=== PATIENT | male | born 1940 | race Caucasian/White ===

== ENCOUNTER → 2017-08-05 11:17 | Outpatient (CLI) | payer MEDICARE, MEDICAID, SELFPAY ==
[2017-08-05 12:51] LABS: Hemoglobin A1c 6.7 % (4.2-6.3)
[2017-08-05 12:56] LABS: Anion Gap 10 (5-15); BUN 19 mg/dL (7-18); BUN/Creat Ratio 17.9 RATIO (10-20); Chloride 107 mmol/L (98-107); Creatinine, Serum 1.06 mg/dL (0.70-1.30); EST Glomerular Filtration Rate 72 mL/min (>60); Est Glom Filt Rate - Afr Amer 87 mL/min (>60); Glucose 141 mg/dL (70-110); Potassium 4.1 mmol/L (3.5-5.1); Sodium Level 143 mmol/L (136-145); Thyroid Stim Hormone (TSH) 1.76 uIU/mL (0.358-3.74)
== END ==
PROVIDERS: Family Provider Family Medicine; PCP Family Medicine; Visit Provider Family Medicine
DX: E11.9 Type 2 diabetes mellitus without complications (principal); I10 Essential (primary) hypertension; R00.0 Tachycardia, unspecified
CPT/HCPCS: 36415; 80048; 83036; 84439; 84443

== ENCOUNTER → 2017-08-09 10:21 | Outpatient (CLI) | payer MEDICARE, MEDICAID, SELFPAY ==
[2017-07-11 19:00] VITALS: BP 124/63
[2017-08-01 09:47] VITALS: BP 114/76; BMI 32.5
--- NOTE | 2017-08-09 10:26 | RAD_ITS ---
STUDY: X-RAY - PELVIS AND RIGHT HIP REASON FOR EXAM: Male, 77 years old. Right hip pain following multiple falls. TECHNIQUE: Radiological exam, hip, unilateral, with pelvis when performed; 2 or 3 views. COMPARISON: None. FINDINGS: There is a non-specific bowel gas pattern. There are atherosclerotic vascular calcifications of the pelvic arteries. There are multiple calcified phleboliths. Normal bilateral iliac wings, sacroiliac joints and visualized sacrum. Normal bilateral superior and inferior pubic rami. Normal pubic symphysis. Normal bilateral ischial tuberosities. Normal visualized femoral head. Normal acetabulum. Normal hip joint. Prior laminectomy and fusion at the L4-L5 and L5-S1 levels. RAD/Hip 2-3 Views with Pelvis IMPRESSION: No acute abnormality is seen. Electronically Signed: Kenneth Vazquez MD at 15:52 EST Tel [phone], Service support ,
== END ==
PROVIDERS: Family Provider Family Medicine; PCP Family Medicine; Visit Provider Family Medicine
DX: M25.551 Pain in right hip (principal); R29.6 Repeated falls
CPT/HCPCS: 73502

== ENCOUNTER → 2017-10-03 12:47 | Outpatient (CLI) | payer MEDICARE, MEDICAID, SELFPAY ==
[2017-10-03 16:14] LABS: ALB/GLOB Ratio 0.9 RATIO (0.9-2.4); AST(SGOT) 15 U/L (15-37); Alanine Aminotransfer ALT/SGPT 28 U/L (16-61); Albumin, Serum 3.5 g/dL (3.2-5.0); Alkaline Phosphatase 82 U/L (45-117); Anion Gap 7 (5-15); BUN 18 mg/dL (7-18); BUN/Creat Ratio 16.7 RATIO (10-20); Calcium,Total 8.5 mg/dL (8.5-10.1); Chloride 104 mmol/L (98-107); Cholesterol 61 mg/dL (200); Creatinine, Serum 1.08 mg/dL (0.70-1.30); EST Glomerular Filtration Rate 70 mL/min (>60); Est Glom Filt Rate - Afr Amer 85 mL/min (>60); Globulin 3.9 g/dL (2.2-4.2); Glucose 169 mg/dL (74-106); High Density Lipoprotein 25 mg/dL; Potassium 3.6 mmol/L (3.5-5.1); Protein, Total 7.4 g/dL (6.4-8.2); Sodium Level 139 mmol/L (136-145); Thyroid Stim Hormone (TSH) 1.33 uIU/mL (0.358-3.74); Triglycerides 122 mg/dL; Very Low Density Lipoprotein 24 mg/dL (5-40)
[2017-10-03 16:15] LABS: Absolute Lymphocyte Count 1.82 X10^3/ul (0.83-4.51); Basophil# 0.03 X10^3/uL; Basophil% 0.3 % (0-1); Eosinophil# 0.24 X10^3/uL; Eosinophils% 2.4 % (0-5); Hematocrit 39.2 % (40-54); Hemoglobin 12.5 g/dl (13.0-16.5); Lymphocyte # 1.82 X10^3/ul (4.0); Lymphocyte % 18.4 % (19-41); Mean Corp Hgb Conc 31.9 g/gl (32-36); Mean Corpuscular Hgb 26.5 pg (27.0-32.0); Mean Corpuscular Volume 83.1 fL (80-94); Mean Platelet Vol. 10.1 fl (6.2-12.0); Monocyte# 0.74 X10^3/uL; Monocyte% 7.5 % (0-10); Neutrophil # 7.04 X10^3/uL (2.7-7.7); Neutrophil % 71.1 % (47-70); Platelet Count 271 K/mm3 (150-450); RBC Distribution Width CV 15.3 % (11.6-14.6); RBC Distribution Width SD 46.1 fl (35.1-43.9); Red Blood Count 4.72 M/mm3 (4.6-6.2); White Blood Count 9.9 K/mm3 (4.4-11.0)
[2017-10-03 16:19] LABS: POSITIVE COUNT NO; POSITIVE DIFFERENTIAL NO; POSITIVE MORPHOLOGY NO
[2017-10-04 10:05] LABS: Vitamin D,25 Hydroxy 42.4 ng/mL (29.95-100.01)
== END ==
PROVIDERS: Family Provider Family Medicine Geriatric Medicine; PCP Family Medicine Geriatric Medicine; Visit Provider Nurse Practitioner Family
DX: I48.0 Paroxysmal atrial fibrillation (principal); I25.10 Atherosclerotic heart disease of native coronary artery without angina pectoris; E11.65 Type 2 diabetes mellitus with hyperglycemia; E78.5 Hyperlipidemia, unspecified; I10 Essential (primary) hypertension; R42 Dizziness and giddiness; R53.83 Other fatigue; E55.9 Vitamin D deficiency, unspecified; Z87.891 Personal history of nicotine dependence
CPT/HCPCS: 36415; 80053; 80061; 82306; 84443; 85025; 93225; 93226

== ENCOUNTER → 2017-10-22 06:55 | Outpatient (CLI) | payer MEDICARE, MEDICAID, SELFPAY ==
--- NOTE | 2017-10-22 10:06 | STRESSREP ---
Stress Test Report Date: 10/22/2017 Procedure: Pharmacologic stress nuclear imaging study Indications: Fatigue; CAD; status post PCI; status post CABG; atrial dysrhythmia Consent: Per the patient Procedure: The patient underwent pharmacologic (Regadenoson) evaluation with a peak heart rate of 129 beats per minute (90 predicted maximal heart rate) and a peak blood pressure of 120/82 mmHg. The baseline ECG demonstrated atrial flutter with right bundle branch block pattern. The peak pharmacologic ECG demonstrated no obvious ECG changes. There were no additional cardiac dysrhythmias pretest, during pharmacologic infusion, or recovery. There was no complaint of chest discomfort during pharmacologic infusion or recovery. The examination was discontinued secondary to completion of protocol. Impression: 1. Pharmacologic (Regadenoson) evaluation 2. Peak pharmacologic ECG with continued atrial flutter with right bundle branch block pattern. 3. There were no additional cardiac dysrhythmias pretest, during pharmacologic infusion, or recovery 4. Nuclear images pending Myocardial perfusion imaging study: Technique: The patient was injected with 14.5 millicuries of technetium 99m Cardiolite and subsequently rest SPECT Cardiolite nuclear imaging was obtained in the horizontal long, vertical long, and short axis views. The patient underwent pharmacologic (Regadenoson) evaluation with a peak heart rate of 129 beats per minute (90 % percent predicted maximal heart rate) and a peak blood pressure of 120/82 mmHg. The patient was injected with 45.0 millicuries of technetium 99m Cardiolite and subsequently stress SPECT Cardiolite nuclear imaging was obtained in the horizontal long, vertical long, and short axis views. A gated Cardiolite study at peak stress was obtained. Interpretation: Rest and stress SPECT Cardiolite nuclear imaging status post realignment, normalization, and attenuation correction demonstrate diminished tracer uptake in portions of the basal anteroseptal and inferior septal segments without significant change between rest and stress. There is diminished end systolic thickening and brightening in the aforementioned areas. The gated Cardiolite study demonstrates diminished myocardial thickening and inward wall motion in the aforementioned areas. The reported LVEF is 57 %. Impression: 1. Rest and stress SPECT Cardiolite nuclear imaging demonstrate myocardial perfusion changes appearing compatible with an area of previous myocardial injury/infarction involving portions of the basal anteroseptal and inferior septal segments with no myocardial perfusion changes consider diagnostic for associated stress-induced myocardial ischemia. 2. The gated Cardiolite study reports an LVEF of 57 %. This note was generated with [employer] software. It may contain incorrect words, spelling, and punctuation that were not noted in checking the note before signing.
== END ==
PROVIDERS: Family Provider Family Medicine Geriatric Medicine; PCP Family Medicine Geriatric Medicine; Visit Provider Nurse Practitioner Family
DX: I25.10 Atherosclerotic heart disease of native coronary artery without angina pectoris (principal); R53.83 Other fatigue
CPT/HCPCS: 78452; 93017; A9500; A4216; J2785

== ENCOUNTER → 2017-11-18 06:21 | Outpatient (CLI) | payer MEDICARE, MEDICAID, SELFPAY ==
[2017-11-18 06:50] LABS: 24HR. UA Prot. Total Volume 1775 mL; Urine Protein (24 Hour) 12.9 mg/dL (<11.9)
[2017-11-18 06:52] LABS: 24H Urine Creat. Total Vol. 1.78 L; 24HR. Urine Creatinine 1.77 g/24 HR (0.90-2.10)
[2017-11-18 09:10] LABS: PSA,Total - Annual Screen 1.64 ng/mL (0.00-4.00)
== END ==
PROVIDERS: Family Provider Family Medicine Geriatric Medicine; PCP Family Medicine Geriatric Medicine; Visit Provider Family Medicine Geriatric Medicine
DX: N40.0 Benign prostatic hyperplasia without lower urinary tract symptoms (principal); R80.9 Proteinuria, unspecified
CPT/HCPCS: 36415; 82570; 84153; 84156; G0103

== ENCOUNTER → 2017-12-21 07:13 | Outpatient (CLI) | payer MEDICARE, MEDICAID, SELFPAY ==
[2017-12-21 08:35] LABS: Hematocrit 40.7 % (40-54); Hemoglobin 13.1 g/dl (13.0-16.5); Mean Corp Hgb Conc 32.2 g/gl (32-36); Mean Corpuscular Hgb 26.2 pg (27.0-32.0); Mean Corpuscular Volume 81.4 fL (80-94); Platelet Count 225 K/mm3 (150-450); RBC Distribution Width SD 47.9 fl (35.1-43.9); White Blood Count 8.5 K/mm3 (4.4-11.0)
[2017-12-21 08:36] LABS: Scan Indicated on CBC? Y/N NO
[2017-12-21 09:47] LABS: BNP,B-Type NATRIURETIC PEPTIDE 199.2 pg/mL (0-100)
[2017-12-21 09:50] LABS: Anion Gap 9 (5-15); BUN 17 mg/dL (7-18); BUN/Creat Ratio 19.1 RATIO (10-20); Calcium,Total 8.7 mg/dL (8.5-10.1); Chloride 108 mmol/L (98-107); Creatinine, Serum 0.89 mg/dL (0.70-1.30); EST Glomerular Filtration Rate 88 mL/min (>60); Est Glom Filt Rate - Afr Amer 106 mL/min (>60); Glucose 108 mg/dL (74-106); Sodium Level 143 mmol/L (136-145)
== END ==
PROVIDERS: Family Provider Family Medicine Geriatric Medicine; PCP Family Medicine Geriatric Medicine; Visit Provider Nurse Practitioner Family
DX: I25.10 Atherosclerotic heart disease of native coronary artery without angina pectoris (principal); I48.0 Paroxysmal atrial fibrillation; I10 Essential (primary) hypertension; R06.02 Shortness of breath
CPT/HCPCS: 36415; 80048; 83880; 85027

== ENCOUNTER → 2018-01-16 06:44 | Outpatient (CLI) | payer MEDICARE, MEDICAID, SELFPAY ==
[2018-01-16 07:57] LABS: Hemoglobin A1c 8.2 % (4.2-6.3)
== END ==
PROVIDERS: Family Provider Family Medicine; PCP Family Medicine; Visit Provider Family Medicine
DX: E11.65 Type 2 diabetes mellitus with hyperglycemia (principal)
CPT/HCPCS: 36415; 83036

== ENCOUNTER → 2018-02-05 06:56 | Outpatient (CLI) | payer MEDICARE, MEDICAID, SELFPAY ==
[2018-02-05 07:31] LABS: Hematocrit 40.6 % (40-54); Mean Corpuscular Hgb 26.9 pg (27.0-32.0); Mean Corpuscular Volume 83.9 fL (80-94); Mean Platelet Vol. 9.9 fl (6.2-12.0); Platelet Count 229 K/mm3 (150-450); RBC Distribution Width CV 15.7 % (11.6-14.6); RBC Distribution Width SD 47.6 fl (35.1-43.9); Red Blood Count 4.84 M/mm3 (4.6-6.2); White Blood Count 10.9 K/mm3 (4.4-11.0)
[2018-02-05 07:34] LABS: Scan Indicated on CBC? Y/N NO
[2018-02-05 07:43] LABS: Anion Gap 8 (5-15); BUN 20 mg/dL (7-18); BUN/Creat Ratio 18.3 RATIO (10-20); Calcium,Total 8.7 mg/dL (8.5-10.1); Chloride 106 mmol/L (98-107); Creatinine, Serum 1.09 mg/dL (0.70-1.30); EST Glomerular Filtration Rate 69 mL/min (>60); Est Glom Filt Rate - Afr Amer 84 mL/min (>60); Glucose 178 mg/dL (74-106); Potassium 3.9 mmol/L (3.5-5.1); Sodium Level 141 mmol/L (136-145)
[2018-02-05 07:50] LABS: International Normalized Ratio 1.4; Prothrombin Time (Protime)PT. 17.2 SECONDS (11.7-14.9)
== END ==
PROVIDERS: Family Provider Family Medicine; PCP Family Medicine; Visit Provider Internal Medicine Cardiovascular Disease
DX: I48.2 Chronic atrial fibrillation (principal); I10 Essential (primary) hypertension
CPT/HCPCS: 36415; 80048; 85027; 85610

== ENCOUNTER → 2018-04-19 06:50 | Outpatient (CLI) | payer MEDICARE, MEDICAID, SELFPAY ==
[2018-04-19 09:13] LABS: Anion Gap 9 (5-15); BUN 20 mg/dL (7-18); BUN/Creat Ratio 19.8 RATIO (10-20); Calcium,Total 8.8 mg/dL (8.5-10.1); Chloride 104 mmol/L (98-107); Creatinine, Serum 1.01 mg/dL (0.70-1.30); EST Glomerular Filtration Rate 76 mL/min (>60); Est Glom Filt Rate - Afr Amer 92 mL/min (>60); Glucose 134 mg/dL (74-106); Potassium 4.1 mmol/L (3.5-5.1); Sodium Level 141 mmol/L (136-145)
[2018-04-19 09:20] LABS: Hemoglobin A1c 7.7 % (4.2-6.3)
== END ==
PROVIDERS: Family Provider Family Medicine; PCP Family Medicine
DX: E11.65 Type 2 diabetes mellitus with hyperglycemia (principal); I48.2 Chronic atrial fibrillation
CPT/HCPCS: 36415; 80048; 83036

== ENCOUNTER → 2018-08-29 07:54 | Outpatient (CLI) | payer MEDICARE, MEDICAID, SELFPAY ==
[2018-08-28 14:56] VITALS: BMI 34.0
[2018-08-29 10:07] LABS: D-Dimer Quantitative (DVT/PE) 0.42 FEU/ug/m (0.27-0.49)
== END ==
PROVIDERS: Family Provider Family Medicine; PCP Family Medicine; Visit Provider Family Medicine
DX: M79.89 Other specified soft tissue disorders (principal)
CPT/HCPCS: 36415; 85379

== ENCOUNTER → 2018-09-02 08:37 | Outpatient (CLI) | payer MEDICARE, MEDICAID, SELFPAY ==
[2018-08-28 14:56] VITALS: BMI 34.0
--- NOTE | 2018-09-02 08:48 | VDLE_ITS ---
Reason For Study: LEG SWELLING RIGHT LEFT CFV is compressible, spontaneous, phasic, GSV is normal. competent and demonstrates normal CFV is compressible, spontaneous, phasic, augmentation. competent, and demonstrates normal Procedure augmentation. Exam performed in department. FV is compressible, spontaneous, phasic, A preliminary report was called and/or faxed competent and demonstrates normal to Dr. Monty Cerna. augmentation. POP V is compressible, spontaneous, phasic, competent and demonstrates normal augmentation. T/P Trunk is compressible. PTV is compressible. LT PerV is compressible. Interpretation Summary There is no evidence of left lower extremity deep vein thrombosis. Left greater saphenous vein appears patent and compressible segmentally. Normal flow patterns right common femoral vein Ordering Physician: Shahzad Cerna Referring Physician: Shahzad Cerna Performed By: Kianna Shah RVT
== END ==
PROVIDERS: Family Provider Family Medicine; PCP Family Medicine; Referring Provider Family Medicine; Visit Provider Family Medicine
DX: R06.02 Shortness of breath (principal); M79.89 Other specified soft tissue disorders
CPT/HCPCS: 93971

== ENCOUNTER → 2018-09-23 06:45 | Outpatient (CLI) | payer MEDICARE, MEDICAID, SELFPAY ==
[2018-09-08 09:30] VITALS: BMI 34.0
[2018-09-23 07:58] LABS: Anion Gap 5 (5-15); BUN 17 mg/dL (7-18); BUN/Creat Ratio 15.7 RATIO (10-20); Calcium,Total 8.5 mg/dL (8.5-10.1); Chloride 108 mmol/L (98-107); Creatinine, Serum 1.08 mg/dL (0.70-1.30); EST Glomerular Filtration Rate 70 mL/min (>60); Est Glom Filt Rate - Afr Amer 85 mL/min (>60); Glucose 184 mg/dL (74-106); Potassium 3.9 mmol/L (3.5-5.1); Sodium Level 140 mmol/L (136-145)
== END ==
PROVIDERS: Family Provider Family Medicine; PCP Family Medicine; Referring Provider Internal Medicine Cardiovascular Disease; Visit Provider Internal Medicine Cardiovascular Disease
DX: R60.0 Localized edema (principal)
CPT/HCPCS: 36415; 80048

== ENCOUNTER 2019-01-08 20:37 | Inpatient (IN) | payer MEDICARE, MEDICAID, SELFPAY ==
[2018-10-14 14:40] VITALS: BMI 34.0
[2019-01-08 20:38] VITALS: BP 116/49; PULSE 79; RESP 16; TEMP 36.5; O2SAT 95; BMI 33.6
[2019-01-08 22:01] VITALS: BP 114/49; PULSE 68; RESP 9; TEMP 36.5; O2SAT 93
--- NOTE | 2019-01-08 22:10 | RAD_ITS ---
STUDY: X-RAY CHEST REASON FOR EXAM: Male, 78 years old. Short of breath and dizziness. TECHNIQUE: Single AP portable view of the chest. COMPARISON: 07/11/2017. FINDINGS: The lungs are clear and expanded. There is no demonstrated pleural abnormality. Sternal cerclage wires and vascular clips are present from a prior sternotomy and coronary artery bypass graft procedure (CABG). Normal mediastinum and margarita. Normal visualized pulmonary arteries. Normal visualized aortic arch and descending thoracic aorta. Normal visualized thoracic spine. Normal visualized ribs, clavicles, and shoulders. There is no demonstrated abnormality of the visualized soft tissue structures of the upper abdomen. RAD/Chest 1 View (Portable) IMPRESSION: No acute chest disease. Electronically Signed: Duane Woody MD at 22:50 EDT , Service support ,
--- NOTE | 2019-01-08 22:10 | CT_ITS ---
STUDY: CT BRAIN WITHOUT CONTRAST REASON FOR EXAM: Male, 78 years old. Weakness. Dizziness. RADIATION DOSAGE (If Supplied By Facility): CTDIvol = ( 44.99 ) mGy, DLP = ( 863.60 ) mGycm TECHNIQUE: Transaxial CT imaging of the brain was performed without administration of intravenous contrast material. Individualized dose optimization techniques were used for this CT. COMPARISON: 07/11/2017 FINDINGS: There is no definite acute abnormality. There is diffuse mild symmetric atrophy. There is atrophy of the posterior fossa structures. Probable arachnoid cyst in the left posterior fossa. There is diffuse small vessel ischemic disease of the white matter. There are stable bilateral lacunar infarcts. There is no definite acute infarct. There is no bleed. There is no gross mass, mass effect, or midline shift. There is no acute abnormality of the skull. No fractures. Grossly normal orbits. Grossly normal sinuses. CT/Brain/Head without Contrast IMPRESSION: Chronic age related changes and atrophy, old infarcts. No acute abnormality. Electronically Signed: Duane Woody MD at 22:44 EDT , Service support ,
--- NOTE | 2019-01-08 22:11 | EKG12_ITS ---
Test Reason : DIZZINESS Blood Pressure : / mmHG Vent. Rate : 068 BPM Atrial Rate : 068 BPM P-R Int : 210 ms QRS Dur : 162 ms QT Int : 522 ms P-R-T Axes : -04 -08 002 degrees QTc Int : 555 ms Sinus rhythm with 1st degree A-V block Right bundle branch block Abnormal ECG Confirmed by NAS TRIPP, JONAH ([id number]), director funds development THIERNO TUCKER ([id number]) on 01/12/2019 1:36:21 PM Referred By: Rishi Hilario Confirmed By:JONAH LOVELL MD
[2019-01-08 22:27] LABS: Absolute Lymphocyte Count 0.44 X10^3/ul (0.83-4.51); Absolute Neutrophil Count 11.2 X10^3/uL (2.0-7.7); Basophil# 0.01 X10^3/uL; Basophil% 0.1 % (0-1); Hemoglobin 13.7 g/dl (13.0-16.5); Lymphocyte # 0.44 X10^3/ul (4.0); Lymphocyte % 3.7 % (19-41); Mean Corp Hgb Conc 34.3 g/gl (32-36); Mean Corpuscular Hgb 28.5 pg (27.0-32.0); Mean Corpuscular Volume 83.2 fL (80-94); Mean Platelet Vol. 9.6 fl (6.2-12.0); Monocyte# 0.36 X10^3/uL; Neutrophil # 11.19 X10^3/uL (2.7-7.7); Platelet Count 151 K/mm3 (150-450); RBC Distribution Width CV 13.6 % (11.6-14.6); RBC Distribution Width SD 41.2 fl (35.1-43.9); Red Blood Count 4.81 M/mm3 (4.6-6.2)
[2019-01-08 22:29] LABS: International Normalized Ratio 1.2; Prothrombin Time (Protime)PT. 14.9 SECONDS (11.7-14.9)
[2019-01-08 22:30] LABS: Differential Indicated SCAN CRITERIA MET; POSITIVE COUNT NO; POSITIVE DIFFERENTIAL YES; POSITIVE MORPHOLOGY NO; Partial Thromboplast Time 32.9 Seconds (24.1-36.2)
[2019-01-08 22:37] LABS: AST(SGOT) 20 U/L (15-37); Alanine Aminotransfer ALT/SGPT 23 U/L (16-61); Albumin, Serum 3.4 g/dL (3.2-5.0); Alkaline Phosphatase 68 U/L (45-117); Anion Gap 9 (5-15); BUN 22 mg/dL (7-18); BUN/Creat Ratio 12.6 RATIO (10-20); Calcium,Total 8.4 mg/dL (8.5-10.1); Chloride 101 mmol/L (98-107); Creatinine, Serum 1.74 mg/dL (0.70-1.30); EST Glomerular Filtration Rate 40 mL/min (>60); Est Glom Filt Rate - Afr Amer 49 mL/min (>60); Estimated Creatinine Clearance 34.42 ml/min; Globulin 3.4 g/dL (2.2-4.2); Glucose 218 mg/dL (74-106); Potassium 3.6 mmol/L (3.5-5.1); Protein, Total 6.8 g/dL (6.4-8.2); Sodium Level 130 mmol/L (136-145)
[2019-01-08 22:46] LABS: Differential Comment SCANNED
[2019-01-08 23:46] VITALS: BP 105/52; PULSE 68; RESP 18; O2SAT 95
[2019-01-08 23:47] VITALS: BP 105/52; PULSE 68; RESP 18; TEMP 36.5; O2SAT 95
[2019-01-09] VITALS (17 sets, daily range): BP systolic 127–165; BP diastolic 56–75; PULSE 68–147; RESP 16–20; TEMP 36.5–37.9; O2SAT 91–97; BMI 30.4
--- NOTE | 2019-01-09 00:10 | ED.DCSUM_ITS ---
- ER Visit Summary Date of Service: 01/09/19 Chief Complaint: Weakness History of Present Illness: The patient is a 78 M who presents with general weakness and lightheadedness that began yesterday. Patient states he feels weak and is having difficulty walking due to the weakness. Patient denies any focal weakness. Patient admits to some diarrhea. Patient also admits to some chronic back pain. Patient states nothing makes his dizziness better or worse. Patient denies any chest pain or shortness of breath. Patient denies any nausea or vomiting. Physical Examination: Vital signs are stable. Patient is afebrile. Patient is in no acute distress. [place] is pink and moist. Neck is supple. Trachea is midline. There is no JVD noted. Heart was regular rate and rhythm. Lungs are clear and equal bilaterally. Abdomen is soft. Bowel sounds are normal. There is no tenderness. Extremities are intact. There is 1+ edema of the lower extremities bilaterally. Cranial nerves II through XII are intact. There are no focal motor or sensory deficits noted. Test Results: EKG showed normal sinus rhythm with first-degree AV block. There is a right bundle branch block pattern noted. Prior EKG dated 07/13/2017 showed atrial fibrillation with a right bundle branch block. Other than the change from atrial fibrillation to the normal sinus rhythm there are no changes compared to previous EKG. Portable chest x-ray was obtained. There is no acute cardiopulmonary process. CT scan of the brain was obtained. There is no acute abnormality. There are chronic changes noted. CBC shows a mild leukocytosis of 12.0. Comprehensive metabolic profile showed a sodium of 130. Creatinine was 1.74 which is increased from previous result of 1.08 on 09/23/2018. Glucose was elevated at 218. Emergency Department Course and Treatment: Patient was given IV fluids here. Patient was feeling a little bit better on reevaluation. Patient was still feeling weak in his lower extremities. Case was discussed with the hospitalist. Patient will be admitted to the hospital. Disposition: Admit to hospital Impression: 1. Acute kidney injury 2. General weakness This note was generated with [employer] software. It may contain incorrect words, spelling, and punctuation that were not noted in review of the chart prior to signing ED Disposition - Plan for ED Patient: Disposition: Acute Care Hospital [facility] Diagnosis: Acute kidney injury, General weakness Referrals: Shahzad Cerna DO [Primary Care Provider] -
[2019-01-09 00:34] LABS: Bacteria 0 SEEN /hpf (None Seen); Mucous, Urine 0 SEEN /hpf (<or=2+)
[2019-01-09 00:35] LABS: Color, Urine Yellow (Yellow); Glucose, Dipstick 50 mg/dl (Normal); Ketone-Dipstick 5 mg/dl (Negative); Leukocyte Esterase-Dipstick 100 /ul (Negative); Nitrite-Dipstick Negative (Negative); Occult Blood-Urine 10 /ul (Negative); Protein-Dipstick 100 mg/dl (Negative); Urine Clarity Sl. Cloudy (Clear); Urine Urobilinogen 4 mg/dl (Normal)
--- NOTE | 2019-01-09 00:35 | ED.RN ---
pt urinated on his own after water was given, no need for straight cath.
[2019-01-09 00:39] LABS: Urine Bilirubin Dipstick 3 mg/dL (Negative)
[2019-01-09 00:44] LABS: Hyaline Cast 25-50 SEEN /lpf (0-5); Red Blood Cells-Urine 0-5 SEEN /hpf (0-5); Squamous Epithelial Cells - UA 10-25 SEEN /hpf (0-5); White Blood Cells 0-5 SEEN /hpf (0-5)
[2019-01-09 00:45] LABS: Coarse Granular Cast 0-5 SEEN /lpf (0-5 /lpf)
[2019-01-09] MEDS: 0.9% Normal Saline 1,000 ML 1000 ML IV (00:47)
--- NOTE | 2019-01-09 00:55 | HP.PCM_ITS ---
Problem List (1) Acute kidney injury Status: Acute History of Present Illness Date of Admission: 01/09/19 Chief Complaint: weakness The patient is a 78 year old M with a significant history of TIA; BPH; essential hypertension; former tobacco abuse; proximal A. fib; CAD s/p CABG and stent; diabetes who presented to the emergency department with a 2-day history of weakness. Associated with symptoms is lightheadedness; malaise and multiple falls. Per his family patient fell 2 times on the day of presentation. Also, patient had multiple loose stools on the day of presentation. Patient reports left side abdominal pain. At the emergency department he was found to have a severe elevation of his creatinine; hyponatremia; and abnormal urinalysis. Of note his Lasix regimen was increased not too long ago. 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) Presence of stent in coronary artery (Chronic ~09/2013) PTCA/Stent to prox RCA and PTCA to PDA 11/30/2007; PTCA/Stent to mid RCA and mid LAD and second diagonal 02/25/2008; PTCA/PIETRO first DX, sequential SVG to OM1 and OM2 04/14/2008; PTCA/Stent to LXC AV groove branch and OM1 09/2013; Hx of CABG (Chronic ~12/22/07) DARNELL to LAD, SVG to Diag, sequential SVG to OM1 and OM2 12/22/2007; Mixed hyperlipidemia (Chronic) Essential hypertension (Chronic) Insomnia (Chronic) Candidiasis of scrotum (Chronic) Constipation (Chronic) Atherosclerosis of [place] coronary artery of [place] heart without angina pectoris (Chronic) PTCA/Stent to prox RCA and PTCA to PDA 11/30/2007; PTCA/Stent to mid RCA and mid LAD and second diagonal 02/25/2008; PTCA/PIETRO first DX, sequential SVG to OM1 and OM2 04/14/2008; PTCA/Stent to LXC AV groove branch and OM1 09/2013; CABG with DARNELL to LAD, SVG to diag, sequential SVG to OM1 and OM2 12/22/2007; Paroxysmal atrial fibrillation (Chronic) Type II diabetes mellitus, uncontrolled (Chronic) History of tobacco use (Chronic) 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) Medical History: Medical History (Last Reviewed 01/09/19 @ 06:17 by Rishi Hilario MD) Atherosclerosis of coronary artery bypass graft without angina pectoris (Chronic) I25.810 Presence of stent in coronary artery (Chronic) Onset Date: ~09/2013 Z95.5 PTCA/Stent to prox RCA and PTCA to PDA 11/30/2007; PTCA/Stent to mid RCA and mid LAD and second diagonal 02/25/2008; PTCA/PIETRO first DX, sequential SVG to OM1 and OM2 04/14/2008; PTCA/Stent to LXC AV groove branch and OM1 09/2013; 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) I25.2 Mixed hyperlipidemia (Chronic) E78.2 Essential hypertension (Chronic) I10 Atherosclerosis of [place] coronary artery of [place] heart without angina pectoris (Chronic) I25.10 PTCA/Stent to prox RCA and PTCA to PDA 11/30/2007; PTCA/Stent to mid RCA and mid LAD and second diagonal 02/25/2008; PTCA/PIETRO first DX, sequential SVG to OM1 and OM2 04/14/2008; PTCA/Stent to LXC AV groove branch and OM1 09/2013; CABG with DARNELL to LAD, SVG to diag, sequential SVG to OM1 and OM2 12/22/2007; Paroxysmal atrial fibrillation (Chronic) I48.0 Type II diabetes mellitus, uncontrolled (Chronic) E11.65 History of tobacco use (Chronic) Z87.891 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) N40.1, N13.8 Acute ischemic stroke (Acute) I63.9 Borderline elevated troponin (Acute) Left-sided weakness (Acute) M62.81 GERD (gastroesophageal reflux disease) K21.9 HLD (hyperlipidemia) (Inactive) E78.5 HTN (hypertension) (Inactive) I10 Allergies iodine Allergy (Verified 01/08/19 20:41) Hives tramadol Allergy (Verified 01/08/19 20:41) Other Home Medications: Ambulatory Orders Medication Instructions Recorded Hydrocodone Bitart/Apap 5-325 1 tab PO BID PRN PRN 07/04/13 [[place] 5/325] aspirin 81 mg tablet,delayed 81 mg PO QDAY 07/24/17 release kyxybyvcmzzw-zmbkfbly-qpqnzf tablet 1 tab PO QDAY 07/24/17 nitroglycerin 0.4 mg sublingual 0.4 mg SUBLINGUAL Q5M PRN #25 tab 01/23/18 tablet pen needle, diabetic 30 gauge x See Dose Instructions .ROUTE 03/11/18 5/ .MEDSUPPLY #100 ea insulin glargine (U-100) 100 44 unit SC QHS #15 ml 04/15/18 unit/mL (3 mL) subcutaneous pen Compression Stockings See Rx Instructions .ROUTE 09/08/18 .COMPLEX #1 clobetasol 0.05 % topical gel 1 applic TOPICAL DAILY PRN g 09/08/18 miscellaneous medical supply misc See Dose Instructions .ROUTE 09/08/18 .MEDSUPPLY #1 ea atorvastatin 80 mg tablet 80 mg PO QHS #90 tab 10/19/18 furosemide 20 mg tablet 20 mg PO .COMPLEX #240 tab 11/12/18 lansoprazole 30 mg capsule,delayed 30 mg PO DAILY #90 cap 11/12/18 release blood sugar diagnostic strips See Dose Instructions .ROUTE 11/13/18 .MEDSUPPLY #300 ea glimepiride 2 mg tablet 4 mg PO DAILY #90 tab 11/14/18 tamsulosin 0.4 mg capsule 0.4 mg PO QHS #90 cap 11/14/18 famotidine 40 mg tablet See Rx Instructions PO QHS #90 tab 12/02/18 pen needle, diabetic 32 gauge x See Rx Instructions .ROUTE 01/07/1907/13 .MEDSUPPLY #100 ea Metoprolol Tartrate [Lopressor 100 mg PO BID 01/08/19 (beta adelfo)] Diltiazem HCl [Cardizem Cd] 120 mg PO BID 01/09/19 Isosorbide Mononitrate [Imdur] 30 mg PO DAILY 01/09/19 Metoprolol Tartrate [Lopressor 50 mg PO BID 01/09/19 (beta adelfo)] Trazodone HCl 150 mg PO DAILY 01/09/19 Valsartan [Diovan] 160 mg PO DAILY 01/09/19 Surgical History: Surgical History (Last Reviewed 01/09/19 @ 06:17 by Rishi Hilario MD) Presence of Watchman left atrial appendage closure device (Resolved) Onset Date: ~03/04/18 Z95.818 Hx of CABG (Chronic) Onset Date: ~12/22/07 Z95.1 DARNELL to LAD, SVG to Diag, sequential SVG to OM1 and OM2 12/22/2007; History of back surgery Z98.890 History of cholecystectomy Z90.49 H/O carotid endarterectomy Z98.890 Right Presence of coronary angioplasty implant and graft Onset Date: ~09/2013 Z95.5 PTCA/Stent to prox RCA and PTCA to PDA 11/30/2007; PTCA/Stent to mid RCA and mid LAD and second diagonal 02/25/2008; PTCA/PIETRO first DX, sequential SVG to OM1 and OM2 04/14/2008; PTCA/Stent to LXC AV groove branch and OM1 09/2013; History of PTCA Z98.61 PTCA/Stent to prox RCA and PTCA to PDA 11/30/2007; PTCA/Stent to mid RCA and mid LAD and second diagonal 02/25/2008; PTCA/PIETRO first DX, sequential SVG to OM1 and OM2 04/14/2008; PTCA/Stent to LXC AV groove branch and OM1 09/2013; Surgical History: cholecystectomy, coronary bypass surgery, herniorrhaphy, - - Back surgeries. Psychiatric History: No pertinent psych hx Smoking Status: Former smoker Tobacco Use: Cigars - *Family History Maternal Family History: Family History (Last Reviewed 01/09/19 @ 06:17 by Risih Hilario MD) Mother Cancer Sister Brain aneurysm Sister Brain aneurysm History Items: Cancer - Brain Paternal Family History: Family History (Last Reviewed 01/09/19 @ 06:17 by Rishi Hilario MD) Mother Cancer Sister Brain aneurysm Sister Brain aneurysm History Items: Cancer Review of Systems Constitutional: Reports: Malaise, Weakness, Fatigue HEENT: Denies: Head Aches, Sinus Congestion, Sinus Drainage Cardiovascular: Denies: Chest Pain, Palpitations Respiratory: Denies: Cough, Shortness of breath at rest, Sputum production Gastrointestinal: Reports: Abdominal Pain, Diarrhea, Nausea, Vomiting Genitourinary: Denies: Dysuria Musculoskeletal: Reports: Joint Pain. Denies: Joint Tenderness Skin: Denies: Rash, Wounds Neurological: Denies: Numbness, Tingling, Focal weakness Psychiatric: Denies: Homicidal Ideations, Suicidal Ideations Hematologic/ Lymphatic: Denies: Easy Bruising, Easy Bleeding VTE Information - Inpt Only VTE Present on Admission: No VTE Mechan Device Prophylaxis: None VTE Pharm Prophylaxis ordered?: Yes Patient Problems: Active and Suspected Problems (Last Reviewed 01/09/19 @ 02:32 by Rishi Hilario MD) Acute kidney injury (Acute) General weakness (Acute) - Physical Exam General: Alert, Oriented x3, Cooperative HEENT: Atraumatic, PERRLA, EOMI, Normocephalic Neck: Supple, No JVD, Negative Carotid Bruits Lungs: Clear to auscultation, Normal air movement Cardiovascular: Regular rate, No murmurs Abdomen: Bowel Sounds Present, Soft, Non Tender Extremities: No edema, Capillary Refill Less than 3 Seconds Skin: No rashes, No breakdown Musculoskeletal: No Tenderness to Palpation of Joints or Extremities Neurological: Cranial nerves II-XII grossly intact Psych/Mental Status: Normal Affect, Appropriate Vital Signs Temp Pulse Resp BP Pulse Ox 97.7 F L 72 19 H 165/63 H 97 01/09/19 00:36 01/09/19 00:36 01/09/19 00:36 01/09/19 00:36 01/09/19 00:36 Oxygen Delivery Method Room Air Weight: 103.419 kg Body Mass Index (BMI) 33.6 Finger Stick Blood Glucose 195 Laboratory Tests Past 24 Hrs 01/08/19 01/08/19 01/08/19 22:10 22:10 22:10 WBC 12.0 H RBC 4.81 Hgb 13.7 Hct 40.0 MCV 83.2 MCH 28.5 MCHC 34.3 RDW 13.6 RDW Differential 41.2 Plt Count 151 MPV 9.6 Immature Gran % (Auto) 0.200 Neut % (Auto) 93.0 H Lymph % (Auto) 3.7 L [place] % (Auto) 3.0 Eos % (Auto) 0.0 Baso % (Auto) 0.1 Absolute Neuts (auto) 11.2 H Absolute Lymphs (auto) 0.44 L Total Counted Not Reportable Differential Comment SCANNED PT 14.9 INR 1.2 APTT 32.9 Sodium 130 L Potassium 3.6 Chloride 101 Carbon Dioxide 20.0 L Anion Gap 9 BUN 22 H Creatinine 1.74 H Estim Creat Clear Calc 34.42 Est GFR (MDRD) Af Amer 49 L Est GFR (MDRD) Non-Af 40 L BUN/Creatinine Ratio 12.6 Glucose 218 H Calcium 8.4 L Total Bilirubin 0.80 AST 20 ALT 23 Alkaline Phosphatase 68 Troponin I 0.020 Total Protein 6.8 Albumin 3.4 Globulin 3.4 Albumin/Globulin Ratio 1.0 Urine Color Urine Clarity Urine pH Ur Specific [place] Urine Protein Urine Glucose (UA) Urine Ketones Urine Occult Blood Urine Nitrite Urine Bilirubin Urine Urobilinogen Ur Leukocyte Esterase Urine RBC Urine WBC Ur Squamous Epith Cells Urine Bacteria Hyaline Casts Coarse Granular Casts Urine Mucus 01/09/19 00:25 WBC RBC Hgb Hct MCV MCH MCHC RDW RDW Differential Plt Count MPV Immature Gran % (Auto) Neut % (Auto) Lymph % (Auto) [place] % (Auto) Eos % (Auto) Baso % (Auto) Absolute Neuts (auto) Absolute Lymphs (auto) Total Counted Differential Comment PT INR APTT Sodium Potassium Chloride Carbon Dioxide Anion Gap BUN Creatinine Estim Creat Clear Calc Est GFR (MDRD) Af Amer Est GFR (MDRD) Non-Af BUN/Creatinine Ratio Glucose Calcium Total Bilirubin AST ALT Alkaline Phosphatase Troponin I Total Protein Albumin Globulin Albumin/Globulin Ratio Urine Color Yellow Urine Clarity Sl. Cloudy Urine pH 5.0 Ur Specific [place] 1.030 Urine Protein 100 H Urine Glucose (UA) 50 H Urine Ketones 5 H Urine Occult Blood 10 H Urine Nitrite Negative Urine Bilirubin 3 H Urine Urobilinogen 4 H Ur Leukocyte Esterase 100 H Urine RBC 0-5 SEEN Urine WBC 0-5 SEEN Ur Squamous Epith Cells 10-25 SEEN Urine Bacteria 0 SEEN Hyaline Casts 25-50 SEEN Coarse Granular Casts 0-5 SEEN Urine Mucus 0 SEEN Assessment/Plan All Active Problems (Last Reviewed 01/09/19 @ 02:32 by Rishi Hilario MD) Acute kidney injury (Acute) General weakness (Acute) Presence of Watchman left atrial appendage closure device (Resolved ~03/04/18) 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) SOB (shortness of breath) (Acute) Acute ischemic stroke (Acute) Borderline elevated troponin (Acute) Left-sided weakness (Acute) The patient is a 78 year old M with a significant history of TIA; BPH; essential hypertension; former tobacco abuse; proximal A. fib; CAD s/p CABG and stent; diabetes who presented to the emergency department with a 2-day history of weakness; lightheadedness; malaise; multiple falls diarrhea and was found to have abnormal urinalysis and a severe elevation in his creatinine consistent with ILANA. ILANA On presentation his creatinine was 1.74 Review of old records shows baseline creatinine of around 1.0 His BUN was 22. BUN over creatinine is 12.6. Likely intrinsic renal from progression of prerenal. We will hydrate with IV fluids Trend BMP Avoid nephrotoxics. Hold Lasix and losartan. Urinary studies ordered Ultrasound of bladder and kidneys. Probably urinary tract infection Patient with abnormal urinalysis without any urinary symptoms. However because of his acute disease will start patient on ceftriaxone. Acute gastroenteritis Patient with diarrhea and right-sided abdominal pain. Will get a stool studies for enteric pathogen panel and C. difficile. Hyponatremia On presentation his sodium was 130 Review of records shows previous normal sodium. Likely secondary to diuretic use. IV hydration as above. Trend BMP. Gentle increase in sodium to prevent central pontine melanosis. Trend BMP Generalized weakness with falls Likely secondary to debility PT and OT to work with patient to make recommendations. Of note patient's family does not patient to go to rehab. Chronic pain Home [place] continued Diabetes mellitus on presentation his blood glucose was not within goal. Lantus and Amaryl continued Correction scale insulin added. Hypertension On presentation his blood pressure was not within goal Cardizem, Imdur, metoprolol continued. BPH Flomax continued Depression Trazodone continued CAD status post stent Aspirin and Lipitor continued DVT prophylaxis Subcutaneous Lovenox ordered Code Visit Inpatient E&M: 79409 Init Hosp L3
[2019-01-09] MEDS: Ondansetron ODT 4 MG Tablet PO (01:36)
--- NOTE | 2019-01-09 02:48 | US_ITS ---
STUDY: RENAL ULTRASOUND - COMPLETE REASON FOR EXAM: Male, 78 years old. Acute renal failure. TECHNIQUE: Ultrasound evaluation of the kidneys was performed with real-time and static schroeder-scale imaging. COMPARISON: CT scan 07/11/17 FINDINGS: RIGHT KIDNEY: Normal location of the right kidney, which is normal in size. The right kidney measures 11.9 x 7.5 x 5.0 cm. There is a normal cortex of the right kidney. The renal cortex measures 1.1 cm. There is no right renal mass or cyst. There is a 1.8 cm cyst. There is no right hydronephrosis. DISTAL RIGHT URETER: There is non-visualization of the distal right ureter. There is no demonstrated right ureterovesical junction calculus. There is no demonstrated right ureteral jet. LEFT KIDNEY: Normal location of the left kidney, which is normal in size. The left kidney measures 2.7 x 6.2 x 5.0 cm. There is a normal cortex of the left kidney. The renal cortex measures 1.7 cm. There is a 6.9 cm simple cyst. There are no left renal calculi. There is no left hydronephrosis. DISTAL LEFT URETER: There is non-visualization of the distal left ureter. There is no demonstrated left ureterovesical junction calculus. There is a visualized left ureteral jet. BLADDER: The urinary bladder has a volume of 29.7 ml. There is a normal wall thickness of the distended urinary bladder. There is no demonstrated mass within the urinary bladder. There are no demonstrated bladder calculi. US/Kidney and Bladder IMPRESSION: No acute abnormalities. Renal cysts. Electronically Signed: Duane Woody MD at 16:08 EDT , Service support ,
[2019-01-09 03:22] LABS: Urine Sodium 42 mmol/L (Not Establ.)
[2019-01-09] MEDS: 0.9% Normal Saline 1,000 ML 100 ML IV ×2 (03:23→15:27)
[2019-01-09 03:32] LABS: Osmolality, Urine 494 mOsm/KG
[2019-01-09] MEDS: Ceftriaxone 1 GM/50 ML BAG IV (03:46)
[2019-01-09] MEDS: HYDROcodone Bitartrate/Apap 5/325 Tablet PO (03:47)
[2019-01-09 04:00] LABS: Bedside Glucose 196 mg/dL (70-110)
[2019-01-09] MEDS: Insulin Lispro 100 UNIT/ML INSULN.PEN SC ×4 (06:41→22:57)
[2019-01-09 07:11] LABS: Bedside Glucose 172 mg/dL (70-110)
--- NOTE | 2019-01-09 07:17 | PN_ITS ---
Patient Problems: Active and Suspected Problems (Last Reviewed 01/09/19 @ 06:17 by Rishi Hilario MD) Acute kidney injury (Acute) General weakness (Acute) Subjective: The patient is a 78-year-old male with a past medical history of TIAs, BPH, hypertension, former tobacco dependence, paroxysmal A. fib, CAD with history of CABG and PCI, diabetes mellitus type 2, hyperlipidemia and lumbar Spinal stenosis with neurogenic claudication who presented to the ED at [facility] on 01/09/2019 complaining of weakness, lightheadedness, malaise and multiple falls. He also complained of multiple loose stools and abdominal pain on the day of presentation. Vital signs at presentation to the emergency room were temperature 97.7, pulse rate 79, blood pressure 116/49, respiratory rate 16 and he was 95% saturated on room air. White blood cell count was elevated at 12 with a left shift. Hemoglobin was 13.7 and platelets were normal. Sodium was low at 130 and the serum bicarb was low at 20. BUN was 22 and the creatinine was 1.74. Creatinine in September 2018 was 1.08. A UA showed 0-5 WBCs per high- power field with 10-25 squamous epithelial cells. There were 25-50 hyaline casts. Urine sodium was 42 and the urine creatinine was 570. The fractional excretion of sodium is 0.1%-consistent with pre-renal azotemia. C. difficile was negative. CT brain showed atrophy and old infarcts with no acute abnormalities. Chest x-ray shows no infiltrates, pleural effusions or pulmonary vascular congestion. He was started on Rocephin for suspected urinary tract infection. T-max is 100.2 ?F Blood pressure is currently 127/57 with a heart rate of 74. Pulse ox is 92% on room air. All lab was personally reviewed. Sodium is 131 this morning and his potassium is low at 3.1. BUN is 25 and the creatinine has come down to 1.59 from 1.74 to admission. The hemoglobin A1c is 7.8. He has had multiple bowel movements throughout the day. Enteric pathogen panel was positive for Salmonella. Continues to have diarrhea. Denies nausea but his oral intake has been poor. Denies abdominal pain except for a bruis on the right side of the abd he sustained during a recent fall. - Physical Exam General: Alert, Cooperative, No apparent distress, Well developed, Well nourished Oral: No Gingival or Mucosal Lesions/ Ulcerations, Dry Mucosa Neck: Supple, No JVD Lungs: Clear to auscultation Cardiovascular: Regular rate, Regular Rhythm, Normal S1, Normal S2, No murmurs, No rub noted, No Gallop Abdomen: Soft, Non-Distended, Hypoactive Bowel Sounds, Tender - only with palpation of the smal bruise which is to the left of the unbilicus........just a reddened area now Extremities: No clubbing, No cyanosis, No edema Skin: - - bruises on his arms and legs Neurological: Cranial nerves II-XII grossly intact, Neuro grossly intact Psych/Mental Status: Normal Affect, Appropriate Vital Signs Temp Pulse Resp BP Pulse Ox 100.2 F H 80 18 148/56 H 93 01/09/19 02:55 01/09/19 02:55 01/09/19 02:55 01/09/19 02:55 01/09/19 02:55 Oxygen Delivery Method Room Air Weight: 205 lb 14.588 oz Body Mass Index (BMI) 30.4 Finger Stick Blood Glucose 195 Intake and Output for Last 24 Hours 01/07/19 01/08/19 01/09/19 23:59 23:59 23:59 Intake Total 486 / 486 Balance 486 / 486 Microbiology Past 72 Hours 01/09/19 04:15 C. difficile DNA Amplification - Final Stool Laboratory Tests Past 24 Hrs 01/08/19 01/08/19 01/08/19 22:10 22:10 22:10 WBC 12.0 H RBC 4.81 Hgb 13.7 Hct 40.0 MCV 83.2 MCH 28.5 MCHC 34.3 RDW 13.6 RDW Differential 41.2 Plt Count 151 MPV 9.6 Immature Gran % (Auto) 0.200 Neut % (Auto) 93.0 H Lymph % (Auto) 3.7 L [place] % (Auto) 3.0 Eos % (Auto) 0.0 Baso % (Auto) 0.1 Absolute Neuts (auto) 11.2 H Absolute Lymphs (auto) 0.44 L Total Counted Not Reportable Differential Comment SCANNED PT 14.9 INR 1.2 APTT 32.9 Sodium 130 L Potassium 3.6 Chloride 101 Carbon Dioxide 20.0 L Anion Gap 9 BUN 22 H Creatinine 1.74 H Estim Creat Clear Calc 34.42 Est GFR (MDRD) Af Amer 49 L Est GFR (MDRD) Non-Af 40 L BUN/Creatinine Ratio 12.6 Glucose 218 H Calcium 8.4 L Total Bilirubin 0.80 AST 20 ALT 23 Alkaline Phosphatase 68 Troponin I 0.020 Total Protein 6.8 Albumin 3.4 Globulin 3.4 Albumin/Globulin Ratio 1.0 Urine Color Urine Clarity Urine pH Ur Specific [place] Urine Protein Urine Glucose (UA) Urine Ketones Urine Occult Blood Urine Nitrite Urine Bilirubin Urine Urobilinogen Ur Leukocyte Esterase Urine RBC Urine WBC Ur Squamous Epith Cells Urine Bacteria Hyaline Casts Coarse Granular Casts Urine Mucus Urine Osmolality Ur Random Sodium Urine Creatinine 01/09/19 01/09/19 01/09/19 00:25 00:25 00:25 WBC RBC Hgb Hct MCV MCH MCHC RDW RDW Differential Plt Count MPV Immature Gran % (Auto) Neut % (Auto) Lymph % (Auto) [place] % (Auto) Eos % (Auto) Baso % (Auto) Absolute Neuts (auto) Absolute Lymphs (auto) Total Counted Differential Comment PT INR APTT Sodium Potassium Chloride Carbon Dioxide Anion Gap BUN Creatinine Estim Creat Clear Calc Est GFR (MDRD) Af Amer Est GFR (MDRD) Non-Af BUN/Creatinine Ratio Glucose Calcium Total Bilirubin AST ALT Alkaline Phosphatase Troponin I Total Protein Albumin Globulin Albumin/Globulin Ratio Urine Color Yellow Urine Clarity Sl. Cloudy Urine pH 5.0 Ur Specific [place] 1.030 Urine Protein 100 H Urine Glucose (UA) 50 H Urine Ketones 5 H Urine Occult Blood 10 H Urine Nitrite Negative Urine Bilirubin 3 H Urine Urobilinogen 4 H Ur Leukocyte Esterase 100 H Urine RBC 0-5 SEEN Urine WBC 0-5 SEEN Ur Squamous Epith Cells 10-25 SEEN Urine Bacteria 0 SEEN Hyaline Casts 25-50 SEEN Coarse Granular Casts 0-5 SEEN Urine Mucus 0 SEEN Urine Osmolality 494 Ur Random Sodium Urine Creatinine 570.00 01/09/19 01/09/19 00:25 06:57 WBC RBC Hgb Hct MCV MCH MCHC RDW RDW Differential Plt Count MPV Immature Gran % (Auto) Neut % (Auto) Lymph % (Auto) [place] % (Auto) Eos % (Auto) Baso % (Auto) Absolute Neuts (auto) Absolute Lymphs (auto) Total Counted Differential Comment PT INR APTT Sodium Pending Potassium Pending Chloride Pending Carbon Dioxide Pending Anion Gap Pending BUN Pending Creatinine Pending Estim Creat Clear Calc Est GFR (MDRD) Af Amer Pending Est GFR (MDRD) Non-Af Pending BUN/Creatinine Ratio Pending Glucose Pending Calcium Pending Total Bilirubin AST ALT Alkaline Phosphatase Troponin I Total Protein Albumin Globulin Albumin/Globulin Ratio Urine Color Urine Clarity Urine pH Ur Specific [place] Urine Protein Urine Glucose (UA) Urine Ketones Urine Occult Blood Urine Nitrite Urine Bilirubin Urine Urobilinogen Ur Leukocyte Esterase Urine RBC Urine WBC Ur Squamous Epith Cells Urine Bacteria Hyaline Casts Coarse Granular Casts Urine Mucus Urine Osmolality Ur Random Sodium 42 Urine Creatinine POC Glucose 01/09/19 01/09/19 06:35 03:53 POC Glucose 172 H 196 H Medical Necessity - Tobacco Use Smoking Status: Former smoker Tobacco Use: Cigars Assessment/Plan All Active Problems (Last Reviewed 01/09/19 @ 06:17 by Rishi Hilario MD) Acute kidney injury (Acute) General weakness (Acute) Presence of Watchman left atrial appendage closure device (Resolved ~03/04/18) 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) SOB (shortness of breath) (Acute) Acute ischemic stroke (Acute) Borderline elevated troponin (Acute) Left-sided weakness (Acute) Impressions 1. Salmonella Enteritis 2. Acute kidney injury secondary to prerenal azotemia 3. Dehydration 4. Hyponatremia 5. Hypokalemia 6. Diabetes mellitus type 2 7. Obesity 8. Metabolic acidosis secondary to acute renal failure-resolved 9. Suspected urinary tract infection-ruled out, Rocephin discontinued 10. CAD with history of CABG and PCI 11. Hypertension 12. Paroxysmal atrial fibrillation 13. Hyperlipidemia 14. BPH 15. History of TIAs 16. History of lumbar canal stenosis and neurogenic claudication 17. GERD - unsure why is on a PPI and Pepcid BID? D/W Manisha Continue IV fluids since he is still having multiple stools...EF in 2018 was 60% Start Levaquin for tx of Salmonella enteritis......he is immunocompromised due to age and DM II. 500 mg tonight and then 250 mg daily......as the creat improv es will likely be able to increase to 500 mg daily Recheck the lab in the AM Renal US shows nl size kidneys Code Visit Inpatient E&M: 96966 Subs Hosp L2
[2019-01-09 07:24] LABS: Anion Gap 8 (5-15); BUN 25 mg/dL (7-18); BUN/Creat Ratio 15.7 RATIO (10-20); Calcium,Total 8.1 mg/dL (8.5-10.1); Chloride 102 mmol/L (98-107); Creatinine, Serum 1.59 mg/dL (0.70-1.30); EST Glomerular Filtration Rate 45 mL/min (>60); Est Glom Filt Rate - Afr Amer 54 mL/min (>60); Estimated Creatinine Clearance 37.67 ml/min; Glucose 155 mg/dL (74-106); Potassium 3.1 mmol/L (3.5-5.1); Sodium Level 131 mmol/L (136-145)
[2019-01-09 07:57] LABS: Magnesium 1.9 mg/dL (1.6-2.6); Phosphorus 4.1 mg/dL (2.5-4.9)
[2019-01-09 08:06] LABS: Hemoglobin A1c 7.8 % (4.2-6.3)
[2019-01-09] MEDS: Glucerna Shake 120 ML LIQUID PO (09:40)
[2019-01-09] MEDS: Famotidine 20 MG Tablet 40 MG PO (09:41)
[2019-01-09] MEDS: Enoxaparin 40 MG/0.4 ML Syringe SC (09:41)
[2019-01-09] MEDS: dilTIAZem CD 120 MG Capsule PO ×2 (09:41→22:52)
[2019-01-09] MEDS: Glimepiride 2 MG Tablet 4 MG PO (09:42)
[2019-01-09] MEDS: Aspirin E.C. 81 MG Tablet PO (09:42)
[2019-01-09] MEDS: Isosorbide Mononitrate 30 MG Tablet PO (09:42)
[2019-01-09] MEDS: Pantoprazole Sodium 40 MG Tablet PO (09:42)
--- NOTE | 2019-01-09 10:51 | NURSING ---
Off unit to U/S at this time.
[2019-01-09] MEDS: Metoprolol Tartrate 100 MG Tablet PO ×2 (11:56→22:50)
[2019-01-09 12:06] LABS: Bedside Glucose 176 mg/dL (70-110)
--- NOTE | 2019-01-09 13:45 | CASEMGMT ---
Addendum entered by Ronny Rodriguez 01/09/19 14:07: Call received from daughter who states pt does well at home, ambulates outside normally and she does not wish to have Home Health Care on dc at this time. No further dc needs identified. Fran PLUNKETT Original Note: RN CM Assessment Presentation: ILANA, General weakness, lightheadedness. Intro role of CM and purpose of RN CM assessment to patient. Pt is alert, able to participate in assessment. Demographics, PCP and Pharmacy verified. Pt states he fell at home and showed RN CM bruising on his knees. RN CM discussed recommendations for Home therapy, but pt declined stating I hate doing therapy. RN CM again discussed with weakness and falls, it could benefit him to have home health. Pt again declined stating I get alot of help at home. CHIQUI PEDERSEN attempted to call daughter to discuss plans for dc. No answer. PCP: Dr. Shahzad Cerna Preferred Pharmacy: [facility] [place] Insurance: [facility] PPO Prescription Benefit: yes LNOK: Daughter Ree [place] Living Arrangements: Mobile Home. Lives with daughter who takes care of all household tasks. Pt ambulates with ww, sponge bathes. Pt states his family assists with needs at home. Transportation: family provides transportation DME: walker, cane, power wheelchair, ramp into home HHC: pt is declining at this time. Patient DC goals: Home DC PLAN: Home. (If Home Health care is accepted by pt/daughter, [facility] is [facility]). Fran PLUNKETT
--- NOTE | 2019-01-09 14:54 | PCM.PROGNOTE ---
Patient Problems: Active and Suspected Problems (Last Reviewed 01/09/19 @ 06:17 by Rishi Hilario MD) Acute kidney injury (Acute) General weakness (Acute) Subjective: Patient seen and examined. Diarrhea improving. Continues to have generalized weakness. Denies other current symptoms. - Physical Exam General: Alert, Oriented x3, Cooperative HEENT: Atraumatic, PERRLA, EOMI, Normocephalic Neck: Supple, No JVD, Negative Carotid Bruits Lungs: Clear to auscultation, Normal air movement Cardiovascular: Regular rate, Regular Rhythm, Normal S1, Normal S2, No murmurs Abdomen: Bowel Sounds Present, Soft, Non Tender, Non-Distended, Obese Extremities: No clubbing, No cyanosis, No edema, Capillary Refill Less than 3 Seconds Skin: No rashes, No breakdown Musculoskeletal: No Tenderness to Palpation of Joints or Extremities Neurological: Cranial nerves II-XII grossly intact, Neuro grossly intact Psych/Mental Status: Normal Affect, Appropriate Vital Signs Temp Pulse Resp BP Pulse Ox 99.3 F H 95 18 149/64 H 92 01/09/19 08:57 01/09/19 11:56 01/09/19 08:57 01/09/19 08:57 01/09/19 08:57 Oxygen Delivery Method Room Air Weight: 205 lb 14.588 oz Body Mass Index (BMI) 30.4 Finger Stick Blood Glucose 195 Intake and Output for Last 24 Hours 01/07/19 01/08/19 01/09/19 23:59 23:59 23:59 Intake Total 1193 / 1193 Balance 1193 / 1193 Microbiology Past 72 Hours 01/09/19 04:15 Enteric Bacteriology - Final Stool Salmonella Sp. 01/09/19 04:15 C. difficile DNA Amplification - Final Stool Laboratory Tests Past 24 Hrs 01/08/19 01/08/19 01/08/19 22:10 22:10 22:10 WBC 12.0 H RBC 4.81 Hgb 13.7 Hct 40.0 MCV 83.2 MCH 28.5 MCHC 34.3 RDW 13.6 RDW Differential 41.2 Plt Count 151 MPV 9.6 Immature Gran % (Auto) 0.200 Neut % (Auto) 93.0 H Lymph % (Auto) 3.7 L [place] % (Auto) 3.0 Eos % (Auto) 0.0 Baso % (Auto) 0.1 Absolute Neuts (auto) 11.2 H Absolute Lymphs (auto) 0.44 L Total Counted Not Reportable Differential Comment SCANNED PT 14.9 INR 1.2 APTT 32.9 Sodium 130 L Potassium 3.6 Chloride 101 Carbon Dioxide 20.0 L Anion Gap 9 BUN 22 H Creatinine 1.74 H Estim Creat Clear Calc 34.42 Est GFR (MDRD) Af Amer 49 L Est GFR (MDRD) Non-Af 40 L BUN/Creatinine Ratio 12.6 Glucose 218 H Hemoglobin A1c Calcium 8.4 L Phosphorus Magnesium Total Bilirubin 0.80 AST 20 ALT 23 Alkaline Phosphatase 68 Troponin I 0.020 Total Protein 6.8 Albumin 3.4 Globulin 3.4 Albumin/Globulin Ratio 1.0 Urine Color Urine Clarity Urine pH Ur Specific [place] Urine Protein Urine Glucose (UA) Urine Ketones Urine Occult Blood Urine Nitrite Urine Bilirubin Urine Urobilinogen Ur Leukocyte Esterase Urine RBC Urine WBC Ur Squamous Epith Cells Urine Bacteria Hyaline Casts Coarse Granular Casts Urine Mucus Urine Osmolality Ur Random Sodium Urine Creatinine 01/09/19 01/09/19 01/09/19 00:25 00:25 00:25 WBC RBC Hgb Hct MCV MCH MCHC RDW RDW Differential Plt Count MPV Immature Gran % (Auto) Neut % (Auto) Lymph % (Auto) [place] % (Auto) Eos % (Auto) Baso % (Auto) Absolute Neuts (auto) Absolute Lymphs (auto) Total Counted Differential Comment PT INR APTT Sodium Potassium Chloride Carbon Dioxide Anion Gap BUN Creatinine Estim Creat Clear Calc Est GFR (MDRD) Af Amer Est GFR (MDRD) Non-Af BUN/Creatinine Ratio Glucose Hemoglobin A1c Calcium Phosphorus Magnesium Total Bilirubin AST ALT Alkaline Phosphatase Troponin I Total Protein Albumin Globulin Albumin/Globulin Ratio Urine Color Yellow Urine Clarity Sl. Cloudy Urine pH 5.0 Ur Specific [place] 1.030 Urine Protein 100 H Urine Glucose (UA) 50 H Urine Ketones 5 H Urine Occult Blood 10 H Urine Nitrite Negative Urine Bilirubin 3 H Urine Urobilinogen 4 H Ur Leukocyte Esterase 100 H Urine RBC 0-5 SEEN Urine WBC 0-5 SEEN Ur Squamous Epith Cells 10-25 SEEN Urine Bacteria 0 SEEN Hyaline Casts 25-50 SEEN Coarse Granular Casts 0-5 SEEN Urine Mucus 0 SEEN Urine Osmolality 494 Ur Random Sodium Urine Creatinine 570.00 01/09/19 01/09/19 01/09/19 00:25 06:57 06:57 WBC RBC Hgb Hct MCV MCH MCHC RDW RDW Differential Plt Count MPV Immature Gran % (Auto) Neut % (Auto) Lymph % (Auto) [place] % (Auto) Eos % (Auto) Baso % (Auto) Absolute Neuts (auto) Absolute Lymphs (auto) Total Counted Differential Comment PT INR APTT Sodium 131 L Potassium 3.1 L Chloride 102 Carbon Dioxide 21.0 Anion Gap 8 BUN 25 H Creatinine 1.59 H Estim Creat Clear Calc 37.67 Est GFR (MDRD) Af Amer 54 L Est GFR (MDRD) Non-Af 45 L BUN/Creatinine Ratio 15.7 Glucose 155 H Hemoglobin A1c Calcium 8.1 L Phosphorus 4.1 Magnesium 1.9 Total Bilirubin AST ALT Alkaline Phosphatase Troponin I Total Protein Albumin Globulin Albumin/Globulin Ratio Urine Color Urine Clarity Urine pH Ur Specific [place] Urine Protein Urine Glucose (UA) Urine Ketones Urine Occult Blood Urine Nitrite Urine Bilirubin Urine Urobilinogen Ur Leukocyte Esterase Urine RBC Urine WBC Ur Squamous Epith Cells Urine Bacteria Hyaline Casts Coarse Granular Casts Urine Mucus Urine Osmolality Ur Random Sodium 42 Urine Creatinine 01/09/19 06:57 WBC RBC Hgb Hct MCV MCH MCHC RDW RDW Differential Plt Count MPV Immature Gran % (Auto) Neut % (Auto) Lymph % (Auto) [place] % (Auto) Eos % (Auto) Baso % (Auto) Absolute Neuts (auto) Absolute Lymphs (auto) Total Counted Differential Comment PT INR APTT Sodium Potassium Chloride Carbon Dioxide Anion Gap BUN Creatinine Estim Creat Clear Calc Est GFR (MDRD) Af Amer Est GFR (MDRD) Non-Af BUN/Creatinine Ratio Glucose Hemoglobin A1c 7.8 H Calcium Phosphorus Magnesium Total Bilirubin AST ALT Alkaline Phosphatase Troponin I Total Protein Albumin Globulin Albumin/Globulin Ratio Urine Color Urine Clarity Urine pH Ur Specific [place] Urine Protein Urine Glucose (UA) Urine Ketones Urine Occult Blood Urine Nitrite Urine Bilirubin Urine Urobilinogen Ur Leukocyte Esterase Urine RBC Urine WBC Ur Squamous Epith Cells Urine Bacteria Hyaline Casts Coarse Granular Casts Urine Mucus Urine Osmolality Ur Random Sodium Urine Creatinine POC Glucose 01/09/19 01/09/19 01/09/19 11:54 06:35 03:53 POC Glucose 176 H 172 H 196 H Medical Necessity - Tobacco Use Smoking Status: Former smoker Tobacco Use: Cigars Assessment/Plan All Active Problems (Last Reviewed 01/09/19 @ 06:17 by Rishi Hilario MD) Acute kidney injury (Acute) General weakness (Acute) Presence of Watchman left atrial appendage closure device (Resolved ~03/04/18) 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) SOB (shortness of breath) (Acute) Acute ischemic stroke (Acute) Borderline elevated troponin (Acute) Left-sided weakness (Acute) 1. Acute intractable diarrhea secondary to acute Salmonella infection with associated generalized weakness-enteric bacteriology positive for Salmonella. C. difficile negative. IV fluids. Discontinue antibiotics. Clear liquid diet. PRN antiemetic regimen. PT/OT. 2. Acute kidney injury-secondary to #1. Improving with IV fluids. Trend BMP. FENA 0.1%, pre-renal. Renal ultrasound ordered on admission, pending. 3. Hypovolemic hyponatremia-secondary to #1. IV fluids, trend BMP. 4. Hypokalemia-secondary to #1. Replace per protocol. Trend BMP. 5. Suspected UTI- ruled out. IV antibiotics discontinued. 6. CAD with history of CABG and PCI-continue aspirin, statin, metoprolol. 7. Hypertension-stable, continue metoprolol regimen. Lasix, valsartan regimen on hold given ILANA. 8. Paroxysmal atrial fibrillation-currently sinus rhythm. Not on anticoagulation. Continue aspirin, Cardizem, metoprolol. 9. Type 2 diabetes [id number] ACHS with sliding scale insulin. Continue home insulin regimen. 10. Hyperlipidemia-continue statin. 11. History of TIAs-continue aspirin, statin. 12. BPH-continue Flomax regimen. 13. History of lumbar spinal stenosis/neurogenic claudication 14. GERD-continue PPI. DVT prophylaxis-Lovenox subcu This patient was seen by RHYS Garvin under the supervision of Dr. Araiza.
[2019-01-09 17:01] LABS: Bedside Glucose 167 mg/dL (70-110)
[2019-01-09] MEDS: levoFLOXacin IV 500 MG/100 ML BAG 100 MG IV (20:18)
[2019-01-09] MEDS: Tamsulosin HCl 0.4 MG Capsule PO (22:49)
[2019-01-09] MEDS: traZODone 100 MG Tablet 150 MG PO (22:49)
[2019-01-09] MEDS: Atorvastatin Calcium 80 MG Tablet PO (22:50)
[2019-01-10] VITALS (13 sets, daily range): BP systolic 123–158; BP diastolic 59–90; PULSE 68–92; RESP 16–18; TEMP 36.7–38.2; O2SAT 93–97
[2019-01-10 00:05] LABS: Bedside Glucose 155 mg/dL (70-110)
[2019-01-10] MEDS: Acetaminophen 325 MG Tablet 650 MG PO (04:10)
[2019-01-10 06:51] LABS: Bedside Glucose 131 mg/dL (70-110)
[2019-01-10 07:04] LABS: Hematocrit 36.9 % (40-54); Hemoglobin 12.5 g/dl (13.0-16.5); Mean Corp Hgb Conc 33.9 g/gl (32-36); Mean Corpuscular Hgb 27.8 pg (27.0-32.0); Mean Corpuscular Volume 82.2 fL (80-94); Mean Platelet Vol. 9.8 fl (6.2-12.0); Platelet Count 147 K/mm3 (150-450); RBC Distribution Width CV 13.7 % (11.6-14.6); RBC Distribution Width SD 40.1 fl (35.1-43.9); Red Blood Count 4.49 M/mm3 (4.6-6.2); White Blood Count 6.1 K/mm3 (4.4-11.0)
[2019-01-10 07:05] LABS: Scan Indicated on CBC? Y/N NO
[2019-01-10 07:32] LABS: Anion Gap 9 (5-15); BUN 26 mg/dL (7-18); BUN/Creat Ratio 16.9 RATIO (10-20); Calcium,Total 8.1 mg/dL (8.5-10.1); Chloride 104 mmol/L (98-107); Creatinine, Serum 1.54 mg/dL (0.70-1.30); EST Glomerular Filtration Rate 47 mL/min (>60); Est Glom Filt Rate - Afr Amer 56 mL/min (>60); Glucose 121 mg/dL (74-106); Potassium 3.3 mmol/L (3.5-5.1); Sodium Level 135 mmol/L (136-145)
--- NOTE | 2019-01-10 09:10 | PCM.PROGNOTE ---
Patient Problems: Active and Suspected Problems (Last Reviewed 01/09/19 @ 06:17 by Rishi Hilario MD) Acute kidney injury (Acute) General weakness (Acute) Subjective: Patient seen and examined. Reports he feels somewhat improved although continues to have diarrhea. Reports 3 episodes of diarrhea so far this morning. Denies nausea, vomiting. No other complaints. Patient expresses he would like to go home. - Physical Exam General: Alert, Oriented x3, Cooperative HEENT: Atraumatic, PERRLA, EOMI, Normocephalic Neck: Supple, No JVD, Negative Carotid Bruits Lungs: Clear to auscultation, Normal air movement Cardiovascular: Regular rate, Regular Rhythm, Normal S1, Normal S2, No murmurs Abdomen: Bowel Sounds Present, Soft, Non Tender, Non-Distended, Hyperactive Bowel Sounds, Obese Extremities: No clubbing, No cyanosis, No edema, Capillary Refill Less than 3 Seconds Skin: No rashes, No breakdown Musculoskeletal: No Tenderness to Palpation of Joints or Extremities Neurological: Cranial nerves II-XII grossly intact, Neuro grossly intact Psych/Mental Status: Normal Affect, Appropriate Vital Signs Temp Pulse Resp BP Pulse Ox 98.1 F 68 16 123/59 H 96 01/10/19 06:49 01/10/19 03:38 01/10/19 03:12 01/10/19 03:12 01/10/19 07:25 Oxygen Delivery Method Room Air Weight: 205 lb 14.588 oz Body Mass Index (BMI) 30.4 Finger Stick Blood Glucose 195 Intake and Output for Last 24 Hours 01/08/19 01/09/19 01/10/19 23:59 23:59 23:59 Intake Total 1192 Balance 1192 Microbiology Past 72 Hours 01/09/19 04:15 Enteric Bacteriology - Final Stool Salmonella Sp. 01/09/19 04:15 C. difficile DNA Amplification - Final Stool Laboratory Tests Past 24 Hrs 01/10/19 01/10/19 06:35 06:35 WBC 6.1 RBC 4.49 L Hgb 12.5 L Hct 36.9 L MCV 82.2 MCH 27.8 MCHC 33.9 RDW 13.7 RDW Differential 40.1 Plt Count 147 L MPV 9.8 Sodium 135 L Potassium 3.3 L Chloride 104 Carbon Dioxide 22.0 Anion Gap 9 BUN 26 H Creatinine 1.54 H Estim Creat Clear Calc 38.90 Est GFR (MDRD) Af Amer 56 L Est GFR (MDRD) Non-Af 47 L BUN/Creatinine Ratio 16.9 Glucose 121 H Calcium 8.1 L POC Glucose 01/10/19 01/09/19 01/09/19 06:44 22:47 16:51 POC Glucose 131 H 155 H 167 H 01/09/19 11:54 POC Glucose 176 H Medical Necessity - Tobacco Use Smoking Status: Former smoker Tobacco Use: Cigars Assessment/Plan All Active Problems (Last Reviewed 01/09/19 @ 06:17 by Rishi Hilario MD) Acute kidney injury (Acute) General weakness (Acute) Presence of Watchman left atrial appendage closure device (Resolved ~03/04/18) 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) SOB (shortness of breath) (Acute) Acute ischemic stroke (Acute) Borderline elevated troponin (Acute) Left-sided weakness (Acute) 1. Acute intractable diarrhea secondary to acute Salmonella enteritis with associated generalized weakness-enteric bacteriology positive for Salmonella. C. difficile negative. IV fluids. Continue IV Levaquin to 50 mg daily. Clear liquid diet. PRN antiemetic regimen. PT/OT. 2. Acute kidney injury-secondary to #1. Improving with IV fluids. Trend BMP. FENA 0.1%, pre-renal. Renal ultrasound shows no acute abnormalities. 3. Hypovolemic hyponatremia-secondary to #1. IV fluids, trend BMP. 4. Hypokalemia-secondary to #1. Replace per protocol. Trend BMP. 5. Suspected UTI- ruled out. IV antibiotics discontinued. 6. CAD with history of CABG and PCI-continue aspirin, statin, metoprolol. 7. Hypertension-stable, continue metoprolol regimen. Lasix, valsartan regimen on hold given ILANA. 8. Paroxysmal atrial fibrillation-currently sinus rhythm. Not on anticoagulation. Continue aspirin, Cardizem, metoprolol. 9. Type 2 diabetes [id number] ACHS with sliding scale insulin. Continue home insulin regimen. 10. Hyperlipidemia-continue statin. 11. History of TIAs-continue aspirin, statin. 12. BPH-continue Flomax regimen. 13. History of lumbar spinal stenosis/neurogenic claudication 14. GERD-continue PPI. DVT prophylaxis-Lovenox subcu Discharge planning: Plan for Home with home health when diarrhea is improved, patient lives with daughter. This patient was seen by RHYS Garvin under the supervision of Dr. Araiza.
[2019-01-10] MEDS: dilTIAZem CD 120 MG Capsule PO ×2 (11:51→21:08)
[2019-01-10] MEDS: Pantoprazole Sodium 40 MG Tablet PO (11:51)
[2019-01-10] MEDS: Aspirin E.C. 81 MG Tablet PO (11:52)
[2019-01-10] MEDS: Isosorbide Mononitrate 30 MG Tablet PO (11:52)
[2019-01-10] MEDS: Metoprolol Tartrate 100 MG Tablet PO ×2 (11:52→21:09)
[2019-01-10] MEDS: Enoxaparin 40 MG/0.4 ML Syringe SC (11:52)
[2019-01-10] MEDS: Famotidine 20 MG Tablet PO (11:52)
[2019-01-10 12:15] LABS: Bedside Glucose 166 mg/dL (70-110)
[2019-01-10] MEDS: Insulin Lispro 100 UNIT/ML INSULN.PEN SC ×2 (12:43→18:00)
[2019-01-10] MEDS: Ensure Clear 120 ML Liquid PO ×3 (14:06→21:08)
[2019-01-10] MEDS: 0.9% NaCl Peripheral Flush Adult/Peds IV (14:07)
[2019-01-10 18:25] LABS: Bedside Glucose 161 mg/dL (70-110)
[2019-01-10] MEDS: Tamsulosin HCl 0.4 MG Capsule PO (21:08)
[2019-01-10] MEDS: traZODone 100 MG Tablet 150 MG PO (21:08)
[2019-01-10] MEDS: Atorvastatin Calcium 80 MG Tablet PO (21:09)
[2019-01-10] MEDS: levoFLOXacin IV 250 MG/50 ML BAG 50 MG IV (21:11)
[2019-01-10 21:31] LABS: Bedside Glucose 130 mg/dL (70-110)
[2019-01-11] VITALS (12 sets, daily range): BP systolic 130–190; BP diastolic 70–95; PULSE 66–76; RESP 18–20; TEMP 36.4–36.7; O2SAT 94–97
[2019-01-11 06:55] LABS: Bedside Glucose 125 mg/dL (70-110)
[2019-01-11 07:10] LABS: Hematocrit 36.4 % (40-54); Hemoglobin 12.4 g/dl (13.0-16.5); Mean Corp Hgb Conc 34.1 g/gl (32-36); Mean Corpuscular Hgb 27.9 pg (27.0-32.0); Mean Corpuscular Volume 81.8 fL (80-94); Platelet Count 169 K/mm3 (150-450); RBC Distribution Width CV 13.7 % (11.6-14.6); RBC Distribution Width SD 40.1 fl (35.1-43.9); Red Blood Count 4.45 M/mm3 (4.6-6.2); White Blood Count 5.7 K/mm3 (4.4-11.0)
[2019-01-11 07:17] LABS: Scan Indicated on CBC? Y/N NO
[2019-01-11 07:22] LABS: Anion Gap 8 (5-15); BUN 17 mg/dL (7-18); BUN/Creat Ratio 15.5 RATIO (10-20); Calcium,Total 8.1 mg/dL (8.5-10.1); Chloride 111 mmol/L (98-107); EST Glomerular Filtration Rate 69 mL/min (>60); Est Glom Filt Rate - Afr Amer 83 mL/min (>60); Estimated Creatinine Clearance 54.45 ml/min; Glucose 110 mg/dL (74-106); Potassium 3.3 mmol/L (3.5-5.1); Sodium Level 139 mmol/L (136-145)
[2019-01-11] MEDS: Famotidine 20 MG Tablet 40 MG PO (08:48)
[2019-01-11] MEDS: Isosorbide Mononitrate 30 MG Tablet PO (08:50)
[2019-01-11] MEDS: Ensure Clear 120 ML Liquid PO ×4 (08:50→22:55)
[2019-01-11] MEDS: Pantoprazole Sodium 40 MG Tablet PO (08:50)
[2019-01-11] MEDS: dilTIAZem CD 120 MG Capsule PO ×2 (08:51→22:48)
[2019-01-11] MEDS: Metoprolol Tartrate 100 MG Tablet PO ×2 (08:51→22:46)
[2019-01-11] MEDS: Aspirin E.C. 81 MG Tablet PO (08:52)
[2019-01-11] MEDS: Enoxaparin 40 MG/0.4 ML Syringe SC (08:52)
--- NOTE | 2019-01-11 11:08 | PCM.PROGNOTE ---
Patient Problems: Active and Suspected Problems (Last Reviewed 01/09/19 @ 06:17 by Rishi Hilario MD) Acute kidney injury (Acute) General weakness (Acute) Subjective: Patient seen and examined. Reports he is leaving today one way or another. He has had at least 10 bowel movements overnight per nursing and furthermore 6 bowel movements in a short period of time this morning. Patient is unhappy with clear liquid diet and insistent on going home. Discussed with patient that given his significant diarrhea, he will have difficulty staying hydrated at home. Discussed with patient that he may leave AGAINST MEDICAL ADVICE however he is not medically ready for discharge. - Physical Exam General: Alert, Oriented x3, Cooperative HEENT: Atraumatic, PERRLA, EOMI, Normocephalic Neck: Supple, No JVD, Negative Carotid Bruits Lungs: Clear to auscultation, Normal air movement Cardiovascular: Regular rate, Regular Rhythm, Normal S1, Normal S2, No murmurs Abdomen: Bowel Sounds Present, Soft, Non Tender, Non-Distended, Hyperactive Bowel Sounds Extremities: No clubbing, No cyanosis, No edema, Capillary Refill Less than 3 Seconds Skin: No rashes, No breakdown Musculoskeletal: No Tenderness to Palpation of Joints or Extremities Neurological: Cranial nerves II-XII grossly intact, Neuro grossly intact Psych/Mental Status: Agitated Vital Signs Temp Pulse Resp BP Pulse Ox 97.9 F 72 18 158/74 H 97 01/11/19 08:53 01/11/19 08:53 01/11/19 08:53 01/11/19 08:53 01/11/19 08:53 Oxygen Delivery Method Room Air Weight: 205 lb 14.588 oz Body Mass Index (BMI) 30.4 Finger Stick Blood Glucose 195 Intake and Output for Last 24 Hours 01/09/19 01/10/19 01/11/19 23:59 23:59 23:59 Intake Total 1193 / 2119 4000 / 5047 2172 / 2172 Output Total 300 / 300 Balance 1193 / 2119 4000 / 5047 1872 / 1872 Microbiology Past 72 Hours 01/09/19 04:15 Enteric Bacteriology - Final Stool Salmonella Sp. 01/09/19 04:15 C. difficile DNA Amplification - Final Stool Laboratory Tests Past 24 Hrs 01/11/19 01/11/19 06:18 06:18 WBC 5.7 RBC 4.45 L Hgb 12.4 L Hct 36.4 L MCV 81.8 MCH 27.9 MCHC 34.1 RDW 13.7 RDW Differential 40.1 Plt Count 169 MPV 10.0 Sodium 139 Potassium 3.3 L Chloride 111 H Carbon Dioxide 20.0 L Anion Gap 8 BUN 17 Creatinine 1.10 Estim Creat Clear Calc 54.45 Est GFR (MDRD) Af Amer 83 Est GFR (MDRD) Non-Af 69 BUN/Creatinine Ratio 15.5 Glucose 110 H Calcium 8.1 L POC Glucose 01/11/19 01/10/19 01/10/19 06:46 21:16 17:55 POC Glucose 125 H 130 H 161 H 01/10/19 12:02 POC Glucose 166 H Medical Necessity - Tobacco Use Smoking Status: Former smoker Tobacco Use: Cigars Assessment/Plan All Active Problems (Last Reviewed 01/09/19 @ 06:17 by Rishi Hilario MD) Acute kidney injury (Acute) General weakness (Acute) Presence of Watchman left atrial appendage closure device (Resolved ~03/04/18) 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) SOB (shortness of breath) (Acute) Acute ischemic stroke (Acute) Borderline elevated troponin (Acute) Left-sided weakness (Acute) 1. Acute intractable diarrhea secondary to acute Salmonella enteritis with associated generalized weakness-enteric bacteriology positive for Salmonella. C. difficile negative. IV fluids. Continue IV Levaquin 250 mg daily. Advance to full liquid diet. PRN antiemetic regimen. PT/OT. 2. Acute kidney injury-secondary to #1. Resolved with IV fluids. Trend BMP. FENA 0.1%, pre-renal. Renal ultrasound shows no acute abnormalities. 3. Hypovolemic hyponatremia-secondary to #1. Resolved with IV fluids, trend BMP. 4. Hypokalemia-secondary to #1. Replace per protocol. Trend BMP. 5. Suspected UTI- ruled out. 6. CAD with history of CABG and PCI-continue aspirin, statin, metoprolol. 7. Hypertension-stable, continue metoprolol regimen. Lasix, valsartan regimen on hold given ILANA. 8. Paroxysmal atrial fibrillation-currently sinus rhythm. Not on anticoagulation. Continue aspirin, Cardizem, metoprolol. 9. Type 2 diabetes zhjksrgd-[id number]-Dhnie ACHS with sliding scale insulin. Continue home insulin regimen. 10. Hyperlipidemia-continue statin. 11. History of TIAs-continue aspirin, statin. 12. BPH-continue Flomax regimen. 13. History of lumbar spinal stenosis/neurogenic claudication 14. GERD-continue PPI. DVT prophylaxis-Lovenox subcu Discharge planning: Plan for Home with home health when diarrhea is improved, patient lives with daughter. This patient was seen by RHYS Garvin under the supervision of Dr. Araiza.
[2019-01-11] MEDS: Insulin Lispro 100 UNIT/ML INSULN.PEN SC ×2 (12:10→16:08)
[2019-01-11 12:26] LABS: Bedside Glucose 188 mg/dL (70-110)
[2019-01-11 16:25] LABS: Bedside Glucose 165 mg/dL (70-110)
[2019-01-11] MEDS: levoFLOXacin IV 250 MG/50 ML BAG 50 MG IV (22:46)
[2019-01-11] MEDS: Tamsulosin HCl 0.4 MG Capsule PO (22:46)
[2019-01-11] MEDS: traZODone 100 MG Tablet 150 MG PO (22:47)
[2019-01-11] MEDS: Atorvastatin Calcium 80 MG Tablet PO (22:47)
[2019-01-12] VITALS (9 sets, daily range): BP systolic 142–156; BP diastolic 74–84; PULSE 63–88; RESP 18–20; TEMP 36.6–36.7; O2SAT 95–98
[2019-01-12 06:11] LABS: Anion Gap 7 (5-15); BUN 10 mg/dL (7-18); BUN/Creat Ratio 10.5 RATIO (10-20); Calcium,Total 7.9 mg/dL (8.5-10.1); Chloride 113 mmol/L (98-107); Creatinine, Serum 0.95 mg/dL (0.70-1.30); EST Glomerular Filtration Rate 81 mL/min (>60); Est Glom Filt Rate - Afr Amer 98 mL/min (>60); Estimated Creatinine Clearance 63.05 ml/min; Glucose 128 mg/dL (74-106); Potassium 3.6 mmol/L (3.5-5.1); Sodium Level 140 mmol/L (136-145)
[2019-01-12 07:05] LABS: Bedside Glucose 134 mg/dL (70-110)
[2019-01-12] MEDS: dilTIAZem CD 120 MG Capsule PO (10:32)
[2019-01-12] MEDS: Aspirin E.C. 81 MG Tablet PO (10:32)
[2019-01-12] MEDS: Famotidine 20 MG Tablet PO (10:32)
[2019-01-12] MEDS: Metoprolol Tartrate 100 MG Tablet PO (10:32)
[2019-01-12] MEDS: Pantoprazole Sodium 40 MG Tablet PO (10:32)
[2019-01-12] MEDS: Isosorbide Mononitrate 30 MG Tablet PO (10:32)
[2019-01-12] MEDS: Enoxaparin 40 MG/0.4 ML Syringe SC (10:33)
[2019-01-12 10:46] LABS: Bedside Glucose 88 mg/dL (70-110)
[2019-01-12 11:11] LABS: Bedside Glucose 228 mg/dL (70-110)
[2019-01-12] MEDS: Insulin Lispro 100 UNIT/ML INSULN.PEN SC (12:14)
[2019-01-12] MEDS: Ensure Clear 120 ML Liquid PO (15:11)
--- NOTE | 2019-01-12 15:17 | PCM.DC ---
- Discharge Diagnoses Current Active Problems: Current Active and Chronic Problems (Last Reviewed 01/09/19 @ 06:17 by Rishi Hilario MD) Acute kidney injury (Acute) General weakness (Acute) You will use the following diet at home:: No restrictions Your food should be the consistency of: Regular Discharge Activity: Return to Normal Activity Call your doctor if you observe: Fever of 101 or Higher, Shortness of breath, Fainting spells Allergies/Adverse Reactions: Allergies iodine Allergy (Verified 01/08/19 20:41) Hives tramadol Allergy (Verified 01/08/19 20:41) Other Medications to take at Discharge Hydrocodone Bitart/Apap 5-325 [[place] 5/325] 1 tab PO BID PRN PRN 07/04/13 aspirin 81 mg tablet,delayed release 81 mg PO QDAY 07/24/17 arvbnajbbval-uzkpxnfn-lsvhqh tablet 1 tab PO QDAY 07/24/17 nitroglycerin 0.4 mg sublingual tablet 0.4 mg SUBLINGUAL Q5M PRN #25 tab 01/23/18 pen needle, diabetic 30 gauge x 11/20 See Dose Instructions .ROUTE .MEDSUPPLY #100 ea 03/11/18 insulin glargine (U-100) 100 unit/mL (3 mL) subcutaneous pen 44 unit SC QHS #15 ml 04/15/18 Compression Stockings See Rx Instructions .ROUTE .COMPLEX #1 09/08/18 clobetasol 0.05 % topical gel 1 applic TOPICAL DAILY PRN g 09/08/18 miscellaneous medical supply [facility] [place] See Dose Instructions .ROUTE .MEDSUPPLY #1 ea 09/08/18 atorvastatin 80 mg tablet 80 mg PO QHS #90 tab 10/19/18 furosemide 20 mg tablet 20 mg PO .COMPLEX #240 tab 11/12/18 lansoprazole 30 mg capsule,delayed release 30 mg PO DAILY #90 cap 11/12/18 blood sugar diagnostic strips See Dose Instructions .ROUTE .MEDSUPPLY #300 ea 11/13/18 glimepiride 2 mg tablet 4 mg PO DAILY #90 tab 11/14/18 tamsulosin 0.4 mg capsule 0.4 mg PO QHS #90 cap 11/14/18 famotidine 40 mg tablet See Rx Instructions PO QHS #90 tab 12/02/18 pen needle, diabetic 32 gauge x 07/13 See Rx Instructions .ROUTE .MEDSUPPLY #100 ea 01/07/19 Metoprolol Tartrate [Lopressor (beta adelfo)] 100 mg PO BID 01/08/19 Diltiazem HCl [Cardizem Cd] 120 mg PO BID 01/09/19 Isosorbide Mononitrate [Imdur] 30 mg PO DAILY 01/09/19 Metoprolol Tartrate [Lopressor (beta adelfo)] 50 mg PO BID 01/09/19 Trazodone HCl 150 mg PO DAILY 01/09/19 Valsartan [Diovan] 160 mg PO DAILY 01/09/19 levoFLOXacin tablet [Levaquin tablet] 500 mg PO DAILY #7 tab 01/12/19 The following prescriptions were given: levoFLOXacin tablet [Levaquin tablet] 500 mg PO DAILY #7 tab Transmission Status: Pending to [facility] Primary Care Physician: Shahzad Cerna DO [Primary Care Provider] - Within 2 Weeks Test Results: Test results from this visit will be discussed in further detail at your follow-up appointment, if applicable. Proposed Discharge Date: 01/12/19
--- NOTE | 2019-01-12 15:19 | DS.PCM_ITS ---
Discharge Date and Diagnosis - Problem List Patient Problems: Active and Suspected Problems (Last Reviewed 01/09/19 @ 06:17 by Rishi Hilario MD) Salmonella enteritis (Acute) Acute kidney injury (Acute) General weakness (Acute) Date of Admission: 01/09/19 Date of Discharge: 01/12/19 - Primary Discharge Diagnosis Active and Suspected Problems (Last Reviewed 01/09/19 @ 06:17 by Rishi Hilario MD) Salmonella enteritis (Acute) Acute kidney injury (Acute) General weakness (Acute) - Secondary Discharge Diagnosis Chronic Problems (Last Reviewed 01/09/19 @ 06:17 by Rishi Hilario MD) Spinal stenosis of lumbar region without neurogenic claudication (Chronic) Atherosclerosis of coronary artery bypass graft without angina pectoris (Chronic) Presence of stent in coronary artery (Chronic ~09/2013) PTCA/Stent to prox RCA and PTCA to PDA 11/30/2007; PTCA/Stent to mid RCA and mid LAD and second diagonal 02/25/2008; PTCA/PIETRO first DX, sequential SVG to OM1 and OM2 04/14/2008; PTCA/Stent to LXC AV groove branch and OM1 09/2013; Hx of CABG (Chronic ~12/22/07) DARNELL to LAD, SVG to Diag, sequential SVG to OM1 and OM2 12/22/2007; Mixed hyperlipidemia (Chronic) Essential hypertension (Chronic) Insomnia (Chronic) Candidiasis of scrotum (Chronic) Constipation (Chronic) Atherosclerosis of [place] coronary artery of [place] heart without angina pectoris (Chronic) PTCA/Stent to prox RCA and PTCA to PDA 11/30/2007; PTCA/Stent to mid RCA and mid LAD and second diagonal 02/25/2008; PTCA/PIETRO first DX, sequential SVG to OM1 and OM2 04/14/2008; PTCA/Stent to LXC AV groove branch and OM1 09/2013; CABG with DARNELL to LAD, SVG to diag, sequential SVG to OM1 and OM2 12/22/2007; Paroxysmal atrial fibrillation (Chronic) Type II diabetes mellitus, uncontrolled (Chronic) History of tobacco use (Chronic) 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) Hospital Course and Treatment Imaging Results: Clinical Impression(s) from Imaging Studies Brain CT 01/08/19 22:10 IMPRESSION: Chronic age related changes and atrophy, old infarcts. No acute abnormality. Electronically Signed: Duane Woody MD at 22:44 EDT , Service support , Chest X-Ray 01/08/19 22:10 IMPRESSION: No acute chest disease. Electronically Signed: Duane Woody MD at 22:50 EDT , Service support , Renal Ultrasound 01/09/19 02:48 IMPRESSION: No acute abnormalities. Renal cysts. Electronically Signed: Duane Woody MD at 16:08 EDT , Service support , Operations: None Procedures: None Summary of Care Provided: The patient is a 78 year old M's with weakness unsteadiness. Had been having diarrhea. [place] that this began after eating an undercooked hamburger. Presented to the emergency room where he was found to have acute kidney injury, with a creatinine of 1.59. Patient had an enteric pathogen panel that came back positive for Salmonella. Patient continued to have diarrhea until today where he has had some small soft stools. Creatinine has since normalized with IV fluids. Patient has responded well with IV Levaquin. Patient will be discontinued with 7 more days of Levaquin. Patient denies having any reptiles as pets. [] Patient Problems: Active and Suspected Problems (Last Reviewed 01/09/19 @ 06:17 by Rishi Hilario MD) Salmonella enteritis (Acute) Acute kidney injury (Acute) General weakness (Acute) - Physical Exam General: Alert, No apparent distress HEENT: Atraumatic, Normocephalic Oral: Moist Mucosa, No Gingival or Mucosal Lesions/ Ulcerations Neck: No Nodes, Thyroid Normal Size and Texture Lungs: Clear to auscultation, Normal air movement, No rhonchi, No wheeze, No rales, Diminished Cardiovascular: Regular rate, Regular Rhythm, Normal S1, Normal S2, No murmurs Abdomen: Bowel Sounds Present, Soft, Non Tender Vital Signs Temp Pulse Resp BP Pulse Ox 36.7 C 66 18 151/76 H 98 01/12/19 15:06 01/12/19 15:06 01/12/19 15:06 01/12/19 15:06 01/12/19 15:06 Oxygen Delivery Method Room Air Weight: 93.4 kg Body Mass Index (BMI) 30.4 Finger Stick Blood Glucose 195 Intake and Output for Last 24 Hours 01/10/19 01/11/19 01/12/19 23:59 23:59 23:59 Intake Total 4000 / 5047 2932 / 4040 3145 / 3145 Output Total 600 / 600 500 / 500 Balance 4000 / 5047 2332 / 3440 2645 / 2645 Microbiology Past 72 Hours 01/09/19 04:15 Enteric Bacteriology - Final Stool Salmonella Sp. Laboratory Tests Past 24 Hrs 01/12/19 05:25 Sodium 140 Potassium 3.6 Chloride 113 H Carbon Dioxide 20.0 L Anion Gap 7 BUN 10 Creatinine 0.95 Estim Creat Clear Calc 63.05 Est GFR (MDRD) Af Amer 98 Est GFR (MDRD) Non-Af 81 BUN/Creatinine Ratio 10.5 Glucose 128 H Calcium 7.9 L POC Glucose 01/12/19 01/12/19 01/11/19 11:04 06:51 22:59 POC Glucose 228 H 134 H 88 01/11/19 16:05 POC Glucose 165 H Discharge Diet: No Restrictions Discharge Activity: Return to Normal Activity Call your doctor if you observe: Fever of 101 or Higher, Shortness of breath, Fainting spells Home Medications: Medications to take at Discharge Hydrocodone Bitart/Apap 5-325 [[place] 5/325] 1 tab PO BID PRN PRN 07/04/13 aspirin 81 mg tablet,delayed release 81 mg PO QDAY 07/24/17 regvuwvxutmt-dcqxlzzu-ctgjyz tablet 1 tab PO QDAY 07/24/17 nitroglycerin 0.4 mg sublingual tablet 0.4 mg SUBLINGUAL Q5M PRN #25 tab 01/23/18 pen needle, diabetic 30 gauge x 11/20 See Dose Instructions .ROUTE .MEDSUPPLY #100 ea 03/11/18 insulin glargine (U-100) 100 unit/mL (3 mL) subcutaneous pen 44 unit SC QHS #15 ml 04/15/18 Compression Stockings See Rx Instructions .ROUTE .COMPLEX #1 09/08/18 clobetasol 0.05 % topical gel 1 applic TOPICAL DAILY PRN g 09/08/18 miscellaneous medical supply misc See Dose Instructions .ROUTE .MEDSUPPLY #1 ea 09/08/18 atorvastatin 80 mg tablet 80 mg PO QHS #90 tab 10/19/18 furosemide 20 mg tablet 20 mg PO .COMPLEX #240 tab 11/12/18 lansoprazole 30 mg capsule,delayed release 30 mg PO DAILY #90 cap 11/12/18 blood sugar diagnostic strips See Dose Instructions .ROUTE .MEDSUPPLY #300 ea 11/13/18 glimepiride 2 mg tablet 4 mg PO DAILY #90 tab 11/14/18 tamsulosin 0.4 mg capsule 0.4 mg PO QHS #90 cap 11/14/18 famotidine 40 mg tablet See Rx Instructions PO QHS #90 tab 12/02/18 pen needle, diabetic 32 gauge x 1/6 See Rx Instructions .ROUTE .MEDSUPPLY #100 ea 01/07/19 Metoprolol Tartrate [Lopressor (beta adelfo)] 100 mg PO BID 01/08/19 Diltiazem HCl [Cardizem Cd] 120 mg PO BID 01/09/19 Isosorbide Mononitrate [Imdur] 30 mg PO DAILY 01/09/19 Metoprolol Tartrate [Lopressor (beta adelfo)] 50 mg PO BID 01/09/19 Trazodone HCl 150 mg PO DAILY 01/09/19 Valsartan [Diovan] 160 mg PO DAILY 01/09/19 levoFLOXacin tablet [Levaquin tablet] 500 mg PO DAILY #7 tab 01/12/19 Following Prescrptions Were Given to Patient: levoFLOXacin tablet [Levaquin tablet] 500 mg PO DAILY #7 tab Transmission Status: Pending to [facility] Primary Care Physician: Shahzad Cerna DO [Primary Care Provider] - Within 2 Weeks Disposition: Home Minutes spent on discharge:: 32 Patient Condition:: Fair Medical Necessity - Tobacco Use Smoking Status: Former smoker Tobacco Use: Cigars Meaningful Use Info Meaningful Use Diagnoses (Choose all that apply): None applicable Code Visit Inpatient E&M: 77799 Disch Hosp
--- NOTE | 2019-01-12 16:21 | PCA ---
tried calling the doctor office to make followup apt and no answer called 4 times
--- NOTE | 2019-01-13 14:12 | CASEMGMT ---
Case Management DC Follow Up Call: DC Date: 01/12/19 DC Dx: Salmonella enteritis (Acute), Acute kidney injury (Acute), General weakness (Acute) DC Disposition: Home LACE/STRATA: 05/10 Called patient listed cell number, MARILYN Dtr Ree answered phone and states that patient is doing better and at his doctors appointment now, denies any questions, concerns, or issues with [facility], RX, and follow up. Akil Diamond RNCM
== END 2019-01-12 16:52 | disposition home or self-care (01) | DRG 372 ==
LOC: ED 01-09 01:07 → MS3 01-09 01:22
PROVIDERS: Internal Medicine; Nurse Practitioner Family; Admitting Provider Hospitalist; Emergency Provider Emergency Medicine; Family Provider Family Medicine; PCP Family Medicine; Referring Provider Hospitalist
DX: A02.0 Salmonella enteritis (principal); N17.9 Acute kidney failure, unspecified; E87.1 Hypo-osmolality and hyponatremia; E87.2 Acidosis; G89.29 Other chronic pain; I10 Essential (primary) hypertension; I25.10 Atherosclerotic heart disease of native coronary artery without angina pectoris; M48.061 Spinal stenosis, lumbar region without neurogenic claudication; E78.2 Mixed hyperlipidemia; G47.00 Insomnia, unspecified; E11.65 Type 2 diabetes mellitus with hyperglycemia; E66.9 Obesity, unspecified; E87.6 Hypokalemia; Z87.891 Personal history of nicotine dependence; E86.1 Hypovolemia; Z95.5 Presence of coronary angioplasty implant and graft; Z95.1 Presence of aortocoronary bypass graft; Z68.30 Body mass index [BMI] 30.0-30.9, adult; Z86.73 Personal history of transient ischemic attack (TIA), and cerebral infarction without residual deficits; Z79.4 Long term (current) use of insulin; N40.0 Benign prostatic hyperplasia without lower urinary tract symptoms
CPT/HCPCS: 36415; 70450; 71045; 76770; 80048; 80053; 81001; 82570; 82962; 83036; 83735; 83935; 84100; 84300; 84484; 85025; 85027; 85610; 85730; 87493; 87506; 93005; 97110; 97162; 97166; 97530; 97802; 99285; J7030; J7040; A4216

== ENCOUNTER → 2019-01-16 07:10 | Outpatient (CLI) | payer MEDICARE, MEDICAID, SELFPAY ==
[2018-10-14 14:40] VITALS: BMI 34.0
[2019-01-13 14:10] VITALS: BMI 30.4
--- NOTE | 2019-01-16 07:12 | MRI_ITS ---
STUDY: MRI LUMBAR SPINE WITHOUT CONTRAST REASON FOR EXAM: Male, 78 years old. Low back pain, hip pain. TECHNIQUE: Standardized fat and water weighted pulse sequences were obtained in the sagittal and axial planes. COMPARISON: 05/07/2012 FINDINGS: T12-L1: Normal endplates. Normal disc height, hydration and morphology. Normal bilateral facet joints. Normal central canal and bilateral lateral recesses. Normal bilateral intervertebral neural foramina. Normal lumbar lordosis. There is no substantial scoliosis. Normal conus medullaris that terminates at the T12/L1. L1-2: Normal endplates. Normal disc height, hydration and morphology. Normal bilateral facet joints. Normal central canal and bilateral lateral recesses. Normal bilateral intervertebral neural foramina. L2-3: No change in the mild bilobed disc protrusion which produces mild spinal stenosis and mild bilateral neural foraminal stenosis. L3-4: Moderate bilateral facet hypertrophy. Interval development of 2 mm retrolisthesis of L3 on L4 with a mild broad disc osteophyte complex which produces mild spinal stenosis and moderate bilateral neural foraminal stenosis. L4-5: Status post posterior decompression and transpedicular fixation with anatomic alignment no spinal stenosis or neural foraminal stenosis. L5-S1: Status post posterior decompression and transpedicular fixation with anatomic alignment and no spinal stenosis or neural foraminal stenosis. Normal visualized sacral ala. Normal visualized paraspinous soft tissue structures. MRI/Spine Lumbar (Routine) IMPRESSION: Worsening degenerative disc disease L3/L4 just superior to transpedicular fixation. Electronically Signed: Karri Parisi MD at 10:12 EDT Tel , Service support ,
== END ==
PROVIDERS: Family Provider Family Medicine; PCP Family Medicine; Referring Provider Family Medicine; Visit Provider Family Medicine
DX: M48.061 Spinal stenosis, lumbar region without neurogenic claudication (principal)
CPT/HCPCS: 72148

== ENCOUNTER → 2019-03-03 13:24 | Outpatient (CLI) | payer MEDICARE, MEDICAID, SELFPAY ==
[2019-03-03 13:18] VITALS: BMI 30.4
--- NOTE | 2019-03-03 13:25 | RAD_ITS ---
STUDY: X-RAY - LUMBAR SPINE REASON FOR EXAM: Male, 78 years old. Postop TECHNIQUE: 4 view(s) of the lumbar spine were obtained. COMPARISON: Report of previous study of 11/08/2011 FINDINGS: Normal lumbar lordosis. There is no substantial scoliosis. There is a normal alignment of the vertebrae. There are posterior spinal fusion changes with rods and interpedicular screws from L4 to S1. There is multilevel endplate spondylosis. Status post laminectomy changes of L4 and L5 are noted. There is multi-level degenerative disc disease with multi-level disc space narrowing. There is no demonstrated fracture. There are calcified plaques of the abdominal aorta. RAD/L/S Spine Min 4 Views IMPRESSION: Posterior spinal fusion changes with rods and interpeduncular screws from L4 to S1. Status post L4 and L5 laminectomy. Diffuse endplate spondylosis and disc space narrowing. Calcified plaques of the abdominal aorta. Electronically Signed: Abdon Aguilar MD at 23:58 EDT , Service support ,
== END ==
PROVIDERS: Family Provider Family Medicine; PCP Family Medicine; Referring Provider Orthopaedic Surgery; Visit Provider Orthopaedic Surgery
DX: M54.5 Low back pain (principal)
CPT/HCPCS: 72110

== ENCOUNTER 2019-08-26 10:44 | Outpatient (RCR) | payer MEDICARE, MEDICAID, SELFPAY ==
[2019-08-18 16:57] VITALS: BMI 34.5
--- NOTE | 2019-08-26 12:15 | HP.PTEVAL_ITS ---
Patient's Visit Information JUNE GUAMAN is a 79 year old M referred to Physical Therapy by RHYS Boyle with a diagnosis of GENERALIZED MUSCLE WEAKNESS. Date of Evaluation: 08/26/19 Physical Therapist: Hortencia Reynaga PT, Cert MDT - Visit Plan Frequency: 1x/Week Duration: 1 Week Plan: MOBILITY ASSESSMENT FOR POWER W/C - ONE VISIT - Subjective Findings: THIS PATIENT PRESENTS TO PT TODAY FOR A MOBILITY ASSESSMENT FOR A POWER MOBILITY DEVICE/WHEELCHAIR. PATIENT'S DAUGHTER IS WITH HIM. HE REPORTS HE IS CURRENTLY USING A POWER W/C AT HOME BUT THE W/C IS OLD AND NOT WORKING WELL. ZULMA REPORTS IT IS MORE THAN 5 YEARS OLD. HE STATES IT IS GETTING HARDER TO GET AROUND AND NEEDS THE POWER W/C DUE TO LEFT WEAKNESS FROM CVA AND SPINAL STENOSIS. WEIGHT - 234 LBS, HEIGHT - 5'9. Present symptoms: LOW BACK PAIN. I CAN'T GET OUT OF BED IN THE MORNING. LEFT LEG PAIN TO THE FOOT. Present since: CHRONIC LOW BACK PAIN. CVA APPROX 4 YEARS AGO. Pain Scale: WORST 9/10, LEAST 6-7/10. Currently: 8/10. Commenced as a result of: SPINAL STENOSIS. Symptoms at onset: LOW BACK. Previous history/Previous treatment: LUMBAR SURGERY APPROX 2009. Gait: MULTIPLE FALLS. LAST FALL WAS ABOUT 6 MONTHS AGO. I'M IN THE W/C ALL DAY AT HOME. DOES USE THE CANE FOR A FEW STEPS IN THE HOUSE TO GET INTO BED, ON/OFF CAMODE ETC. ALSO USES THE W/C OUTSIDE THE HOME. PATIENT DOES NOT LEAVE THE HOME WITHOUT CONTACT GUARD/SUPERVISION. PMH: SEE BELOW. TYPE 2 DM, SPINAL STENOSIS WITH NEUROGENIC CLAUDICATION, HISTORY OF FALLS, PRIOR AL, CAD, PRIOR CVA AND CRHONIC LEFT SIDED WEAKNESS. OTHER: LIVES WITH DAUGHTER. - Objective THIS PATIENT IS PLEASANT AND COOPERATIVE TO WORK WITH. HE IS ALERT AND ORIENTED X 3. HE IS HARD OF HEARING BUT FOLLOWS COMMANDS WELL. Sitting/Standing Post ure: POOR. RIGID SPINE WITH POOR CONTROL. Lordosis: REDUCED. Active Correction of posture: UNABLE AND INCREASED PAIN WITH ATTEMPS. Other Observations: PATIENT IS ABLE TO TRANSFER FROM SIT TO STAND INDEP'LY BUT IS UE DEPENDENT TO DO SO. DIFFICULTY INITIATING GAIT AFTER SITTING. HE IS ABLE TO TAKE ABOUT 5 STEPS FROM CHAIR TO W/C WITH A STRAIGHT CANE AND CONTACT GUARD ASSIST AND BECOMES SHAKY QUICKLY. DIFFICULTY ADVANCING JOHAN LE'S BUT LLE IS MUCH WEAKER THAN RIGHT. HE HAS EXCESSIVE TRUNK FLEXION AND SHUFFLES HIS FEET. DYNAMIC BALANCE IS POOR AND HE IS A HIGH FALL RISK. STATIC STANDING BALANCE IS ALSO POOR. Motor deficit: JOHAN LE WEAKNESS: RIGHT LE GROSLY 3+ TO 4-/5 WITH MMT'ING. LLE: HIP 2+/5, KNEE EXT 2-/5, KNEE FLEX 2-/5, ANKLE - FOOT DROP. ROM deficit: TIGHT JOHAN HIP FLEXORS, HS'S AND GASTROC SOLEUS COMPLEX'S. Lumbar mvmt loss: flex - MOD TO REMIGIO (PATIENTS DAUGHTER REPORTS SHE HAS TO HELP HER DAD GET DRESSED AND HE CAN NOT HELP GETTING HIS SHOES AND SOCKS ON). ext - REMIGIO. R SG - REMIGIO. L SG - REMIGIO. PATIENT HAS C/O INCREASED PAIN WITH ATTEMPS OF LUMBAR ROM ALL PLANES. Core strength: POOR. LEFS SCORE: 5. LUMBAR OSWESTRY SCORE: 34 - Goals Goal 1:: MOBILITY ASSESMENT Goal Time Frame: 1 VISIT - Anticipated Interventions Thank you for the opportunity to evaluate your patient. For Medicare and Medicare HMO plans, please review the plan of care and approve it. It will need to be FAXED BACK to us at [phone] for Medicare purposes. For Medicare only, by signing this I certify the plan of care. Please let me know if there are questions or concerns regarding this plan of care. Physician Signature: Date:
--- NOTE | 2019-10-06 12:46 | HP.PT.NRP ---
JUNE GUAMAN was seen in my office for initial evaluation on 08/26/19. The following Plan of Care was established for this patient: Initial Frequency: 1x/Week Initial Duration: 1 Week This patient was last seen in our office 08/26/19. Pertinent comments regarding their Physical therapy will appear below: This patient has not returned to Physical Therapy and is appropriate to return to MD for further follow-up as needed. At this point I will be discontinuing this patient from physical therapy. I would be happy to see this patient again in the future if found appropriate by the physician. Thank you! Hortencia Reynaga, PT, Cert MDT
== END 2019-08-26 19:00 | disposition home or self-care (01) ==
LOC: PT 10:44
PROVIDERS: PCP Family Medicine; Referring Provider Nurse Practitioner Family; Visit Provider Nurse Practitioner Family
DX: M62.81 Muscle weakness (generalized) (principal)
CPT/HCPCS: 97163

== ENCOUNTER → 2020-01-15 06:35 | Outpatient (CLI) | payer MEDICARE, MEDICAID, SELFPAY ==
[2020-01-13 08:25] VITALS: BMI 34.4
--- NOTE | 2020-01-15 06:39 | CT_ITS ---
STUDY: CT ABDOMEN AND PELVIS WITHOUT CONTRAST REASON FOR EXAM: Male, 79 years old. Low abdominal pain with weight loss RADIATION DOSAGE (If Supplied By Facility): CTDIvol = ( 14.96 ) mGy, DLP = ( 826.15 ) mGycm TECHNIQUE: Transaxial images were obtained from the dome of the diaphragm to the symphysis pubis without oral contrast, and without intravenous contrast. Sagittal and coronal images were reconstructed. Individualized dose optimization techniques were used for this CT. COMPARISON: Comparison is made with prior study dated July 11, 2017. FINDINGS: Tiny left pleural effusion. Stable increased markings at the lung bases suggestive of scarring. Coronary artery calcification. There is decreased attenuation of the liver consistent with steatosis. The patient is status post cholecystectomy. Normal spleen. Normal pancreas. Normal bilateral adrenal glands. Normal right kidney. There is a 7 cm x 6.7 cm cyst in the upper midportion of the left kidney. There is a moderate hiatal hernia. Normal small intestine. There are multiple colonic diverticula consistent with diverticulosis. The appendix is visualized and appears normal. There is diffuse atherosclerotic calcification of the abdominal aorta, without a demonstrated aneurysm. Normal inferior vena cava. Normal retroperitoneum. Normal urinary bladder. There is a small umbilical hernia containing fat. Prior laminectomy and fusion at the L4-L5 and L5-S1 levels. CT/Abdomen/Pel W ORAL Cont Only IMPRESSION: Stable examination. Tiny left pleural effusion Electronically Signed: Kenneth Vazquez, at 9:23 EDT , Service support ,
== END ==
PROVIDERS: PCP Family Medicine; Referring Provider Family Medicine; Visit Provider Family Medicine
DX: R10.9 Unspecified abdominal pain (principal)
CPT/HCPCS: 74176

== ENCOUNTER 2020-03-10 13:48 | Emergency (ER) | payer MEDICARE, MEDICAID, SELFPAY ==
[2020-01-13 08:25] VITALS: BMI 34.4
[2020-03-10 13:49] VITALS: BP 152/73; PULSE 73; RESP 18; TEMP 36.3; O2SAT 96; BMI 35.6
[2020-03-10 14:12] VITALS: BP 159/70; PULSE 78; RESP 16; O2SAT 95
--- NOTE | 2020-03-10 14:31 | ED.DCSUM_ITS ---
- ER Visit Summary Date of Service: 03/10/20 Chief Complaint: Diarrhea History of Present Illness: The patient is a 79 M 3 old CVA, CAD, CT, four-way bypass, diabetes, hypertension, high cholesterol. He states that 3-day history of intermittent diarrhea 3-4 times a day. No melena. States is watery. Denies any fever or chills. He is also had a mild cough. Denies any chest pain or shortness of breath. He is not recently been on any antibiotics or is any recent hospitalization. No history of C. difficile. Physical Examination: Older male no acute distress vital signs stable afebrile. Initial blood pressure 159/70. H EENT exam unremarkable moist with membranes. Patient appears well-hydrated. He does not appear to be septic or toxic. HEENT unremarkable. Neck nontender no lymphadenopathy. Lungs clear to auscultation bilaterally. Heart regular rhythm rate about 80. Abdomen soft nontender normal bowel sounds no peritoneal signs. Patient moving all 4 extremities. 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 Dorsi plantarflexion intact. No edema. Back nontender. Neurologically is awake alert with no focal motor deficits. Test Results: White count of 10. Hemoglobin 13. No bands. Chemistries unremarkable potassium 3.4. Normal gap. Normal creatinine 1.1. X-ray portable 1 view read both myself the radiologist showed no acute abnormality. No infiltrate. Repeat exam at 5:11 PM patient is doing well. Resting comfortably. We went over all the test results. They are comfortable him being discharged to home. Emergency Department Course and Treatment: With diarrhea for last 3 days. He currently has no obvious risk factors for C. difficile. He will be hydrated with a liter of fluid screening labs to be obtained. Treatment Plan: Fluids and rest. Imodium if diarrhea not improving. If diarrhea not improving or worse follow-up to rule out C. difficile. Disposition: discharge Impression: Diarrhea Viral syndrome History of prior stroke, CAD and diabetes This note was generated with [employer] dictation software. It may contain incorrect words, spelling, and punctuation that were not noted in review of the chart prior to signing ED Disposition - Plan for ED Patient: Referrals: Shahzad Cerna DO [Primary Care Provider] -
--- NOTE | 2020-03-10 14:50 | RAD_ITS ---
STUDY: X-RAY CHEST REASON FOR EXAM: Male, 79 years old. DIARRHEA X3 DAYS. -- DIZZINESS -- HX NH, CABG, AFIB TECHNIQUE: Single AP portable view of the chest. COMPARISON: Comparison is made with prior study dated 01/08/2019. FINDINGS: The lungs are clear and expanded. Scattered calcified granulomas. There is no demonstrated pleural abnormality. Sternal cerclage wires and vascular clips are present from a prior sternotomy and coronary artery bypass graft procedure (CABG). Normal mediastinum and margarita. Normal visualized pulmonary arteries. There is atherosclerotic calcification of the aortic arch with tortuosity. Normal visualized thoracic spine. Normal visualized ribs, clavicles, and shoulders. Surgical clips are seen in the lower right cervical region. There is no demonstrated abnormality of the visualized soft tissue structures of the upper abdomen. RAD/Chest 1 View (Portable) IMPRESSION: No acute abnormality is seen. Electronically Signed: Kenneth Vazquez, at 15:21 EDT , Service support ,
[2020-03-10] MEDS: 0.9% Normal Saline 1,000 ML 1000 ML IV (14:54)
[2020-03-10 15:06] LABS: Absolute Lymphocyte Count 0.98 X10^3/uL (0.83-4.51); Basophil# 0.02 X10^3/uL; Basophil% 0.2 % (0-1); Eosinophil# 0.03 X10^3/uL; Eosinophils% 0.3 % (0-5); Hematocrit 41.9 % (40-54); Hemoglobin 13.5 g/dL (13.0-16.5); Lymphocyte # 0.98 X10^3/ul (4.0); Lymphocyte % 9.2 % (19-41); Mean Corp Hgb Conc 32.2 g/dL (32-36); Mean Corpuscular Hgb 27.5 pg (27.0-32.0); Mean Corpuscular Volume 85.3 fL (80-94); Mean Platelet Vol. 9.4 fl (6.2-12.0); Monocyte# 0.62 X10^3/uL; Monocyte% 5.8 % (0-10); NRBC Flagged by Analyzer 0 % (0-5); Neutrophil # 8.99 X10^3/uL (2.7-7.7); Neutrophil % 84.1 % (47-70); Platelet Count 218 K/mm3 (150-450); RBC Distribution Width CV 13.7 % (11.6-14.6); RBC Distribution Width SD 42.5 fl (35.1-43.9); Red Blood Count 4.91 M/mm3 (4.6-6.2); White Blood Count 10.7 K/mm3 (4.4-11.0)
[2020-03-10 15:19] LABS: Anion Gap 7 (5-15); BUN 20 mg/dL (7-18); BUN/Creat Ratio 16.8 RATIO (10-20); Calcium,Total 8.4 mg/dL (8.5-10.1); Chloride 107 mmol/L (98-107); Creatinine, Serum 1.19 mg/dL (0.70-1.30); EST Glomerular Filtration Rate 62 mL/min (>60); Est Glom Filt Rate - Afr Amer 76 mL/min (>60); Glucose 114 mg/dL (74-106); Potassium 3.4 mmol/L (3.5-5.1); Sodium Level 138 mmol/L (136-145)
[2020-03-10 16:44] VITALS: BP 171/67; PULSE 71; RESP 15; O2SAT 98
--- NOTE | 2020-03-10 17:13 | ED.DEP ---
ED Disposition - Plan for ED Patient: Disposition: Home or Assisted Living Instructions: ED Diarrhea Viral Referrals: Shahzad Cerna, DO [Primary Care Provider] - 3-5 Days if not improving Additional Instructions: Plenty of fluids and rest. Start Imodium if in 24 hours if diarrhea not improving on its own. Follow-up with your primary care physician if diarrhea not improving or getting worse she may need to have it tested to rule out C. difficile.
[2020-03-10 17:35] VITALS: BP 171/64
== END 2020-03-10 17:36 | disposition home or self-care (01) ==
PROVIDERS: Emergency Provider Emergency Medicine; PCP Family Medicine
DX: B34.9 Viral infection, unspecified (principal); I25.10 Atherosclerotic heart disease of native coronary artery without angina pectoris; I25.2 Old myocardial infarction; E11.9 Type 2 diabetes mellitus without complications; I10 Essential (primary) hypertension; E78.00 Pure hypercholesterolemia, unspecified; Z95.1 Presence of aortocoronary bypass graft; Z79.4 Long term (current) use of insulin; Z79.899 Other long term (current) drug therapy; Z86.73 Personal history of transient ischemic attack (TIA), and cerebral infarction without residual deficits
CPT/HCPCS: 71045; 80048; 85025; 96360; 96361; 99283; J7030

== ENCOUNTER → 2020-04-06 11:31 | Outpatient (CLI) | payer MEDICARE, MEDICAID, SELFPAY ==
[2020-04-06 11:16] VITALS: BMI 32.5
[2020-04-06 11:33] LABS: Red Blood Cells-Urine 0 SEEN /hpf (0-5); White Blood Cells 0 SEEN /hpf (0-5)
[2020-04-06 13:24] LABS: AST(SGOT) 16 U/L (15-37); Alanine Aminotransfer ALT/SGPT 42 U/L (16-61); Albumin, Serum 3.6 g/dL (3.2-5.0); Alkaline Phosphatase 76 U/L (45-117); Anion Gap 5 (5-15); BUN 17 mg/dL (7-18); BUN/Creat Ratio 14.4 RATIO (10-20); Calcium,Total 8.9 mg/dL (8.5-10.1); Chloride 106 mmol/L (98-107); Cholesterol 81 mg/dL (200); Creatinine, Serum 1.18 mg/dL (0.70-1.30); EST Glomerular Filtration Rate 63 mL/min (>60); Est Glom Filt Rate - Afr Amer 76 mL/min (>60); Globulin 3.5 g/dL (2.2-4.2); Glucose 207 mg/dL (74-106); High Density Lipoprotein 30 mg/dL; Potassium 4.3 mmol/L (3.5-5.1); Protein, Total 7.1 g/dL (6.4-8.2); Sodium Level 137 mmol/L (136-145); Triglycerides 143 mg/dL; Very Low Density Lipoprotein 29 mg/dL (5-40)
[2020-04-06 15:37] LABS: Color, Urine Yellow (Yellow); Glucose, Dipstick 100 mg/dl (Normal); Ketone-Dipstick 5 mg/dl (Negative); Leukocyte Esterase-Dipstick 25 /ul (Negative); Nitrite-Dipstick Negative (Negative); Occult Blood-Urine Negative /ul (Negative); Protein-Dipstick 30 mg/dl (Negative); Specific Gravity, Urine 1.025 (1.002-1.030); Urine Bilirubin Dipstick Negative (Negative); Urine Clarity Sl. Cloudy (Clear); Urine Urobilinogen 1 mg/dl (Normal)
[2020-04-06 15:54] LABS: Bacteria RARE /hpf (None Seen); Mucous, Urine 2+ /hpf (<or=2+); Squamous Epithelial Cells - UA 0-5 SEEN /hpf (0-5)
[2020-04-06 15:55] LABS: Calcium Oxalate Crystals Ur 3+ /hpf (<or=2+)
== END ==
PROVIDERS: PCP Family Medicine; Referring Provider Family Medicine; Visit Provider Family Medicine
DX: E11.65 Type 2 diabetes mellitus with hyperglycemia (principal); R30.0 Dysuria
CPT/HCPCS: 36415; 80053; 80061; 81001

== ENCOUNTER → 2020-04-14 | Outpatient (CLI) | payer MEDICARE, MEDICAID, SELFPAY ==
[2020-04-06 11:16] VITALS: BMI 32.5
[2020-04-14 09:32] LABS: Bacteria 0 SEEN /hpf (None Seen); Mucous, Urine 0 SEEN /hpf (<or=2+); Red Blood Cells-Urine 0 SEEN /hpf (0-5)
[2020-04-14 12:36] LABS: Color, Urine Yellow (Yellow); Glucose, Dipstick Normal (Normal); Ketone-Dipstick Negative (Negative); Leukocyte Esterase-Dipstick Negative /ul (Negative); Nitrite-Dipstick Negative (Negative); Occult Blood-Urine Negative /ul (Negative); Protein-Dipstick 30 mg/dl (Negative); Urine Bilirubin Dipstick Negative (Negative); Urine Clarity Clear (Clear); Urine Urobilinogen Normal (Normal)
[2020-04-14 12:58] LABS: Calcium Oxalate Crystals Ur 2+ /hpf (<or=2+); Squamous Epithelial Cells - UA 5-10 SEEN /hpf (0-5); White Blood Cells 0-5 SEEN /hpf (0-5)
== END | disposition home or self-care (01) ==
LOC: LABSPEC 09:30
PROVIDERS: PCP Family Medicine; Referring Provider Family Medicine; Visit Provider Family Medicine
DX: N40.1 Benign prostatic hyperplasia with lower urinary tract symptoms (principal); N13.8 Other obstructive and reflux uropathy
CPT/HCPCS: 81001

== ENCOUNTER 2020-08-04 14:24 | Outpatient (RCR) | payer MEDICARE, MEDICAID, SELFPAY | END 2020-08-04 23:59 | LOC: IMMUN 14:24 | PROVIDERS: PCP Family Medicine; Visit Provider Family Medicine | DX: Z23 Encounter for immunization (principal) | CPT/HCPCS: 0011A; 0012A; 91301 ==

== ENCOUNTER → 2020-09-23 16:42 | Outpatient (CLI) | payer MEDICARE, MEDICAID, SELFPAY ==
--- NOTE | 2020-09-23 16:48 | RAD_ITS ---
STUDY: X-RAY CHEST REASON FOR EXAM: Male, 80 years old. dyspnea TECHNIQUE: PA and lateral views of the chest. COMPARISON: 03/10/2020 FINDINGS: Status post median sternotomy. The lungs are clear and expanded. Small bilateral pleural effusions. There is moderate cardiac enlargement. Normal mediastinum and margarita. Normal visualized pulmonary arteries. Normal visualized aortic arch and descending thoracic aorta. Normal visualized thoracic spine. Normal visualized ribs, clavicles, and shoulders. There is no demonstrated abnormality of the visualized soft tissue structures of the upper abdomen. RAD/Chest PA and Lateral IMPRESSION: Small bilateral pleural effusions. Electronically Signed: Karri Parisi MD at 13:48 EDT Tel , Service support ,
== END ==
PROVIDERS: PCP Family Medicine; Referring Provider Family Medicine; Visit Provider Family Medicine
DX: I10 Essential (primary) hypertension (principal)
CPT/HCPCS: 71046

== ENCOUNTER 2020-10-03 17:48 | Emergency (ER) | payer MEDICARE, MEDICAID, SELFPAY ==
[2020-10-03 17:49] VITALS: BP 123/78; PULSE 65; RESP 16; TEMP 36.6; O2SAT 93; BMI 34.7
--- NOTE | 2020-10-03 19:01 | ED.DCSUM_ITS ---
- ER Visit Summary Date of Service: 10/03/20 Chief Complaint: Right index finger laceration History of Present Illness: The patient is a 80 M history of prior stroke, [place], CAD, cardiac stents, quadruple bypass, diabetes and hypertension. Was working on a pile in his garage when he lacerated the palmar aspect of his right index finger proximal phalanx. Patient is right-hand dominant. States his last tetanus shot was within the last year. He denies other injuries. He is accompanied by family. Physical Examination: Well-appearing older male. Vital signs stable afebrile. HEENT exam unremarkable. Scalp nontender no signs of trauma to his face or head. C-spine nontender. Lungs clear to auscultation. Heart regular rhythm no murmur. Chest wall nontender. Abdomen soft nontender. Pelvic girdle intact. Patient moving all 4 extremities. Neurovascular intact. No deformity. He has normal dorsi and plantar flexion in both feet. Hips are nontender. He has normal flexion-extension all digits of his hands. His right hand proximal phalanx palmar side is a 2 to 3 cm laceration of the skin and subcu tissue. Distally has normal touch sensation and cap refill. On the dorsum of his right index finger there is a small skin avulsion that will not need to be repaired. Neurologically is awake and alert with no focal motor deficits. Test Results: None Emergency Department Course and Treatment: Patient with a laceration on the palmar aspect of his right index finger proximal phalanx. Procedure note: Right index finger laceration proximal phalanx palmar side. 3 centimeters. Locally anesthetized with lidocaine. Washed with saline and Shur- Clens. Explored. Irrigated. Closed using #5 4-0 Ethilon suture. Proper hemostasis and wound closure obtained. Patient tolerated procedure well. Was instructed on wound care and suture removal. Treatment Plan: Wound care. Suture removal in 7 to 10 days. Return if any signs of infection. Disposition: Discharge Impression: Acute right index finger laceration of 3 centimeters with ER repair This note was generated with [employer] dictation software. It may contain incorrect words, spelling, and punctuation that were not noted in review of the chart prior to signing ED Disposition - Plan for ED Patient: Disposition: Home or Assisted Living Instructions: ED Laceration, Hand: All Closures Referrals: Brown,Shahzad R, DO [Primary Care Provider] - 10 Day for suture removal Additional Instructions: Trace signs of infection is seen redness, pus, swelling, streaks or fever return. Keep wound clean and dry. May get wet but do not soak in any water or liquids. Clean daily with soap and water. Apply antibiotic ointment daily. Ice and elevate to decrease swelling. Suture removal in 7 to 10 days. Tylenol for pain.
--- NOTE | 2020-10-03 19:04 | ED.DEP ---
ED Disposition - Plan for ED Patient: Disposition: Home or Assisted Living Instructions: ED Laceration, Hand: All Closures Referrals: Shahzad Cerna, [Primary Care Provider] - 10 Day for suture removal Additional Instructions: Trace signs of infection is seen redness, pus, swelling, streaks or fever return. Keep wound clean and dry. May get wet but do not soak in any water or liquids. Clean daily with soap and water. Apply antibiotic ointment daily. Ice and elevate to decrease swelling. Suture removal in 7 to 10 days. Tylenol for pain.
[2020-10-03 21:07] VITALS: BP 118/70; PULSE 74; RESP 16; O2SAT 97
[2020-10-03] MEDS: Lidocaine 1% (20 ml mdv) 20 ML Vial 8 ML INFILT (21:29)
== END 2020-10-03 21:31 | disposition home or self-care (01) ==
PROVIDERS: Emergency Provider Emergency Medicine; PCP Family Medicine
DX: S61.210A Laceration without foreign body of right index finger without damage to nail, initial encounter (principal); W26.9XXA Contact with unspecified sharp object(s), initial encounter; Y93.89 Activity, other specified; Y92.008 Other place in unspecified non-institutional (private) residence as the place of occurrence of the external cause; Y99.9 Unspecified external cause status; I25.10 Atherosclerotic heart disease of native coronary artery without angina pectoris; I10 Essential (primary) hypertension; I25.2 Old myocardial infarction; E11.9 Type 2 diabetes mellitus without complications; Z95.1 Presence of aortocoronary bypass graft; Z95.5 Presence of coronary angioplasty implant and graft; Z79.4 Long term (current) use of insulin; Z79.82 Long term (current) use of aspirin; Z79.899 Other long term (current) drug therapy; Z86.73 Personal history of transient ischemic attack (TIA), and cerebral infarction without residual deficits
CPT/HCPCS: 12002; 99283

== ENCOUNTER → 2020-10-05 10:47 | Outpatient (CLI) | payer MEDICARE, MEDICAID, SELFPAY ==
[2020-10-03 17:49] VITALS: BMI 34.7
--- NOTE | 2020-10-05 10:49 | ECHOCS_ITS ---
Reason For Study: Dyspnea/SOB Procedure This was a 2D Doppler, Color Flow transthoracic echocardiogram. The study was technically difficult. Contrast injection was performed. Exam performed in department. Left Ventricle Normal LV size. Segmental dysfunction with preserved ejection fraction (see wall motion). The estimated ejection fraction is 55 %. Infero-Basal: Akinetic. Mid-Inferior: Hypokinetic. Right Ventricle Normal RV size. Normal systolic function. Atria The left atrium is moderately enlarged. Normal right atrium. No doppler evidence for ASD. Mitral Valve There is no mitral annular calcification. Mild focal mitral valve calcification of the anterior leaflet. Mild (1+) mitral valve insufficiency. Tricuspid Valve Normal tricuspid valve. Mild tricuspid valve insufficiency. Right ventricular systolic pressure estimated to be 29 mmHg. Aortic Valve Trisinus/trileaflet aortic valve. Mild diffuse aortic valve thickening. Mild focal aortic valve calcification. Mild (1+) aortic valve insufficiency. Pulmonic Valve The pulmonic valve is not well visualized. Trivial pulmonic valve insufficiency. Great Vessels Normal sized aortic root. Pericardium/Pleural No pericardial effusion. Medication 22 gauge I.V. with prn adaptor inserted into left arm. Diluted definity 3ml given slow IV push to enhance endocardial definition. MMode/2D Measurements & Calculations LVIDd: 5.1 cm IVSd: 1.5 cm Ao root diam: 3.8 cm LVIDs: 3.3 cm LVPWd: 1.2 cm LA dimension: 4.0 cm FS: 35.7 % LAV(MOD-bp): 69.3 ml LA A4 area: 23.5 cm2 RA A4 area: 18.7 cm2 LAV(MOD-bp) Indexed: 31.3 ml/m2 LAV(MOD-sp2): 63.2 ml LAV(MOD-sp4): 69.6 ml Time Measurements MV dec time: 0.24 sec Doppler Measurements & Calculations MV E max matthew: 97.6 cm/sec Lat Peak E' Matthew: 9.4 cm/sec Med Peak E' Matthew: 7.4 cm/sec MV A max matthew: 45.8 cm/sec E/E' lat: 10.4 E/E' med: 13.3 MV E/A: 2.1 MV V2 max: 121.3 cm/sec MV P1/2t max matthew: 120.4 cm/sec Ao V2 max: 120.4 cm/sec MV max P.9 mmHg MV P1/2t: 95.1 msec Ao max P.8 mmHg MV V2 mean: 61.2 cm/sec MV dec slope: 370.8 cm/sec2 MV mean P.9 mmHg MV V2 VTI: 37.0 cm MVA(P1/2t): 2.3 cm2 AI max matthew: 376.6 cm/sec LV V1 max: 85.4 cm/sec PA V2 max: 91.5 cm/sec AI max P.7 mmHg LV V1 max P.9 mmHg AI dec slope: 271.7 cm/sec2 AI P1/2t: 405.9 msec TR max matthew: 256.7 cm/sec TR max P.4 mmHg ECHO/Echo Complete W/ Contrast Interpretation Summary The study was technically difficult. Contrast injection was performed. Segmental dysfunction with preserved ejection fraction (see wall motion). The estimated ejection fraction is 55 %. The left atrium is moderately enlarged. Mild focal mitral valve calcification of the anterior leaflet. Mild (1+) mitral valve insufficiency. Mild tricuspid valve insufficiency. Mild diffuse aortic valve thickening. Mild focal aortic valve calcification. Mild (1+) aortic valve insufficiency. Trivial pulmonic valve insufficiency. Right ventricular systolic pressure estimated to be 29 mmHg. Transmitral diastolic flow velocities suggest diastolic dysfunction (pseudonorm al pattern). Ordering Physician: Shahzad Cerna Referring Physician: Shahzad Cerna Performed By: Balwinder Nieto RCS
== END ==
PROVIDERS: PCP Family Medicine; Referring Provider Family Medicine; Visit Provider Family Medicine
DX: I25.810 Atherosclerosis of coronary artery bypass graft(s) without angina pectoris (principal)
CPT/HCPCS: 93306; Q9957; A4216; C8929

== ENCOUNTER → 2020-10-20 06:04 | Outpatient (CLI) | payer MEDICARE, MEDICAID, SELFPAY ==
[2020-10-20 06:04] VITALS: BMI 34.7
[2020-10-20 07:53] LABS: AST(SGOT) 16 U/L (15-37); Alanine Aminotransfer ALT/SGPT 36 U/L (16-61); Albumin, Serum 3.2 g/dL (3.2-5.0); Alkaline Phosphatase 64 U/L (45-117); Cholesterol 81 mg/dL (200); Globulin 3.3 g/dL (2.2-4.2); High Density Lipoprotein 38 mg/dL; Protein, Total 6.5 g/dL (6.4-8.2); Triglycerides 102 mg/dL; Very Low Density Lipoprotein 20 mg/dL (5-40)
== END ==
PROVIDERS: PCP Family Medicine; Referring Provider Internal Medicine Cardiovascular Disease; Visit Provider Internal Medicine Cardiovascular Disease
DX: E78.00 Pure hypercholesterolemia, unspecified (principal)
CPT/HCPCS: 36415; 80061; 80076

== ENCOUNTER 2021-02-13 14:27 | Inpatient (IN) | payer MEDICARE, MEDICAID, SELFPAY ==
[2021-01-04 08:03] VITALS: BMI 38.4
[2021-02-13] VITALS (12 sets, daily range): BP systolic 137–181; BP diastolic 72–113; PULSE 80–110; RESP 14–92; TEMP 36.2–36.6; O2SAT 15–95; BMI 78.1; BMI 34.8
--- NOTE | 2021-02-13 16:47 | EKG12_ITS ---
Test Reason : SOB Blood Pressure : / mmHG Vent. Rate : 088 BPM Atrial Rate : 122 BPM P-R Int : 000 ms QRS Dur : 160 ms QT Int : 448 ms P-R-T Axes : 000 001 004 degrees QTc Int : 542 ms Undetermined rhythm : Consider Atrial Fibrillation Right bundle branch block Abnormal ECG Confirmed by NAS TRIPP, JONAH ([id number]), news videotape editor THIERNO TUCKER ([id number]) on 02/15/2021 10:42:06 AM Referred By: ROSEY Confirmed By:JONAH LOVELL MD
--- NOTE | 2021-02-13 17:44 | EDS_ITS ---
HPI History of Present Illness Chief Complaint: Shortness of Breath Informant: patient and family Narrative Narrative: Patient is an 80-year-old male with extensive medical history including coronary artery disease and CHF presenting with worsening shortness of breath. Patient has been complaining of a worsening cough for the past few months. Has now gotten so bad that he is having associated headache and stomach pain. He states he is too weak to walk. He does have a motorized scooter that he uses inside the house as well as when he goes out. He states he is coughing so much he is now started to have a headache and stomach pain. He went to urgent care where he had a chest x-ray which was concerning for fluid overload. Patient was 90% there and sent to the emergency room for further evaluation possible CHF exacerbation. Patient notes he has had some swelling of his legs. He is not on any anticoagulation. Denies any history of DVT or PE. [facility] Medical History (Updated 02/14/21 @ 00:[address] Xin Vo, DO) Acute ischemic stroke Atherosclerosis of coronary artery bypass graft without angina pectoris Atherosclerosis of [place] coronary artery of [place] heart without angina pectoris Borderline elevated troponin BPH (benign prostatic hypertrophy) with urinary obstruction Essential hypertension GERD (gastroesophageal reflux disease) History of tobacco use HLD (hyperlipidemia) HTN (hypertension) Left-sided weakness Mixed hyperlipidemia Old myocardial infarction Paroxysmal atrial fibrillation Presence of stent in coronary artery (~09/2013) Type II diabetes mellitus, uncontrolled Home Medications aspirin 81 mg tablet,delayed release 81 mg PO QDAY 07/24/17 [History Last Taken 01/08/19 08:00 81 mg] [id number]-[id number] tablet 1 tablet PO QDAY 07/24/17 [History Last Taken 01/08/19 08:00 1 tab] nitroglycerin 0.4 mg sublingual tablet 0.4 mg SL Q5M PRN #25 tablet 01/23/18 [Rx Last Taken Unknown] isosorbide mononitrate 30 mg tablet,extended release 24 hr 30 mg PO DAILY #90 tablet 06/17/20 [Rx Last Taken Unknown] tamsulosin 0.4 mg capsule 0.4 mg PO QHS #90 cap 06/21/20 [Rx Last Taken Unknown] cetirizine 10 mg capsule 10 mg PO DAILY #30 cap 07/13/20 [Rx Last Taken Unknown] furosemide 20 mg tablet 20 mg PO DAILY #90 tablet 08/02/20 [Rx Last Taken Unknown] valsartan 160 mg tablet 160 mg PO BID #180 tablet 08/04/20 [Rx Last Taken Unknown] lansoprazole 30 mg capsule,delayed release 30 mg PO DAILY #90 cap 08/16/20 [Rx Last Taken Unknown] insulin glargine 100 unit/mL (3 mL) subcutaneous pen 50 unit SC QHS ml 09/21/20 [History Last Taken Unknown] glimepiride 2 mg tablet 4 mg PO DAILY #180 tablet 10/11/20 [Rx Last Taken Unknown] blood sugar diagnostic #120 ea 10/18/20 [Rx Last Taken Unknown] blood-glucose meter #1 ea 11/10/20 [Rx Last Taken Unknown] miscellaneous medical supply #1 ea 11/10/20 [Rx Last Taken Unknown] famotidine 20 mg tablet 20 mg PO DAILY #90 tab 11/14/20 [Rx Last Taken Unknown] atorvastatin 80 mg tablet 80 mg PO QHS #90 tab 11/17/20 [Rx Last Taken Unknown] blood pressure monitor #1 ea 11/21/20 [Rx Last Taken Unknown] trazodone 150 mg tablet 150 mg PO QHS #90 tab 12/08/20 [Rx Last Taken Unknown] diltiazem HCl 120 mg capsule,extended release 24 hr 120 mg PO BID #180 cap 12/19/20 [Rx Last Taken Unknown] metoprolol tartrate 100 mg tablet 100 mg PO BID #180 tab 12/26/20 [Rx Last Taken Unknown] WAlker with wheels #1 ea 12/27/20 [Rx Last Taken Unknown] pen needle, diabetic 31 gauge x 15/64 #100 ea 01/03/21 [Rx Last Taken Unknown] pregabalin 50 mg capsule 100 mg PO BID 01/04/21 [History Last Taken Unknown] Allergy/AdvReac Type Severity Reaction Status Date / Time iodine Allergy Hives Verified 02/13/21 14:29 tramadol Allergy Other Verified 02/13/21 14:29 Family History (Updated 02/13/21 @ 20:[address] Shalonda Carter MD) Mother Cancer Sister Brain aneurysm Sister Brain aneurysm Father Cancer Surgical History H/O carotid endarterectomy History of back surgery History of cholecystectomy History of PTCA Hx of CABG (~12/22/07) Presence of coronary angioplasty implant and graft (~09/2013) Presence of Watchman left atrial appendage closure device (~03/04/18) Social History household members: children Smoking Status: Never smoker how long ago did patient quit smokin (1987) to 39 (1977) years ago alcohol intake: never substance use type: does not use caffeine: No what type of physical activity do you participate in: none seatbelt use: always do you feel safe at home: Yes ROS ROS ED Constitutional Constitutional ED: Denies chills, fever(s) or sweats Eyes Eyes: Denies change in vision ENT ENT ED: Denies ear pain or sore throat Cardiovascular Cardiovascular: Denies chest pain or palpitations Respiratory/Chest Respiratory/Chest: Reports cough, dyspnea, dyspnea on exertion and sputum Gastrointestinal Gastrointestinal: Reports abdominal pain; Denies diarrhea, nausea or vomiting Genitourinary Genitourinary ED: Denies dysuria or hematuria Musculoskeletal Musculoskeletal: Denies arthralgias or myalgias Integumentary Denies rash Neurologic Neurologic: Reports headache(s) and weakness; Denies paresthesias Psychiatric Psychiatric: Denies depression EXAM Physical Exam Const Vital Signs: 02/13/21 14:29 02/13/21 15:57 02/13/21 17:12 Temperature 97.8 F 97.2 F L Temperature Source Temporal Temporal Pulse Rate 91 87 83 Respiratory Rate 14 17 92 H Respiratory Effort Normal Non-Labored Respiratory Depth Normal Respiratory Pattern Normal Blood Pressure 137/113 H 153/72 H 147/91 H Blood Pressure Mean 121 99 109 Pulse Ox 95 92 15 Oxygen Delivery Method Room Air Room Air Room Air 02/13/21 19:06 02/13/21 19:08 02/13/21 19:55 Temperature 97.9 F 97.9 F 97.9 F Temperature Source Temporal Oral Oral Pulse Rate 102 H 98 110 H Respiratory Rate 20 H 20 H Respiratory Effort Respiratory Depth Respiratory Pattern Blood Pressure 169/100 H 169/100 H 181/100 H Blood Pressure Mean 123 123 127 Pulse Ox 94 93 Oxygen Delivery Method Room Air Room Air Positive well nourished and well developed General Appearance ED: well developed HEENT Reports TM's clear and moist mucous membranes atraumatic Tympanic Membrane ED: Yes TM's clear Eyes PERRL and EOMs intact bilaterally Neck supple Neck Narrative: Mild JVD Resp normal respiratory effort Auscultation: diminished lung sounds bilateral lower; Negative for rhonchi or wheezes Cardio regular rate, regular rhythm and no murmurs GI non-tender and non-distended Auscultation: normoactive bowel sounds Palpation: soft Extremity Negative for normal to inspection General Extremety ED: Yes edema; Negative for tenderness General Extremity: edema Neuro oriented x3 Sensorium / Orientation: alert Motor Exam: general weakness Psych mental status grossly normal Skin no wounds Rashes: no rashes MDM MDM MDM Narrative Medical decision making narrative: X-ray from urgent care reviewed by myself which shows pulmonary vascular congestion and small bilateral pleural effusions. Patient is evaluated for worsening weakness, dyspnea on exertion and cough. He seen in urgent care and was 90% on room air. He had findings consistent with fluid overload on his chest x-ray. Patient is not in any distress in the emergency room. He does have an elevated BNP. He states his troponin is normal. He denies any chest pain do not think he has any acute ischemia. I suspect he is having a exacerbation of CHF. Patient is ambulated in the ER and his O2 sat dropped to 88%. He states he is short of breath and weak during this. He is given IV Lasix in the ER as well as his evening metoprolol and Cardizem. Patient is agreeable this plan of care. Lab Data Attestation: I reviewed the patient's lab results. Labs: Laboratory Results - last 24 hr 02/13/21 02/13/21 02/13/21 15:42 15:42 15:42 WBC 9.9 RBC 4.37 L Hgb 12.1 L Hct 38.2 L MCV 87.4 MCH 27.7 MCHC 31.7 L RDW Std Deviation 47.2 H RDW Coeff of [place] 14.8 H Plt Count 220 MPV 10.2 Immature Gran % (Auto) 0.400 Neut % (Auto) 74.5 H Lymph % (Auto) 15.0 L [place] % (Auto) 8.4 Eos % (Auto) 1.4 Baso % (Auto) 0.3 Absolute Neuts (auto) 7.4 Absolute Lymphs (auto) 1.48 Nucleated RBC % 0 Sodium 140 Potassium 3.5 Chloride 104 Carbon Dioxide 29.0 Anion Gap 7 BUN 23 H Creatinine 1.18 Estim Creat Clear Calc 49.10 Est GFR (MDRD) Af Amer 76 Est GFR (MDRD) Non-Af 63 BUN/Creatinine Ratio 19.5 Glucose 131 H Calcium 9.0 Troponin I High Sens 15.7 B-Natriuretic Peptide 262.9 H Rhythm Strip Rhythm Strip: A-fib Rate: 88 Ectopy: None EKG Initial EKG: Attestation: I personally reviewed and interpreted this EKG as follows: Interpretation: Atrial Fibrillation Comments: Atrial fibrillation at a rate of 88 Right bundle branch block Normal ST segments Discharge Plan Triage Chief Complaint: Shortness of Breath ED Provider: Xin Vo Dx/Rx/DC Orders Clinical Impression: CHF exacerbation, General weakness Primary Care Provider: Shahzad Cerna Disposition Disposition: Acute Care Hospital [facility] Discharge Date/Time: 02/13/21 20:52
[2021-02-13 19:11] LABS: Anion Gap 7 (5-15); BNP,B-Type NATRIURETIC PEPTIDE 262.9 pg/mL (0-100); BUN 23 mg/dL (7-18); BUN/Creat Ratio 19.5 RATIO (10-20); Chloride 104 mmol/L (98-107); Creatinine, Serum 1.18 mg/dL (0.70-1.30); EST Glomerular Filtration Rate 63 mL/min (>60); Est Glom Filt Rate - Afr Amer 76 mL/min (>60); Glucose 131 mg/dL (74-106); Potassium 3.5 mmol/L (3.5-5.1); Sodium Level 140 mmol/L (136-145); Troponin-I HS 15.7 pg/mL (3.0-78.5)
[2021-02-13 19:14] LABS: Absolute Lymphocyte Count 1.48 X10^3/uL (0.83-4.51); Absolute Neutrophil Count 7.4 X10^3/uL (2.0-7.7); Basophil# 0.03 X10^3/uL; Basophil% 0.3 % (0-1); Eosinophil# 0.14 X10^3/uL; Eosinophils% 1.4 % (0-5); Hematocrit 38.2 % (40-54); Hemoglobin 12.1 g/dL (13.0-16.5); Lymphocyte # 1.48 X10^3/ul (0.83-4.51); Mean Corp Hgb Conc 31.7 g/dL (32-36); Mean Corpuscular Hgb 27.7 pg (27.0-32.0); Mean Corpuscular Volume 87.4 fL (80-94); Mean Platelet Vol. 10.2 fl (6.2-12.0); Monocyte# 0.83 X10^3/uL; Monocyte% 8.4 % (0-10); NRBC Flagged by Analyzer 0 % (0-5); Neutrophil # 7.37 X10^3/uL (2.7-7.7); Neutrophil % 74.5 % (47-70); Platelet Count 220 K/mm3 (150-450); RBC Distribution Width CV 14.8 % (11.6-14.6); RBC Distribution Width SD 47.2 fl (35.1-43.9); Red Blood Count 4.37 M/mm3 (4.6-6.2); White Blood Count 9.9 K/mm3 (4.4-11.0)
--- NOTE | 2021-02-13 19:44 | HP.PCM.HOS_ITS ---
HPI - General General Date of Admission: 02/13/21 Date of Service: 02/13/21 Chief Complaint: Dyspnea HPI Narrative The patient is an 80 y/o M w/ PMHx: Chronic anemia, CAD s/p PCI and CABG, HTN, HLD, PAF s/p Hx Watchman device, Chronic back pain w/ spinal stenosis lumbar region, Diabetes mellitus type II, BPH, GERD, Hx CVA who presents to the [facility] ED on 02/13/21 with history of worsening dyspnea, worse with exertion with ongoing unchanged chronic cough, not markedly productive with no related chest pain. He does report that he has been coughing more. He uses a scooter baseline for his activity. Upon evaluation he notes currently feeling no shortness of breath and states it is worse when he attempts to lay flat or when he exerts himself. He does note that coughing is worse when he attempts to lay flat. Work-up in the ED included T 97.9, heart rate 102, BP 169/100, respiratory rate noted to initially be 92% on room air with improvement to 94 to 95% on room air, CBC with WBC 9.9, hemoglobin 12.1, platelet 220 without marked shift, BMP with BUN/creatinine 23/1.18, glucose 131 otherwise not marked appearing, high- sensitivity troponin 15.7, BNP 262.9, rapid COVID antigen negative, CXR from outside w/ R sided pleural effusion and congestion, EKG with atrial fibrillation/rate controlled. Ambulation attempt 88% on RA. In the ED patient ministered Cardizem CD 120 mg p.o. x1, metoprolol tartrate 100 mg p.o. x1 as well as Lasix 40 mg IV x1. [facility]LY [facility] Medical History (Updated 02/13/21 @ 19:[address] Shalonda Carter MD) Acute ischemic stroke Atherosclerosis of coronary artery bypass graft without angina pectoris Atherosclerosis of eagle coronary artery of eagle heart without angina pectoris Borderline elevated troponin BPH (benign prostatic hypertrophy) with urinary obstruction Essential hypertension GERD (gastroesophageal reflux disease) History of tobacco use HLD (hyperlipidemia) HTN (hypertension) Left-sided weakness Mixed hyperlipidemia Old myocardial infarction Paroxysmal atrial fibrillation Presence of stent in coronary artery (~09/2013) Type II diabetes mellitus, uncontrolled Home Medications aspirin 81 mg tablet,delayed release 81 mg PO QDAY 07/24/17 [History Last Taken 01/08/19 08:00 81 mg] mjlaiijknoxg-yqjrnutg-salyfh tablet 1 tablet PO QDAY 07/24/17 [History Last Taken 01/08/19 08:00 1 tab] nitroglycerin 0.4 mg sublingual tablet 0.4 mg SL Q5M PRN #25 tablet 01/23/18 [Rx Last Taken Unknown] isosorbide mononitrate 30 mg tablet,extended release 24 hr 30 mg PO DAILY #90 tablet 06/17/20 [Rx Last Taken Unknown] tamsulosin 0.4 mg capsule 0.4 mg PO QHS #90 cap 06/21/20 [Rx Last Taken Unknown] cetirizine 10 mg capsule 10 mg PO DAILY #30 cap 07/13/20 [Rx Last Taken Unknown] furosemide 20 mg tablet 20 mg PO DAILY #90 tablet 08/02/20 [Rx Last Taken Unknown] valsartan 160 mg tablet 160 mg PO BID #180 tablet 08/04/20 [Rx Last Taken Unknown] lansoprazole 30 mg capsule,delayed release 30 mg PO DAILY #90 cap 08/16/20 [Rx Last Taken Unknown] insulin glargine 100 unit/mL (3 mL) subcutaneous pen 50 unit SC QHS ml 09/21/20 [History Last Taken Unknown] glimepiride 2 mg tablet 4 mg PO DAILY #180 tablet 10/11/20 [Rx Last Taken Unknown] blood sugar diagnostic #120 ea 10/18/20 [Rx Last Taken Unknown] blood-glucose meter #1 ea 11/10/20 [Rx Last Taken Unknown] miscellaneous medical supply #1 ea 11/10/20 [Rx Last Taken Unknown] famotidine 20 mg tablet 20 mg PO DAILY #90 tab 11/14/20 [Rx Last Taken Unknown] atorvastatin 80 mg tablet 80 mg PO QHS #90 tab 11/17/20 [Rx Last Taken Unknown] blood pressure monitor #1 ea 11/21/20 [Rx Last Taken Unknown] trazodone 150 mg tablet 150 mg PO QHS #90 tab 12/08/20 [Rx Last Taken Unknown] diltiazem HCl 120 mg capsule,extended release 24 hr 120 mg PO BID #180 cap [Rx Last Taken Unknown] metoprolol tartrate 100 mg tablet 100 mg PO BID #180 tab 12/26/20 [Rx Last Taken Unknown] WAlker with wheels #1 ea 12/27/20 [Rx Last Taken Unknown] pen needle, diabetic 31 gauge x 15/64 #100 ea 01/03/21 [Rx Last Taken Unknown] pregabalin 50 mg capsule 100 mg PO BID 01/04/21 [History Last Taken Unknown] Allergy/AdvReac Type Severity Reaction Status Date / Time iodine Allergy Hives Verified 02/13/21 14:29 tramadol Allergy Other Verified 02/13/21 14:29 Family History (Updated 02/13/21 @ 20:[address] Shalonda Carter MD) Mother Cancer Sister Brain aneurysm Sister Brain aneurysm Father Cancer Surgical History H/O carotid endarterectomy History of back surgery History of cholecystectomy History of PTCA Hx of CABG (~12/22/07) Presence of coronary angioplasty implant and graft (~09/2013) Presence of Watchman left atrial appendage closure device (~03/04/18) Social History household members: children Smoking Status: Never smoker how long ago did patient quit smokin (1987) to 40 (1977) years ago alcohol intake: never substance use type: does not use caffeine: No what type of physical activity do you participate in: none seatbelt use: always do you feel safe at home: Yes ROS ROS Narrative Admission Review of Systems: CONSTITUTIONAL: No weight loss, fever, chills, + weakness or fatigue. HEENT: Eyes: No visual loss, blurred vision, double vision or yellow sclerae. Ears, Nose, Throat: No hearing loss, sneezing, congestion, runny nose or sore throat. SKIN: No rash or itching, lesions, wounds. CARDIOVASCULAR: + Orthopnea, No chest pain, chest pressure or chest discomfort, palpitations, edema, syncopal events. RESPIRATORY: + shortness of breath with cough without marked sputum, No wheezing, hemoptysis. GASTROINTESTINAL: No anorexia, nausea, vomiting or diarrhea, abdominal pain, melena, BRBPR. GENITOURINARY: No dysuria, frequency, urgency or retention. NEUROLOGICAL: No headache, dizziness, syncope, paralysis, ataxia, numbness or tingling in the extremities, focal weakness, change in bowel or bladder control, seizure. MUSCULOSKELETAL: + muscle, back pain, joint pain or stiffness. HEMATOLOGIC: + anemia, bleeding or bruising. LYMPHATICS: No enlarged nodes. No history of splenectomy. PSYCHIATRIC: No history of depression or anxiety. ENDOCRINOLOGIC: No reports of sweating, cold or heat intolerance. No polyuria or polydipsia. ALLERGIES: No history of asthma, hives, eczema or rhinitis. Vital Signs Vital Signs Vital Signs: 02/13/21 14:29 02/13/21 15:57 02/13/21 17:12 Temperature 97.8 F 97.2 F L Temperature Source Temporal Temporal Pulse Rate 91 87 83 Respiratory Rate 14 17 92 H Respiratory Effort Normal Non-Labored Respiratory Depth Normal Respiratory Pattern Normal Blood Pressure 137/113 H 153/72 H 147/91 H Blood Pressure Mean 121 99 109 Pulse Ox 95 92 15 Oxygen Delivery Method Room Air Room Air Room Air 02/13/21 19:06 02/13/21 19:08 Temperature 97.9 F 97.9 F Temperature Source Temporal Oral Pulse Rate 102 H 98 Respiratory Rate 20 H Respiratory Effort Respiratory Depth Respiratory Pattern Blood Pressure 169/100 H 169/100 H Blood Pressure Mean 123 123 Pulse Ox 94 Oxygen Delivery Method Room Air Weight Weight: 529 lb 1.75 oz Body Mass Index (BMI) 78.1 Physical Exam Narrative Physical Examination: General: Awake, alert, oriented x 3 and cooperative, seated upright in the ED bed, fatigued appearing, no acute distress. Skin: Normal color, normal turgor, no icterus, no cyanosis. HEENT: AT/NC, EOMI, PERRLA, mildly dry MM, no obvious carotid bruits, + JVD noted; however, thickened neck makes examination difficult. Lungs: Notably diminished, greater bases, right greater than left, despite congested appearance on film no significant rales, no rhonchi or wheezing noted. Heart: Irregular, rate controlled; no gallop, rub audible. Abdomen: Soft, morbidly obese, NTTP, ND, mildly hyperactive BS, no obvious HSM; however, habitus makes examination difficult. Extremities: No cyanosis, clubbing, or edema. Neurological: Patient awake, alert, oriented as noted, cognitive function intact; pupils equally reactive to light and accommodation, cranial nerves II- XII grossly normal, moving all 4 extremities, no focal deficits, strength moderately globally decreased. Psychiatric: Affect appears mildly fatigued otherwise normal, no acute evidence of depressive or anxiety feelings. Results Lab / Micro Data Result Diagrams: 02/13/21 15:42 02/13/21 15:42 Labs: Laboratory Results - last 24 hr 02/13/21 15:42: WBC 9.9, RBC 4.37 L, Hgb 12.1 L, Hct 38.2 L, MCV 87.4, MCH 27.7, MCHC 31.7 L, RDW Std Deviation 47.2 H, RDW Coeff of Henna 14.8 H, Plt Count 220, MPV 10.2, Immature Gran % (Auto) 0.400, Neut % (Auto) 74.5 H, Lymph % (Auto) 15.0 L, [place] % (Auto) 8.4, Eos % (Auto) 1.4, Baso % (Auto) 0.3, Absolute Neuts (auto) 7.4, Absolute Lymphs (auto) 1.48, Nucleated RBC % 0 02/13/21 15:42: Sodium 140, Potassium 3.5, Chloride 104, Carbon Dioxide 29.0, Anion Gap 7, BUN 23 H, Creatinine 1.18, Estim Creat Clear Calc 49.10, Est GFR (MDRD) Af Amer 76, Est GFR (MDRD) Non-Af 63, BUN/Creatinine Ratio 19.5, Glucose 131 H, Calcium 9.0, Troponin I High Sens 15.7 02/13/21 15:42: B-Natriuretic Peptide 262.9 H Micro: Microbiology 02/13/21 17:00 Interface Orders SARS-CoV-2 Antigen (Rapid) - Final Assessment & Plan Assessment/Plan (1) CHF exacerbation: QUALIFIERS: Heart failure type: diastolic Qualified Code(s): I50.33 - Acute on chronic diastolic (congestive) heart failure PLAN: The patient is an 80 y/o M w/ PMHx: Chronic anemia, CAD s/p PCI and CABG, HTN, HLD, PAF s/p Hx Watchman device, Chronic back pain w/ spinal stenosis lumbar region, Diabetes mellitus type II, BPH, GERD, Hx CVA who presents to the [facility] ED on 02/13/21 with history of worsening dyspnea, worse with exertion with ongoing unchanged chronic cough, not markedly productive with no related chest pain. 1. Acute Decompensated Diastolic CHF w/ R sided effusion with Hypoxia (88% on RA): Patient administered IV lasix in the ED, will admit to PCU, maintain on cardiac telemetry obtain cardiac enzyme series, obtain serial EKGs, continue IV lasix diuresis, monitor I/Os, continue medical therapy w/ asa, statin, BB, ARB, spironolactone. Will obtain TSH and magnesium level. Most recent ECHO noted 10/05/2020 with segmental dysfunction with preserved EF, EF 55%, moderately enlarged LA, mild MVI, mild TVI, mild SARITHA, trivial TVI, RVSP 29 mmHg, transmitral diastolic flow velocity suggestive of diastolic dysfunction thus will defer repeat given timeline < 6 months. PRN morphine to decrease afterload, continue oxygen supplementation, if necessary will position w/ upright position with legs off bed to decrease preload. Pending response may consider intervention given R sided effusion. 2. Hypertension: Continue home regimen including valsartan, metoprolol, isosorbide, diltiazem, IV Lasix as noted with hold parameters, PRN hydralazine. 3. Hyperlipidemia: Continue home statin regimen. AM FLP. 4. Chronic normocytic anemia: Admission hemoglobin 12.1, baseline 12-13 range, stable, trend. 5. PAF: Status post watchman device, continue aspirin, diltiazem, metoprolol regimen with hold parameters. 6. CAD: s/p CABG w/ DARNELL to LAD, SVG to Diag, sequential SVG to OM1 and OM2 12/22/2007 and PTCA/Stent to prox RCA and PTCA to PDA 11/30/2007, PTCA/Stent to mid RCA and mid LAD and second diagonal 02/25/2008, PTCA/PIETRO first DX, sequent ial SVG to OM1 and OM2 04/14/2008, PTCA/Stent to LXC AV groove branch and OM1 09/2013, continue home asa, statin, BB, ARB regimen. 7. History CVA: We will continue aspirin, statin, hypertensive diabetic regimen as noted above. 8. GERD: We will continue patient home PPI. 9. BPH: We will continue patient home Flomax regimen. 10. Chronic lumbar back pain with radiculopathy: We will continue patient home gabapentin regimen, maintain on fall precautions, PT, OT, case management consultation for discharge planning given debility. 11. Diabetes mellitus type II: Hold oral home regimen, continue home insulin regimen, ADA diet, accu checks w/ ISS. 12. DVT prophylaxis: SCDs, Lovenox. 13. CODE status: Patient HCPDAHLIA is his daughter who is present and living will is currently in place. Discussed CODE status at length including difference between FULL code, DNR-CCA and DNR-CC status. Following discussions about the differences in these status, requested DNR-CCA, no intubation status. Advanced Care Planning Face to Face Time: 16 minutes. Charges/Coding Visit Charges Inpatient E&M: 93827 Init Hosp L3 Procedures Hospitalists Procedures: 02840 Advncd Care Plan 30 Min
[2021-02-13] MEDS: Furosemide 40 MG/4 ML Vial IV (19:48)
[2021-02-13] MEDS: Metoprolol Tartrate 100 MG Tablet PO ×2 (19:48→22:07)
[2021-02-13] MEDS: dilTIAZem CD 120 MG Capsule PO ×2 (20:47→22:07)
[2021-02-13] MEDS: Atorvastatin Calcium 80 MG Tablet PO (22:07)
[2021-02-13] MEDS: traZODone 50 MG Tablet 150 MG PO (22:07)
[2021-02-13] MEDS: Tamsulosin HCl 0.4 MG Capsule PO (22:07)
[2021-02-13] MEDS: Pregabalin 50 MG Capsule 100 MG PO (22:07)
[2021-02-13] MEDS: Insulin Lispro 100 UNIT/ML INSULN.PEN SC (22:08)
[2021-02-13 22:20] LABS: Bedside Glucose 222 mg/dL (70-110)
[2021-02-13 22:49] LABS: Troponin-I HS 16.7 pg/mL (3.0-78.5)
[2021-02-14] VITALS (7 sets, daily range): BP systolic 105–113; BP diastolic 54–58; PULSE 54–63; RESP 18–20; TEMP 36.3–36.8; O2SAT 92–94
[2021-02-14 05:52] LABS: Absolute Lymphocyte Count 1.17 X10^3/uL (0.83-4.51); Absolute Neutrophil Count 7.2 X10^3/uL (2.0-7.7); Basophil# 0.03 X10^3/uL; Basophil% 0.3 % (0-1); Eosinophil# 0.17 X10^3/uL; Eosinophils% 1.8 % (0-5); Hemoglobin 11.6 g/dL (13.0-16.5); Lymphocyte # 1.17 X10^3/ul (0.83-4.51); Lymphocyte % 12.6 % (19-41); Mean Corp Hgb Conc 32.2 g/dL (32-36); Mean Corpuscular Hgb 27.6 pg (27.0-32.0); Mean Corpuscular Volume 85.5 fL (80-94); Monocyte# 0.65 X10^3/uL; NRBC Flagged by Analyzer 0 % (0-5); Neutrophil # 7.22 X10^3/uL (2.7-7.7); Platelet Count 209 K/mm3 (150-450); RBC Distribution Width CV 14.7 % (11.6-14.6); RBC Distribution Width SD 45.6 fl (35.1-43.9); Red Blood Count 4.21 M/mm3 (4.6-6.2); White Blood Count 9.3 K/mm3 (4.4-11.0)
[2021-02-14 06:36] LABS: ALB/GLOB Ratio 0.8 RATIO (0.9-2.4); AST(SGOT) 14 U/L (15-37); Alanine Aminotransfer ALT/SGPT 28 U/L (16-61); Albumin, Serum 2.9 g/dL (3.2-5.0); Alkaline Phosphatase 56 U/L (45-117); Anion Gap 8 (5-15); BUN 26 mg/dL (7-18); Calcium,Total 8.3 mg/dL (8.5-10.1); Chloride 104 mmol/L (98-107); Cholesterol 69 mg/dL (200); Creatinine, Serum 1.13 mg/dL (0.70-1.30); EST Glomerular Filtration Rate 66 mL/min (>60); Est Glom Filt Rate - Afr Amer 80 mL/min (>60); Estimated Creatinine Clearance 51.27 ml/min; Globulin 3.6 g/dL (2.2-4.2); Glucose 187 mg/dL (74-106); High Density Lipoprotein 35 mg/dL; Potassium 3.7 mmol/L (3.5-5.1); Protein, Total 6.5 g/dL (6.4-8.2); Sodium Level 138 mmol/L (136-145); Thyroid Stim Hormone (TSH) 1.84 uIU/mL (0.358-3.74); Triglycerides 76 mg/dL; Very Low Density Lipoprotein 15 mg/dL (5-40)
[2021-02-14] MEDS: Insulin Lispro 100 UNIT/ML INSULN.PEN SC ×2 (06:50→11:27)
[2021-02-14 06:56] LABS: Bedside Glucose 169 mg/dL (70-110)
[2021-02-14] MEDS: Aspirin E.C. 81 MG Tablet PO (08:24)
--- NOTE | 2021-02-14 10:31 | DS.PCM_ITS ---
Providers Date of Admission: 02/13/21 Primary Care Physician: Dr. Shahzad Cerna, DO Reason For Visit: CHF EXACERBATION R SIDED EFFUSION HYPOXIA Diagnosis Discharge Diagnosis (1) CHF exacerbation: Status: Chronic Code(s): I50.9 - Heart failure, unspecified Qualifiers: Heart failure type: diastolic Qualified Code(s): I50.33 - Acute on chronic diastolic (congestive) heart failure Medications at Discharge Home Medications aspirin 81 mg tablet,delayed release 81 mg PO QDAY 07/24/17 zpqkokedgwcb-nryuhacq-kvzupn tablet 1 tablet PO QDAY 07/24/17 nitroglycerin 0.4 mg sublingual tablet 0.4 mg SL Q5M PRN #25 tablet 01/23/18 isosorbide mononitrate 30 mg tablet,extended release 24 hr 30 mg PO DAILY #90 tablet 06/17/20 tamsulosin 0.4 mg capsule 0.4 mg PO QHS #90 cap 06/21/20 cetirizine 10 mg capsule 10 mg PO DAILY #30 cap 07/13/20 valsartan 160 mg tablet 160 mg PO BID #180 tablet 08/04/20 lansoprazole 30 mg capsule,delayed release 30 mg PO DAILY #90 cap 08/16/20 insulin glargine 100 unit/mL (3 mL) subcutaneous pen 50 unit SC QHS ml 09/21/20 blood sugar diagnostic #120 ea 10/18/20 blood-glucose meter #1 ea 11/10/20 miscellaneous medical supply #1 ea 11/10/20 famotidine 20 mg tablet 20 mg PO DAILY #90 tab 11/14/20 atorvastatin 80 mg tablet 80 mg PO QHS #90 tab 11/17/20 blood pressure monitor #1 ea 11/21/20 trazodone 150 mg tablet 150 mg PO QHS #90 tab 12/08/20 diltiazem HCl 120 mg capsule,extended release 24 hr 120 mg PO BID #180 cap 12/19/20 metoprolol tartrate 100 mg tablet 100 mg PO BID #180 tab 12/26/20 WAlker with wheels #1 ea 12/27/20 pen needle, diabetic 31 gauge x 15/64 #100 ea 01/03/21 pregabalin 50 mg capsule 100 mg PO BID 01/04/21 furosemide 40 mg PO DAILY #90 tablet 02/14/21 glimepiride 2 mg PO DAILY #180 tablet 02/14/21 Hospital Course Summary of Care Provided Minutes Spent on Discharge: 35 Hospital Course: Patient is an 80-year-old gentleman with multiple comorbidities including coronary artery disease with previous CABG and PCI presented with progressive shortness of breath and assessment of acute congestive heart failure made admitted to monitored bed for further management 1. Acute congestive heart failure with preserved ejection fraction ?Echo obtained on 10/05/2020 demonstrated EF of 55% consistent with diastolic heart failure. Patient was placed on Lasix as well as supplemental oxygen and fluid restriction. His condition did improve. Patient was expected to stay for at least 2 midnight however his condition improved much more rapidly than expected was subsequently discharged home a day after his admission 2. Hypertension - Blood pressure controlled, home medications continued with dose adjustment as needed 3. Diabetes mellitus type 2 ?Patient oral hypoglycemic agent glimepiride was held during the hospital stay dose was adjusted at discharge 4. Paroxysmal atrial fibrillation ?Status post watchman device implant. 5. Coronary artery disease ?Status post CAD and subsequent PCI 6. GERD 7. Chronic back pain ?Secondary to spinal stenosis 8. BPH Physical Exam Narrative GENERAL: cooperative HEENT: Atraumatic; EYES; Anicteric, Normal Conjunctiva NECK; supple, normal thyroid, RESPIRATORY: Diminished to auscultation CARDIOVASCULAR: Regular S1 S2, NEURO: Awake; no lateralizing signs. SKIN: No Rash PSYCH; Flat affect Weight / BMI Weight Weight: 107.3 kg Body Mass Index (BMI) 34.8 ABG / Lab / Microbiology Data Result Diagrams: 02/14/21 05:35 02/14/21 05:35 Laboratory: Laboratory Results - last 24 hr 02/13/21 15:42: WBC 9.9, RBC 4.37 L, Hgb 12.1 L, Hct 38.2 L, MCV 87.4, MCH 27.7, MCHC 31.7 L, RDW Std Deviation 47.2 H, RDW Coeff of Henna 14.8 H, Plt Count 220, MPV 10.2, Immature Gran % (Auto) 0.400, Neut % (Auto) 74.5 H, Lymph % (Auto) 15.0 L, [place] % (Auto) 8.4, Eos % (Auto) 1.4, Baso % (Auto) 0.3, Absolute Neuts (auto) 7.4, Absolute Lymphs (auto) 1.48, Nucleated RBC % 0 08/09/21 15:42: Sodium 140, Potassium 3.5, Chloride 104, Carbon Dioxide 29.0, Anion Gap 7, BUN 23 H, Creatinine 1.18, Estim Creat Clear Calc 49.10, Est GFR (MDRD) Af Amer 76, Est GFR (MDRD) Non-Af 63, BUN/Creatinine Ratio 19.5, Glucose 131 H, Calcium 9.0, Troponin I High Sens 15.7 02/13/21 15:42: B-Natriuretic Peptide 262.9 H 02/13/21 20:04: Magnesium 2.0 02/13/21 21:53: Troponin I High Sens 16.7 02/13/21 22:02: POC Glucose 222 H 02/14/21 05:35: WBC 9.3, RBC 4.21 L, Hgb 11.6 L, Hct 36.0 L, MCV 85.5, MCH 27.6, MCHC 32.2, RDW Std Deviation 45.6 H, RDW Coeff of Henna 14.7 H, Plt Count 209, MPV 10.0, Immature Gran % (Auto) 0.300, Neut % (Auto) 78.0 H, Lymph % (Auto) 12.6 L, [place] % (Auto) 7.0, Eos % (Auto) 1.8, Baso % (Auto) 0.3, Absolute Neuts (auto) 7. 2, Absolute Lymphs (auto) 1.17, Nucleated RBC % 0 02/14/21 05:35: Sodium 138, Potassium 3.7, Chloride 104, Carbon Dioxide 26.0, Anion Gap 8, BUN 26 H, Creatinine 1.13, Estim Creat Clear Calc 51.27, Est GFR (MDRD) Af Amer 80, Est GFR (MDRD) Non-Af 66, BUN/Creatinine Ratio 23.0 H, Glucose 187 H, Calcium 8.3 L, Total Bilirubin 0.70, AST 14 L, ALT 28, Alkaline Phosphatase 56, Total Protein 6.5, Albumin 2.9 L, Globulin 3.6, Albumin/Globulin Ratio 0.8 L, Triglycerides 76, Cholesterol 69, LDL Cholesterol 19, VLDL Chol esterol 15, HDL Cholesterol 35 L, TSH 1.84 02/14/21 06:49: POC Glucose 169 H Microbiology: Microbiology 02/13/21 17:00 Interface Orders SARS-CoV-2 Antigen (Rapid) - Final D/C Instructions Discharge Diet: 1800 Calorie Control Diet and 8 Cup Fluid Restriction Discharge Activity: Return to Normal Activity Call your doctor if you observe: Fever of 101 or Higher, Shortness of breath, Fainting spells and Chest pain Meaningful Use Info Meaningful Use Diagnoses (Choose all that apply): CHF CHF KAJAL/ARB ordered at discharge?: Yes Documented LVEF (%): 55 Discharge Plan Admission Admit Date/Time: 02/13/21 20:04 Primary Reason for Your Visit: CHF Attending Provider: Keanu Flood Primary Care Provider: Shahzad Cerna Discharge Orders/Prescriptions Prescriptions: Continued aspirin [Adult Low Dose Aspirin] 81 mg tablet,delayed release (DR/EC) 81 mg PO QDAY RF: 0 tbrldjawdfpm-plhsobce-uzmjst tablet 1 tablet PO QDAY RF: 0 tamsulosin 0.4 mg capsule 0.4 mg PO QHS Qty: 90 RF: 3 insulin glargine 100 unit/mL (3 mL) insulin pen 50 unit SC QHS RF: 0 pregabalin 50 mg capsule 100 mg PO BID RF: 0 nitroglycerin 0.4 mg tablet, sublingual 0.4 mg SL Q5M PRN (Reason: chest pain) Qty: 25 RF: 3 isosorbide mononitrate 30 mg tablet extended release 24 hr 30 mg PO DAILY Qty: 90 RF: 3 Zyrtec 10 mg capsule 10 mg PO DAILY Qty: 30 RF: 5 valsartan 160 mg tablet 160 mg PO BID Qty: 180 RF: 3 lansoprazole 30 mg capsule,delayed release(DR/EC) 30 mg PO DAILY Qty: 90 RF: 3 (DME) True Metrix Glucose Test Strip Strip See Rx Instructions .ROUTE .MEDSUPPLY Qty: 120 RF: 8 (DME) blood-glucose meter [True Metrix Glucose Meter] Misc See Rx Instructions .ROUTE .MEDSUPPLY Qty: 1 RF: 0 (DME) Blood Pressure Cuff Misc See Rx Instructions .ROUTE .MEDSUPPLY Qty: 1 RF: 0 famotidine 20 mg tablet 20 mg PO DAILY Qty: 90 RF: 3 atorvastatin 80 mg tablet 80 mg PO QHS Qty: 90 RF: 3 (DME) blood pressure monitor Kit See Rx Instructions .ROUTE .MEDSUPPLY Qty: 1 RF: 0 trazodone 150 mg tablet 150 mg PO QHS Qty: 90 RF: 1 diltiazem HCl 120 mg capsule,extended release 24hr 120 mg PO BID Qty: 180 RF: 3 metoprolol tartrate 100 mg tablet 100 mg PO BID Qty: 180 RF: 1 (DME) WAlker with wheels See Rx Instructions .Route .MEDSUPPLY Qty: 1 RF: 0 (DME) pen needle, diabetic 31 gauge x 15/64 needle See Rx Instructions .ROUTE .MEDSUPPLY Qty: 100 RF: 0 Changed glimepiride 2 mg tablet 2 mg PO DAILY Qty: 180 RF: 1 furosemide 20 mg tablet 40 mg PO DAILY Qty: 90 RF: 2 Referrals / Follow Up: Shahzad Cerna, [Primary Care Provider] - (Please call and setup a hospital follow up appointment. ) Disposition Disposition (needs filled in before D/C Order can be placed): Home, Self Care Charges/Coding Visit Charges Inpatient E&M: 29611 Disch Hosp
[2021-02-14] MEDS: Isosorbide Mononitrate 30 MG Tablet PO (10:44)
[2021-02-14] MEDS: dilTIAZem CD 120 MG Capsule PO (10:44)
[2021-02-14] MEDS: Losartan Potassium 100 MG Tablet PO (10:44)
[2021-02-14] MEDS: Loratadine 10 MG Tablet PO (10:44)
[2021-02-14] MEDS: Famotidine 20 MG Tablet PO (10:45)
[2021-02-14] MEDS: Metoprolol Tartrate 100 MG Tablet PO (10:45)
[2021-02-14] MEDS: Pregabalin 50 MG Capsule 100 MG PO (10:45)
[2021-02-14] MEDS: Enoxaparin 40 MG/0.4 ML Syringe SC (10:45)
[2021-02-14] MEDS: Furosemide 40 MG/4 ML Vial IV (10:45)
--- NOTE | 2021-02-14 10:46 | PHA.DC.MR ---
Pharmacy Service has performed discharge medication reconciliation for this patient. The patient's discharge medication list was reviewed for discrepancies and discrepancies were resolved. Home Medications aspirin 81 mg tablet,delayed release 81 mg PO QDAY 07/24/17 xkecygyketis-ywharmeb-buhzwg tablet 1 tablet PO QDAY 07/24/17 nitroglycerin 0.4 mg sublingual tablet 0.4 mg SL Q5M PRN #25 tablet 01/23/18 isosorbide mononitrate 30 mg tablet,extended release 24 hr 30 mg PO DAILY #90 tablet 06/17/20 tamsulosin 0.4 mg capsule 0.4 mg PO QHS #90 cap 06/21/20 cetirizine 10 mg capsule 10 mg PO DAILY #30 cap 07/13/20 valsartan 160 mg tablet 160 mg PO BID #180 tablet 08/04/20 lansoprazole 30 mg capsule,delayed release 30 mg PO DAILY #90 cap 08/16/20 insulin glargine 100 unit/mL (3 mL) subcutaneous pen 50 unit SC QHS ml 09/21/20 blood sugar diagnostic #120 ea 10/18/20 blood-glucose meter #1 ea 11/10/20 miscellaneous medical supply #1 ea 11/10/20 famotidine 20 mg tablet 20 mg PO DAILY #90 tab 11/14/20 atorvastatin 80 mg tablet 80 mg PO QHS #90 tab 11/17/20 blood pressure monitor #1 ea 11/21/20 trazodone 150 mg tablet 150 mg PO QHS #90 tab 12/08/20 diltiazem HCl 120 mg capsule,extended release 24 hr 120 mg PO BID #180 cap 12/19/20 metoprolol tartrate 100 mg tablet 100 mg PO BID #180 tab 12/26/20 WAlker with wheels #1 ea 12/27/20 pen needle, diabetic 31 gauge x 15/64 #100 ea 01/03/21 pregabalin 50 mg capsule 100 mg PO BID 01/04/21 furosemide 40 mg PO DAILY #90 tablet 02/14/21 glimepiride 2 mg PO DAILY #180 tablet 02/14/21
--- NOTE | 2021-02-14 11:14 | CASEMGMT ---
CHIQUI PEDERSEN assessment: Face to Face with patient for initial transition planning/care coordination assessment. CHIQUI PEDERSEN introduced self and role at [facility], pt voices understanding and consents to assessment. Pt is sitting up in chair in no distress on room air. Pt is A/Ox4 and answers all questions appropriately but daughter is also at bedside and assists with assessment. Care providers, pharmacy, and demographics verified. Presentation: Sent by urgent care for CHF exacerbation Admitting dx: CHF, hypoxia, pleural effusion PCP: Nehemiah Specialists: [facility] in [place] Preferred Pharmacy: [facility] Insurance: [facility] Prescription Benefit: Yes Living Will/HPOA: Pt states has LW/HPOA and is aware that they are not on file at [facility]. Pt states his daughter, Ree Hill, is HPOA. LNOK: Ree Hill, daughter/HPOA Living Arrangements: Pt states lives with daughter in 1 story home with ramp entrance and states no concerns at home. Pt states is independent with ADL's and is alone while daughter at work. Transportation: Pt drives self and states no transportation concerns. DME/HHC: Pt states has the following DME: cane, walker, shower chair, electric scooter and w/c. Pt/daughter state no need for any further DME. Pt states nno hx of HHC or SNF. Pt states no concerns with going home at time of discharge. Pt is retired. Pt states does not smoke cigarettes or drink ETOH. Pt/daughter state no further concerns/needs. CM to follow for any further discharge planning/needs. Advised pt to ask for CM if any further questions/concerns/needs arise, voices understanding. PT Goal: Home Plan: Home w/ family. [place] CHIQUI PEDERSEN
[2021-02-14 11:41] LABS: Bedside Glucose 179 mg/dL (70-110)
--- NOTE | 2021-02-15 13:49 | CASEMGMT ---
RN CM Discharge Follow-Up Phone Call.? Lace:? Strata:? Discharge Date:? ?? Adm Dx:? Attempted discharge f/u phone call. No answer. Non-identifying VM received. Non-descript VM left requesting return call if there are any questions or concerns. Phone number provided. ? ? Attempted discharge f/u phone call. No answer. Recording w/pt's name identified came on. VM left for return call to RN CM if there are any questions or concerns. Phone number provided. ? ? Rj NICHOLSN CHIQUI CM?
--- NOTE | 2021-02-15 13:49 | CASEMGMT ---
CHIQUI PEDERSEN Discharge Follow-Up Phone Call. Ginger: Casey Strata: 3 Discharge Date: 02/14/21 Adm Dx: CHF Exac, Rt sided effusion, Hypoxic Call to pt to inquire about how he has been doing since being discharged from the hospital. Pt's daughter, Ree, answered and states pt is not available at this time and stated she could answer any questions. She states pt is doing okay but has been really tired since returning home. She states he slept last PM from 5PM until 6 AM this morning when she woke him up. She was able to wake him up fairly easily and he has been awake all day since. He is not lethargic or groggy today. She states he has not had any SOB, but he does still have a cough. Ree stated they did not get any new prescriptions filled yet d/t she called the pharmacy and there was none there to be picked up. CHIQUI PEDERSEN noted furosemide and glimepiride listed on discharge instructions as new rx's, but no rx's were e-scribed to pt's pharmacy. CHIQUI PEDERSEN spoke w/Dr Flood, who discharged pt from the hospital. He verified pt is to decrease glimepiride from 4 mg to 2 mg daily and to increase furosemide from 20 mg to 40 mg daily. CHIQUI PEDERSEN placed call back to Ree. Ree confirms pt was already on both of these medications prior to hospitalization and pt has these medications at home already (furosemide 20 mg and glimepiride 2 mg). CHIQUI PEDERSEN reviewed w/her the changes in doses and she voices understanding. She states she did give pt 2 of the 20 mg tabs of furosemide today and gave only one tablet of the 2 mg glimepiride today as d/c instructions stated. She states pt has an appt w/his PCP today @ 3 PM and she plans to get new rx's from PCP today for these new doses and plans to discuss pt's on-going cough w/PCP as well. She denies having any further questions/needs. ? Rj NICHOLSN CHIQUI PEDERSEN
== END 2021-02-14 12:29 | disposition home or self-care (01) | DRG 293 ==
LOC: ED 16:03 → PCU 20:20
PROVIDERS: Admitting Provider Family Medicine; Emergency Provider Emergency Medicine; PCP Family Medicine; Visit Provider Internal Medicine
DX: I11.0 Hypertensive heart disease with heart failure (principal); I50.33 Acute on chronic diastolic (congestive) heart failure; I25.10 Atherosclerotic heart disease of native coronary artery without angina pectoris; I48.0 Paroxysmal atrial fibrillation; I25.2 Old myocardial infarction; E11.65 Type 2 diabetes mellitus with hyperglycemia; E78.2 Mixed hyperlipidemia; N40.0 Benign prostatic hyperplasia without lower urinary tract symptoms; D64.9 Anemia, unspecified; K21.9 Gastro-esophageal reflux disease without esophagitis; M48.061 Spinal stenosis, lumbar region without neurogenic claudication; G89.29 Other chronic pain; Z66 Do not resuscitate; Z95.5 Presence of coronary angioplasty implant and graft; Z79.4 Long term (current) use of insulin; Z79.82 Long term (current) use of aspirin; Z79.899 Other long term (current) drug therapy; Z86.73 Personal history of transient ischemic attack (TIA), and cerebral infarction without residual deficits
CPT/HCPCS: 36415; 80048; 80053; 80061; 82962; 83735; 83880; 84443; 84484; 85025; 87426; 93005; 99251; 99285; A4216; G0463; J1940

== ENCOUNTER → 2021-04-08 07:50 | Outpatient (CLI) | payer MEDICARE, MEDICAID, SELFPAY ==
[2021-04-08 09:06] LABS: Anion Gap 9 (5-15); BUN 17 mg/dL (7-18); BUN/Creat Ratio 15.5 RATIO (10-20); Calcium,Total 8.4 mg/dL (8.5-10.1); Chloride 109 mmol/L (98-107); EST Glomerular Filtration Rate 68 mL/min (>60); Est Glom Filt Rate - Afr Amer 82 mL/min (>60); Glucose 189 mg/dL (74-106); Potassium 3.8 mmol/L (3.5-5.1); Sodium Level 142 mmol/L (136-145)
== END ==
PROVIDERS: PCP Family Medicine
DX: I50.9 Heart failure, unspecified (principal)
CPT/HCPCS: 36415; 80048

== ENCOUNTER → 2021-06-21 10:29 | Outpatient (CLI) | payer MEDICARE, MEDICAID, SELFPAY | PROVIDERS: PCP Family Medicine; Visit Provider Family Medicine | DX: R05.3 Chronic cough (principal) | CPT/HCPCS: 87635; U0005; U0003 ==

== ENCOUNTER → 2021-06-22 12:19 | Outpatient (CLI) | payer MEDICARE, MEDICAID, SELFPAY ==
--- NOTE | 2021-06-22 12:22 | RAD_ITS ---
HISTORY: chronic cough EXAMINATION/TECHNIQUE: XR Chest 2 Views: 2 views COMPARISON: 09/23/20 FINDINGS: LINES/DEVICES: None. LUNGS: No pulmonary consolidation, mass, or edema. Stable blunting of the left costophrenic angle. MEDIASTINUM AND CARDIOVASCULAR STRUCTURES: Cardiac silhouette not enlarged. Stable CABG changes. Central airways and mediastinal contour are unremarkable. BONES AND SOFT TISSUES: No acute bony abnormalities. RAD/Chest PA and Lateral IMPRESSION: No radiographic evidence of acute cardiopulmonary disease. at 2045 Reported and signed by: Tate Pollock MD Electronically Signed: Tate Pollock MD at 20:44 EST Tel , Service support ,
== END ==
PROVIDERS: PCP Family Medicine; Referring Provider Family Medicine; Visit Provider Family Medicine
DX: R05.3 Chronic cough (principal)
CPT/HCPCS: 71046

== ENCOUNTER 2021-07-14 11:13 | Outpatient (CLI) | payer MEDICARE, MEDICAID, SELFPAY ==
[2021-07-14 12:29] LABS: Absolute Lymphocyte Count 1.43 X10^3/uL (0.83-4.51); Basophil# 0.04 X10^3/uL; Basophil% 0.4 % (0-1); Eosinophil# 0.33 X10^3/uL; Eosinophils% 3.2 % (0-5); Hematocrit 37.9 % (40-54); Hemoglobin 12.5 g/dL (13.0-16.5); Lymphocyte # 1.43 X10^3/ul (0.83-4.51); Lymphocyte % 13.8 % (19-41); Mean Corpuscular Hgb 27.5 pg (27.0-32.0); Mean Corpuscular Volume 83.5 fL (80-94); Mean Platelet Vol. 10.3 fl (6.2-12.0); Monocyte# 0.55 X10^3/uL; Monocyte% 5.3 % (0-10); NRBC Flagged by Analyzer 0 % (0-5); Neutrophil # 7.96 X10^3/uL (2.7-7.7); Neutrophil % 76.9 % (47-70); Platelet Count 208 K/mm3 (150-450); RBC Distribution Width CV 15.9 % (11.6-14.6); RBC Distribution Width SD 48.6 fl (35.1-43.9); Red Blood Count 4.54 M/mm3 (4.6-6.2); White Blood Count 10.4 K/mm3 (4.4-11.0)
[2021-07-14 12:48] LABS: Anion Gap 6 (5-15); BUN 18 mg/dL (7-18); BUN/Creat Ratio 17.5 RATIO (10-20); Calcium,Total 8.6 mg/dL (8.5-10.1); Chloride 109 mmol/L (98-107); Creatinine, Serum 1.03 mg/dL (0.70-1.30); EST Glomerular Filtration Rate 74 mL/min (>60); Est Glom Filt Rate - Afr Amer 89 mL/min (>60); Glucose 257 mg/dL (74-106); Potassium 3.9 mmol/L (3.5-5.1); Sodium Level 142 mmol/L (136-145)
== END 2021-07-14 23:59 | disposition short-term general hospital (02) ==
LOC: LAB 11:15
PROVIDERS: PCP Family Medicine; Visit Provider Internal Medicine Cardiovascular Disease
DX: I25.810 Atherosclerosis of coronary artery bypass graft(s) without angina pectoris (principal); I48.0 Paroxysmal atrial fibrillation; I10 Essential (primary) hypertension; E78.2 Mixed hyperlipidemia; R07.9 Chest pain, unspecified; R06.02 Shortness of breath; Z95.818 Presence of other cardiac implants and grafts; Z95.5 Presence of coronary angioplasty implant and graft
CPT/HCPCS: 36415; 80048; 85025

== ENCOUNTER 2021-07-17 08:07 | Emergency (ER) | payer MEDICARE, MEDICAID, SELFPAY ==
[2021-07-17 08:08] VITALS: BP 154/90; PULSE 80; RESP 20; TEMP 36.6; O2SAT 94; BMI 37.5
[2021-07-17 08:57] VITALS: O2SAT 94
--- NOTE | 2021-07-17 08:59 | RAD_ITS ---
STUDY: X-RAY CHEST REASON FOR EXAM: Male, 81 years old. Sob TECHNIQUE: Single AP portable view of the chest. COMPARISON: Comparison is made with prior study dated 03/23/2021. FINDINGS: EKG electrodes are seen. Small left pleural effusion with left basilar atelectasis. Mild blunting of the right costophrenic angle. Mild vascular congestion. Sternal cerclage wires and vascular clips are present from a prior sternotomy and coronary artery bypass graft procedure (CABG). Normal mediastinum and margarita. Normal visualized pulmonary arteries. There is atherosclerotic calcification of the aortic arch with tortuosity. There are diffuse degenerative changes of the visualized thoracic spine. Normal visualized ribs, clavicles, and shoulders. There is no demonstrated abnormality of the visualized soft tissue structures of the upper abdomen. RAD/Chest 1 View (Portable) IMPRESSION: Cardiomegaly. Mild degree of vascular congestion. Small left pleural effusion with left basilar atelectasis. Electronically Signed: Kenneth Vazquez MD at 11:28 EST , Service support ,
--- NOTE | 2021-07-17 09:01 | EKG12_ITS ---
Test Reason : SOB Blood Pressure : / mmHG Vent. Rate : 073 BPM Atrial Rate : 220 BPM P-R Int : 000 ms QRS Dur : 162 ms QT Int : 466 ms P-R-T Axes : 000 021 -01 degrees QTc Int : 513 ms Atrial fibrillation with premature ventricular or aberrantly conducted complexes Right bundle branch block Abnormal ECG Confirmed by NAS TRIPP, JONAH ([id number]), general expeditor DIAMOND SOLANO ([id number]) on 07/18/2021 1:56:43 PM Referred By: LYLE Confirmed By:JONAH LOVELL MD
--- NOTE | 2021-07-17 09:03 | CT_ITS ---
STUDY: CT ABDOMEN AND PELVIS WITHOUT CONTRAST REASON FOR EXAM: Male, 81 years old. Abdominal pain and shortness of breath. Cough. RADIATION DOSAGE (If Supplied By Facility): CTDIvol = ( 28.25 ) mGy, DLP = ( 1404.57 ) mGycm TECHNIQUE: Transaxial images were obtained from the dome of the diaphragm to the symphysis pubis without oral contrast, and without intravenous contrast. Sagittal and coronal images were reconstructed. Individualized dose optimization techniques were used for this CT. COMPARISON: Comparison is made with prior study dated 01/15/2020. FINDINGS: Small bilateral pleural effusions left greater than right with bibasilar atelectasis. Coronary artery calcification. There is decreased attenuation of the liver consistent with steatosis. The patient is status post cholecystectomy. Normal spleen. Normal pancreas. Normal bilateral adrenal glands. Normal right kidney. There is a 6.2 cm x 6 m cyst in the upper midportion of left kidney. There is a small hiatal hernia. Normal small intestine. There are multiple colonic diverticula consistent with diverticulosis. The appendix is visualized and appears normal. There is diffuse atherosclerotic calcification of the abdominal aorta and its major visceral branches, without a demonstrated aneurysm. Normal inferior vena cava. Normal retroperitoneum. Normal urinary bladder. There is a small umbilical hernia containing fat. There are diffuse degenerative changes of the visualized lumbar spine. The patient is status post laminectomy and interpedicular screw fixation at the L4-L5 and L5-S1 levels. CT/Abdomen/Pel W ORAL Cont Only IMPRESSION: Stable left renal cyst. Small hiatal hernia. Small bilateral pleural effusions left greater than right with bibasilar atelectasis. Electronically Signed: Kenneth Vazquez MD at 11:26 EST , Service support ,
--- NOTE | 2021-07-17 09:04 | EX.ED.DYSGE1 ---
HPI History of Present Illness Chief Complaint: Shortness of Breath Detail of Chief Complaint: Abdominal pain, possible bowel obstruction Informant: patient Narrative Narrative: Patient presents stating that he is concerned that he has a bowel obstruction. He reports abdominal distention. He is only able to produce a small amount of stool this morning. He was not able to go at all yesterday. He has had prior hernia repair and cholecystectomy. He states he has shortness of breath as well. This is chronic in nature and seems to come in waves. Family number at bedside states he was complaining that he felt he was going to pass out earlier. [facility] Medical History Acute ischemic stroke Atherosclerosis of coronary artery bypass graft without angina pectoris Atherosclerosis of [place] coronary artery of [place] heart without angina pectoris Borderline elevated troponin BPH (benign prostatic hypertrophy) with urinary obstruction Chest pain, unspecified Essential hypertension GERD (gastroesophageal reflux disease) History of tobacco use HLD (hyperlipidemia) HTN (hypertension) Left-sided weakness Mixed hyperlipidemia Old myocardial infarction Paroxysmal atrial fibrillation Presence of stent in coronary artery (~09/2013) Type II diabetes mellitus, uncontrolled Home Medications aspirin 81 mg tablet,delayed release 81 mg PO QDAY 07/24/17 [History Last Taken 01/08/19 08:00 81 mg] mfpcvlszrooa-gbaeuoxv-opuuil tablet 1 tablet PO QDAY 07/24/17 [History Last Taken 01/08/19 08:00 1 tab] cetirizine 10 mg capsule 10 mg PO DAILY #30 cap 07/13/20 [Rx Last Taken Unknown] insulin glargine 100 unit/mL (3 mL) subcutaneous pen 50 unit SC QHS ml 09/21/20 [History Last Taken Unknown] blood-glucose meter #1 ea 11/10/20 [Rx Last Taken Unknown] atorvastatin 80 mg tablet 80 mg PO QHS #90 tab 11/17/20 [Rx Last Taken Unknown] blood pressure monitor #1 ea 11/21/20 [Rx Last Taken Unknown] diltiazem HCl 120 mg capsule,extended release 24 hr 120 mg PO BID #180 cap 12/19/20 [Rx Last Taken Unknown] WAlker with wheels #1 ea 12/27/20 [Rx Last Taken Unknown] furosemide 40 mg tablet 40 mg PO DAILY #90 tab 02/15/21 [Rx Last Taken Unknown] glimepiride 2 mg tablet 2 mg PO DAILY #180 tablet 02/15/21 [Rx Last Taken Unknown] tamsulosin 0.4 mg capsule 0.4 mg PO QHS #90 cap 04/26/21 [Rx Last Taken Unknown] trazodone 150 mg tablet 150 mg PO QHS #90 tab 05/03/21 [Rx Last Taken Unknown] blood sugar diagnostic #150 ea 05/09/21 [Rx Last Taken Unknown] pen needle, diabetic 31 gauge x 1/4 See Rx Instructions .ROUTE .COMPLEX #300 ea 06/14/21 [Rx Last Taken Unknown] metoprolol tartrate 100 mg tablet 100 mg PO BID #180 tab 06/21/21 [Rx Last Taken Unknown] triamcinolone acetonide 0.1 % topical cream 1 applic TOPICAL BID #30 g 06/21/21 [Rx Last Taken Unknown] valsartan 160 mg tablet 160 mg PO DAILY #180 tab 06/21/21 [Rx Last Taken Unknown] isosorbide mononitrate 60 mg tablet,extended release 24 hr 60 mg PO DAILY #90 tab 07/14/21 [Rx Last Taken Unknown] lansoprazole 30 mg capsule,delayed release 30 mg PO DAILY cap 07/14/21 [History Last Taken Unknown] nitroglycerin 0.4 mg sublingual tablet 0.4 mg SL Q5M PRN #90 tab 07/14/21 [Rx Last Taken Unknown] pregabalin 100 mg capsule 200 mg PO BID cap 07/14/21 [History Last Taken Unknown] guaifenesin [Mucinex] 1,200 mg PO BID PRN #10 tab 07/17/21 [Rx Last Taken Unknown] Allergy/AdvReac Type Severity Reaction Status Date / Time iodine Allergy Hives Verified 07/17/21 08:10 tramadol Allergy Other Verified 07/17/21 08:10 Family History Mother Cancer Sister Brain aneurysm Sister Brain aneurysm Father Cancer Surgical History H/O carotid endarterectomy History of back surgery History of cholecystectomy History of PTCA Hx of CABG (~12/22/07) Presence of coronary angioplasty implant and graft (~09/2013) Presence of Watchman left atrial appendage closure device (~03/04/18) Social History household members: children Smoking Status: Never smoker how long ago did patient quit smokin (1987) to 40 (1977) years ago alcohol intake: never substance use type: does not use caffeine: No what type of physical activity do you participate in: none seatbelt use: always do you feel safe at home: Yes ROS ROS ED Constitutional Constitutional ED: Denies chills or fever(s) Eyes Eyes: Denies change in vision ENT ENT ED: Denies sore throat Cardiovascular Cardiovascular: Denies chest pain Respiratory/Chest Respiratory/Chest: Reports cough and dyspnea Gastrointestinal Gastrointestinal: Reports abdominal pain and constipation; Denies diarrhea, nausea or vomiting Genitourinary Genitourinary ED: Denies dysuria Musculoskeletal Musculoskeletal: Denies back pain Integumentary Denies rash Neurologic Neurologic: Denies headache(s) or weakness Allergic/Immunologic Allergic/Immunologic ED: Denies urticaria EXAM Physical Exam Const Vital Signs: 07/17/21 08:08 07/17/21 08:57 07/17/21 09:10 Temperature 98 F Temperature Source Temporal Pulse Rate 80 80 Respiratory Rate 20 H 18 Respiratory Effort Short of Breath Blood Pressure 154/90 H 132/90 H Blood Pressure Mean 111 104 Pulse Ox 94 95 Oxygen Delivery Method Room Air Room Air Room Air Positive well nourished and well developed General Appearance ED: well developed HEENT Reports moist mucous membranes Eyes PERRL and EOMs intact bilaterally Neck supple Chest Wall inspection of chest normal and palpation of chest normal Resp normal respiratory effort and clear to auscultation bilaterally Cardio regular rhythm Rate: other Rhythm: abnormal rhythm irregularly irregular GI non-tender Auscultation: normoactive bowel sounds Palpation: soft Extremity normal to inspection Neuro oriented x3 Sensorium / Orientation: alert Psych mental status grossly normal Skin no rashes or lesions noted MDM MDM MDM Narrative Medical decision making narrative: Lab work, EKG, chest x-ray, CT abdomen pelvis obtained. Lab Data Attestation: I reviewed the patient's lab results. Labs: Laboratory Results - last 24 hr 07/17/21 07/17/21 07/17/21 09:50 09:50 10:25 WBC 12.3 H RBC 4.75 Hgb 12.6 L Hct 39.2 L MCV 82.5 MCH 26.5 L MCHC 32.1 RDW Std Deviation 47.1 H RDW Coeff of Henna 15.9 H Plt Count 202 MPV 10.4 Immature Gran % (Auto) 0.500 Neut % (Auto) 81.9 H Lymph % (Auto) 10.2 L [place] % (Auto) 5.9 Eos % (Auto) 1.1 Baso % (Auto) 0.4 Absolute Neuts (auto) 10.1 H Absolute Lymphs (auto) 1.25 Nucleated RBC % 0 Sodium Cancelled 138 Potassium Cancelled 3.6 Chloride Cancelled 103 Carbon Dioxide Cancelled 29.0 Anion Gap Cancelled 6 BUN Cancelled 18 Creatinine Cancelled 1.11 Estim Creat Clear Calc Cancelled 47.97 Est GFR (MDRD) Af Amer Cancelled 82 Est GFR (MDRD) Non-Af Cancelled 67 BUN/Creatinine Ratio Cancelled 16.2 Glucose Cancelled 175 H Calcium Cancelled 8.6 Total Bilirubin Cancelled 1.20 H Direct Bilirubin Cancelled 0.38 H AST Cancelled 13 L ALT Cancelled 31 Alkaline Phosphatase Cancelled 75 Troponin I High Sens Cancelled 12 Total Protein Cancelled 7.1 Albumin Cancelled 3.2 Globulin Cancelled 3.9 Radiography Chest X-Ray - ED: 1 View, Read by ED Physician, Chronic Changes and Cardiomegaly Diagnostic Testing: Clinical Impression(s) from Imaging Studies Chest X-Ray 07/17/21 08:59 IMPRESSION: Cardiomegaly. Mild degree of vascular congestion. Small left pleural effusion with left basilar atelectasis. Electronically Signed: Kenneth Vazquez MD at 11:28 EST , Service support , Abdomen CT 07/17/21 09:03 IMPRESSION: Stable left renal cyst. Small hiatal hernia. Small bilateral pleural effusions left greater than right with bibasilar atelectasis. Electronically Signed: Kenneth Vazquez MD at 11:26 EST , Service support , EKG Initial EKG: Attestation: I personally reviewed and interpreted this EKG as follows: Interpretation: Atrial Fibrillation (Atrial fibrillation at 73 bpm. Right bundle branch block noted. No acute ischemia.) Treatment and Re-Evaluation Comments:: On repeat evaluation patient resting comfortably. Test results discussed with patient and family at bedside. Blood work is largely unremarkable. Chest x-ray reveals cardiomegaly with chronic changes. Radiology does feel that there is a degree of vascular congestion. CT scan reveals a small hiatal hernia as well as bilateral pleural effusions. Patient is saturating appropriately on room air. I will ask him to increase his Lasix for the next 5 days to help remove extra fluid. Family is asking for something to help him cough up the phlegm that he seems to be congested with. I will write him for Mucinex. Return instructions provided. Discharge Plan Triage Chief Complaint: Shortness of Breath ED Provider: Lore Graham Dx/Rx/DC Orders Clinical Impression: Pleural effusion, bilateral, Constipation Instructions: ED Pleural Effusion Prescriptions: New Mucinex 1,200 mg tablet extended release 12hr 1,200 mg PO BID PRN (Reason: congestion) Qty: 10 RF: 0 No Action aspirin [Adult Low Dose Aspirin] 81 mg tablet,delayed release (DR/EC) 81 mg PO QDAY RF: 0 qdisacbiasjn-gwchnnib-xldxgz tablet 1 tablet PO QDAY RF: 0 insulin glargine 100 unit/mL (3 mL) insulin pen 50 unit SC QHS RF: 0 furosemide 40 mg tablet 40 mg PO DAILY Qty: 90 RF: 2 glimepiride 2 mg tablet 2 mg PO DAILY Qty: 180 RF: 1 valsartan 160 mg tablet 160 mg PO DAILY Qty: 180 RF: 3 metoprolol tartrate 100 mg tablet 100 mg PO BID Qty: 180 RF: 1 triamcinolone acetonide 0.1 % cream 1 applic topical BID Qty: 30 RF: 1 lansoprazole 30 mg capsule,delayed release(DR/EC) 30 mg PO DAILY RF: 0 pregabalin 100 mg capsule 200 mg PO BID RF: 0 isosorbide mononitrate 60 mg tablet extended release 24 hr 60 mg PO DAILY Qty: 90 RF: 3 nitroglycerin 0.4 mg tablet, sublingual 0.4 mg SL Q5M PRN (Reason: chest pain) Qty: 90 RF: 3 Zyrtec 10 mg capsule 10 mg PO DAILY Qty: 30 RF: 5 (DME) blood-glucose meter [True Metrix Glucose Meter] [facility] [place] See Rx Instructions .ROUTE .MEDSUPPLY Qty: 1 RF: 0 atorvastatin 80 mg tablet 80 mg PO QHS Qty: 90 RF: 3 (DME) blood pressure monitor Kit See Rx Instructions .ROUTE .MEDSUPPLY Qty: 1 RF: 0 diltiazem HCl 120 mg capsule,extended release 24hr 120 mg PO BID Qty: 180 RF: 3 (DME) WAlker with wheels See Rx Instructions .Route .MEDSUPPLY Qty: 1 RF: 0 tamsulosin 0.4 mg capsule 0.4 mg PO QHS Qty: 90 RF: 3 trazodone 150 mg tablet 150 mg PO QHS Qty: 90 RF: 1 (DME) True Metrix Glucose Test Strip Strip See Rx Instructions .ROUTE .MEDSUPPLY Qty: 150 RF: 10 pen needle, diabetic [Droplet Pen Needle] 31 gauge x 1/4 needle See Rx Instructions .ROUTE .COMPLEX Qty: 300 RF: 0 Primary Care Provider: Shahzad Cerna Referrals: Shahzad Cerna, DO [Primary Care Provider] - 1 Week Activity Restrictions/Additional Instructions: As discussed, please increase your Lasix (furosemide) to twice a day for the next 5 days. Monitor your weight daily. Disposition Disposition: Home, Self Care
[2021-07-17 09:10] VITALS: BP 132/90; PULSE 80; RESP 18; O2SAT 95
[2021-07-17 10:04] LABS: Absolute Lymphocyte Count 1.25 X10^3/uL (0.83-4.51); Absolute Neutrophil Count 10.1 X10^3/uL (2.0-7.7); Basophil# 0.05 X10^3/uL; Basophil% 0.4 % (0-1); Eosinophil# 0.13 X10^3/uL; Eosinophils% 1.1 % (0-5); Hematocrit 39.2 % (40-54); Hemoglobin 12.6 g/dL (13.0-16.5); Lymphocyte # 1.25 X10^3/ul (0.83-4.51); Lymphocyte % 10.2 % (19-41); Mean Corp Hgb Conc 32.1 g/dL (32-36); Mean Corpuscular Hgb 26.5 pg (27.0-32.0); Mean Corpuscular Volume 82.5 fL (80-94); Mean Platelet Vol. 10.4 fl (6.2-12.0); Monocyte# 0.72 X10^3/uL; Monocyte% 5.9 % (0-10); NRBC Flagged by Analyzer 0 % (0-5); Neutrophil # 10.08 X10^3/uL (2.7-7.7); Neutrophil % 81.9 % (47-70); Platelet Count 202 K/mm3 (150-450); RBC Distribution Width CV 15.9 % (11.6-14.6); RBC Distribution Width SD 47.1 fl (35.1-43.9); Red Blood Count 4.75 M/mm3 (4.6-6.2); White Blood Count 12.3 K/mm3 (4.4-11.0)
[2021-07-17 11:02] LABS: AST(SGOT) 13 U/L (15-37); Alanine Aminotransfer ALT/SGPT 31 U/L (16-61); Albumin, Serum 3.2 g/dL (3.2-5.0); Alkaline Phosphatase 75 U/L (45-117); Anion Gap 6 (5-15); BUN 18 mg/dL (7-18); BUN/Creat Ratio 16.2 RATIO (10-20); Bilirubin, Direct 0.38 mg/dL (0.00-0.30); Calcium,Total 8.6 mg/dL (8.5-10.1); Chloride 103 mmol/L (98-107); Creatinine, Serum 1.11 mg/dL (0.70-1.30); EST Glomerular Filtration Rate 67 mL/min (>60); Est Glom Filt Rate - Afr Amer 82 mL/min (>60); Estimated Creatinine Clearance 47.97 ml/min; Globulin 3.9 g/dL (2.2-4.2); Glucose 175 mg/dL (74-106); Potassium 3.6 mmol/L (3.5-5.1); Protein, Total 7.1 g/dL (6.4-8.2); Sodium Level 138 mmol/L (136-145); Troponin-I HS 12 pg/mL (3.0-78.0)
[2021-07-17 12:00] VITALS: BP 133/90; PULSE 80; RESP 18; O2SAT 95
[2021-07-17 12:56] VITALS: BP 148/81; PULSE 82; RESP 18; O2SAT 94
[2021-07-17 12:58] VITALS: BP 146/82; PULSE 81; RESP 18; O2SAT 95
== END 2021-07-17 13:01 | disposition home or self-care (01) ==
PROVIDERS: Emergency Provider Emergency Medicine; PCP Family Medicine; Visit Provider Emergency Medicine
DX: J90 Pleural effusion, not elsewhere classified (principal); I48.0 Paroxysmal atrial fibrillation; E11.9 Type 2 diabetes mellitus without complications; Z79.4 Long term (current) use of insulin; K44.9 Diaphragmatic hernia without obstruction or gangrene; K59.00 Constipation, unspecified; I10 Essential (primary) hypertension; E78.2 Mixed hyperlipidemia; I25.10 Atherosclerotic heart disease of native coronary artery without angina pectoris; Z79.899 Other long term (current) drug therapy; I25.2 Old myocardial infarction; N40.0 Benign prostatic hyperplasia without lower urinary tract symptoms; Z90.49 Acquired absence of other specified parts of digestive tract; Z79.82 Long term (current) use of aspirin; Z95.1 Presence of aortocoronary bypass graft; I45.10 Unspecified right bundle-branch block
CPT/HCPCS: 71045; 74176; 80048; 80076; 84484; 85025; 93005; 99285

== ENCOUNTER 2021-07-27 06:14 | Outpatient (CLI) | payer MEDICARE, MEDICAID, SELFPAY ==
--- NOTE | 2021-07-27 08:57 | STRESSREP_ITS ---
Stress Test Report Date: 07-27-2021 Procedure: Pharmacologic stress nuclear imaging study Indications: Shortness of breath/dyspnea on exertion; fatigue; CAD; PCI; status post CABG Consent: Per the patient Procedure: The patient underwent pharmacologic (Regadenoson 0.4mg ) evaluation with a peak heart rate of 75 beats per minute (54%predicted maximal heart rate) and a peak blood pressure of 140/70 mmHg. The baseline ECG demonstrated atrial fibrillation; right bundle branch block. The peak pharmacologic ECG demonstrated no obvious ECG changes. There was a rare PVC during recovery. There was no complaint of chest discomfort during pharmacologic infusion or recovery. The examination was discontinued secondary to completion of protocol. Impression: 1. Pharmacologic (Regadenoson) evaluation 2. Peak pharmacologic ECG with continued atrial fibrillation with right bundle branch block. 3. There was a rare PVC during recovery. 4. Nuclear images pending Myocardial perfusion imaging study: Technique: The patient was injected with 14.7 millicuries of technetium 99m Cardiolite and subsequently rest SPECT Cardiolite nuclear imaging was obtained in the horizontal long, vertical long, and short axis views. The patient underwent pharmacologic (Regadenoson) evaluation with a peak heart rate of 75 beats per minute (54% percent predicted maximal heart rate) and a peak blood pressure of 140/70 mmHg. The patient was injected with 44.8 millicuries of technetium 99m Cardiolite and subsequently stress SPECT Cardiolite nuclear imaging was obtained in the horizontal long, vertical long, and short axis views. A gated Cardiolite study at peak stress was obtained. Interpretation: Rest and stress SPECT Cardiolite nuclear imaging status post realignment, normalization, and attenuation correction demonstrate the appearance body motion during image acquisition as well as diminished myocardial perfusion/tracer uptake in portions of the basal interventricular septum without significant change between rest and stress. There is end systolic thickening and brightening. The gated Cardiolite study demonstrates myocardial thickening and inward wall motion. The reported LVEF is 54%. Impression: 1. Rest and stress SPECT her nuclear imaging demonstrates appearance of diminished myocardial perfusion/tracer uptake in portions of basal interv entricular septum without significant change potentially compatible with an area of previous myocardial injury/infarction with no myocardial perfusion changes considered diagnostic for associated stress-induced myocardial ischemia. 2. The gated Cardiolite study reports an LVEF of 54%. Comment: Of note: Based upon the SPECT images obtained there appears to be myocardial perfusion/tracer uptake in the area of the right ventricle. This note was generated with [employer] software. It may contain incorrect words, spelling, and punctuation that were not noted in checking the note before signing.
== END 2021-07-27 23:59 | disposition short-term general hospital (02) ==
LOC: CVS 06:16
PROVIDERS: PCP Family Medicine; Referring Provider Internal Medicine Cardiovascular Disease; Visit Provider Internal Medicine Cardiovascular Disease
DX: I25.810 Atherosclerosis of coronary artery bypass graft(s) without angina pectoris (principal); I48.0 Paroxysmal atrial fibrillation; I10 Essential (primary) hypertension; E78.2 Mixed hyperlipidemia; R06.02 Shortness of breath; R07.9 Chest pain, unspecified; Z95.5 Presence of coronary angioplasty implant and graft; Z95.818 Presence of other cardiac implants and grafts
CPT/HCPCS: 78452; 93017; A9500; A4216; J2785

== ENCOUNTER 2021-08-22 12:40 | Outpatient (CLI) | payer MEDICARE, MEDICAID, SELFPAY ==
--- NOTE | 2021-08-22 12:44 | ECHOCS_ITS ---
Reason For Study: CAD/ASHD Procedure This was a 2D Doppler, Color Flow transthoracic echocardiogram. The study was technically difficult. Contrast injection was performed. Exam performed in department. Left Ventricle Normal LV size. Segmental dysfunction with preserved ejection fraction (see wall motion). The estimated ejection fraction is 55 %. No evidence for diastolic dysfunction. Posterior-Basal: Hypokinetic. Infero-Basal: Akinetic. Mid-Posterior: Hypokinetic. Mid-Inferior: Hypokinetic. Right Ventricle Normal RV size. Normal systolic function. Atria The left atrium is moderately enlarged. Normal right atrium. No doppler evidence for ASD. Mitral Valve There is no mitral annular calcification. Mild focal mitral valve calcification of the anterior leaflet. Mild (1+) mitral valve insufficiency. Tricuspid Valve Normal tricuspid valve. Trivial tricuspid valve insufficiency. Right ventricular systolic pressure estimated to be 25 mmHg. Aortic Valve Trisinus/trileaflet aortic valve. Mild diffuse aortic valve thickening. Mild focal aortic valve calcification. Mild (1+) aortic valve insufficiency. Pulmonic Valve The pulmonic valve is not well visualized. Trivial pulmonic valve insufficiency. Great Vessels The aortic root is not well visualized. Pericardium/Pleural No pericardial effusion. Medication 22 gauge I.V. with prn adaptor inserted into right arm. Diluted definity 2ml given slow IV push to enhance endocardial definition. MMode/2D Measurements & Calculations LVIDd: 5.3 cm IVSd: 1.1 cm LA dimension: 4.2 cm LVIDs: 3.9 cm LVPWd: 0.94 cm FS: 26.2 % LAV(MOD-bp): 59.1 ml LA A4 area: 20.9 cm2 RA A4 area: 22.7 cm2 LAV(MOD-bp) Indexed: 26.3 ml/m2 LAV(MOD-sp2): 51.4 ml LAV(MOD-sp4): 65.8 ml Time Measurements MV dec time: 0.22 sec Doppler Measurements & Calculations MV E max matthew: 86.9 cm/sec Lat Peak E' Matthew: 10.1 cm/sec Med Peak E' Matthew: 6.6 cm/sec E/E' lat: 8.6 E/E' med: 13.1 MV V2 max: 94.9 cm/sec MV P1/2t max matthew: 94.9 cm/sec Ao V2 max: 139.8 cm/sec MV max P.6 mmHg MV P1/2t: 84.9 msec Ao max P.8 mmHg MV V2 mean: 51.1 cm/sec MV dec slope: 327.4 cm/sec2 MV mean P.2 mmHg MV V2 VTI: 23.1 cm MVA(P1/2t): 2.6 cm2 AI max matthew: 421.6 cm/sec LV V1 max: 94.2 cm/sec PA V2 max: 80.9 cm/sec AI max P.1 mmHg LV V1 max P.6 mmHg AI dec slope: 205.7 cm/sec2 AI P1/2t: 600.3 msec PI end-d matthew: 102.1 cm/sec TR max matthew: 232.5 cm/sec TR max P.6 mmHg ECHO/Echo Complete W/ Contrast Interpretation Summary The study was technically difficult. Contrast injection was performed. Segmental dysfunction with preserved ejection fraction (see wall motion). The estimated ejection fraction is 55 %. The left atrium is moderately enlarged. Mild focal mitral valve calcification of the anterior leaflet. Mild (1+) mitral valve insufficiency. Trivial tricuspid valve insufficiency. Mild diffuse aortic valve thickening. Mild focal aortic valve calcification. Mild (1+) aortic valve insufficiency. Trivial pulmonic valve insufficiency. Right ventricular systolic pressure estimated to be 25 mmHg. No evidence for diastolic dysfunction. Ordering Physician: Hank Cox Referring Physician: Fan Cerna M.D. Performed By: Balwinder Nieto RCS
== END 2021-08-22 23:59 | disposition home or self-care (01) ==
LOC: CVS 12:41
PROVIDERS: PCP Family Medicine; Referring Provider Internal Medicine Cardiovascular Disease; Visit Provider Internal Medicine Cardiovascular Disease
DX: I25.10 Atherosclerotic heart disease of native coronary artery without angina pectoris (principal)
CPT/HCPCS: 93306; Q9957; A4216; C8929

== ENCOUNTER 2021-09-04 10:24 | Emergency (ER) | payer MEDICARE, MEDICAID, SELFPAY ==
[2021-09-04 10:25] VITALS: BP 118/55; PULSE 80; RESP 18; TEMP 36.1; O2SAT 92; BMI 34.7
--- NOTE | 2021-09-04 11:08 | EDS_ITS ---
HPI History of Present Illness Chief Complaint: Abd Pain Narrative Narrative: 81-year-old male brought in by his daughter for multiple complaints, he states he is having abdominal pain, shortness of breath, trouble swallowing, arthritis everywhere especially the knees and hips, and dizziness. He states he has had epigastric/left upper quadrant abdominal pain and shortness of breath both acute and new for about the past week getting worse. In further discussion, the arthritis is chronic and just feels gradually worse, the dizziness he has had in the past but is there for about 1 or 2 weeks, intermittent sensation of movement/lightheadedness that he triggered by bending over and resolves with remaining still and give some trouble walking. The trouble swallowing is actually trouble with the pre-swallowing portion of eating because of his dyspnea. He can swallow without difficulty, nothing feels like it is getting stuck, and things go down into his stomach without difficulty after swallowing. With regards to the dizziness, he denies any associated headaches, any changes in vision, tinnitus, earache, or focal peripheral neurologic symptoms. With regards to his abdominal pain, it is no different with eating when he does swallow. It is no different after bowel movement. He denies any nausea or vomiting. His bowel movements are normal without blood or melena or diarrhea or constipation. He is urinating normally. He states he thinks, although he is not completely sure, that this is the same pain he was here for 1 or 2 months ago and had a negative CT scan. He has had prior cholecystectomy and herniorrhaphy, neither was recent. No other abdominal surgeries. He has not tried any medications for any of this because I am already on so many. With regards to his dyspnea, it is worse with exertion, he denies any cough, fevers, chills or other upper respiratory tract infection symptoms, he does not have orthopnea. He does have a history of congestive heart failure. He denies any chest discomfort. He has some mild swelling in his legs that comes and goes chronically and is unchanged compared with normal. He sees cardiology Dr. Cox. He has a watchman device that was put in about 5 years ago for atrial fibrillation and is no longer on anticoagulants. [facility] Medical History Acute ischemic stroke Atherosclerosis of coronary artery bypass graft without angina pectoris Atherosclerosis of augustine coronary artery of augustine heart without angina pectoris Borderline elevated troponin BPH (benign prostatic hypertrophy) with urinary obstruction Chest pain, unspecified Essential hypertension GERD (gastroesophageal reflux disease) History of tobacco use HLD (hyperlipidemia) HTN (hypertension) Left-sided weakness Mixed hyperlipidemia Old myocardial infarction Paroxysmal atrial fibrillation Presence of stent in coronary artery (~09/17/13) Type II diabetes mellitus, uncontrolled Home Medications aspirin 81 mg tablet,delayed release 81 mg PO QDAY 07/24/17 [History Last Taken 01/08/19 08:00 81 mg] oohnalutgyat-asuwqffg-qwrodp tablet 1 tablet PO QDAY 07/24/17 [History Last Taken 01/08/19 08:00 1 tab] cetirizine 10 mg capsule 10 mg PO DAILY #30 cap 07/13/20 [Rx Last Taken Unknown] blood-glucose meter #1 ea 11/10/20 [Rx Last Taken Unknown] atorvastatin 80 mg tablet 80 mg PO QHS #90 tab 11/17/20 [Rx Last Taken Unknown] blood pressure monitor #1 ea 11/21/20 [Rx Last Taken Unknown] diltiazem HCl 120 mg capsule,extended release 24 hr 120 mg PO BID #180 cap 12/19/20 [Rx Last Taken Unknown] WAlker with wheels #1 ea 12/27/20 [Rx Last Taken Unknown] glimepiride 2 mg tablet 2 mg PO DAILY #180 tablet 02/15/21 [Rx Last Taken Unknown] tamsulosin 0.4 mg capsule 0.4 mg PO QHS #90 cap 04/26/21 [Rx Last Taken Unknown] trazodone 150 mg tablet 150 mg PO QHS #90 tab 05/03/21 [Rx Last Taken Unknown] blood sugar diagnostic #150 ea 05/09/21 [Rx Last Taken Unknown] metoprolol tartrate 100 mg tablet 100 mg PO BID #180 tab 06/21/21 [Rx Last Taken Unknown] triamcinolone acetonide 0.1 % topical cream 1 applic TOPICAL BID #30 g 06/21/21 [Rx Last Taken Unknown] valsartan 160 mg tablet 160 mg PO DAILY #180 tab 06/21/21 [Rx Last Taken Unknown] isosorbide mononitrate 60 mg tablet,extended release 24 hr 60 mg PO DAILY #90 tab 07/14/21 [Rx Last Taken Unknown] nitroglycerin 0.4 mg sublingual tablet 0.4 mg SL Q5M PRN #90 tab 07/14/21 [Rx Last Taken Unknown] pregabalin 100 mg capsule 200 mg PO BID cap 07/14/21 [History Last Taken Unknown] guaifenesin 1,200 mg tablet, extended release 12 hr 1,200 mg PO BID PRN #30 tab 08/01/21 [Rx Last Taken Unknown] psyllium husk 0.4 gram capsule 0.4 g PO DAILY 08/01/21 [History Last Taken Unknown] fluticasone fur. 200 mcg-umeclid 62.5 mcg-vilant 25 mcg inhalat.powder 1 inh INHALATION DAILY #60 ea 08/15/21 [Rx Last Taken Unknown] pen needle, diabetic 31 gauge x 1/4 See Rx Instructions .ROUTE .COMPLEX #300 ea 08/22/21 [Rx Last Taken Unknown] insulin glargine 100 unit/mL (3 mL) subcutaneous pen 50 unit SC QHS #15 ml 08/29/21 [Rx Last Taken Unknown] furosemide 40 mg PO BID 10 Days #90 tab 09/04/21 [Rx Last Taken Unknown] furosemide [Lasix] 40 mg PO BID #14 tab 09/04/21 [Rx Last Taken Unknown] lansoprazole 30 mg PO BID #60 cap 09/04/21 [Rx Last Taken Unknown] meclizine 25 mg PO Q8H PRN PRN #20 tab 09/04/21 [Rx Last Taken Unknown] Allergy/AdvReac Type Severity Reaction Status Date / Time iodine Allergy Hives Verified 09/04/21 10:26 tramadol Allergy Other Verified 09/04/21 10:26 Family History Mother Cancer Sister Brain aneurysm Sister Brain aneurysm Father Cancer Surgical History H/O carotid endarterectomy History of back surgery History of cholecystectomy History of PTCA Hx of CABG (~12/22/07) Presence of coronary angioplasty implant and graft (~09/2013) Presence of Watchman left atrial appendage closure device (~03/04/18) Social History household members: children Smoking Status: Never smoker how long ago did patient quit smokin (1987) to 39 (1977) years ago alcohol intake: never substance use type: does not use caffeine: No what type of physical activity do you participate in: none seatbelt use: always do you feel safe at home: Yes ROS ROS ED Constitutional Constitutional ED: Denies chills or fever(s) Eyes Eyes: Denies change in vision or diplopia ENT ENT ED: Reports as per HPI and vertigo; Denies dysphagia, ear pain, headache(s), hearing loss, rhinorrhea, sore throat or tinnitus Cardiovascular Cardiovascular: Reports pedal edema; Denies chest pain, orthopnea or palpitations Respiratory/Chest Respiratory/Chest: Reports dyspnea and dyspnea on exertion; Denies cough or orthopnea Gastrointestinal Gastrointestinal: Denies abdominal pain, diarrhea, nausea or vomiting Genitourinary Genitourinary ED: Denies dysuria or hematuria Musculoskeletal Musculoskeletal: Denies back pain or neck pain Integumentary Denies abscess or rash Neurologic Neurologic: Denies headache(s), paresthesias or weakness Psychiatric Psychiatric: Denies anxiety or suicidal thoughts EXAM Physical Exam Const Vital Signs: 09/04/21 10:25 09/04/21 12:51 Temperature 97.0 F L Temperature Source Temporal Pulse Rate 80 82 Respiratory Rate 18 20 H Blood Pressure 118/55 L 124/71 H Blood Pressure Mean 76 88 Pulse Ox 92 93 Oxygen Delivery Method Room Air Room Air Positive well nourished, well developed and obese General Appearance ED: well developed and NAD Nutritional Appearance: obese HEENT Reports moist mucous membranes normocephalic and atraumatic Eyes PERRL and EOMs intact bilaterally Neck full ROM, no lymphadenopathy, supple and no JVD Resp normal respiratory effort and no retractions Resp Narrative: Few inconsistent right basilar rhonchi otherwise clear Effort and Inspection: able to speak in complete sentences and symmetric chest movement Cardio regular rate, regular rhythm and no murmurs GI non-distended GI Narrative: Mildly tender epigastrium and just left of midline, but lateral left upper quadrant nontender and the rest of his abdomen is nontender as well. No guarding or rebound tenderness. Auscultation: normoactive bowel sounds Palpation: soft; Negative for pulsatile mass Back/Spine no CVA tenderness General Back: other FROM Extremity normal to inspection General Extremety ED: Yes edema; Negative for pulses abnormal or tenderness General Extremity: edema bilateral lower extremity Details: mild (Symmetric, no signs of acute cellulitis); Negative for pulses abnormal Neuro oriented x3, CN's II-XII intact bilaterally and no sensory deficits noted Sensorium / Orientation: awake and alert Motor Exam: strength 5/5 throughout Skin no rashes or lesions noted and no wounds MDM MDM MDM Narrative Medical decision making narrative: Patient was given a GI cocktail, his abdominal discomfort resolved and his dyspnea resolved. On his recent CT he had a hiatal hernia. He is already on lansoprazole 30 mg, states he was also on Pepcid with the lansoprazole being taken at night and the Pepcid during the morning but it was discontinued a month or 2 ago. Unknown if this is all related to his discomfort, but his exam is fairly benign and his CT was negative for the same/similar discomfort I do not think he needs to be repeated. I did a chest x-ray that showed maybe some mild congestion, so I think taking his furosemide from 40 mg once a day to twice daily for the next 5-7 days, and doubling his lansoprazole from 30 mg once a day to twice a day, and have him follow-up would be reasonable for now. He is comfortable with that plan. He is not hypoxic and doing well with ambulating slowly here in the emergency department. Lab Data Attestation: I reviewed the patient's lab results. Labs: Laboratory Results - last 24 hr 09/04/21 09/04/21 10:45 10:45 WBC 8.6 RBC 4.56 L Hgb 12.6 L Hct 37.8 L MCV 82.9 MCH 27.6 MCHC 33.3 RDW Std Deviation 49.9 H RDW Coeff of [place] 16.6 H Plt Count 200 MPV 10.2 Immature Gran % (Auto) 1.000 H Neut % (Auto) 82.5 H Lymph % (Auto) 7.1 L [place] % (Auto) 7.3 Eos % (Auto) 1.6 Baso % (Auto) 0.5 Absolute Neuts (auto) 7.1 Absolute Lymphs (auto) 0.61 L Nucleated RBC % 0 Sodium 137 Potassium 3.8 Chloride 106 Carbon Dioxide 25.0 Anion Gap 6 BUN 17 Creatinine 1.28 Estim Creat Clear Calc 44.49 Est GFR (MDRD) Af Amer 69 Est GFR (MDRD) Non-Af 57 L BUN/Creatinine Ratio 13.3 Glucose 130 H Calcium 8.7 Total Bilirubin 0.70 AST 18 ALT 41 Alkaline Phosphatase 51 Troponin I High Sens 16 Total Protein 5.9 L Albumin 2.4 L Globulin 3.5 Albumin/Globulin Ratio 0.7 L Lipase 76 Radiography Diagnostic Testing: Clinical Impression(s) from Imaging Studies Brain CT 09/04/21 11:17 IMPRESSION: Chronic involutional changes of the brain. Stable small bilateral lacunar infarcts. Stable arachnoid cyst in the left posterior fossa. Electronically Signed: Kenneth Vazquez MD at 12:44 EST , Abdomen X-Ray 09/04/21 12:15 IMPRESSION: Large amount of fecal material is seen. Electronically Signed: Kenneth Vazquez MD at 13:05 EST , Chest X-Ray 09/04/21 12:15 IMPRESSION: Congestion mild degree of CHF. Electronically Signed: Kenneth Vazquez MD at 12:48 EST , EKG Initial EKG: Attestation: I personally reviewed and interpreted this EKG as follows: Interpretation: No Acute Injury Pattern, Atrial Fibrillation and RBBB Prior EKG tracings: available for review Prior: Unchanged Discharge Plan Triage Chief Complaint: Abd Pain ED Provider: Alexandro Layne Dx/Rx/DC Orders Clinical Impression: Abdominal pain, epigastric, Constipation, Acute exacerbation of CHF (congestive heart failure), Hiatal hernia, Episodic peripheral vertigo Instructions: Vertigo Medicine Tx, ED Heart Failure, Congestive (CHF), ED Vertigo, Unspecified, ED Hiatal Hernia Prescriptions: New meclizine 25 mg tablet 25 mg PO Q8H PRN PRN (Reason: dizziness or vertigo) Qty: 20 RF: 0 furosemide [Lasix] 40 mg tablet 40 mg PO BID Qty: 14 RF: 0 Continued aspirin [Adult Low Dose Aspirin] 81 mg tablet,delayed release (DR/EC) 81 mg PO QDAY RF: 0 hpneswkxrxpq-ckfwiuet-ezzuxe tablet 1 tablet PO QDAY RF: 0 glimepiride 2 mg tablet 2 mg PO DAILY Qty: 180 RF: 1 valsartan 160 mg tablet 160 mg PO DAILY Qty: 180 RF: 3 metoprolol tartrate 100 mg tablet 100 mg PO BID Qty: 180 RF: 1 triamcinolone acetonide 0.1 % cream 1 applic topical BID Qty: 30 RF: 1 pregabalin 100 mg capsule 200 mg PO BID RF: 0 isosorbide mononitrate 60 mg tablet extended release 24 hr 60 mg PO DAILY Qty: 90 RF: 3 nitroglycerin 0.4 mg tablet, sublingual 0.4 mg SL Q5M PRN (Reason: chest pain) Qty: 90 RF: 3 psyllium husk [Metamucil] 0.4 gram capsule 0.4 g PO DAILY RF: 0 Mucinex 1,200 mg tablet extended release 12hr 1,200 mg PO BID PRN (Reason: congestion) Qty: 30 RF: 1 Trelegy Ellipta 200-62.5-25 mcg blister with device 1 inh inhalation DAILY Qty: 60 RF: 1 Zyrtec 10 mg capsule 10 mg PO DAILY Qty: 30 RF: 5 (DME) blood-glucose meter [True Metrix Glucose Meter] Misc See Rx Instructions .ROUTE .MEDSUPPLY Qty: 1 RF: 0 atorvastatin 80 mg tablet 80 mg PO QHS Qty: 90 RF: 3 (DME) blood pressure monitor Kit See Rx Instructions .ROUTE .MEDSUPPLY Qty: 1 RF: 0 diltiazem HCl 120 mg capsule,extended release 24hr 120 mg PO BID Qty: 180 RF: 3 (DME) WAlker with wheels See Rx Instructions .Route .MEDSUPPLY Qty: 1 RF: 0 tamsulosin 0.4 mg capsule 0.4 mg PO QHS Qty: 90 RF: 3 trazodone 150 mg tablet 150 mg PO QHS Qty: 90 RF: 1 (DME) True Metrix Glucose Test Strip Strip See Rx Instructions .ROUTE .MEDSUPPLY Qty: 150 RF: 10 pen needle, diabetic [Droplet Pen Needle] 31 gauge x 1/4 needle See Rx Instructions .ROUTE .COMPLEX Qty: 300 RF: 3 insulin glargine 100 unit/mL (3 mL) insulin pen 50 unit SC QHS Qty: 15 RF: 1 Changed lansoprazole 30 mg capsule,delayed release(DR/EC) 30 mg PO BID Qty: 60 RF: 0 furosemide 40 mg tablet 40 mg PO BID 10 Days Qty: 90 RF: 2 Primary Care Provider: Shahzad Cerna Referrals: Shahzad Cerna, [Primary Care Provider] - Activity Restrictions/Additional Instructions: Continue your medications as prescribed except as noted above Disposition Disposition: Home, Self Care
--- NOTE | 2021-09-04 11:16 | EKG12_ITS ---
Test Reason : Blood Pressure : / mmHG Vent. Rate : 086 BPM Atrial Rate : 082 BPM P-R Int : 000 ms QRS Dur : 158 ms QT Int : 410 ms P-R-T Axes : 000 005 -07 degrees QTc Int : 490 ms Atrial fibrillation with premature ventricular or aberrantly conducted complexes Right bundle branch block Abnormal ECG Confirmed by RM TRIPP, JOEY ([id number]), state editor THIERNO TUCKER ([id number]) on 09/07/2021 1:20:05 PM Referred By: ARLETH/JONG Confirmed By:JOEY ABDALLA MD
--- NOTE | 2021-09-04 11:17 | CT_ITS ---
STUDY: CT BRAIN WITHOUT CONTRAST REASON FOR EXAM: Male, 81 years old. Intermittent vertigo RADIATION DOSAGE (If Supplied By Facility): CTDIvol = ( 44.99 ) mGy, DLP = ( 829.85 ) mGycm TECHNIQUE: Transaxial CT imaging of the brain was performed without administration of intravenous contrast material. Individualized dose optimization techniques were used for this CT. COMPARISON: Comparison is made with prior study dated 01/08/2019. FINDINGS: Normal soft tissue structures. Normal calvarium. There is moderate cerebral atrophy with widening of the extra-axial spaces and ventricular dilatation. There are areas of decreased attenuation within the white matter tracts of the supratentorial brain, consistent with microvascular disease changes. Stable tiny small lacunar infarcts in the basal ganglion bilaterally. Normal brainstem. There is mild cerebellar atrophy. Findings suggestive of an arachnoid cyst in the left posterior fossa measuring 3.2 cm x 3.2 cm. There is no intracranial hemorrhage. There are no findings of an acute ischemic infarction. Atherosclerotic calcification of the vertebral arteries and cavernous portions of the internal carotid arteries bilaterally. Partial opacification of the left maxillary sinus and mucosal thickening of the ethmoid sinuses CT/Brain/Head without Contrast IMPRESSION: Chronic involutional changes of the brain. Stable small bilateral lacunar infarcts. Stable arachnoid cyst in the left posterior fossa. Electronically Signed: Kenneth Vazquez MD at 12:44 EST ,
[2021-09-04] MEDS: Mag Hydrox/Al Hydrox/Simeth 30 ML UDC PO (11:30)
[2021-09-04 11:32] LABS: Absolute Lymphocyte Count 0.61 X10^3/uL (0.83-4.51); Absolute Neutrophil Count 7.1 X10^3/uL (2.0-7.7); Basophil# 0.04 X10^3/uL; Basophil% 0.5 % (0-1); Eosinophil# 0.14 X10^3/uL; Eosinophils% 1.6 % (0-5); Hematocrit 37.8 % (40-54); Hemoglobin 12.6 g/dL (13.0-16.5); Lymphocyte # 0.61 X10^3/ul (0.83-4.51); Lymphocyte % 7.1 % (19-41); Mean Corp Hgb Conc 33.3 g/dL (32-36); Mean Corpuscular Hgb 27.6 pg (27.0-32.0); Mean Corpuscular Volume 82.9 fL (80-94); Mean Platelet Vol. 10.2 fl (6.2-12.0); Monocyte# 0.63 X10^3/uL; Monocyte% 7.3 % (0-10); NRBC Flagged by Analyzer 0 % (0-5); Neutrophil # 7.12 X10^3/uL (2.7-7.7); Neutrophil % 82.5 % (47-70); Platelet Count 200 K/mm3 (150-450); RBC Distribution Width CV 16.6 % (11.6-14.6); RBC Distribution Width SD 49.9 fl (35.1-43.9); Red Blood Count 4.56 M/mm3 (4.6-6.2); White Blood Count 8.6 K/mm3 (4.4-11.0)
[2021-09-04 11:48] LABS: ALB/GLOB Ratio 0.7 RATIO (0.9-2.4); AST(SGOT) 18 U/L (15-37); Alanine Aminotransfer ALT/SGPT 41 U/L (16-61); Albumin, Serum 2.4 g/dL (3.2-5.0); Alkaline Phosphatase 51 U/L (45-117); Anion Gap 6 (5-15); BUN 17 mg/dL (7-18); BUN/Creat Ratio 13.3 RATIO (10-20); Calcium,Total 8.7 mg/dL (8.5-10.1); Chloride 106 mmol/L (98-107); Creatinine, Serum 1.28 mg/dL (0.70-1.30); EST Glomerular Filtration Rate 57 mL/min (>60); Est Glom Filt Rate - Afr Amer 69 mL/min (>60); Estimated Creatinine Clearance 44.49 ml/min; Globulin 3.5 g/dL (2.2-4.2); Glucose 130 mg/dL (74-106); Lipase 76 U/L (73-393); Potassium 3.8 mmol/L (3.5-5.1); Protein, Total 5.9 g/dL (6.4-8.2); Sodium Level 137 mmol/L (136-145); Troponin-I HS 16 pg/mL (3.0-78.0)
--- NOTE | 2021-09-04 12:15 | RAD_ITS ---
STUDY: X-RAY CHEST REASON FOR EXAM: Male, 81 years old. Sob TECHNIQUE: PA and lateral views of the chest. COMPARISON: Comparison is made with prior study dated 07/17/2021. FINDINGS: Mild degree of the vascular congestion and CHF. There is no demonstrated pleural abnormality. Sternal cerclage wires are present from a prior sternotomy. Mild cardiomegaly. Normal mediastinum and margarita. Normal visualized pulmonary arteries. There is atherosclerotic calcification of the aortic arch with tortuosity. There is demineralization of the osseous structures. Normal visualized ribs, clavicles, and shoulders. There is no demonstrated abnormality of the visualized soft tissue structures of the upper abdomen. RAD/Chest PA and Lateral IMPRESSION: Congestion mild degree of CHF. Electronically Signed: Kenneth Vazquez MD at 12:48 EST ,
--- NOTE | 2021-09-04 12:15 | RAD_ITS ---
STUDY: X-RAY - ABDOMEN/PELVIS REASON FOR EXAM: Male, 81 years old. Pain upper abd, sob TECHNIQUE: AP supine and upright views of the abdomen and pelvis. COMPARISON: None. FINDINGS: Blunting of the left costophrenic angle. There is an abundance of fecal material throughout the colon. There is no demonstrated free abdominal air. Hiatal hernia. The visualized liver, spleen and kidneys are grossly normal in size and morphology. Normal soft tissue structures. Prior laminectomy and fusion at the L4-L5 and L5-S1 levels. RAD/Abd Inc Decub and/or Erect IMPRESSION: Large amount of fecal material is seen. Electronically Signed: Kenneth Vazquez MD at 13:05 EST ,
[2021-09-04 12:51] VITALS: BP 124/71; PULSE 82; RESP 20; O2SAT 93
[2021-09-04 14:23] VITALS: BP 126/78; PULSE 84; RESP 16; O2SAT 98
== END 2021-09-04 14:24 | disposition home or self-care (01) ==
PROVIDERS: Emergency Provider Emergency Medicine; PCP Family Medicine; Visit Provider Emergency Medicine
DX: R10.13 Epigastric pain (principal); I11.0 Hypertensive heart disease with heart failure; I50.9 Heart failure, unspecified; I48.0 Paroxysmal atrial fibrillation; E11.9 Type 2 diabetes mellitus without complications; Z79.4 Long term (current) use of insulin; K59.00 Constipation, unspecified; K44.9 Diaphragmatic hernia without obstruction or gangrene; H81.399 Other peripheral vertigo, unspecified ear; I25.10 Atherosclerotic heart disease of native coronary artery without angina pectoris; I25.2 Old myocardial infarction; E78.2 Mixed hyperlipidemia; E66.9 Obesity, unspecified; Z68.34 Body mass index [BMI] 34.0-34.9, adult; Z95.1 Presence of aortocoronary bypass graft; Z95.5 Presence of coronary angioplasty implant and graft; Z79.82 Long term (current) use of aspirin; Z79.84 Long term (current) use of oral hypoglycemic drugs; Z79.899 Other long term (current) drug therapy
CPT/HCPCS: 70450; 71046; 74019; 80053; 83690; 84484; 85025; 93005; 99284; A4216

== ENCOUNTER → 2021-11-02 | Outpatient (CLI) | payer MEDICARE, MEDICAID, SELFPAY ==
--- NOTE | 2021-11-02 13:33 | PFTCOMP_ITS ---
COMPLETE PULMONARY FUNCTION TEST INTERPRETATION Brief HPI: Patient is an 81 year old male, currently under the care of Dr. Cerna, who presents to [facility] for complete pulmonary function tests secondary to diagnosis of dyspnea. Respiratory therapist reports good effort and reproducible results. Interpretation: Forced expiration spirometry shows no large airways obstructive ventilatory defect with an FEV1 of 67% predicted. There is no significant bronchodilator response by strict ATS criteria. Spirograms are of good quality and plateau slowly, indicating slowly emptying areas of the lungs. The respiratory flow volume loop shows decreased expiratory flow rates at high lung volumes consistent with small airways obstruction. Lung volumes by body plethysmography show a decreased total lung capacity at 4.86 L, 80% predicted. All other lung volumes are reduced symmetrically. Diffusion capacity by carbon monoxide is decreased at 43% predicted. The airway resistance is elevated. No previous pulmonary function tests were available for review. Impression: Moderate restrictive ventilatory defect with a symmetric reduction diffusion capacity. There is some stigmata of small airways disease. Consider chest imaging if not completed previously.
[2021-11-02 15:51] LABS: Absolute Lymphocyte Count 1.48 X10^3/uL (0.83-4.51); Absolute Neutrophil Count 6.1 X10^3/uL (2.0-7.7); Basophil# 0.02 X10^3/uL; Basophil% 0.2 % (0-1); Eosinophil# 0.17 X10^3/uL; Eosinophils% 2.1 % (0-5); Hematocrit 38.2 % (40-54); Lymphocyte # 1.48 X10^3/ul (0.83-4.51); Lymphocyte % 17.9 % (19-41); Mean Corp Hgb Conc 31.4 g/dL (32-36); Mean Corpuscular Hgb 27.5 pg (27.0-32.0); Mean Corpuscular Volume 87.4 fL (80-94); Mean Platelet Vol. 10.2 fl (6.2-12.0); Monocyte# 0.53 X10^3/uL; Monocyte% 6.4 % (0-10); NRBC Flagged by Analyzer 0 % (0-5); Neutrophil # 6.06 X10^3/uL (2.7-7.7); Platelet Count 224 K/mm3 (150-450); RBC Distribution Width CV 16.7 % (11.6-14.6); RBC Distribution Width SD 53.3 fl (35.1-43.9); Red Blood Count 4.37 M/mm3 (4.6-6.2); White Blood Count 8.3 K/mm3 (4.4-11.0)
[2021-11-02 16:10] LABS: Partial Thromboplast Time 34.5 Seconds (24.1-36.2)
[2021-11-02 16:17] LABS: International Normalized Ratio 1.2; Prothrombin Time (Protime)PT. 14.6 SECONDS (11.7-14.9)
[2021-11-02 16:20] LABS: Anion Gap 5 (5-15); BUN 12 mg/dL (7-18); BUN/Creat Ratio 11.3 RATIO (10-20); Calcium,Total 8.1 mg/dL (8.5-10.1); Chloride 107 mmol/L (98-107); Creatinine, Serum 1.06 mg/dL (0.70-1.30); EST Glomerular Filtration Rate 71 mL/min (>60); Est Glom Filt Rate - Afr Amer 86 mL/min (>60); Glucose 158 mg/dL (74-106); Potassium 3.4 mmol/L (3.5-5.1); Sodium Level 139 mmol/L (136-145)
== END | disposition home or self-care (01) ==
LOC: PSN 08:33
PROVIDERS: Nurse Practitioner Gerontology; PCP Family Medicine; Referring Provider Family Medicine; Visit Provider Family Medicine
DX: R06.02 Shortness of breath (principal); I63.9 Cerebral infarction, unspecified; I25.810 Atherosclerosis of coronary artery bypass graft(s) without angina pectoris
CPT/HCPCS: 36415; 80048; 85025; 85610; 85730; 94060; 94726; 94729

== ENCOUNTER 2021-11-07 07:08 | Day surgery (SDC) | payer MEDICARE, MEDICAID, SELFPAY ==
--- NOTE | 2021-11-05 09:08 | PCM.HP.BLA ---
History and Physical Date of Admission: 11/07/21 [facility] [address], [place] [id number] OFFICE VISITDate of Service: 11/02/21 MR#:[id number]: JUNE GUAMAN LRep #:[id number] Provider: RHYS Lau/Sex: 81/M [facility] HPI History of Present Illness Surgical H&P: Yes Details: This is an 81-year-old white male who presents today for outpatient cardiovascular follow-up with history of underlying CAD, PCI, CABG, paroxysmal atrial fibrillation, status post left atrial occluder device/Watchman device (03-04-2018 at [facility]), hyperlipidemia, hypertension, and remote CVA. From a cardiac standpoint, the patient is doing well. He denies any palpitations. He continues to have sharp chest pain, located midsternal. This occurs with exertion and at rest. He states it occurs more with exertion. He states the pain may last a few minutes to hours. He does have SOB with the chest pain, and exertion. He does have Orthopnea, and PND. He does not have bleeding issues; no blood in urine, stool or nosebleeds. He denies any decrease in energy level, myalgias, or claudication. He does have bilateral lower extremity edema-this resolves by morning. He denies sudden weight gain. He does have lightheadedness and dizziness. He denies syncopal or near syncopal episodes, and headaches. Intake Vital Signs 11/02/21 10:45 Height 5 ft 9 in Weight: 244 lb BMI 36.0 BP 129/68 H Blood Pressure Location Lt brachial Position Sitting Respiration 18 Pulse 83 Pulse Source Monitor Intake Visit Reasons: UPDATE H&P FOR CATH Button Reclaimer Required: No Accompanied by: Daughter Is patient in pain?: No Allergies iodine Allergy (Verified 11/02/21 11:11) Hives tramadol Allergy (Verified 11/02/21 11:11) Other Medications aspirin 81 mg tablet,delayed release 81 mg PO QDAY 07/24/17 [History Confirmed 11/02/21] jhbcftaodkqo-kffxxnwk-dduxzo tablet 1 tablet PO QDAY 07/24/17 [History Confirmed 11/02/21] cetirizine 10 mg capsule 10 mg PO DAILY #30 cap 07/13/20 [Rx Confirmed 11/02/21] blood-glucose meter #1 ea 11/10/20 [Rx Confirmed 11/02/21] blood pressure monitor #1 ea 11/21/20 [Rx Confirmed 11/02/21] WAlker with wheels #1 ea 12/27/20 [Rx Confirmed 11/02/21] tamsulosin 0.4 mg capsule 0.4 mg PO QHS #90 cap 04/26/21 [Rx Confirmed 11/02/21] blood sugar diagnostic #150 ea 05/09/21 [Rx Confirmed 11/02/21] metoprolol tartrate 100 mg tablet 100 mg PO BID #180 tab 06/21/21 [Rx Confirmed 11/02/21] valsartan 160 mg tablet 160 mg PO DAILY #180 tab 06/21/21 [Rx Confirmed 11/02/21] nitroglycerin 0.4 mg sublingual tablet 0.4 mg SL Q5M PRN #90 tab 07/14/21 [Rx Confirmed 11/02/21] guaifenesin 1,200 mg tablet, extended release 12 hr 1,200 mg PO BID PRN #30 tab 08/01/21 [Rx Confirmed 11/02/21] fluticasone fur. 200 mcg-umeclid 62.5 mcg-vilant 25 mcg inhalat.powder 1 inh INHALATION DAILY #60 ea 08/15/21 [Rx Confirmed 11/02/21] pen needle, diabetic 31 gauge x 1/4 See Rx Instructions .ROUTE .COMPLEX #300 ea 08/22/21 [Rx Confirmed 11/02/21] insulin glargine 100 unit/mL (3 mL) subcutaneous pen 50 unit SC QHS #15 ml 08/29/21 [Rx Confirmed 11/02/21] lansoprazole 30 mg PO BID #60 cap 09/04/21 [Rx Confirmed 11/02/21] meclizine 25 mg PO Q8H PRN PRN #20 tab 09/04/21 [Rx Confirmed 11/02/21] atorvastatin 80 mg tablet 80 mg PO QHS #90 tab 09/06/21 [Rx Confirmed 11/02/21] trazodone 150 mg tablet 150 mg PO QHS #90 tab 09/28/21 [Rx Confirmed 11/02/21] diltiazem HCl 120 mg capsule,extended release 24 hr 120 mg PO BID #180 cap 10/09/21 [Rx Confirmed 11/02/21] furosemide 40 mg tablet 40 mg PO DAILY #30 tab 10/20/21 [Rx Confirmed 11/02/21] diphenhydramine HCl 25 mg capsule 25 mg PO QHS PRN #4 cap 11/02/21 [Rx Confirmed 11/02/21] famotidine 20 mg tablet 20 mg PO DAILY #2 tab 11/02/21 [Rx Confirmed 11/02/21] glimepiride 2 mg tablet 4 mg PO DAILY tab 11/02/21 [History Confirmed 11/02/21] isosorbide mononitrate 30 mg tablet,extended release 24 hr 30 mg PO DAILY 11/02/21 [History Confirmed 11/02/21] prednisone 20 mg tablet 20 mg PO DAILY #9 tab 11/02/21 [Rx Confirmed 11/02/21] pregabalin 100 mg capsule 100 mg PO DAILY cap 11/02/21 [History Confirmed 11/02/21] psyllium seed (sugar) oral powder 1 tbsp PO DAILY 11/02/21 [History Confirmed 11/02/21] Ejection fraction %: 55 to 59 [facility] History Acute ischemic stroke Atherosclerosis of coronary artery bypass graft without angina pectoris Atherosclerosis of [place] coronary artery of [place] heart without angina pectoris Borderline elevated troponin BPH (benign prostatic hypertrophy) with urinary obstruction Chest pain, unspecified Essential hypertension Gastric reflux GERD (gastroesophageal reflux disease) History of tobacco use HLD (hyperlipidemia) HTN (hypertension) Left-sided weakness Mixed hyperlipidemia Old myocardial infarction Paroxysmal atrial fibrillation Presence of stent in coronary artery (~09/17/13) Type II diabetes mellitus, uncontrolled Surgical History H/O carotid endarterectomy History of back surgery History of cholecystectomy History of PTCA Hx of CABG (~12/22/07) Presence of coronary angioplasty implant and graft (~09/2013) Presence of Watchman left atrial appendage closure device (~03/04/18) Family History Mother Cancer Sister Brain aneurysm Sister Brain aneurysm Father Cancer Social History household members: children Smoking Status: Never smoker how long ago did patient quit smokin (1987) to 39 (1977) years ago alcohol intake: never substance use type: does not use caffeine: No what type of physical activity do you participate in: none seatbelt use: always do you feel safe at home: Yes ROS Const Const: Negative for fatigue, weakness, fever(s), headache(s), chills, frequent falls, weight gain or weight loss Eyes Eyes: Negative for blind spots, loss of peripheral vision, transient loss of vision, blurry vision, change in vision, double vision, floaters or tunnel vision ENT ENT: Positive for dizziness and balance problems; Negative for headache(s), Nosebleed/epistaxis or neck pain Cardio Chest Pain: Yes Frequency: daily Character: sharp Onset: at rest and exercise Location: mid sternal Duration: minutes and hours Exacerbation: exercise Palpitations: No Edema: Bilateral Muscle aches with walking: None Resp Respiratory: Positive for SOB with activity and SOB at rest; Negative for SOB orthopnea\SOB lying down GI GI: Negative nausea, vomiting, heartburn, bloating, vomiting blood/hematemesis, bright, red blood in stools or black,tarry stools Musc Musc: Positive for balance problems; Negative for muscle aches/ myalgia, muscle weakness or joint pain Neuro Neuro: Positive for dizziness; Negative for lightheadedness, near syncope, syncope, orthostatic symptoms, frequent falls, headache(s), weakness, blurry vision or double vision Owen Hematologic/Lymphatic: Negative for easy bleeding or easy bruising Endo Endo: Negative for fatigue Cardiology Exam Const Appearance: cooperative and no acute distress Nutritional Appearance: obese Orientation: alert and oriented x3 Head Head: normal to inspection Ears: hearing grossly normal bilaterally Nose: external nose normal Face and Sinus: face symmetric Eyes General: appearance normal, both eyes and all related structures Eyelids: eyelids normal Conjunctivae: conjunctivae normal Pupils: PERRL and pupil size EOM: EOM intact bilaterally Neck Neck: normal visual inspection Carotids: Negative bruit Chest Chest inspection: normal inspection of the chest and normal respiratory effort Auscultation: Bilateral: Clear to Auscultation Cardio Palpation: normal PMI Rate: regular rate Rhythm: irregularly irregular Heart sounds: S1 normal and S2 normal; Negative rub, gallop or murmur GI GI: normal to inspection, soft and obese; Negative no hepatosplenomegaly Neuro General: patient alert, patient oriented x3 and CN's II-XI intact bilaterally Skin Skin: no rashes or lesions noted Extremities Pulses: Normal: Right Posterior Tibial Pulse, Left Posterior Tibial Pulse, Right Radial Pulse and Left Radial Pulse Lower Extremity Edema: Trace: Bilateral Psych Psychological: normal affect Supplemental Info Supplemental Information Echocardiogram 08/22/2021: Interpretation Summary The study was technically difficult. Contrast injection was performed. Segmental dysfunction with preserved ejection fraction (see wall motion). The estimated ejection fraction is 55 %. The left atrium is moderately enlarged. Mild focal mitral valve calcification of the anterior leaflet. Mild (1+) mitral valve insufficiency. Trivial tricuspid valve insufficiency. Mild diffuse aortic valve thickening. Mild focal aortic valve calcification. Mild (1+) aortic valve insufficiency. Trivial pulmonic valve insufficiency. Right ventricular systolic pressure estimated to be 25 mmHg. No evidence for diastolic dysfunction. Stress Test 07/27/2021: Procedure: Pharmacologic stress nuclear imaging study Indications: Shortness of breath/dyspnea on exertion; fatigue; CAD; PCI; status post CABG Consent: Per the patient Procedure: The patient underwent pharmacologic (Regadenoson 0.4mg ) evaluation with a peak heart rate of 75 beats per minute (54%predicted maximal heart rate) and a peak blood pressure of 140/70 mmHg. The baseline ECG demonstrated atrial fibrillation; right bundle branch block. The peak pharmacologic ECG demonstrated no obvious ECG changes. There was a rare PVC during recovery. There was no complaint of chest discomfort during pharmacologic infusion or recovery. The examination was discontinued secondary to completion of protocol. Impression: 1. Pharmacologic (Regadenoson) evaluation 2. Peak pharmacologic ECG with continued atrial fibrillation with right bundle branch block. 3. There was a rare PVC during recovery. 4. Nuclear images pending Myocardial perfusion imaging study: Technique: The patient was injected with 14.7 millicuries of technetium 99m Cardiolite and subsequently rest SPECT Cardiolite nuclear imaging was obtained in the horizontal long, vertical long, and short axis views. The patient underwent pharmacologic (Regadenoson) evaluation with a peak heart rate of 75 beats per minute (54% percent predicted maximal heart rate) and a peak blood pressure of 140/70 mmHg. The patient was injected with 44.8 millicuries of technetium 99m Cardiolite and subsequently stress SPECT Cardiolite nuclear imaging was obtained in the horizontal long, vertical long, and short axis views. A gated Cardiolite study at peak stress was obtained. Interpretation: Rest and stress SPECT Cardiolite nuclear imaging status post realignment, normalization, and attenuation correction demonstrate the appearance body motion during image acquisition as well as diminished myocardial perfusion/tracer uptake in portions of the basal interventricular septum without significant change between rest and stress. There is end systolic thickening and brightening. The gated Cardiolite study demonstrates myocardial thickening and inward wall motion. The reported LVEF is 54%. Impression: 1. Rest and stress SPECT her nuclear imaging demonstrates appearance of diminished myocardial perfusion/tracer uptake in portions of basal interventricular septum without significant change potentially compatible with an area of previous myocardial injury/infarction with no myocardial perfusion changes considered diagnostic for associated stress-induced myocardial ischemia. 2. The gated Cardiolite study reports an LVEF of 54%. Comment: Of note: Based upon the SPECT images obtained there appears to be myocardial perfusion/tracer uptake in the area of the right ventricle. Echocardiogram from 07/11/2017: Interpretation Summary The study was technically difficult. Mild segmental systolic dysfunction (see wall motion). The estimated ejection fraction is 45 %. The left atrium is moderately enlarged. Mild focal mitral valve calcification of the anterior leaflet. Mild-Moderate (1-2+) mitral valve insufficiency. Moderate (2+) tricuspid valve insufficiency. Mild-Moderate (1-2+) aortic valve insufficiency. Trivial pulmonic valve insufficiency. Right ventricular systolic pressure estimated to be 50 mmHg. Echocardiogram: 10/05/2020 Interpretation Summary The study was technically difficult. Contrast injection was performed. Segmental dysfunction with preserved ejection fraction (see wall motion). The estimated ejection fraction is 55 %. The left atrium is moderately enlarged. Mild focal mitral valve calcification of the anterior leaflet. Mild (1+) mitral valve insufficiency. Mild tricuspid valve insufficiency. Mild diffuse aortic valve thickening. Mild focal aortic valve calcification. Mild (1+) aortic valve insufficiency. Trivial pulmonic valve insufficiency. Right ventricular systolic pressure estimated to be 29 mmHg. Transmitral diastolic flow velocities suggest diastolic dysfunction (pseudonormal pattern). Nuclear Stress Test: Date: 10/22/2017 Procedure: Pharmacologic stress nuclear imaging study Indications: Fatigue; CAD; status post PCI; status post CABG; atrial dysrhythmia Consent: Per the patient Procedure: The patient underwent pharmacologic (Regadenoson) evaluation with a peak heart rate of 129 beats per minute (90 predicted maximal heart rate) and a peak blood pressure of 120/82 mmHg. The baseline ECG demonstrated atrial flutter with right bundle branch block pattern. The peak pharmacologic ECG demonstrated no obvious ECG changes. There were no additional cardiac dysrhythmias pretest, during pharmacologic infusion, or recovery. There was no complaint of chest discomfort during pharmacologic infusion or recovery. The examination was discontinued secondary to completion of protocol. Impression: 1. Pharmacologic (Regadenoson) evaluation 2. Peak pharmacologic ECG with continued atrial flutter with right bundle branch block pattern. 3. There were no additional cardiac dysrhythmias pretest, during pharmacologic infusion, or recovery 4. Nuclear images pending Myocardial perfusion imaging study: Technique: The patient was injected with 14.5 millicuries of technetium 99m Cardiolite and subsequently rest SPECT Cardiolite nuclear imaging was obtained in the horizontal long, vertical long, and short axis views. The patient underwent pharmacologic (Regadenoson) evaluation with a peak heart rate of 129 beats per minute (90 % percent predicted maximal heart rate) and a peak blood pressure of 120/82 mmHg. The patient was injected with 45.0 millicuries of technetium 99m Cardiolite and subsequently stress SPECT Cardiolite nuclear imaging was obtained in the horizontal long, vertical long, and short axis views. A gated Cardiolite study at peak stress was obtained. Interpretation: Rest and stress SPECT Cardiolite nuclear imaging status post realignment, normalization, and attenuation correction demonstrate diminished tracer uptake in portions of the basal anteroseptal and inferior septal segments without significant change between rest and stress. There is diminished end systolic thickening and brightening in the aforementioned areas. The gated Cardiolite study demonstrates diminished myocardial thickening and inward wall motion in the aforementioned areas. The reported LVEF is 57 %. Impression: 1. Rest and stress SPECT Cardiolite nuclear imaging demonstrate myocardial perfusion changes appearing compatible with an area of previous myocardial injury/infarction involving portions of the basal anteroseptal and inferior septal segments with no myocardial perfusion changes consider diagnostic for associated stress-induced myocardial ischemia. 2. The gated Cardiolite study reports an LVEF of 57 %. Labs: No Data to Display Diagnostics: Electrocardiogram Echocardiogram Stress Test NM Stress Test Chest X-Ray Pulmonary: No Data to Display Assessment and Plan Assessment and Plan (1) Atherosclerosis of coronary artery bypass graft without angina pectoris: Status: Chronic Qualifiers: [place] vs. transplanted heart: [place] heart Qualified Code(s): I25.810 - Atherosclerosis of coronary artery bypass graft(s) without angina pectoris Orders: Orders: 12 Lead EKG performed by BMS Today Basic Metabolic Profile (BMP) Today Partial Thromboplast Time Today Prothrombin Time w/INR Today CBC W/Diff, Automated Today Abbey De Leon NP, FLOOR SANDING MACHINE OPERATOR-C: Patient has a history of coronary artery disease. His most recent stress test from 07/27/2021 was negative for ischemia. His EKG from today shows possible atrial fibrillation occasional ectopic ventricular beats, right bundle branch block, anteroseptal infarct age undetermined, Heart rate 80. He does continue to have complaints of chest pain with exertion and at rest, along with exertional shortness of breath. Patient will undergo a left cardiac catheterization to evaluate for any stenosis. Cardiac catheterization instructions were given to patient. At this time, he will continue with his current medical therapy, along with aggressive risk factor and lifestyle modifications. (2) Presence of stent in coronary artery: Status: Chronic Comment: PCI/PIETRO of SVG to OM2 09/17/13 ;PTCA/Stent to prox RCA and PTCA to PDA 11/30/2007; PTCA/Stent to mid RCA and mid LAD and second diagonal 02/25/2008; PTCA/PIETRO first DX, sequential SVG to OM1 and OM2 04/14/2008; Abbey De Leon NP, FLOOR SANDING MACHINE OPERATOR-C: Patient has a history of coronary artery disease, with stent placement in 2007, and 2013. His most recent stress test from 07/27/2021 was negative for ischemia. He does continue to have complaints of chest pain with exertion and at rest, along with exertional shortness of breath. Patient will undergo a left cardiac catheterization to evaluate for any stenosis. Cardiac catheterization instructions were given to patient. At this time, he will continue with his current medical therapy, along with aggressive risk factor and lifestyle modifications. (3) Hx of CABG: Status: Chronic Comment: DARNELL to LAD, SVG to Diag, sequential SVG to OM1 and OM2 12/22/2007; Abbey De Leon NP, FLOOR SANDING MACHINE OPERATOR-C: Patient has a history of coronary artery disease with CABG in 2007. His most recent stress test from 07/27/2021 was negative for ischemia. He does continue to have complaints of chest pain with exertion and at rest, along with exertional shortness of breath. Patient will undergo a left cardiac catheterization to evaluate for any stenosis. Cardiac catheterization instructions were given to patient. At this time, he will continue with his current medical therapy, along with aggressive risk factor and lifestyle modifications. (4) Presence of Watchman left atrial appendage closure device: Status: Resolved Comment: Because of the watchman he is on no anticoagulant. (5) Essential hypertension: Status: Chronic Comment: Blood pressure is well controlled. Abbey - Radha De Leon NP, FLOOR SANDING MACHINE OPERATOR-C: Patient has a history of hypertension. His blood pressure is well controlled at this time. He will continue with his current medical therapy, along with monitoring blood pressures at home. (6) Mixed hyperlipidemia: Status: Chronic Plan - Radha De Leon NP, FLOOR SANDING MACHINE OPERATOR-C: Patient has a history of hyperlipidemia. His most recent lipid panel from 02/14/2021: Cholesterol 69, HDL 35, LDL 19, triglycerides 76. He will continue atorvastatin 80 mg daily, along with aggressive risk factor and lifestyle modifications. (7) Paroxysmal atrial fibrillation: Status: Chronic Comment: Patient remains in atrial fibrillation. Abbey - Radha De Leon NP, FLOOR SANDING MACHINE OPERATOR-C: Patient has a history of paroxysmal atrial fibrillation. He appears to be in a irregularly irregular rhythm on exam today. His EKG from today shows possible atrial fibrillation occasional ectopic ventricular beats, right bundle branch block, anteroseptal infarct age undetermined, Heart rate 80. His heart rate is well controlled. He does have a watchman device. He will continue metoprolol 100 mg twice daily. Plan Details Other Medications: New: prednisone Three tablets by mouth at noon the day before your cath, Three tablets at bedtime the day before your cath, and Three tablets the morning of your cath. 20 mg PO DAILY 9 tabs 0RF famotidine (Pepcid) Take one tablet at bedtime the day before your cath, Take one tablet the morning of your cath. 20 mg PO DAILY 2 tabs 0RF IVP Dye Allergy diphenhydramine HCl (Benadryl) Take two capsules at bedtime the day before your cath, Take two capsules the morning of your cath. 25 mg PO QHS PRN 4 caps 0RF IVP Dye Allergy Changed: From: glimepiride 2 mg PO DAILY 180 tabs 1RF To: glimepiride 4 mg PO DAILY Other Orders: Orders: 12 Lead EKG performed by BMS Today R07.9 Partial Thromboplast Time Today I63.9 Additional Comments: Patient will follow up in 3 months, or sooner if needed. Thank you for allowing me to participate in the care of your patient. Please don't hesitate to call if any issues arise. This note was generated using a voice recognition system and there may be incorrect words, spelling, or punctuation that were not noted when reviewing the office note prior to saving. Follow Up: Keep as is ([facility]) COVID (Procedure Consent) Procedure Criteria Procedure Criteria: Yes Elective The surgeon/proceduralist and patient have discussed in detail the risk of exposure to and/or potential harm posed by the COVID-19 virus with having a surgery/procedure at this time versus the risk of delaying the surgery/procedure. It is not possible to know either the risk of delaying the surgery or procedure or chance of getting an infection with perfect accuracy, but a joint decision was made between the patient and the surgeon/proceduralist to proceed at this time with the scheduled surgery/procedure as indicated on the consent form. Coding Level of Care Code Off vis,est,level 3 Diagnoses Atherosclerosis of coronary artery bypass graft without angina pectoris I25.810 [place] vs. transplanted heart: [place] heart Presence of stent in coronary artery Z95.5 Hx of CABG Z95.1 Presence of Watchman left atrial appendage closure device Z95.818 Essential hypertension I10 Mixed hyperlipidemia E78.2 Paroxysmal atrial fibrillation I48.0 Coding Level of Care Code Off vis,est,level 3 Diagnoses Atherosclerosis of coronary artery bypass graft without angina pectoris I25.810 [place] vs. transplanted heart: [place] heart Presence of stent in coronary artery Z95.5 Hx of CABG Z95.1 Presence of Watchman left atrial appendage closure device Z95.818 Essential hypertension I10 Mixed hyperlipidemia E78.2 Paroxysmal atrial fibrillation I48.0 11/02/21 1316<Electronically signed by Radha De Leon NP FLOOR SANDING MACHINE OPERATOR-C>Date Radha De Leon NP, NP-C 11/02/21 1837<Electronically signed by Hank Cox MD>Cosigner Signature:Date (if applicable)Hank Cox MD CC: Dr. Shahzad Cerna, DO ~ Assessment & Plan Addt'l Comments Addendum: The patient had undergone previous CABG at [facility] on 12-22-2007. At that time the patient received: DARNELL to the LAD SVG to the diagonal branch SVG sequential graft to OM1 and OM 2 The patient has undergone previous diagnostic cardiac catheterization at [facility]. Based upon his most recent diagnostic cardiac catheterization from 09-22-2013: The left ventricle was reported as having moderate hypokinesis of the inferobasal and mid inferior wall with an LVEF of 50 to 55%. The left main coronary artery was reported as patent. The LAD was reported as having a proximal stent extending to the proximal first diagonal branch which was patent. At the mid LAD was reported as having 90% stenosis. The LCx was reported as having a first OM with a stent which was patent. The LCx was reported as having a second OM which was occluded. The RCA was noted as having a proximal stent which was patent. The distal RCA was reported as occluded. The distal RCA was reported as receiving [id number] collateral flow. The DARNELL graft to the LAD was patent. The SVG graft to the first diagonal was reported as occluded. The SVG graft to the second OM was reported as having an 80% stenosis. It underwent PCI/PIETRO with a Xience Xpedition 3.5 x 12 mm L1 stent. The patient underwent PCI at [facility] on 09-22-2013: The SVG graft to the second OM was reported as having an 80% stenosis. It underwent PCI/PIETRO with a Xience Xpedition 3.5 x 12 mm L1 stent. The patient's case was discussed and reviewed with the patient. Based upon his cardiovascular history and his ongoing concerns especially with respect to his exertional shortness of breath and dyspnea that are otherwise unexplained from a noncardiovascular standpoint and despite his noninvasive findings appearing to be unremarkable for obvious evidence of stress-induced myocardial ischemia it was felt reasonable to proceed with further reevaluation of his coronary/graft status with diagnostic cardiac catheterization. The procedure and risk were discussed with the patient. He was agreeable to this approach. I have re-examined the patient. There are no clinical changes since date of exam
[2021-11-06 09:35] VITALS: BMI 36.0
[2021-11-07 07:29] LABS: Potassium 4.2 mmol/L (3.5-5.1)
[2021-11-07 08:56] LABS: Blood Gas Specimen Type VEN; VBG BASE EXCESS -2 mmol/L (-1.0-3.5); VBG Bicarbonate 22 mmol/L (22-26); VBG PO2 34 mmHg (25-40); VBG SO2 67 % (50-70); VBG TCO2 23 mmol/L (23-33); VBG pCO2 34.9 mmHg (41-51); VBG pH 7.41 (7.32-7.42)
[2021-11-07 08:56] LABS: Base Excess -3 mmol/L (-2 to +2); Bicarbonate 20.9 mmol/L (22-26); Blood Gas Specimen Type ART; PO2 66 mmHG (75-100); SO2 94 % (95-99); Total Carbon Dioxide 22 mmol/L; pCO2 30.1 mmHg (35-45); pH 7.45 (7.35-7.45)
[2021-11-07 09:01] LABS: Blood Gas Specimen Type VEN; VBG BASE EXCESS -2 mmol/L (-1.0-3.5); VBG Bicarbonate 22 mmol/L (22-26); VBG PO2 33 mmHg (25-40); VBG SO2 66 % (50-70); VBG TCO2 23 mmol/L (23-33); VBG pCO2 34.6 mmHg (41-51); VBG pH 7.42 (7.32-7.42)
--- NOTE | 2021-11-08 09:30 | CL.D_ITS ---
Patient Name: JUNE GUAMAN Study Date: 11/07/2021 Performing: Osmin Silva MD Ht: 69 inches 175 cm : 1940 Wt: 245 lbs 111 kg Age: 81 Gender: male BSA: 2.25 PROCEDURE(S) PERFORMED DC07-([id number])RHC/LHC/COR/LV/CABG CLINICAL PROFILE AND INDICATIONS Indications: Other Heart Failure: NYHA Class: 2, Newly Diagnosed: No, Heart Failure Type: Diastolic Stress/Imaging Date: 10/07/21Stress Test with SPECT MPI: Negative CAD Presentations: Symptom unlikely to be ischemic. CONCLUSIONS Moderate left anterior descending artery stenosis, moderate circumflex artery stenosis, and moderatel y severe distal right coronary artery stenosis. Patent DARNELL to the LAD, saphenous vein graft to the obtuse marginal branch which is patent with proximal 50% stenosis and distal small vessels. RECOMMENDATIONS The patient appears to be adequately revascularized. The shortness of breath is likely multifactoria l with mild LV dysfunction, atrial fibrillation, coronary artery disease, and mild mitral regurgitati on. Medical therapy DESCRIPTION OF PROCEDURE The patient arrived to the procedure lab. The risks and benefits of the procedure as well as a full d escription of our services here and current unavailability of surgical backup were fully explained to the patient and/or their significant other prior to the catheterization. The Timeout was completed, verifying the correct patient and procedure. The patient's procedural site was prepped and draped in the usual fashion. Local anesthetic was given subcutaneously to right groin region with Lidocaine 2%. Using a modified Seldinger technique, arterial access was obtained via the right femoral artery, a 5 Fr sheath was inserted. Venous access was obtained via the right femoral vein, a 7Fr sheath was inser rachel. A 7Fr thermal dilution catheter was inserted and right heart pressures were recorded, it was the n advanced to PA position for cardiac outputs. Thermal dilution cardiac outputs were then recorded. O 2 saturations were then obtained. The Thermal dilution catheter was then removed. Left Coronary Artery selective angiography was performed in multiple views using a 5 Fr. JL4 catheter. Rig ht Coronary Artery selective angiography was then performed in multiple views using a 5 Fr. 3DRC ([facility]) catheter. Saphenous Vein graft to the OM 1 and OM 2selective angiography was performed in [facility] views using a 5 Fr. 3DRC ([facility]) catheter. Left internal mammary artery graft to the LAD elzbieta ctive angiography was performed in multiple views using a 5 Fr. IM catheter. Left Ventriculography wa s performed in VARGHESE projection using a 5 Fr. Pigtail catheter. LV to AO pullback pressures were then r ecorded.The arterial sheath was pulled and manual compression applied until hemostasis is achieved.. The venous sheath was then pulled and manual compression applied until hemostasis achieved CORONARY ANGIOGRAPHY DOMINANCE: Right Dominant LEFT HEART ASSESSMENT Left Ventricular Ejection Fraction: by LV Gram 50 % Normal LV wall motion Depressed Left Ventricular systolic function RIGHT HEART ASSESSMENT Thermal CO: 5.83 Thermal CI: 2.59 PW: /15 13 PA: 29/4 14 RV: 38/-8 0 RA: /4 0 PVR: 14 LEFT MAIN: Mild calcification, Mild luminal irregularities less than 30% LEFT ANTERIOR DESCENDING ARTERY: Previously stented vessel in the mid segment with moderate disease o f approximately 50% DIAGONAL 1: Ostial - 80 % Stenosis CIRCUMFLEX ARTERY: Mild proximal stenosis with first obtuse marginal branch with ostial 90% stenosis in the second obtuse marginal branch patent in the region of the previously placed stents. RIGHT CORONARY ARTERY: Small but dominant vessel with severe diffuse disease involving the distal rig ht coronary artery, and moderate 50% mid stenosis. Acute marginal branch with 80% proximal stenosis and a recurrent AV groove branch with ostial 50% stenosis GRAFTS: DARNELL graft to the 1st Diagonal is patent Saphenous Vein graft to the 1st OM previously placed stent is patent Saphenous Vein graft to the 1st OM has a proximal lesion of 50 % Saphenous Vein graft to the 1st Diagonal is totally occluded VALVE FINDINGS: Mitral Valve Insufficiency - Grade 2 COMPLICATIONS No Complications PROCEDURE MEDICATIONS Versed 1 mg IV Versed 1 mg IV Oxygen: 2 L/min via nasal cannula Benadryl 25 mg IV @ 11/07/2021 08:20:50 Solu-medrol 125 mg IV 11/07/2021 08:21:00 SUMMARY OF HEMODYNAMIC DATA Time AIR REST ECG 07:35:18 RA /4 (0) 08:41:59 RV 38/-8, 0 08:42:13 PA 29/4 (14) PA 08:42:42 PW /15 (13) PV 08:42:56 PA 33/10 (19) 08:45:54 RV 35/-7, 0 08:46:28 RA /11 (1) 08:46:38 AO 121/61 (88) SA 08:49:37 LV 117/1, 8 09:04:15 LV 124/4, 7 09:04:22 LV 120/1, 7 09:05:04 LVp 123/2, 9 09:05:08 AOp 132/69 (97) 09:05:13 Type SV CO (l/m) CI (l/m/ HR Time AIR REST Thermal 59.50 5.83 2.59 98 07:34:00 Label % O2 Pres/Loc Time AIR REST AO 94 PV 08:56:55 PA 67 PA 08:56:59 RA 66 SV 08:57:05 Signed By Osmin Silva MD On 11/08/2021 09:29:23 Osmin Silva MD
== END 2021-11-07 14:44 | disposition home or self-care (01) ==
LOC: CLSP 07:10
PROVIDERS: PCP Family Medicine; Referring Provider Internal Medicine Cardiovascular Disease; Visit Provider Internal Medicine Cardiovascular Disease
DX: I25.810 Atherosclerosis of coronary artery bypass graft(s) without angina pectoris (principal); I48.0 Paroxysmal atrial fibrillation; E11.9 Type 2 diabetes mellitus without complications; Z79.4 Long term (current) use of insulin; I10 Essential (primary) hypertension; I25.2 Old myocardial infarction; E78.2 Mixed hyperlipidemia; E66.9 Obesity, unspecified; Z68.36 Body mass index [BMI] 36.0-36.9, adult; Z95.1 Presence of aortocoronary bypass graft; Z95.5 Presence of coronary angioplasty implant and graft; Z95.818 Presence of other cardiac implants and grafts; Z79.82 Long term (current) use of aspirin; Z79.84 Long term (current) use of oral hypoglycemic drugs; Z79.899 Other long term (current) drug therapy; Z86.73 Personal history of transient ischemic attack (TIA), and cerebral infarction without residual deficits; I25.10 Atherosclerotic heart disease of native coronary artery without angina pectoris
CPT/HCPCS: 36415; 82803; 84132; 93460; 99152; 99153; Q9967; C1751; C1769; C1894

== ENCOUNTER → 2021-12-26 | Outpatient (CLI) | payer MEDICARE, MEDICAID, SELFPAY ==
--- NOTE | 2021-12-26 10:32 | RAD_ITS ---
STUDY: X-RAY - ABDOMEN/PELVIS REASON FOR EXAM: Male, 81 years old. Bloating. Stool retention. TECHNIQUE: Single AP view of the abdomen / pelvis. COMPARISON: None. FINDINGS: Normal visualized lung bases. There is an nonspecific bowel gas pattern with air seen to the rectum. There is no demonstrated free abdominal air. The visualized liver, spleen and kidneys are grossly normal in size and morphology. Phleboliths. Vascular calcifications. Laminectomy and fusion at L4-S1 RAD/Abdomen Single View IMPRESSION: No acute abnormality identified. Electronically Signed: Barry Alatorre MD at 13:59 EDT ,
[2021-12-26 10:55] LABS: Hemoglobin A1c 7.1 % (3.8-5.6)
[2021-12-26 11:20] LABS: AST(SGOT) 24 U/L (15-37); Alanine Aminotransfer ALT/SGPT 29 U/L (16-61); Albumin, Serum 3.3 g/dL (3.2-5.0); Alkaline Phosphatase 59 U/L (45-117); Anion Gap 8 (5-15); BUN 16 mg/dL (7-18); Calcium,Total 8.8 mg/dL (8.5-10.1); Chloride 108 mmol/L (98-107); Creatinine, Serum 1.14 mg/dL (0.70-1.30); EST Glomerular Filtration Rate 65 mL/min (>60); Est Glom Filt Rate - Afr Amer 79 mL/min (>60); Globulin 3.4 g/dL (2.2-4.2); Glucose 222 mg/dL (74-106); Potassium 4.1 mmol/L (3.5-5.1); Protein, Total 6.7 g/dL (6.4-8.2); Sodium Level 143 mmol/L (136-145)
== END | disposition home or self-care (01) ==
LOC: LAB 10:22
PROVIDERS: PCP Family Medicine; Referring Provider Family Medicine; Visit Provider Family Medicine
DX: I11.0 Hypertensive heart disease with heart failure (principal); I50.9 Heart failure, unspecified; E11.69 Type 2 diabetes mellitus with other specified complication; R14.0 Abdominal distension (gaseous)
CPT/HCPCS: 36415; 74018; 80053; 83036; 83880

== ENCOUNTER 2022-01-10 10:30 | Day surgery (SDC) | payer MEDICARE, MEDICAID, SELFPAY ==
--- NOTE | 2022-01-10 | GASB_PTH ---
PATIENT: JUNE GUAMAN LOC: EN U#:[id number] AGE/SX: 81/M ROOM: RE01/10/[address]: Dr. Janusz Calles DO : 1940 BED: DIS: 01/10/2022 SPEC #: [id number] RECD: 01/10/22 13:50 STATUS: ANTHONY ASHER #: [id number] MAURICE: 01/10/22 00:[address]: Janusz Calles DEPT: SURGICAL PATHOLOGY RECD BY: Gael Torres ENTERED: 01/11/22 09:38 SP TYPE: Gastric Bx OTHR DR: Dr. Jh King DO Tissues: A - Gastric mucous membrane B - Pylorus C - Esophageal mucous membrane Procedures: Special Stain Group II Surgery Specimen Level IV Alcian Blue/PAS (control) HEADER OPERATION: EGD with biopsy ([facility] [place]) PRE-OP DIAGNOSIS: Dysphagia, gastric reflux TISSUE SUBMITTED: A ? Gastric antrum biopsy for H. pylori and path, B ? Pylorus biopsy, C ? Distal esophagus biopsy MICROSCOPIC DIAGNOSIS A. Gastric antrum, biopsy: Mild gastritis. Focal intestinal metaplasia (goblet cell metaplasia). See microscopic description and comment. B. Pylorus, biopsy: Mild gastritis. Focal intestinal metaplasia (goblet cell metaplasia). See microscopic description and comment. C. Distal esophagus, biopsy: Fragments of gastroesophageal mucosa with rare cells with intestinal metaplasia (goblet cell metaplasia). Chronic inflammation. Negative for dysplasia. See comment. SJ:alfredo 01/12/2022 COMMENT A. The results of immunohistochemistry for Helicobacter pylori will be reported separately ([id number]). A-C. Alcian blue/PAS stain with matched control is used in the evaluation of the specimen. MICROSCOPIC DESCRIPTION Slides are reviewed. A & B. The specimen shows fragments of gastric mucosa with chronic inflammatory cell infiltrates in the lamina propria consisting of lymphocytes and plasma cells, consistent with mild chronic gastritis. Focal intestinal metaplasia is also noted. GROSS DESCRIPTION A - Received in fixative is one container labeled with the patient's name and designated gastric antrum biopsy. The specimen consists of one irregular fragment of light diaz soft tissue that measures 0.3 x 0.3 x 0.1 cm. The specimen is totally submitted in one cassette. B - Received in fixative is one container labeled with the patient's name and designated pylorus biopsy. The specimen consists of two irregular fragments of light diaz soft tissue that in aggregate measure 0.6 x 0.3 x 0.1 cm. The specimen is totally submitted in one cassette. C - Received in fixative is one container labeled with the patient's name and designated distal esophagus biopsy. The specimen consists of two irregular fragments of light diaz soft tissue that in aggregate measure 0.4 x 0.3 x 0.1 cm. The specimen is totally submitted in one cassette. / SJ:rg 01/11/2022 TC:3 CPT: 87555 x3, 81347 x3
[2022-01-10 10:58] VITALS: BP 130/78; PULSE 80; RESP 18; TEMP 36.9; O2SAT 96; BMI 42.5
--- NOTE | 2022-01-10 11:08 | HP.PCM_ITS ---
History and Physical Date of Admission: 01/10/22 Details: JUNE GUAMAN, is a 81 M who presents to the office today for difficulty swallowing, started years ago, not getting worse or better. Food and sometimes fluid feels like it gets stuck in the lower esophagus. No vomiting or regurgitation. No nausea. No CP. Per caregiver who accompanies him, the dysphagia occurs regularly but not every time he eats. Normal appetite. Weight is stable. He used to have heartburn, especially with lying down after supper, but that resolved with PPI therapy. He takes lansoprazole [address] showed small hiatal hernia. No h/o esophageal stricture or Moreno's esophagus. He also notes an epigastric hardness and pain that isn't related to eating, seems random, not daily. No change in bowels. He manages constipation with metamucil. No hematochezia or melena, he said he watches that carefully. Has had routine colonoscopies, told no longer needs screening colonoscopy the last time. He states he won't have another colonoscopy. 07/17/21 CT abd w/o contrast in ED: IMPRESSION: Stable left renal cyst. Small hiatal hernia.? Small bilateral pleural effusions left greater than right with bibasilar atelectasis. ROS Const Constitutional: Positive for fatigue Eyes Eyes: Positive for blurry vision and irritation ENT ENT: Positive for hearing loss and difficulty swallowing Resp Respiratory: Positive for shortness of breath Cardio Cardiology: Positive for shortness of breath and difficulty breathing Gastro GI: Positive for abdominal pain, bloating, heartburn, difficulty swallowing and excessive flatus; No belching, change in bowel habits, change in stool character, coffee ground emesis, constipation, cramping, diarrhea, feeling full early, incontinent of stools, Vomiting blood/hematemesis, Blood in stool, loose stools, Black,tarry stools, nausea/dyspepsia, pain with swallowing, vomiting or other Musc Musculoskeletal: Positive for abnormal gait, joint pain, back pain, joint swelling, muscle weakness, stiffness and Arthritis Skin Skin: Positive for dry skin; No yellowing of the eye or itchy eyes Neuro Neurology: Positive for abnormal gait Psych Psychiatric: No anxiety and No depression Endo Endocrine: Positive for fatigue Aller/Imm Allergy/Immunologic: No itchy eyes Owen/Lymp Hematologic/Lymphatic: Positive for easy bruising; No easy bleeding Exam Const General: cooperative, comfortable, no acute distress, well developed and well groomed Other: in wheelchair Resp Effort & Inspection: normal respiratory effort GI Inspection: obesity Palpation: soft and nontender Quality Reporting Tobacco Screening ([facility] 138) Smoking Status: Never smoker Assessment and Plan Assessment and Plan (1) Dysphagia: (2) Gastric reflux: ?Status:?Acute ?Plan - Sudha Ferro THERAPIST 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 Lansoprazole was increased to 30 mg bid, that controls his heartburn. He will be scheduled for EGD with Dr Calles. DDx includes esophagitis, esophageal stricture, Moreno's, gastritis, ulcer disease, mass. f/u 2 wks after EGD. I have re-examined the patient. There are no clinical changes since date of exam.
[2022-01-10] MEDS: Lactated Ringers 1,000 ML 15 ML IV (11:30)
--- NOTE | 2022-01-10 12:00 | IMM_PTH ---
PATIENT: JUNE GUAMAN LOC: EN U#:[id number] AGE/SX: 81/M ROOM: RE01/10/[address]: Dr. Janusz Calles DO : 1940 BED: DIS: 01/10/2022 SPEC #: [id number] RECD: 01/11/22 13:30 STATUS: ANTHONY RETimmy #: [id number] MAURICE: 01/10/22 12:[address]: Janusz Calles DEPT: IMMUNOHISTOCHEMISTRY RECD BY: Donna Wang ENTERED: 01/11/22 13:30 SP TYPE: IMMUNO OTHR DR: Dr. Jh King, Tissues: A - Stomach, NOS Procedures: H Pylori (initial) PHYSICIAN & INSTITUTION [place] [address] SPECIMEN INFORMATION: Tissue Source: A ? Gastric antrum Clinical Info: Dysphagia, gastric reflux Specimen Number: [id number] CPT code: 70120 METHODOLOGY: Deparaffinized sections of prefer/formalin-fixed tissue or PAP/DQ stained slides are incubated with monoclonal/polyclonal antibodies/oligonucleotide probes. Localization is made via biotin free immunoperoxidase method. Appropriate controls are performed and reacted as expected. Results on target cell population are indicated in the following table: RESULTS: ANTIBODY / CLONE RESULT Block A H Pylori (polyclonal) negative These tests were developed and their performance characteristics determined by [facility]. They may not have been cleared or approved by the U.S. Food and Drug Administration. The FDA has determined that such clearance or approval is not necessary. The above immunohistochemical/dualISH markers are ordered and reviewed by the Pathologist. INTERPRETATION: A. Gastric antrum, biopsy: Negative for Helicobacter pylori organisms. SJ:alfredo 01/12/2022
[2022-01-10 12:37] VITALS: BP 130/78; BP 138/72; PULSE 90; RESP 16; TEMP 36.2; O2SAT 94
--- NOTE | 2022-01-10 12:39 | OP.EGD_ITS ---
Patient Name: Fermin Hill Procedure Date: 01/10/2022 12:15 PM Date of : 1940 Age: 81 Procedure: Upper GI endoscopy Indications: Dyspepsia, Dysphagia, Failure to respond to medical treatment Providers: Janusz Calles DO Medicines: Monitored Anesthesia Care Patient Profile: This is an 81 year old male. Refer to note in patient chart for documentation of history and physical. Patient has symptoms of dysphagia with solids and chronic dyspepsia. Complications: No immediate complications. Procedure: Pre-Anesthesia Assessment: - Prior to the procedure, a History and Physical was performed, and patient medications and allergies were reviewed. The patient is competent. The risks and benefits of the procedure and the sedation options and risks were discussed with the patient. All questions were answered and informed consent was obtained. Patient identification and proposed procedure were verified by the physician in the pre-procedure area. Mental Status Examination: alert and oriented. Airway Examination: normal oropharyngeal airway and neck mobility. Respiratory Examination: clear to auscultation. CV Examination: normal. Prophylactic Antibiotics: The patient does not require prophylactic antibiotics. Prior Anticoagulants: The patient has taken no previous anticoagulant or antiplatelet agents. ASA Grade Assessment: II - A patient with mild systemic disease. After reviewing the risks and benefits, the patient was deemed in satisfactory condition to undergo the procedure. The anesthesia plan was to use moderate sedation / analgesia (conscious sedation). Immediately prior to administration of medications, the patient was re-assessed for adequacy to receive sedatives. The heart rate, respiratory rate, oxygen saturations, blood pressure, adequacy of pulmonary ventilation, and response to care were monitored throughout the procedure. The physical status of the patient was re-assessed after the procedure. After obtaining informed consent, the endoscope was passed under direct vision. Throughout the procedure, the patient's blood pressure, pulse, and oxygen saturations were monitored continuously. The Endoscope was introduced through the mouth, and advanced to the second part of duodenum. The upper GI endoscopy was accomplished without difficulty. The patient tolerated the procedure well. Scope In: 12:25:05 PM Scope Out: 12:30:40 PM Total Procedure Duration Time 0 hours 5 minutes 35 seconds Findings: LA Grade A (one or more mucosal breaks less than 5 mm, not extending between tops of 2 mucosal folds) esophagitis with no bleeding was found 35 to 38 cm from the incisors. Biopsies were taken with a cold forceps for histology. Verification of patient identification for the specimen was done. Estimated blood loss was minimal. Diffuse moderate inflammation characterized by congestion (edema), erosions, erythema, friability, granularity and shallow ulcerations was found in the gastric antrum and in the prepyloric region of the stomach. Biopsies were taken with a cold forceps for histology. Verification of patient identification for the specimen was done. Estimated blood loss was minimal. The duodenal bulb was normal. A large hiatal hernia was present. Impression: - LA Grade A reflux esophagitis. Biopsied. - Chronic gastritis. Biopsied. - Normal duodenal bulb. Recommendation: - Discharge patient to home. - Resume previous diet. - Continue present medications. - Await pathology results. Procedure Code(s): --- Professional --- 65601, Esophagogastroduodenoscopy, flexible, transoral; with biopsy, single or multiple CPT copyright 2017 [employer]. All rights reserved. The codes documented in this report are preliminary and upon acquisitions analyst review may be revised to meet current compliance requirements. Janusz Calles DO 01/10/2022 12:39:13 PM This report has been signed electronically. Number of Addenda: 1 Note Initiated On: 01/10/2022 12:15 PM Addendum Number: 1 Addendum Date: 04/11/2022 6:29:26 AM MAC was used as sedation for this procedure. Janusz Calles DO 04/11/2022 6:29:31 AM This report has been signed electronically.
[2022-01-10 12:40] VITALS: BP 130/78; BP 138/72; PULSE 90; RESP 16; O2SAT 93
--- NOTE | 2022-01-10 12:40 | OP.CCLET_ITS ---
04/11/2022 Shahzad Cerna Re : Upper GI endoscopy procedure for Fermin Hill Dear Dr. Cerna This procedure was performed on Monday, January 10, 2022. My impressions and recommendations are as follows: Impressions : - LA Grade A reflux esophagitis. Biopsied. - Chronic gastritis. Biopsied. - Normal duodenal bulb. Recommendations : - Discharge patient to home. - Resume previous diet. - Continue present medications. - Await pathology results. My findings are described in the full procedure note, which is enclosed. If I can be of further assistance, please feel free to contact me at . Sincerely, Janusz Calles, 01/10/2022 12:39:13 PM This report has been signed electronically.
[2022-01-10 12:45] VITALS: BP 109/66; BP 130/78; PULSE 95; RESP 16; O2SAT 93
[2022-01-10 12:50] VITALS: BP 114/70; BP 130/78; PULSE 84; RESP 16; TEMP 36.3; O2SAT 92
[2022-01-10 13:12] VITALS: BP 130/78
== END 2022-01-10 13:20 | disposition home or self-care (01) ==
LOC: EN 10:30 → AC 10:32
PROVIDERS: PCP Family Medicine; Referring Provider Family Medicine; Visit Provider Internal Medicine Gastroenterology
PROC: 0DJ08ZZ Inspection of Upper Intestinal Tract, Via Natural or Artificial Opening Endoscopic (ICD-10-PCS; CPT 43235; principal; 2022-01-10 11:55)
DX: K22.70 Barrett's esophagus without dysplasia (principal); I48.0 Paroxysmal atrial fibrillation; E11.9 Type 2 diabetes mellitus without complications; Z79.4 Long term (current) use of insulin; K31.A0 Gastric intestinal metaplasia, unspecified; K21.00 Gastro-esophageal reflux disease with esophagitis, without bleeding; K29.50 Unspecified chronic gastritis without bleeding; K44.9 Diaphragmatic hernia without obstruction or gangrene; I25.10 Atherosclerotic heart disease of native coronary artery without angina pectoris; I25.810 Atherosclerosis of coronary artery bypass graft(s) without angina pectoris; I10 Essential (primary) hypertension; E78.2 Mixed hyperlipidemia; N40.1 Benign prostatic hyperplasia with lower urinary tract symptoms; N13.8 Other obstructive and reflux uropathy; Z95.5 Presence of coronary angioplasty implant and graft; Z79.82 Long term (current) use of aspirin; Z79.84 Long term (current) use of oral hypoglycemic drugs; Z79.899 Other long term (current) drug therapy; Z86.73 Personal history of transient ischemic attack (TIA), and cerebral infarction without residual deficits
CPT/HCPCS: 43239; 88305; 88313; 88342; J7120; J2405

== ENCOUNTER → 2022-01-22 | Outpatient (CLI) | payer MEDICARE, MEDICAID, SELFPAY ==
--- NOTE | 2022-01-22 13:11 | CT_ITS ---
STUDY: CT CHEST WITH CONTRAST REASON FOR EXAM: Male, 81 years old. Six-month history of COUGH, ABN PFT RADIATION DOSAGE (If Supplied By Facility): CTDIvol = ( 19.02 ) mGy, DLP = ( 751.90 ) mGycm TECHNIQUE: Transaxial imaging was performed following intravenous administration of IV 100mL Isovue-370. Multiplanar coronal and sagittal images were reformatted. Individualized dose optimization techniques were used for this CT. COMPARISON: Comparison is made with prior chest radiograph dated 09/04/2021. FINDINGS: CHEST Small left pleural effusion with left basilar atelectasis and/or infiltrate. Calcified granuloma in the peripheral lateral aspect of the right upper lobe. Sternal cerclage wires and vascular clips are present from a prior sternotomy and coronary artery bypass graft procedure (CABG). Is evidence of a mitral valve replacement. There are calcifications of the coronary arteries. There are multiple small lymph nodes within the mediastinum, which are normal in size and morphology most compatible with reactive lymph hyperplasia. Normal hilar regions. Normal unenhanced pulmonary arteries. There is atherosclerotic calcification of the aortic arch with tortuosity and elongation of the aortic arch and descending thoracic aorta. There are multi-level degenerative changes of the thoracic spine. Moderate sized hiatal hernia. 6.9 cm x 7 [address] left [address] cyst. CT/Chest WITH Contrast IMPRESSION: Small left pleural effusion with left basilar atelectasis and/or infiltrate. Electronically Signed: Kenneth Vazquez MD at 14:39 EDT ,
== END | disposition home or self-care (01) ==
LOC: CT 13:10
PROVIDERS: PCP Family Medicine; Referring Provider Family Medicine; Visit Provider Family Medicine
DX: J90 Pleural effusion, not elsewhere classified (principal); R05.9 Cough, unspecified; R94.2 Abnormal results of pulmonary function studies
CPT/HCPCS: 71260; Q9967

== ENCOUNTER → 2022-04-26 | Outpatient (CLI) | payer MEDICARE, MEDICAID, SELFPAY ==
--- NOTE | 2022-04-26 09:46 | NM_ITS ---
CLINICAL: 81-year-old male with history of epigastric pain. SEMI-SOLID PHASE 99m Tc SULFUR COLLOID GASTRIC EMPTYING STUDY COMPARISON: None available FINDINGS: The patient was administered 1.2 mCi of 99m Tc sulfur colloid mixed with oatmeal and consumed per os. Image acquisitions in the anterior-posterior projections were obtained for 60 minutes. There is prompt visualization of the stomach. There is no gastroesophageal reflux identified. The T ? emptying was calculated to be 38.59 minutes, (Normal: 12-56 minutes). NM/Gastric Emptying Study IMPRESSION: 1. NORMAL 99m Tc sulfur colloid semi-solid phase (oatmeal) gastric emptying imaging examination. A. There is normal and preserved semi-solid phase gastric emptying compared to normal controls. (Lauren et al, J Nucl Med Tech 38: 186, 2010). Electronically Signed: Karri Mckoy, at 21:53 EDT ,
== END | disposition home or self-care (01) ==
LOC: NM 09:43
PROVIDERS: PCP Family Medicine; Referring Provider Family Medicine; Visit Provider Family Medicine
DX: R10.13 Epigastric pain (principal); E11.9 Type 2 diabetes mellitus without complications
CPT/HCPCS: 78264; A9541

== ENCOUNTER 2022-07-22 22:39 | Emergency (ER) | payer MEDICARE, MEDICAID, SELFPAY ==
[2022-07-22 22:40] VITALS: BP 156/69; PULSE 78; PULSE 80; RESP 16; RESP 18; TEMP 36.3; O2SAT 91; BMI 35.9
--- NOTE | 2022-07-22 23:26 | EX.ED.DYSGE1 ---
HPI History of Present Illness Chief Complaint: Abd Pain Narrative Narrative: Patient is a 82-year-old male with past medical history of hypertension hyperlipidemia diabetes paroxysmal A. fib and previous CVA. He states that he typically has difficulty with constipation and is on Metamucil and Linzess secondary to this. He reports has been taking his medication as directed but over the last 2 to 3 days he has been constipated and that today he developed pain in his left lower quadrant without any trauma. He denies any fevers or chills hematuria or dysuria associated with this. He states that he cannot sleep secondary to the increasing pain and therefore comes in for evaluation. [facility] Medical History Acute ischemic stroke Ambulates with cane Atherosclerosis of coronary artery bypass graft without angina pectoris Atherosclerosis of unga coronary artery of unga heart without angina pectoris Back pain Borderline elevated troponin BPH (benign prostatic hypertrophy) with urinary obstruction Chest pain, unspecified Difficulty swallowing DVT (deep venous thrombosis) Essential hypertension Gastric reflux GERD (gastroesophageal reflux disease) History of tobacco use HLD (hyperlipidemia) HTN (hypertension) Hypertension Left-sided weakness Loss of hearing Mixed hyperlipidemia Old myocardial infarction Paroxysmal atrial fibrillation Presence of stent in coronary artery (~09/17/13) Stroke/cerebrovascular accident Type II diabetes mellitus, uncontrolled Uses wheelchair Wears dentures Wears glasses Wears hearing aid Home Medications aspirin 81 mg tablet,delayed release (Adult Low Dose Aspirin) 81 mg PO QDAY Heart health 07/24/17 [History Last Taken 11/07/21] ggzdwzntnult-zldnmlqt-ojoxcd tablet 1 tablet PO QDAY supplement 07/24/17 [History Last Taken 01/08/19 08:00 1 tab] cetirizine 10 mg capsule (Zyrtec) 10 mg PO DAILY #30 caps 07/13/20 [Rx Last Taken Unknown] blood-glucose meter (True Metrix Glucose Meter) #1 ea 11/10/20 [Rx Last Taken Unknown] WAlker with wheels #1 ea 12/27/20 [Rx Last Taken Unknown] tamsulosin 0.4 mg capsule 0.4 mg PO QHS prostate #90 caps 04/26/21 [Rx Last Taken Unknown] blood sugar diagnostic (True Metrix Glucose Test Strip) #150 ea 05/09/21 [Rx Last Taken Unknown] metoprolol tartrate 100 mg tablet 100 mg PO BID #180 tabs 06/21/21 [Rx Last Taken 01/10/22 06:30] valsartan 160 mg tablet 160 mg PO DAILY #180 tabs 06/21/21 [Rx Last Taken 01/10/22 06:30] guaifenesin 1,200 mg tablet, extended release 12 hr (Mucinex) 1,200 mg PO BID PRN congestion #30 tabs 08/01/21 [Rx Last Taken Unknown] pen needle, diabetic 31 gauge x 1/4 (Droplet Pen Needle) See Rx Instructions .Route .COMPLEX #300 ea 08/22/21 [Rx Last Taken Unknown] meclizine 25 mg tablet 25 mg PO Q8H PRN PRN dizziness or vertigo #20 tabs 09/04/21 [Rx Last Taken Unknown] atorvastatin 80 mg tablet 80 mg PO QHS #90 tabs 09/06/21 [Rx Last Taken Unknown] trazodone 150 mg tablet 150 mg PO QHS sleep #90 tabs 09/28/21 [Rx Last Taken Unknown] diltiazem HCl 120 mg capsule,extended release 24 hr 120 mg PO BID Heart #180 caps 10/09/21 [Rx Last Taken 01/10/22 06:30] pregabalin 100 mg capsule 100 mg PO DAILY 11/02/21 [History Last Taken Unknown] psyllium seed (sugar) oral powder (Metamucil (sugar) oral powder) 1 tbsp PO DAILY 11/02/21 [History Last Taken Unknown] potassium chloride 20 mEq tablet,extended release 20 meq PO DAILY #30 tabs 11/03/21 [Rx Last Taken Unknown] furosemide 40 mg tablet (Lasix) 40 mg PO DAILY #30 tabs 12/12/21 [Rx Last Taken Unknown] insulin glargine 100 unit/mL (3 mL) subcutaneous pen (Lantus Solostar U-100 Insulin) 50 unit subcut QHS long acting insulin 01/03/22 [History Last Taken Unknown] primidone 50 mg tablet 25 mg PO QHS 01/03/22 [History Last Taken Unknown] triamcinolone acetonide 0.1 % topical cream 1 applic topical BID PRN 01/15/22 [History Last Taken Unknown] fluticasone propionate 50 mcg/actuation nasal spray,suspension (Flonase Allergy Relief) 2 spray intranasal QDAY #16 grams 02/01/22 [Rx Last Taken Unknown] glimepiride 4 mg tablet 4 mg PO DAILY 02/01/22 [History Last Taken Unknown] sucralfate 1 gram tablet 1 g PO QAC 02/01/22 [History Last Taken Unknown] linaclotide 72 mcg capsule (Linzess) 72 mcg PO DAILY #30 caps 02/15/22 [Rx Last Taken Unknown] lansoprazole 30 mg capsule,delayed release 30 mg PO BID #60 caps 04/02/22 [Rx Last Taken Unknown] isosorbide mononitrate 30 mg tablet,extended release 24 hr 30 mg PO DAILY #90 tabs 05/17/22 [Rx Last Taken Unknown] nitroglycerin 0.4 mg sublingual tablet 0.4 mg sublingual Q5M PRN chest pain #90 tabs 05/17/22 [Rx Last Taken Unknown] amoxicillin 875 mg-potassium clavulanate 125 mg tablet 1 tab PO BID 7 days #14 tabs 07/23/22 [Rx Last Taken Unknown] Allergy/AdvReac Type Severity Reaction Status Date / Time iodine Allergy Hives Verified 02/01/22 10:37 tramadol Allergy Other Verified 02/01/22 10:37 Family History Mother Cancer Sister Brain aneurysm Sister Brain aneurysm Father Cancer Surgical History H/O carotid endarterectomy History of back surgery History of cholecystectomy History of esophagogastroduodenoscopy (EGD) (01/10/22) History of PTCA History of right and left heart catheterization (LHC) (~11/07/21) Hx of CABG (~12/22/07) Presence of coronary angioplasty implant and graft (~09/2013) Presence of Watchman left atrial appendage closure device (~03/04/18) Social History (Updated 02/01/22 @ 10:39 by Leanne Peres) household members: children Smoking Status: Never smoker Smokeless tobacco user: chewing tobacco how long ago did patient quit smokin (1987) to 39 (1977) years ago (Cigars) alcohol intake: never substance use type: does not use caffeine: No what type of physical activity do you participate in: none seatbelt use: always do you feel safe at home: Yes ROS ROS ED Constitutional Constitutional ED: Denies chills or fever(s) ENT ENT ED: Denies sore throat Cardiovascular Cardiovascular: Denies chest pain Respiratory/Chest Respiratory/Chest: Denies cough or dyspnea Gastrointestinal Gastrointestinal: Reports abdominal pain and constipation; Denies diarrhea, nausea or vomiting Genitourinary Genitourinary ED: Denies dysuria or hematuria Musculoskeletal Musculoskeletal: Denies back pain or myalgias Integumentary Denies rash Neurologic Neurologic: Denies headache(s) Hematologic/Lymphatic Hematologic/Lymphatic: Reports easy bleeding and easy bruising EXAM Physical Exam Const Vital Signs: 07/22/22 22:40 07/22/22 22:40 07/23/22 02:24 Temperature 97.3 F L 97.3 F L Temperature Source Temporal Temporal Pulse Rate 80 78 75 Respiratory Rate 16 18 19 H Blood Pressure 156/69 H 156/69 H 144/86 H Blood Pressure Mean 98 98 Pulse Ox 91 91 96 Oxygen Delivery Method Room Air Room Air Positive well nourished, well developed and obese General Appearance ED: well developed Nutritional Appearance: obese HEENT Reports moist mucous membranes Eyes PERRL and EOMs intact bilaterally Neck supple Resp normal respiratory effort and clear to auscultation bilaterally Cardio regular rate and regular rhythm Rate: other Other Details: Radial pulses are plus 2 out of 4 bilaterally are equal and symmetric Patient has a grade 3 out of 6 systolic murmur noted GI non-distended GI Narrative: Abdomen is soft and nondistended with normoactive bowel sounds. There is pain on palpation left lower quadrant with mild guarding at the site. No pulsatile mass or fluid wave noted. Auscultation: normoactive bowel sounds Palpation: soft Back/Spine no CVA tenderness Extremity normal to inspection Neuro oriented x3 and CN's II-XII intact bilaterally Sensorium / Orientation: alert Psych mental status grossly normal Skin no rashes or lesions noted Skin Narrative: No overlying soft tissue changes to suggest trauma or infection General Skin Exam: Negative for jaundice MDM MDM MDM Narrative Medical decision making narrative: Patient presented to the ER afebrile but had voluntary guarding in the left lower quadrant and reported history of constipation which was not normal as he is on Linzess and Metamucil. Previous chart review reveals that he does have a history of diverticulosis and based on his symptoms and presentation I have concern he has progressed to acute diverticulitis. Basic blood work was obtained which shows leukocytosis 12.8 but otherwise no clinically significant findings. CT scan with oral contrast did show constipation but also acute area of diverticulitis without abscess perforation or obstruction. Therefore at this time as patient has simple diverticulitis without changes to suggest sepsis there is no need for further work-up or inpatient treatment and he can given antibiotics and discharged home Lab Data Attestation: I reviewed the patient's lab results. Labs: Laboratory Results - last 24 hr 07/22/22 07/22/22 23:10 23:10 WBC 12.8 H RBC 4.82 Hgb 13.2 Hct 40.9 MCV 84.9 MCH 27.4 MCHC 32.3 RDW Std Deviation 45.0 H RDW Coeff of Henna 14.7 H Plt Count 205 MPV 10.2 Immature Gran % (Auto) 0.500 Neut % (Auto) 80.1 H Lymph % (Auto) 10.9 L Baldwin % (Auto) 6.6 Eos % (Auto) 1.6 Baso % (Auto) 0.3 Absolute Neuts (auto) 10.2 H Absolute Lymphs (auto) 1.40 Nucleated RBC % 0 Sodium 140 Potassium 3.5 Chloride 108 H Carbon Dioxide 26.0 Anion Gap 6 BUN 13 Creatinine 1.13 Estim Creat Clear Calc 47.92 Est GFR (MDRD) Af Amer 80 Est GFR (MDRD) Non-Af 66 BUN/Creatinine Ratio 11.5 Glucose 123 H Calcium 8.9 Total Bilirubin 1.00 Direct Bilirubin 0.28 AST 12 L ALT 21 Alkaline Phosphatase 76 Total Protein 7.0 Albumin 3.3 Globulin 3.7 Lipase 64 L Radiography Diagnostic Testing: Clinical Impression(s) from Imaging Studies Abdomen CT 07/23/22 00:00 IMPRESSION: Resolved right effusion persistent moderate left effusion. Distal esophageal diverticulum and hiatal hernia and are potentially periesophageal hernia. Constipation. Small segment of diverticulitis of the descending colon without evidence of abscess formation or free air. Image #82 axial views . Stable left renal cyst. Electronically Signed: Drea Hollins MD at 1:10 EST , Discharge Plan Triage Chief Complaint: Abd Pain ED Provider: Augustin Brown Dx/Rx/DC Orders Clinical Impression: Diverticulitis, Constipation, Type II diabetes mellitus, uncontrolled, Essential hypertension Instructions: Diverticulitis Dc Prescriptions: New amoxicillin-pot clavulanate 875-125 mg tablet 1 tab PO BID 7 Days Qty: 14 0RF No Action aspirin [Adult Low Dose Aspirin] 81 mg tablet,delayed release (DR/EC) 81 mg PO QDAY hxqvhsntohkz-sedgcptc-gktwzw tablet 1 tablet PO QDAY valsartan 160 mg tablet 160 mg PO DAILY Qty: 180 3RF metoprolol tartrate 100 mg tablet 100 mg PO BID Qty: 180 1RF pregabalin 100 mg capsule 100 mg PO DAILY triamcinolone acetonide 0.1 % cream 1 applic topical BID PRN Mucinex 1,200 mg tablet extended release 12hr 1,200 mg PO BID PRN (Reason: congestion) Qty: 30 1RF Metamucil (sugar) Powder 1 tbsp PO DAILY glimepiride 4 mg tablet 4 mg PO DAILY sucralfate 1 gram tablet 1 g PO QAC fluticasone propionate [Flonase Allergy Relief] 50 mcg/actuation spray,suspension 2 spray intranasal QDAY Qty: 16 3RF Rx Instructions: administer into each nostril Linzess 72 mcg capsule 72 mcg PO DAILY Qty: 30 3RF meclizine 25 mg tablet 25 mg PO Q8H PRN PRN (Reason: dizziness or vertigo) Qty: 20 0RF primidone 50 mg Tablet 25 mg PO QHS insulin glargine [Lantus Solostar U-100 Insulin] 100 unit/mL (3 mL) insulin pen 50 unit SC QHS Zyrtec 10 mg capsule 10 mg PO DAILY Qty: 30 5RF (DME) blood-glucose meter [True Metrix Glucose Meter] Misc See Rx Instructions .ROUTE .MEDSUPPLY Qty: 1 0RF Rx Instructions: As directed (DME) WAlker with wheels See Rx Instructions .Route .MEDSUPPLY Qty: 1 0RF Rx Instructions: As directed tamsulosin 0.4 mg capsule 0.4 mg PO QHS Qty: 90 3RF (DME) True Metrix Glucose Test Strip Strip See Rx Instructions .ROUTE .MEDSUPPLY Qty: 150 10RF Rx Instructions: use four times a day pen needle, diabetic [Droplet Pen Needle] 31 gauge x 1/4 needle See Rx Instructions .ROUTE .COMPLEX Qty: 300 3RF Dose Instruction: USE DIRECTED (DIABETES) Rx Instructions: USE DIRECTED (DIABETES) atorvastatin 80 mg tablet 80 mg PO QHS Qty: 90 3RF trazodone 150 mg tablet 150 mg PO QHS Qty: 90 1RF diltiazem HCl 120 mg capsule,extended release 24hr 120 mg PO BID Qty: 180 3RF potassium chloride 20 mEq tablet extended release 20 meq PO DAILY Qty: 30 3RF furosemide [Lasix] 40 mg tablet 40 mg PO DAILY Qty: 30 3RF lansoprazole 30 mg capsule,delayed release(DR/EC) 30 mg PO BID Qty: 60 0RF nitroglycerin 0.4 mg tablet, sublingual 0.4 mg SL Q5M PRN (Reason: chest pain) Qty: 90 3RF isosorbide mononitrate 30 mg tablet extended release 24 hr 30 mg PO DAILY Qty: 90 3RF Primary Care Provider: Jh King Referrals: Jh King, [Primary Care Provider] - Activity Restrictions/Additional Instructions: Your CAT scan shows that you have a small area of intestinal infection called diverticulitis. This is the cause of your pain and worsening constipation. Take the antibiotic as directed to help resolve this and continue your Linzess and Metamucil as needed. Please return to the ER should you have any further concerns Disposition Disposition: Home, Self Care Discharge Date/Time: 07/23/22 02:28
[2022-07-22 23:27] LABS: Absolute Neutrophil Count 10.2 X10^3/uL (2.0-7.7); Basophil# 0.04 X10^3/uL; Basophil% 0.3 % (0-1); Eosinophil# 0.21 X10^3/uL; Eosinophils% 1.6 % (0-5); Hematocrit 40.9 % (40-54); Hemoglobin 13.2 g/dL (13.0-16.5); Lymphocyte % 10.9 % (19-41); Mean Corp Hgb Conc 32.3 g/dL (32-36); Mean Corpuscular Hgb 27.4 pg (27.0-32.0); Mean Corpuscular Volume 84.9 fL (80-94); Mean Platelet Vol. 10.2 fl (6.2-12.0); Monocyte# 0.85 X10^3/uL; Monocyte% 6.6 % (0-10); NRBC Flagged by Analyzer 0 % (0-5); Neutrophil # 10.23 X10^3/uL (2.7-7.7); Neutrophil % 80.1 % (47-70); Platelet Count 205 K/mm3 (150-450); RBC Distribution Width CV 14.7 % (11.6-14.6); Red Blood Count 4.82 M/mm3 (4.6-6.2); White Blood Count 12.8 K/mm3 (4.4-11.0)
[2022-07-22] MEDS: Ciprofloxacin 400 MG/200 ML BAG 200 MG IV (23:28)
[2022-07-22 23:39] LABS: AST(SGOT) 12 U/L (15-37); Alanine Aminotransfer ALT/SGPT 21 U/L (16-61); Albumin, Serum 3.3 g/dL (3.2-5.0); Alkaline Phosphatase 76 U/L (45-117); Anion Gap 6 (5-15); BUN 13 mg/dL (7-18); BUN/Creat Ratio 11.5 RATIO (10-20); Bilirubin, Direct 0.28 mg/dL (0.00-0.30); Calcium,Total 8.9 mg/dL (8.5-10.1); Chloride 108 mmol/L (98-107); Creatinine, Serum 1.13 mg/dL (0.70-1.30); EST Glomerular Filtration Rate 66 mL/min (>60); Est Glom Filt Rate - Afr Amer 80 mL/min (>60); Estimated Creatinine Clearance 47.92 ml/min; Globulin 3.7 g/dL (2.2-4.2); Glucose 123 mg/dL (74-106); Lipase 64 U/L (73-393); Potassium 3.5 mmol/L (3.5-5.1); Sodium Level 140 mmol/L (136-145)
--- NOTE | 2022-07-23 | CT_ITS ---
STUDY: CT ABDOMEN AND PELVIS WITHOUT CONTRAST REASON FOR EXAM: Male, 82 years old. LLQ pain RADIATION DOSAGE (If Supplied By Facility): CTDIvol = ( 22.10 ) mGy, DLP = ( 1190.16 ) mGycm TECHNIQUE: Transaxial images were obtained from the dome of the diaphragm to the symphysis pubis with oral contrast, and without intravenous contrast. Sagittal and coronal images were reconstructed. Individualized dose optimization techniques were used for this CT. COMPARISON: 07/17/2021 CT scan abdomen and pelvis FINDINGS: Since prior study the right pleural effusion has resolved. There is a persistent small to moderate left effusion. Sternotomy wires are seen midline. There is mild cardiac enlargement. There are dense coronary calcifications. The visualized portions of the heart are within normal limits. Normal liver. There is non-visualization of the gallbladder, which may be secondary to either contraction or a prior cholecystectomy. Normal spleen. There is diffuse atrophy of the pancreas. Normal bilateral adrenal glands. Normal right kidney. There is a well-circumscribed hypoechoic 6.8 x 6.4 cm left renal cyst stable in appearance when compared to prior study with a minimal focus of calcification. There are a few left-sided peripelvic cysts. No hydronephrosis. Degenerative change of the thoracolumbar spine. Status post spinal fusion L4-S1. There is a visualized focal outpouching of the distal stomach suggesting a small diverticulum measuring 1.1 cm. There is a visualized hiatal hernia or potentially paraesophageal hernia stable since prior study that measures 2.5 x 3.7 cm. It is partially filled with filled with contrast. Within the stomach there are 2 fat density is within the distal stomach suggesting probable ingested material not seen on the prior study. Normal small intestine. There is contrast within nondistended loops of small bowel. There is contrast in the cecum. There is moderate stool within the colon. There is diverticulosis. Within the descending colon image #84 of the descending colon enters the pelvis there is a focus of inflammation along the medial and posterior border suggesting a small focus of diverticulitis. The appendix is visualized and appears normal. The aorta is partially calcified. There is calcification of the bilateral renal arteries. There is calcification of the spur mesenteric artery. Normal inferior vena cava. Normal retroperitoneum. Normal urinary bladder. Normal visualized prostate gland. There is a small umbilical hernia containing fat. The small focus of left midline soft tissue density in the subcutaneous fat suggesting recent injection. There is visualized degenerative change within the thoracolumbar spine. There is a spinal fusion from the level of L4 to the sacrum. At the level of L3-L4 there is disc space narrowing with vacuum phenomenon and moderate neural foramina narrowing minimal central stenosis. The bones are osteopenic. CT/Abdomen/Pel W ORAL Cont Only IMPRESSION: Resolved right effusion persistent moderate left effusion. Distal esophageal diverticulum and hiatal hernia and are potentially periesophageal hernia. Constipation. Small segment of diverticulitis of the descending colon without evidence of abscess formation or free air. Image #82 axial views . Stable left renal cyst. Electronically Signed: Drea Hollins MD at 1:10 EST ,
[2022-07-23] MEDS: metroNIDAZOLE 500 MG/100 ML BAG 100 MG IV (01:00)
[2022-07-23 02:24] VITALS: BP 144/86; PULSE 75; RESP 19; O2SAT 96
== END 2022-07-23 02:28 | disposition home or self-care (01) ==
PROVIDERS: Emergency Provider Emergency Medicine; PCP Family Medicine; Visit Provider Emergency Medicine
DX: K57.32 Diverticulitis of large intestine without perforation or abscess without bleeding (principal); E11.9 Type 2 diabetes mellitus without complications; I25.10 Atherosclerotic heart disease of native coronary artery without angina pectoris; I10 Essential (primary) hypertension; I25.2 Old myocardial infarction; E66.9 Obesity, unspecified; Z87.891 Personal history of nicotine dependence; Z86.718 Personal history of other venous thrombosis and embolism; Z86.73 Personal history of transient ischemic attack (TIA), and cerebral infarction without residual deficits; Z95.5 Presence of coronary angioplasty implant and graft
CPT/HCPCS: 74176; 80048; 80076; 83690; 85025; 96365; 96367; 99283; J7050; A4216; J0744

== ENCOUNTER 2022-12-19 16:12 | Emergency (ER) | payer MEDICARE, MEDICAID, SELFPAY ==
[2022-12-19 16:12] VITALS: BP 167/68; PULSE 69; RESP 14; TEMP 37.2; O2SAT 91
[2022-12-19 16:14] VITALS: BMI 34.0
--- NOTE | 2022-12-19 16:26 | EKG12_ITS ---
Test Reason : SOB Blood Pressure : / mmHG Vent. Rate : 066 BPM Atrial Rate : 000 BPM P-R Int : 000 ms QRS Dur : 158 ms QT Int : 482 ms P-R-T Axes : 000 032 007 degrees QTc Int : 505 ms Sinus rhythm with 1st degree A-V block Right bundle branch block Abnormal ECG Confirmed by KEYONNA TRIPP, YASSINE ([id number]), makeup editor THIERNO TUCKER ([id number]) on 12/21/2022 10:14:37 A M Referred By: ALEJANDRO Confirmed By:HIRA NEWBY MD
--- NOTE | 2022-12-19 16:27 | ED.VIS.DYS ---
HPI History of Present Illness Chief Complaint: Shortness of Breath Detail of Chief Complaint: Shortness of breath Informant: patient Narrative Narrative: Patient presents with shortness of breath that he has had for several months but worse over the last 24 hours. Patient states that at home he is been checking his pulse oximeter and its been in the 85% range. Patient does not wear home O2. He denies chest pain. He denies recent travel or surgery. He does have history of CHF but denies gaining weight. He denies any excessive swelling in his legs. He does feel somewhat bloated but denies abdominal pain. He had no vomiting or diarrhea. He denies fever. He denies urinary symptoms. Patient not currently anticoagulated although he does have remote history of DVT as well as A-fib but had a Watchman procedure and they took him off anticoagulation. [facility] Medical History (Reviewed 08/17/22 @ 14:47 by Jairo Ibrahim SOLAR PHOTOVOLTAIC SYSTEMS ENGINEER, SOLAR PHOTOVOLTAIC SYSTEMS ENGINEER-C) Acute ischemic stroke Ambulates with cane Atherosclerosis of coronary artery bypass graft without angina pectoris Atherosclerosis of [place] coronary artery of [place] heart without angina pectoris Back pain Borderline elevated troponin BPH (benign prostatic hypertrophy) with urinary obstruction Chest pain, unspecified Difficulty swallowing DVT (deep venous thrombosis) Essential hypertension Gastric reflux GERD (gastroesophageal reflux disease) History of tobacco use HLD (hyperlipidemia) HTN (hypertension) Hypertension Left-sided weakness Loss of hearing Mixed hyperlipidemia Old myocardial infarction Paroxysmal atrial fibrillation Presence of stent in coronary artery (~09/17/13) Stroke/cerebrovascular accident Type II diabetes mellitus, uncontrolled Uses wheelchair Wears dentures Wears glasses Wears hearing aid Home Medications aspirin 81 mg tablet,delayed release (Adult Low Dose Aspirin) 81 mg PO QDAY Heart health 07/24/17 [History Last Taken 11/07/21] ymoihyubknan-dlcymors-kurvqz tablet 1 tablet PO QDAY supplement 07/24/17 [History Last Taken 01/08/19 08:00 1 tab] cetirizine 10 mg capsule (Zyrtec) 10 mg PO DAILY #30 caps 07/13/20 [Rx Last Taken Unknown] blood-glucose meter (True Metrix Glucose Meter) #1 ea 11/10/20 [Rx Last Taken Unknown] WAlker with wheels #1 ea 12/27/20 [Rx Last Taken Unknown] tamsulosin 0.4 mg capsule 0.4 mg PO QHS prostate #90 caps 04/26/21 [Rx Last Taken Unknown] blood sugar diagnostic (True Metrix Glucose Test Strip) #150 ea 05/09/21 [Rx Last Taken Unknown] metoprolol tartrate 100 mg tablet 100 mg PO BID #180 tabs 06/21/21 [Rx Last Taken 01/10/22 06:30] valsartan 160 mg tablet 160 mg PO DAILY #180 tabs 06/21/21 [Rx Last Taken 01/10/22 06:30] guaifenesin 1,200 mg tablet, extended release 12 hr (Mucinex) 1,200 mg PO BID PRN congestion #30 tabs 08/01/21 [Rx Last Taken Unknown] pen needle, diabetic 31 gauge x 1/4 (Droplet Pen Needle) See Rx Instructions .Route .COMPLEX #300 ea 08/22/21 [Rx Last Taken Unknown] meclizine 25 mg tablet 25 mg PO Q8H PRN PRN dizziness or vertigo #20 tabs 09/04/21 [Rx Last Taken Unknown] atorvastatin 80 mg tablet 80 mg PO QHS #90 tabs 09/06/21 [Rx Last Taken Unknown] trazodone 150 mg tablet 150 mg PO QHS sleep #90 tabs 09/28/21 [Rx Last Taken Unknown] diltiazem HCl 120 mg capsule,extended release 24 hr 120 mg PO BID Heart #180 caps 10/09/21 [Rx Last Taken 01/10/22 06:30] pregabalin 100 mg capsule 100 mg PO DAILY 11/02/21 [History Last Taken Unknown] psyllium seed (sugar) oral powder (Metamucil (sugar) oral powder) 1 tbsp PO DAILY 11/02/21 [History Last Taken Unknown] potassium chloride 20 mEq tablet,extended release 20 meq PO DAILY #30 tabs 11/03/21 [Rx Last Taken Unknown] furosemide 40 mg tablet (Lasix) 40 mg PO DAILY #30 tabs 12/12/21 [Rx Last Taken Unknown] insulin glargine 100 unit/mL (3 mL) subcutaneous pen (Lantus Solostar U-100 Insulin) 50 unit subcut QHS long acting insulin 01/03/22 [History Last Taken Unknown] primidone 50 mg tablet 25 mg PO QHS 01/03/22 [History Last Taken Unknown] triamcinolone acetonide 0.1 % topical cream 1 applic topical BID PRN 01/15/22 [History Last Taken Unknown] fluticasone propionate 50 mcg/actuation nasal spray,suspension (Flonase Allergy Relief) 2 spray intranasal QDAY #16 grams 02/01/22 [Rx Last Taken Unknown] glimepiride 4 mg tablet 4 mg PO DAILY 02/01/22 [History Last Taken Unknown] sucralfate 1 gram tablet 1 g PO QAC 02/01/22 [History Last Taken Unknown] linaclotide 72 mcg capsule (Linzess) 72 mcg PO DAILY #30 caps 02/15/22 [Rx Last Taken Unknown] lansoprazole 30 mg capsule,delayed release 30 mg PO BID #60 caps 04/02/22 [Rx Last Taken Unknown] isosorbide mononitrate 30 mg tablet,extended release 24 hr 30 mg PO DAILY #90 tabs 05/17/22 [Rx Last Taken Unknown] nitroglycerin 0.4 mg sublingual tablet 0.4 mg sublingual Q5M PRN chest pain #90 tabs 05/17/22 [Rx Last Taken Unknown] amoxicillin 875 mg-potassium clavulanate 125 mg tablet 1 tab PO BID 7 days #14 tabs 07/23/22 [Rx Last Taken Unknown] Allergy/AdvReac Type Severity Reaction Status Date / Time iodine Allergy Hives Verified 12/19/22 16:14 tramadol Allergy Other Verified 12/19/22 16:14 Family History Mother Cancer Sister Brain aneurysm Sister Brain aneurysm Father Cancer Surgical History (Reviewed 08/17/22 @ 14:47 by Jairo Ibrahim SOLAR PHOTOVOLTAIC SYSTEMS ENGINEER, SOLAR PHOTOVOLTAIC SYSTEMS ENGINEER-C) H/O carotid endarterectomy History of back surgery History of cholecystectomy History of esophagogastroduodenoscopy (EGD) (01/10/22) History of PTCA History of right and left heart catheterization (LHC) (~11/07/21) Hx of CABG (~12/22/07) Presence of coronary angioplasty implant and graft (~09/2013) Presence of Watchman left atrial appendage closure device (~03/04/18) Social History (Reviewed 08/17/22 @ 14:47 by Jairo Ibrahim SOLAR PHOTOVOLTAIC SYSTEMS ENGINEER, SOLAR PHOTOVOLTAIC SYSTEMS ENGINEER-C) household members: children Smoking Status: Never smoker Smokeless tobacco user: chewing tobacco how long ago did patient quit smokin (1987) to 39 (1977) years ago (Cigars) alcohol intake: never substance use type: does not use caffeine: No what type of physical activity do you participate in: none seatbelt use: always do you feel safe at home: Yes ROS ROS ED Review of Systems ROS Unobtainable: other Constitutional Constitutional ED: Reports lethargy; Denies chills, fever(s), sweats or weight loss Eyes Eyes: Denies blurry vision, change in vision or diplopia ENT ENT ED: Denies rhinorrhea or sore throat Cardiovascular Cardiovascular: Denies chest pain, orthopnea or racing heartbeat Respiratory/Chest Respiratory/Chest: Reports cough and dyspnea; Denies dyspnea on exertion, orthopnea or sputum Gastrointestinal Gastrointestinal: Denies abdominal pain, diarrhea, nausea or vomiting Genitourinary Genitourinary ED: Denies dysuria, hematuria or urinary frequency Musculoskeletal Musculoskeletal: Denies arthralgias, back pain, myalgias or neck pain Integumentary Denies abscess, Abrasions or rash Neurologic Neurologic: Denies headache(s) or weakness Psychiatric Psychiatric: Denies anxiety, depression or suicidal thoughts Endocrine Endocrinology: Denies polydipsia, polyphagia or polyuria Hematologic/Lymphatic Hematologic/Lymphatic: Denies easy bleeding, easy bruising or lymphadenopathy Allergic/Immunologic Allergic/Immunologic ED: Denies mouth swelling, tongue swelling or urticaria EXAM Physical Exam Const Vital Signs: 12/19/22 16:12 12/19/22 16:46 12/19/22 16:14 Temperature 99 F Temperature Source Temporal Pulse Rate 69 86 Respiratory Rate 14 Respiratory Effort Normal Non-Labored Respiratory Depth Normal Respiratory Pattern Normal Blood Pressure 167/68 H Blood Pressure Mean 101 Pulse Ox 91 Oxygen Delivery Method Room Air Room Air 12/19/22 18:12 Temperature Temperature Source Pulse Rate Respiratory Rate 18 Respiratory Effort Respiratory Depth Respiratory Pattern Blood Pressure 145/72 H Blood Pressure Mean 96 Pulse Ox Oxygen Delivery Method Positive well nourished and well developed General Appearance ED: well developed and NAD HEENT Reports TM's clear and moist mucous membranes normocephalic and atraumatic; Negative for trauma or tenderness Tympanic Membrane ED: Yes TM's clear Eyes PERRL and EOMs intact bilaterally General Eye ED: Negative for pale conjunctiva or scleral icterus Neck no lymphadenopathy, supple and no JVD General: Negative for tenderness Chest Wall inspection of chest normal and palpation of chest normal Chest: Negative for tenderness Resp normal respiratory effort and clear to auscultation bilaterally Effort and Inspection: Negative for respiratory distress or pain with movement Auscultation: Negative for rhonchi, wheezes or diminished lung sounds Cardio regular rate, regular rhythm, S1 normal heart sound, S2 normal heart sound and no murmurs Peripheral Pulses: pulses 2+ throughout GI normal to inspection, nondistended, normoactive bowel sounds, soft to palpation, non-tender, non-distended and no masses Back/Spine no CVA tenderness and no thoracic nor lumbar tenderness Extremity normal to inspection General Extremety ED: Negative for edema General Extremity: Negative for edema Neuro oriented x3, CN's II-XII intact bilaterally, no sensory deficits noted and gait normal Sensorium / Orientation: awake, alert, oriented to person, oriented to place and oriented to time Motor Exam: strength 5/5 throughout and strength abnormal Psych mental status grossly normal Skin no rashes or lesions noted and no wounds MDM MDM MDM Narrative Medical decision making narrative: Patient presents with shortness of breath and reported hypoxemia at home. In the differential would be CHF versus COPD versus PE. I would entertain infectious etiology such as pneumonia. Based on exam pneumothorax less likely. Patient will have an IV line established. EKG will be obtained. Lab work-up will be obtained. Chest x-ray will be obtained. Patient had an EKG on arrival that showed a sinus rhythm with a rate of 66 bpm with a right bundle branch block. Patient CBC with differential showing a 5.7 with a hemoglobin 12.7 and platelet count of 189. D-dimer was elevated 1.05 and a CTA of the chest was obtained which was negative for PE but did show evidence of CHF. Chemistries were unremarkable. BNP was elevated at 229. Lactate was normal at 1.3 and troponin was normal at 12. Initial chest x-ray showed some mild CHF with no effusions. I did give patient Lasix 80 mg IV. While in the department he was not hypoxic and I did check a ambulatory pulse ox and he did not drop with this. This point I feel he is having an exacerbation of his CHF and will increase his Lasix to 80 mg a day for the next 5 days. Patient advised to follow-up with his primary care physician or application defense manager within next 3 to 5 days patient advised to return if increasing shortness of breath or condition should worsen anyway. Lab Data Labs: Laboratory Results - last 24 hr 12/19/22 12/19/22 12/19/22 16:36 16:36 16:36 WBC 5.7 RBC 4.49 L Hgb 12.7 L Hct 38.9 L MCV 86.6 MCH 28.3 MCHC 32.6 RDW Std Deviation 45.4 H RDW Coeff of [place] 14.3 Plt Count 189 MPV 9.6 Immature Gran % (Auto) 0.400 Neut % (Auto) 72.2 H Lymph % (Auto) 16.9 L [place] % (Auto) 8.8 Eos % (Auto) 1.2 Baso % (Auto) 0.5 Absolute Neuts (auto) 4.1 Absolute Lymphs (auto) 0.96 Nucleated RBC % 0 D-Dimer Quant (PE/DVT) 1.05 H* Sodium 139 Potassium 3.7 Chloride 109 H Carbon Dioxide 23.0 Anion Gap 7 BUN 15 Creatinine 1.16 Est GFR (MDRD) Af Amer 77 Est GFR (MDRD) Non-Af 64 BUN/Creatinine Ratio 12.9 Glucose 200 H Lactic Acid Calcium 8.7 Troponin I High Sens 12 B-Natriuretic Peptide Urine Color Urine Clarity Urine pH Ur Specific [place] Urine Protein Urine Glucose (UA) Urine Ketones Urine Occult Blood Urine Nitrite Urine Bilirubin Urine Urobilinogen Ur Leukocyte Esterase Urine RBC Urine WBC Ur Squamous Epith Cells Urine Bacteria Urine Mucus 12/19/22 12/19/22 12/19/22 16:36 16:36 17:20 WBC RBC Hgb Hct MCV MCH MCHC RDW Std Deviation RDW Coeff of [place] Plt Count MPV Immature Gran % (Auto) Neut % (Auto) Lymph % (Auto) [place] % (Auto) Eos % (Auto) Baso % (Auto) Absolute Neuts (auto) Absolute Lymphs (auto) Nucleated RBC % D-Dimer Quant (PE/DVT) Sodium Potassium Chloride Carbon Dioxide Anion Gap BUN Creatinine Est GFR (MDRD) Af Amer Est GFR (MDRD) Non-Af BUN/Creatinine Ratio Glucose Lactic Acid 1.3 Calcium Troponin I High Sens B-Natriuretic Peptide 229.4 H Urine Color Yellow Urine Clarity Clear Urine pH 5.0 Ur Specific [place] 1.025 Urine Protein 100 H Urine Glucose (UA) Normal Urine Ketones Negative Urine Occult Blood Negative Urine Nitrite Negative Urine Bilirubin Negative Urine Urobilinogen 1 H Ur Leukocyte Esterase 25 H Urine RBC 0 SEEN Urine WBC 0-5 SEEN Ur Squamous Epith Cells 0-5 SEEN Urine Bacteria 0 SEEN Urine Mucus 0 SEEN Radiography Diagnostic Testing: Clinical Impression(s) from Imaging Studies Chest X-Ray 12/19/22 16:50 IMPRESSION: CHF. Electronically Signed: Naseem Connolly MD at 17:12 EDT , Chest CTA 12/19/22 17:29 IMPRESSION: 1. No evidence of acute pulmonary embolism. 2. CHF with pulmonary edema. 3. Hiatal hernia. Electronically Signed: Naseem Connolly MD at 19:27 EDT , 1 view chest x-ray obtained interpreted by myself as increased pulmonary congestion. Radiology in agreement felt there was CHF and pulmonary edema. EKG Initial EKG: Attestation: I personally reviewed and interpreted this EKG as follows: Comments: Sinus rhythm with a rate of 66 bpm with a first-degree AV block and a right bundle branch block Discharge Plan Triage Chief Complaint: Shortness of Breath ED Provider: Micheal Gauthier Dx/Rx/DC Orders Clinical Impression: Acute dyspnea, CHF (congestive heart failure) Instructions: ED Heart Failure, Congestive (CHF), ED Dyspnea Prescriptions: No Action aspirin [Adult Low Dose Aspirin] 81 mg tablet,delayed release (DR/EC) 81 mg PO QDAY [id number]-wenzcoky-fchdaq tablet 1 tablet PO QDAY valsartan 160 mg tablet 160 mg PO DAILY Qty: 180 3RF metoprolol tartrate 100 mg tablet 100 mg PO BID Qty: 180 1RF pregabalin 100 mg capsule 100 mg PO DAILY triamcinolone acetonide 0.1 % cream 1 applic topical BID PRN Mucinex 1,200 mg tablet extended release 12hr 1,200 mg PO BID PRN (Reason: congestion) Qty: 30 1RF Metamucil (sugar) Powder 1 tbsp PO DAILY glimepiride 4 mg tablet 4 mg PO DAILY sucralfate 1 gram tablet 1 g PO QAC fluticasone propionate [Flonase Allergy Relief] 50 mcg/actuation spray,suspension 2 spray intranasal QDAY Qty: 16 3RF Rx Instructions: administer into each nostril Linzess 72 mcg capsule 72 mcg PO DAILY Qty: 30 3RF meclizine 25 mg tablet 25 mg PO Q8H PRN PRN (Reason: dizziness or vertigo) Qty: 20 0RF primidone 50 mg Tablet 25 mg PO QHS insulin glargine [Lantus Solostar U-100 Insulin] 100 unit/mL (3 mL) insulin pen 50 unit SC QHS amoxicillin-pot clavulanate 875-125 mg tablet 1 tab PO BID 7 Days Qty: 14 0RF Zyrtec 10 mg capsule 10 mg PO DAILY Qty: 30 5RF (DME) blood-glucose meter [True Metrix Glucose Meter] Misc See Rx Instructions .ROUTE .MEDSUPPLY Qty: 1 0RF Rx Instructions: As directed (DME) WAlker with wheels See Rx Instructions .Route .MEDSUPPLY Qty: 1 0RF Rx Instructions: As directed tamsulosin 0.4 mg capsule 0.4 mg PO QHS Qty: 90 3RF (DME) True Metrix Glucose Test Strip Strip See Rx Instructions .ROUTE .MEDSUPPLY Qty: 150 10RF Rx Instructions: use four times a day pen needle, diabetic [Droplet Pen Needle] 31 gauge x 1/4 needle See Rx Instructions .ROUTE .COMPLEX Qty: 300 3RF Dose Instruction: USE DIRECTED (DIABETES) Rx Instructions: USE DIRECTED (DIABETES) atorvastatin 80 mg tablet 80 mg PO QHS Qty: 90 3RF trazodone 150 mg tablet 150 mg PO QHS Qty: 90 1RF diltiazem HCl 120 mg capsule,extended release 24hr 120 mg PO BID Qty: 180 3RF potassium chloride 20 mEq tablet extended release 20 meq PO DAILY Qty: 30 3RF furosemide [Lasix] 40 mg tablet 40 mg PO DAILY Qty: 30 3RF lansoprazole 30 mg capsule,delayed release(DR/EC) 30 mg PO BID Qty: 60 0RF nitroglycerin 0.4 mg tablet, sublingual 0.4 mg SL Q5M PRN (Reason: chest pain) Qty: 90 3RF isosorbide mononitrate 30 mg tablet extended release 24 hr 30 mg PO DAILY Qty: 90 3RF Primary Care Provider: Jh King Referrals: Jh King DO [Primary Care Provider] - 3-5 Days Activity Restrictions/Additional Instructions: Increase your Lasix to 40 mg twice per day for the next 5 days. Disposition Disposition: Home, Self Care
[2022-12-19 16:46] VITALS: PULSE 86
--- NOTE | 2022-12-19 16:50 | RAD_ITS ---
EXAM: XR CHEST, 1 VIEW CLINICAL INDICATION: dyspnea TECHNIQUE: Frontal view of the chest. COMPARISON: XR Chest dated 08/27/2021 FINDINGS: LUNGS AND PLEURAL SPACES: Small left pleural effusion. Pulmonary vascular congestion. No pneumothorax. HEART: Stable mild cardiomegaly. Surgical changes of coronary artery bypass graft (CABG). Left coronary artery stents are noted. MEDIASTINUM: No mediastinal or hilar mass. BONES/JOINTS: No acute abnormality. TUBES, LINES AND DEVICES: Watchman device in place. RAD/Chest 1 View (Portable) IMPRESSION: CHF. Electronically Signed: Naseem Connolly MD at 17:12 EDT ,
[2022-12-19 17:04] LABS: Absolute Lymphocyte Count 0.96 X10^3/uL (0.83-4.51); Absolute Neutrophil Count 4.1 X10^3/uL (2.0-7.7); Basophil# 0.03 X10^3/uL; Basophil% 0.5 % (0-1); Eosinophil# 0.07 X10^3/uL; Eosinophils% 1.2 % (0-5); Hematocrit 38.9 % (40-54); Hemoglobin 12.7 g/dL (13.0-16.5); Lymphocyte # 0.96 X10^3/ul (0.83-4.51); Lymphocyte % 16.9 % (19-41); Mean Corp Hgb Conc 32.6 g/dL (32-36); Mean Corpuscular Hgb 28.3 pg (27.0-32.0); Mean Corpuscular Volume 86.6 fL (80-94); Mean Platelet Vol. 9.6 fl (6.2-12.0); Monocyte% 8.8 % (0-10); NRBC Flagged by Analyzer 0 % (0-5); Neutrophil # 4.11 X10^3/uL (2.7-7.7); Neutrophil % 72.2 % (47-70); Platelet Count 189 K/mm3 (150-450); RBC Distribution Width CV 14.3 % (11.6-14.6); RBC Distribution Width SD 45.4 fl (35.1-43.9); Red Blood Count 4.49 M/mm3 (4.6-6.2); White Blood Count 5.7 K/mm3 (4.4-11.0)
[2022-12-19 17:21] LABS: Anion Gap 7 (5-15); BUN 15 mg/dL (7-18); BUN/Creat Ratio 12.9 RATIO (10-20); Calcium,Total 8.7 mg/dL (8.5-10.1); Chloride 109 mmol/L (98-107); Creatinine, Serum 1.16 mg/dL (0.70-1.30); EST Glomerular Filtration Rate 64 mL/min (>60); Est Glom Filt Rate - Afr Amer 77 mL/min (>60); Glucose 200 mg/dL (74-106); Lactic Acid 1.3 mmol/L (0.4-1.9); Potassium 3.7 mmol/L (3.5-5.1); Sodium Level 139 mmol/L (136-145); Troponin-I HS 12 pg/mL (3.0-78.0)
[2022-12-19 17:25] LABS: Bacteria 0 SEEN /hpf (None Seen); Mucous, Urine 0 SEEN /hpf (<or=2+); Red Blood Cells-Urine 0 SEEN /hpf (0-5)
[2022-12-19 17:28] LABS: D-Dimer Quantitative (DVT/PE) 1.05 FEU/ug/m (0.27-0.49)
--- NOTE | 2022-12-19 17:29 | CT_ITS ---
EXAM: CT ANGIOGRAPHY CHEST WITHOUT AND WITH INTRAVENOUS CONTRAST CLINICAL INDICATION: elevated d-dimer, dyspnea TECHNIQUE: Helically acquired angiography images were obtained of the chest without and with intravenous contrast. This CT exam was performed using one or more of the following dose reduction techniques: automated exposure control, adjustment of the mA and/or kV according to patient size, and/or use of iterative reconstruction technique. MIP reconstructed images were created and reviewed. CONTRAST: IV 100mL [id number] COMPARISON: CT chest 01/22/2022 FINDINGS: PULMONARY ARTERIES: Normal. Normal in caliber. No evidence of pulmonary embolism. AORTA: Normal. Normal in caliber. No evidence of dissection. GREAT VESSELS OF AORTIC ARCH: Normal. Normal in caliber. No evidence of dissection. LUNGS AND PLEURAL SPACES: Small to moderate size left pleural effusion with compression atelectasis of the left lower lobe. Bilateral alveolar density suggestive of pulmonary edema. No mass. No pneumothorax. HEART: Stable mild cardiomegaly. Surgical changes of coronary artery bypass graft (CABG). No pericardial effusion. MEDIASTINUM: Small moderate size hiatal hernia. No mediastinal or hilar adenopathy. Esophagus is unremarkable. BONES/JOINTS: Normal. No suspicious lytic or blastic abnormality. TUBES, LINES AND DEVICES: Watchman device remains in place. CT/CTA Chest W/WO Contrast IMPRESSION: 1. No evidence of acute pulmonary embolism. 2. CHF with pulmonary edema. 3. Hiatal hernia. Electronically Signed: Naseem Connolly MD at 19:27 EDT ,
[2022-12-19 17:32] LABS: BNP,B-Type NATRIURETIC PEPTIDE 229.4 pg/mL (0-100)
[2022-12-19 17:39] LABS: Color, Urine Yellow (Yellow); Glucose, Dipstick Normal (Normal); Ketone-Dipstick Negative (Negative); Leukocyte Esterase-Dipstick 25 /ul (Negative); Nitrite-Dipstick Negative (Negative); Occult Blood-Urine Negative /ul (Negative); Protein-Dipstick 100 mg/dl (Negative); Specific Gravity, Urine 1.025 (1.002-1.030); Urine Bilirubin Dipstick Negative (Negative); Urine Clarity Clear (Clear); Urine Urobilinogen 1 mg/dl (Normal)
[2022-12-19] MEDS: MethylPREDNISolone 125 MG/2 ML Vial IV (17:43)
[2022-12-19] MEDS: DiphenhydrAMINE 50 MG/ML Syringe 25 MG IV (17:43)
[2022-12-19 17:52] LABS: Squamous Epithelial Cells - UA 0-5 SEEN /hpf (0-5); White Blood Cells 0-5 SEEN /hpf (0-5)
[2022-12-19 18:12] VITALS: BP 145/72; RESP 18
[2022-12-19] MEDS: Furosemide 100 MG/10 ML Vial 80 MG IV (20:01)
[2022-12-19 20:31] VITALS: BP 145/81; PULSE 99; RESP 14; O2SAT 96
== END 2022-12-19 20:33 | disposition home or self-care (01) ==
PROVIDERS: Emergency Provider Emergency Medicine; PCP Family Medicine; Visit Provider Emergency Medicine
DX: R06.00 Dyspnea, unspecified (principal); I50.9 Heart failure, unspecified; I25.10 Atherosclerotic heart disease of native coronary artery without angina pectoris; I25.2 Old myocardial infarction; Z87.891 Personal history of nicotine dependence; Z86.718 Personal history of other venous thrombosis and embolism; Z86.73 Personal history of transient ischemic attack (TIA), and cerebral infarction without residual deficits; Z95.5 Presence of coronary angioplasty implant and graft; Z95.1 Presence of aortocoronary bypass graft
CPT/HCPCS: 71045; 71275; 80048; 81001; 83605; 83880; 84484; 85025; 85379; 87040; 93005; 96374; 96375; 99284; Q9967; A4216; J1940

== ENCOUNTER 2023-03-04 11:45 | Outpatient (RCR) | payer MEDICARE, MEDICAID, SELFPAY | END 2023-03-04 19:00 | disposition home or self-care (01) | LOC: PT 11:45 | PROVIDERS: PCP Family Medicine; Referring Provider Family Medicine; Visit Provider Family Medicine | DX: M47.814 Spondylosis without myelopathy or radiculopathy, thoracic region (principal) ==

== ENCOUNTER 2023-03-29 13:48 | Emergency (ER) | payer MEDICARE, MEDICAID, SELFPAY ==
[2023-03-29 13:50] VITALS: BP 119/48; PULSE 53; RESP 18; TEMP 36.2; O2SAT 97
[2023-03-29 14:06] VITALS: O2SAT 93
[2023-03-29 14:08] VITALS: BP 111/66; PULSE 51; RESP 16; O2SAT 93
--- NOTE | 2023-03-29 14:32 | EKG12_ITS ---
Test Reason : SOB Blood Pressure : / mmHG Vent. Rate : 052 BPM Atrial Rate : 000 BPM P-R Int : 000 ms QRS Dur : 158 ms QT Int : 524 ms P-R-T Axes : 000 016 002 degrees QTc Int : 487 ms Atrial fibrillation with slow ventricular response Right bundle branch block Abnormal ECG Confirmed by KEYONNA TRIPP, YASSINE ([id number]), assistant production editor DIAMOND SLOANO ([id number]) on 04/02/2023 10:25:31 AM Referred By: KIRK/KATHLEEN Confirmed By:HIRA NEWBY MD
--- NOTE | 2023-03-29 14:34 | EDS_ITS ---
HPI History of Present Illness Chief Complaint: Shortness of Breath Informant: patient and family (Daughter) Narrative Narrative: Last couple days patient has been having episodic dyspnea and lightheadedness without syncope or chest pain that seems random and lasts 10 or 20 minutes. He cannot tell me any other symptoms that he is having with this, except that it is new and unusual for him. He does not have a new cough or fevers/chills. He has chronic lower extremity edema that is unchanged. As a separate-sounding issue he has lower abdominal discomfort off and on associated with being constipated and having hard stools. He states he gets better after he does have a bowel movement. He states he has been having trouble with them and having this discomfort off and on for the last several weeks, the daughter states it has been going on longer than that, he takes Metamucil but has also tried MiraLAX, laxatives, and other recommended medications from his doctor but nothing has helped. He does not have the discomfort right now, nor does he have the other symptoms at this moment. [facility] Medical History Acute ischemic stroke Ambulates with cane Atherosclerosis of coronary artery bypass graft without angina pectoris Atherosclerosis of [place] coronary artery of [place] heart without angina pectoris Back pain Borderline elevated troponin BPH (benign prostatic hypertrophy) with urinary obstruction Chest pain, unspecified Difficulty swallowing DVT (deep venous thrombosis) Essential hypertension Gastric reflux GERD (gastroesophageal reflux disease) History of tobacco use HLD (hyperlipidemia) HTN (hypertension) Hypertension Left-sided weakness Loss of hearing Mixed hyperlipidemia Old myocardial infarction Paroxysmal atrial fibrillation Presence of stent in coronary artery (~09/17/13) Stroke/cerebrovascular accident Type II diabetes mellitus, uncontrolled Uses wheelchair Wears dentures Wears glasses Wears hearing aid Home Medications aspirin 81 mg tablet,delayed release (Adult Low Dose Aspirin) 81 mg PO QDAY Heart health 07/24/17 [History Last Taken 11/07/21] waisxjfupwhr-idpohqww-vckhhw tablet 1 tablet PO QDAY supplement 07/24/17 [History Last Taken 01/08/19 08:00 1 tab] cetirizine 10 mg capsule (Zyrtec) 10 mg PO DAILY #30 caps 07/13/20 [Rx Last Taken Unknown] blood-glucose meter (True Metrix Glucose Meter) #1 ea 11/10/20 [Rx Last Taken Unknown] WAlker with wheels #1 ea 12/27/20 [Rx Last Taken Unknown] tamsulosin 0.4 mg capsule 0.4 mg PO QHS prostate #90 caps 04/26/21 [Rx Last Taken Unknown] blood sugar diagnostic (True Metrix Glucose Test Strip) #150 ea 05/09/21 [Rx Last Taken Unknown] metoprolol tartrate 100 mg tablet 100 mg PO BID #180 tabs 06/21/21 [Rx Last Taken 01/10/22 06:30] valsartan 160 mg tablet 160 mg PO DAILY #180 tabs 06/21/21 [Rx Last Taken 01/10/22 06:30] guaifenesin 1,200 mg tablet, extended release 12 hr (Mucinex) 1,200 mg PO BID PRN congestion #30 tabs 08/01/21 [Rx Last Taken Unknown] pen needle, diabetic 31 gauge x 1/4 (Droplet Pen Needle) See Rx Instructions .Route .COMPLEX #300 ea 08/22/21 [Rx Last Taken Unknown] meclizine 25 mg tablet 25 mg PO Q8H PRN PRN dizziness or vertigo #20 tabs 09/04/21 [Rx Last Taken Unknown] atorvastatin 80 mg tablet 80 mg PO QHS #90 tabs 09/06/21 [Rx Last Taken Unknown] trazodone 150 mg tablet 150 mg PO QHS sleep #90 tabs 09/28/21 [Rx Last Taken Unknown] diltiazem HCl 120 mg capsule,extended release 24 hr 120 mg PO BID Heart #180 caps 10/09/21 [Rx Last Taken 01/10/22 06:30] pregabalin 100 mg capsule 100 mg PO DAILY 11/02/21 [History Last Taken Unknown] psyllium seed (sugar) oral powder (Metamucil (sugar) oral powder) 1 tbsp PO DAILY 11/02/21 [History Last Taken Unknown] potassium chloride 20 mEq tablet,extended release 20 meq PO DAILY #30 tabs 11/03/21 [Rx Last Taken Unknown] furosemide 40 mg tablet (Lasix) 40 mg PO DAILY #30 tabs 12/12/21 [Rx Last Taken Unknown] insulin glargine 100 unit/mL (3 mL) subcutaneous pen (Lantus Solostar U-100 Insulin) 50 unit subcut QHS long acting insulin 01/03/22 [History Last Taken Unknown] primidone 50 mg tablet 25 mg PO QHS 01/03/22 [History Last Taken Unknown] triamcinolone acetonide 0.1 % topical cream 1 applic topical BID PRN 01/15/22 [History Last Taken Unknown] fluticasone propionate 50 mcg/actuation nasal spray,suspension (Flonase Allergy Relief) 2 spray intranasal QDAY #16 grams 02/01/22 [Rx Last Taken Unknown] glimepiride 4 mg tablet 4 mg PO DAILY 02/01/22 [History Last Taken Unknown] sucralfate 1 gram tablet 1 g PO QAC 02/01/22 [History Last Taken Unknown] linaclotide 72 mcg capsule (Linzess) 72 mcg PO DAILY #30 caps 02/15/22 [Rx Last Taken Unknown] lansoprazole 30 mg capsule,delayed release 30 mg PO BID #60 caps 04/02/22 [Rx Last Taken Unknown] isosorbide mononitrate 30 mg tablet,extended release 24 hr 30 mg PO DAILY #90 tabs 05/17/22 [Rx Last Taken Unknown] nitroglycerin 0.4 mg sublingual tablet 0.4 mg sublingual Q5M PRN chest pain #90 tabs 05/17/22 [Rx Last Taken Unknown] amoxicillin 875 mg-potassium clavulanate 125 mg tablet 1 tab PO BID 7 days #14 tabs 07/23/22 [Rx Last Taken Unknown] Allergy/AdvReac Type Severity Reaction Status Date / Time iodine Allergy Hives Verified 03/29/23 13:50 tramadol Allergy Other Verified 03/29/23 13:50 Family History Mother Cancer Sister Brain aneurysm Sister Brain aneurysm Father Cancer Surgical History H/O carotid endarterectomy History of back surgery History of cholecystectomy History of esophagogastroduodenoscopy (EGD) (01/10/22) History of PTCA History of right and left heart catheterization (LHC) (~11/07/21) Hx of CABG (~12/22/07) Presence of coronary angioplasty implant and graft (~09/2013) Presence of Watchman left atrial appendage closure device (~03/04/18) Social History household members: children Smoking Status: Never smoker Smokeless tobacco user: chewing tobacco how long ago did patient quit smokin (1987) to 39 (1977) years ago (Cigars) alcohol intake: never substance use type: does not use caffeine: No what type of physical activity do you participate in: none seatbelt use: always do you feel safe at home: Yes ROS ROS ED Constitutional Constitutional ED: Denies chills or fever(s) Eyes Eyes: Denies change in vision or diplopia ENT ENT ED: Denies rhinorrhea or sore throat Cardiovascular Cardiovascular: Reports leg edema; Denies chest pain, orthopnea or palpitations Respiratory/Chest Respiratory/Chest: Reports dyspnea; Denies cough, dyspnea on exertion or orthop ce Gastrointestinal Gastrointestinal: Reports abdominal pain and constipation; Denies diarrhea, melena, nausea or vomiting Genitourinary Genitourinary ED: Denies dysuria or hematuria Musculoskeletal Musculoskeletal: Denies back pain or neck pain Integumentary Denies abscess or rash Neurologic Neurologic: Denies headache(s), paresthesias or weakness Psychiatric Psychiatric: Denies anxiety or suicidal thoughts EXAM Physical Exam Const Vital Signs: 03/29/23 13:50 03/29/23 14:06 03/29/23 14:08 Temperature 97.2 F L Temperature Source Temporal Pulse Rate 53 L 51 L Respiratory Rate 18 16 Respiratory Effort Short of Breath Respiratory Depth Shallow Blood Pressure 119/48 L 111/66 Blood Pressure Mean 71 81 Pulse Ox 97 93 Oxygen Delivery Method Room Air Room Air Room Air 03/29/23 14:32 Temperature Temperature Source Pulse Rate Respiratory Rate Respiratory Effort Respiratory Depth Blood Pressure Blood Pressure Mean Pulse Ox Oxygen Delivery Method Room Air Positive well nourished and well developed General Appearance ED: well developed and NAD HEENT Reports moist mucous membranes normocephalic and atraumatic Eyes PERRL and EOMs intact bilaterally Neck full ROM and supple Resp normal respiratory effort and clear to auscultation bilaterally Cardio no murmurs Rate: other Other Details: Rate in 50s ; Negative for tachycardic Rhythm: abnormal rhythm irregularly irregular GI non-tender and non-distended Auscultation: normoactive bowel sounds Palpation: soft Back/Spine no CVA tenderness General Back: other FROM Extremity normal to inspection General Extremety ED: Yes edema; Negative for pulses abnormal or tenderness General Extremity: edema bilateral lower extremity Details: moderate; Negative for pulses abnormal Neuro oriented x3, CN's II-XII intact bilaterally and no sensory deficits noted Sensorium / Orientation: awake and alert Motor Exam: strength 5/5 throughout Skin no rashes or lesions noted and no wounds MDM MDM MDM Narrative Medical decision making narrative: While here patient had no telemetry events or recurrent symptoms. His heart rate is in the 50s, but this sounds more like a dysrhythmia than symptomatic bradycardia. I do not know that I would change his AV stephanie blockers based on all of this. His labs show mild increase in his creatinine but not acute kidney injury, his troponin is within normal limits, and his chest x-ray shows mild venous congestion on my interpretation 1 view, radiology in agreement. No pneumonia. I do not think he needs any work-up for pulmonary embolus, these are episodes of symptoms with no obvious trigger. Patient is doing well and wants to go home. He is not hypoxic. I am okay with this, I would recommend increasing his Lasix to twice daily instead of once daily for the next few days, and I am having respiratory try to place a Holter monitor on him and he can follow-up with cardiology in the near future. He and daughter are okay with that plan. Lab Data Attestation: I reviewed the patient's lab results. Labs: Laboratory Results - last 24 hr 03/29/23 14:26 WBC 9.5 RBC 4.61 Hgb 12.9 L Hct 40.3 MCV 87.4 MCH 28.0 MCHC 32.0 RDW Std Deviation 45.4 H RDW Coeff of [place] 14.3 Plt Count 203 MPV 10.3 Immature Gran % (Auto) 0.300 Neut % (Auto) 71.4 H Lymph % (Auto) 18.7 L [place] % (Auto) 6.9 Eos % (Auto) 2.3 Baso % (Auto) 0.4 Absolute Neuts (auto) 6.8 Absolute Lymphs (auto) 1.77 Nucleated RBC % 0 Sodium 138 Potassium 4.6 Chloride 111 H Carbon Dioxide 25.0 Anion Gap 2 L BUN 18 Creatinine 1.39 H Est GFR (MDRD) Af Amer 63 Est GFR (MDRD) Non-Af 52 L BUN/Creatinine Ratio 12.9 Glucose 291 H Calcium 8.6 Troponin I High Sens 14 Radiography Diagnostic Testing: Clinical Impression(s) from Imaging Studies Chest X-Ray 03/29/23 14:40 IMPRESSION: Status post CABG. Mild degree of vascular congestion and cardiomegaly. Electronically Signed: Kenneth Vazquez MD at 14:58 EDT , Rhythm Strip Rhythm Strip: A-fib Rate: 55 Ectopy: None EKG Initial EKG: Attestation: I personally reviewed and interpreted this EKG as follows: Interpretation: No Acute Injury Pattern, Atrial Fibrillation and RBBB Prior EKG tracings: available for review Prior: Unchanged Discharge Plan Triage Chief Complaint: Shortness of Breath Other Complaint: Dizziness ED Provider: Alexandro Layne Dx/Rx/DC Orders Clinical Impression: Acute dyspnea Instructions: ED Dyspnea, ED Near-Fainting, Uncertain Cause Prescriptions: No Action aspirin [Adult Low Dose Aspirin] 81 mg tablet,delayed release (DR/EC) 81 mg PO QDAY mazgloxrlslk-jgvbscqh-jdalhk tablet 1 tablet PO QDAY valsartan 160 mg tablet 160 mg PO DAILY Qty: 180 3RF metoprolol tartrate 100 mg tablet 100 mg PO BID Qty: 180 1RF pregabalin 100 mg capsule 100 mg PO DAILY triamcinolone acetonide 0.1 % cream 1 applic topical BID PRN Mucinex 1,200 mg tablet extended release 12hr 1,200 mg PO BID PRN (Reason: congestion) Qty: 30 1RF Metamucil (sugar) Powder 1 tbsp PO DAILY glimepiride 4 mg tablet 4 mg PO DAILY sucralfate 1 gram tablet 1 g PO QAC fluticasone propionate [Flonase Allergy Relief] 50 mcg/actuation spray,suspension 2 spray intranasal QDAY Qty: 16 3RF Rx Instructions: administer into each nostril Linzess 72 mcg capsule 72 mcg PO DAILY Qty: 30 3RF meclizine 25 mg tablet 25 mg PO Q8H PRN PRN (Reason: dizziness or vertigo) Qty: 20 0RF primidone 50 mg Tablet 25 mg PO QHS insulin glargine [Lantus Solostar U-100 Insulin] 100 unit/mL (3 mL) insulin pen 50 unit SC QHS amoxicillin-pot clavulanate 875-125 mg tablet 1 tab PO BID 7 Days Qty: 14 0RF Zyrtec 10 mg capsule 10 mg PO DAILY Qty: 30 5RF (DME) blood-glucose meter [True Metrix Glucose Meter] Misc See Rx Instructions .ROUTE .MEDSUPPLY Qty: 1 0RF Rx Instructions: As directed (DME) WAlker with wheels See Rx Instructions .Route .MEDSUPPLY Qty: 1 0RF Rx Instructions: As directed tamsulosin 0.4 mg capsule 0.4 mg PO QHS Qty: 90 3RF (DME) True Metrix Glucose Test Strip Strip See Rx Instructions .ROUTE .MEDSUPPLY Qty: 150 10RF Rx Instructions: use four times a day pen needle, diabetic [Droplet Pen Needle] 31 gauge x 1/4 needle See Rx Instructions .ROUTE .COMPLEX Qty: 300 3RF Dose Instruction: USE DIRECTED (DIABETES) Rx Instructions: USE DIRECTED (DIABETES) atorvastatin 80 mg tablet 80 mg PO QHS Qty: 90 3RF trazodone 150 mg tablet 150 mg PO QHS Qty: 90 1RF diltiazem HCl 120 mg capsule,extended release 24hr 120 mg PO BID Qty: 180 3RF potassium chloride 20 mEq tablet extended release 20 meq PO DAILY Qty: 30 3RF furosemide [Lasix] 40 mg tablet 40 mg PO DAILY Qty: 30 3RF lansoprazole 30 mg capsule,delayed release(DR/EC) 30 mg PO BID Qty: 60 0RF nitroglycerin 0.4 mg tablet, sublingual 0.4 mg SL Q5M PRN (Reason: chest pain) Qty: 90 3RF isosorbide mononitrate 30 mg tablet extended release 24 hr 30 mg PO DAILY Qty: 90 3RF Primary Care Provider: Jh King Referrals: Osmin Silva MD [[facility] Staff - Active Staff] - 3-5 Days (Call for appointment to be seen by any/first available provider after your monitor is turned in.) Jh King, DO [Primary Care Provider] - Activity Restrictions/Additional Instructions: Increase your Lasix to twice daily for the next 3 to 4 days, same dosage 40 mg each dose. Disposition Disposition: Home, Self Care
--- NOTE | 2023-03-29 14:40 | RAD_ITS ---
STUDY: X-RAY CHEST REASON FOR EXAM: Male, 82 years old. Episodic sob TECHNIQUE: PA and lateral views of the chest. COMPARISON: Comparison is made with prior study dated December 19, 2022. FINDINGS: EKG electrodes are seen. Mild degree of vascular congestion. Blunting of the left costophrenic angle. Sternal cerclage wires and vascular clips are present from a prior sternotomy and coronary artery bypass graft procedure (CABG). Mild cardiomegaly. Normal mediastinum and margarita. Normal visualized pulmonary arteries. There is atherosclerotic calcification of the aortic arch with tortuosity. There is demineralization of the osseous structures. Normal visualized ribs, clavicles, and shoulders. There is no demonstrated abnormality of the visualized soft tissue structures of the upper abdomen. RAD/Chest PA and Lateral IMPRESSION: Status post CABG. Mild degree of vascular congestion and cardiomegaly. Electronically Signed: Kenneth Vazquez MD at 14:58 EDT ,
[2023-03-29 14:44] LABS: Absolute Lymphocyte Count 1.77 X10^3/uL (0.83-4.51); Absolute Neutrophil Count 6.8 X10^3/uL (2.0-7.7); Basophil# 0.04 X10^3/uL; Basophil% 0.4 % (0-1); Eosinophil# 0.22 X10^3/uL; Eosinophils% 2.3 % (0-5); Hematocrit 40.3 % (40-54); Hemoglobin 12.9 g/dL (13.0-16.5); Lymphocyte # 1.77 X10^3/ul (0.83-4.51); Lymphocyte % 18.7 % (19-41); Mean Corpuscular Volume 87.4 fL (80-94); Mean Platelet Vol. 10.3 fl (6.2-12.0); Monocyte# 0.65 X10^3/uL; Monocyte% 6.9 % (0-10); NRBC Flagged by Analyzer 0 % (0-5); Neutrophil # 6.76 X10^3/uL (2.7-7.7); Neutrophil % 71.4 % (47-70); Platelet Count 203 K/mm3 (150-450); RBC Distribution Width CV 14.3 % (11.6-14.6); RBC Distribution Width SD 45.4 fl (35.1-43.9); Red Blood Count 4.61 M/mm3 (4.6-6.2); White Blood Count 9.5 K/mm3 (4.4-11.0)
[2023-03-29 14:59] LABS: Anion Gap 2 (5-15); BUN 18 mg/dL (7-18); BUN/Creat Ratio 12.9 RATIO (10-20); Calcium,Total 8.6 mg/dL (8.5-10.1); Chloride 111 mmol/L (98-107); Creatinine, Serum 1.39 mg/dL (0.70-1.30); EST Glomerular Filtration Rate 52 mL/min (>60); Est Glom Filt Rate - Afr Amer 63 mL/min (>60); Glucose 291 mg/dL (74-106); Potassium 4.6 mmol/L (3.5-5.1); Sodium Level 138 mmol/L (136-145); Troponin-I HS 14 pg/mL (3.0-78.0)
[2023-03-29 18:03] VITALS: BMI 36.1
== END 2023-03-29 18:17 | disposition home or self-care (01) ==
PROVIDERS: Emergency Provider Emergency Medicine; PCP Family Medicine; Visit Provider Emergency Medicine
DX: R06.00 Dyspnea, unspecified (principal); I25.10 Atherosclerotic heart disease of native coronary artery without angina pectoris; I25.2 Old myocardial infarction; Z86.73 Personal history of transient ischemic attack (TIA), and cerebral infarction without residual deficits; Z86.718 Personal history of other venous thrombosis and embolism; Z95.5 Presence of coronary angioplasty implant and graft; Z87.891 Personal history of nicotine dependence
CPT/HCPCS: 71046; 80048; 84484; 85025; 93005; 99284; A4216

== ENCOUNTER → 2023-03-29 | Outpatient (CLI) | payer MEDICARE, MEDICAID, SELFPAY | END | disposition home or self-care (01) | LOC: PSN 17:57 | PROVIDERS: PCP Family Medicine; Visit Provider Nurse Practitioner Gerontology | DX: R06.02 Shortness of breath (principal) | CPT/HCPCS: 93225; 93226 ==

== ENCOUNTER → 2023-04-18 | Outpatient (CLI) | payer MEDICARE, MEDICAID, SELFPAY ==
[2023-04-18 10:14] LABS: Absolute Lymphocyte Count 0.85 X10^3/uL (0.83-4.51); Absolute Neutrophil Count 10.2 X10^3/uL (2.0-7.7); Basophil# 0.04 X10^3/uL; Basophil% 0.3 % (0-1); Eosinophil# 0.06 X10^3/uL; Eosinophils% 0.5 % (0-5); Hematocrit 38.8 % (40-54); Hemoglobin 12.5 g/dL (13.0-16.5); Lymphocyte # 0.85 X10^3/ul (0.83-4.51); Lymphocyte % 7.2 % (19-41); Mean Corp Hgb Conc 32.2 g/dL (32-36); Mean Corpuscular Hgb 28.5 pg (27.0-32.0); Mean Corpuscular Volume 88.6 fL (80-94); Mean Platelet Vol. 10.8 fl (6.2-12.0); Monocyte# 0.69 X10^3/uL; Monocyte% 5.8 % (0-10); NRBC Flagged by Analyzer 0 % (0-5); Neutrophil # 10.15 X10^3/uL (2.7-7.7); Neutrophil % 85.8 % (47-70); Platelet Count 203 K/mm3 (150-450); RBC Distribution Width CV 14.1 % (11.6-14.6); RBC Distribution Width SD 45.3 fl (35.1-43.9); Red Blood Count 4.38 M/mm3 (4.6-6.2); White Blood Count 11.8 K/mm3 (4.4-11.0)
[2023-04-18 10:17] LABS: Erythrocyte Sedimentation Rate 24 mm/hr (0-20)
[2023-04-18 10:54] LABS: ALB/GLOB Ratio 0.9 RATIO (0.9-2.4); AST(SGOT) 10 U/L (15-37); Alanine Aminotransfer ALT/SGPT 29 U/L (16-61); Albumin, Serum 3.1 g/dL (3.2-5.0); Alkaline Phosphatase 74 U/L (45-117); Anion Gap 6 (5-15); BUN 23 mg/dL (7-18); Calcium,Total 8.6 mg/dL (8.5-10.1); Chloride 109 mmol/L (98-107); Creatinine, Serum 1.15 mg/dL (0.70-1.30); EST Glomerular Filtration Rate 64 mL/min (>60); Est Glom Filt Rate - Afr Amer 78 mL/min (>60); Globulin 3.5 g/dL (2.2-4.2); Glucose 287 mg/dL (74-106); Potassium 3.9 mmol/L (3.5-5.1); Protein, Total 6.6 g/dL (6.4-8.2); Sodium Level 138 mmol/L (136-145)
== END | disposition home or self-care (01) ==
LOC: LAB 09:43
PROVIDERS: PCP Family Medicine; Referring Provider Family Medicine; Visit Provider Family Medicine
DX: R51.9 Headache, unspecified (principal); E11.9 Type 2 diabetes mellitus without complications; R42 Dizziness and giddiness
CPT/HCPCS: 36415; 80053; 83036; 85025; 85652

== ENCOUNTER → 2023-04-29 | Outpatient (CLI) | payer MEDICARE, MEDICAID, SELFPAY ==
--- NOTE | 2023-04-29 17:45 | CT_ITS ---
STUDY: CT BRAIN WITHOUT CONTRAST REASON FOR EXAM: Male, 82 years old. Headache Dizziness, history of stroke. RADIATION DOSAGE (If Supplied By Facility): CTDIvol = ( 44.99 ) mGy, DLP = ( 1682.21 ) mGycm TECHNIQUE: Transaxial CT imaging of the brain was performed without administration of intravenous contrast material. Individualized dose optimization techniques were used for this CT. COMPARISON: Head CT dated September 04, 2021 FINDINGS: Normal soft tissue structures. Normal calvarium. There is moderate cerebral atrophy with widening of the extra-axial spaces and ventricular dilatation. There are areas of decreased attenuation within the white matter tracts of the supratentorial brain, consistent with microvascular disease changes. Normal basal ganglia and thalami. Normal brainstem. Redemonstration of significant volume loss of the left cerebellar hemisphere most likely related to an old infarct. There is no intracranial hemorrhage. There are no findings of an acute ischemic infarction. Normal visualized paranasal sinuses. CT/Brain/Head W/WO Contrast IMPRESSION: 1. Chronic ischemic and involutional changes of the brain. 2. Redemonstration of significant volume loss of the left cerebellar hemisphere most likely related to an old infarct. Electronically Signed: Jose David Echavarria MD at 12:37 EDT ,
== END | disposition home or self-care (01) ==
LOC: CT 17:43
PROVIDERS: PCP Family Medicine; Referring Provider Family Medicine; Visit Provider Family Medicine
DX: R51.9 Headache, unspecified (principal); R42 Dizziness and giddiness
CPT/HCPCS: 70470; Q9967

== ENCOUNTER → 2023-05-09 | Outpatient (CLI) | payer MEDICARE, MEDICAID, SELFPAY ==
--- NOTE | 2023-05-09 10:00 | NM_ITS ---
CLINICAL: 83-year-old male with history of abdominal bloating and gastroesophageal reflux disease. SEMI-SOLID PHASE 99m Tc SULFUR COLLOID GASTRIC EMPTYING STUDY COMPARISON: Previous semisolid gastric emptying examination dated 04/26/2022 FINDINGS: The patient was administered 1.2 mCi of 99m Tc sulfur colloid mixed with oatmeal and consumed per os. Image acquisitions in the anterior-posterior projection were obtained for 60 minutes. There is prompt visualization of the stomach. There is no gastroesophageal reflux identified. First order kinetics are maintained throughout the duration of the acquisitions. The T ? raw data emptying was calculated to be 58.79 minutes, (Normal: 12-56 minutes). NM/Gastric Emptying Study IMPRESSION: 1. ABNORMAL 99m Tc sulfur colloid semi-solid phase (oatmeal) gastric emptying imaging examination. A. There is delayed semi-solid phase gastric emptying compared to normal controls. (Lauren et al, J Nucl Med Tech 38: 186, 2010). Electronically Signed: Karri Mckoy DO at 22:03 EDT ,
== END | disposition home or self-care (01) ==
LOC: NM 09:59
PROVIDERS: PCP Family Medicine; Referring Provider Internal Medicine Gastroenterology; Visit Provider Internal Medicine Gastroenterology
DX: K21.9 Gastro-esophageal reflux disease without esophagitis (principal)
CPT/HCPCS: 78264; A9541

== ENCOUNTER 2023-05-10 12:55 | Day surgery (SDC) | payer MEDICARE, MEDICAID, SELFPAY ==
[2023-05-10] VITALS (7 sets, daily range): BP systolic 89–127; BP diastolic 50–67; PULSE 62–75; RESP 16–18; TEMP 36.3–36.6; O2SAT 95–99; BMI 33.5
--- NOTE | 2023-05-10 | IMM_PTH ---
PATIENT: JUNE GUAMAN LOC: EN U#:[id number] AGE/SX: 83/M ROOM: RE05/10/[address]: Dr. Janusz Calles DO : 1940 BED: DIS: 05/10/2023 SPEC #: [id number] RECD: 05/13/23 09:02 STATUS: ANTHONY ASHER #: [id number] MAURICE: 05/10/23 00:[address]: Janusz Calles DEPT: IMMUNOHISTOCHEMISTRY RECD BY: Kayla Campbell ENTERED: 05/13/23 09:03 SP TYPE: IMMUNO OTHR DR: Dr. Jh King DO Tissues: B - Gastric mucous membrane a - Esophagus, NOS Procedures: H Pylori (initial) KI-67 (add) P53 (add) Surgery Specimen Level IV PHYSICIAN & INSTITUTION [place] [id number] SPECIMEN INFORMATION: Tissue Source: Distal esophagus and Gastric polyp Clinical Info: Moreno's esophagus, GERD Specimen Number: [id number] A and B CPT code: 54598 x2, 64415 METHODOLOGY: Deparaffinized sections of prefer/formalin-fixed tissue or PAP/DQ stained slides are incubated with monoclonal/polyclonal antibodies/oligonucleotide probes. Localization is made via biotin free immunoperoxidase method. Appropriate controls are performed and reacted as expected. Results on target cell population are indicated in the following table: RESULTS: ANTIBODY / CLONE RESULT BLOCK A P53 (DO-7) negative (null pattern) Ki-67 (30-9) positive, very low BLOCK B H Pylori (polyclonal) negative These tests were developed and their performance characteristics determined by [facility]. They may not have been cleared or approved by the U.S. Food and Drug Administration. The FDA has determined that such clearance or approval is not necessary. The above immunohistochemical/dualISH markers are ordered and reviewed by the Pathologist. INTERPRETATION: A. Distal esophagus, biopsy: Negative for dysplasia B. Gastric polyp, biopsy: Negative for Helicobacter pylori organisms. [facility] 05/15/23
--- NOTE | 2023-05-10 13:11 | PCM.HP.BLA ---
History and Physical Date of Admission: 05/10/23 81 M who presents to the office today for Follow up. Rolette established with this clinic 10.12.21 for intermittent dysphagia of both food and liquids for several years. Reflux an issue but well managed with lansoprazole 30mg BID. [facility] ED presentation 07.17.21 with abdominal distention and discomfort. Biochemical workup and imaging performed noting chronic cardiomegaly, small hiatal hernia and bilateral pleural effusions. Lasix increased for several days and Mucinex ordered for excess phlegm. Several additional ED visits for edema, SOB with similar results. PMH obesity; SOB; DMII; ILANA; salmonella enteritis 2019; coronary artery stent, CABG, VT, HTN, ischemic stroke, watchman presence, A Fib. CT abd/pel 07.17.21 hepatic steatosis; s/p cholecystectomy; small hiatal hernia; colonic diverticulosis; small umbilical hernia containing fat; renal cyst; small bilateral PE. KUB 12.26.21 bloating and stool retention nonspecific bowel gas pattern with air seen in rectum. EGD 01.10.22 noting LA Grade A reflux esophagitis; chronic gastritis; gastric metaplasia. H.Pylori negative. CT chest 01.22.22 moderate hiatal hernia; small L PE; evidence of CABG; mitral valve replacement. Plan LV 01.24.22: GERD, Moreno?s esophagus, gastritis, intestinal metaplasia of stomach ? start sucralfate. Since LV he has been having difficulty with post prandial stomach discomfort, a mouthful of phlegm and stomach tightness, fullness and difficulty catching his breath. Appetite is subsequently decreased. No chest burning. Swallowing has improved since EGD. ROS Const Constitutional: Positive for fatigue ENT ENT: Positive for difficulty swallowing Gastro GI: Positive for bloating, change in bowel habits, difficulty swallowing and excessive flatus; No abdominal pain, belching, change in stool character, coffee ground emesis, constipation, cramping, diarrhea, heartburn, feeling full early, incontinent of stools, Vomiting blood/hematemesis, Blood in stool, loose stools, Black,tarry stools, nausea/dyspepsia, pain with swallowing, vomiting or other Musc Musculoskeletal: Positive for abnormal gait, joint pain and Arthritis Skin Skin: No yellowing of the eye or itchy eyes Neuro Neurology: Positive for abnormal gait and tremor(s) Psych Psychiatric: No anxiety and No depression Endo Endocrine: Positive for fatigue Aller/Imm Allergy/Immunologic: No itchy eyes Owen/Lymp Hematologic/Lymphatic: Positive for easy bruising; No easy bleeding Exam Const General: cooperative, comfortable and well developed Orientation: alert, awake and oriented x3 Other: In wheelchair, hard of hearing Quality Reporting Tobacco Screening ([facility] [address]) Smoking Status: Never smoker Assessment and Plan Assessment and Plan (1) Upset stomach: Status: Acute Plan: The differential diagnosis for his upset stomach would be gastroparesis, sliding hiatal hernia, atypical reflux disease, gastritis. He will get an gastric emptying study in order to evaluate the motility of the stomach. I suspect this is most likely DKA secondary to a long 30-year history of diabetes mellitus. (2) Moreno's esophagus: Status: Acute Plan: He will continue on PPI therapy and he will have a repeat upper endoscopy in approximately a year to monitor his Moreno's esophagus (3) GERD (gastroesophageal reflux disease): Status: Acute Plan: His gastroesophageal reflux disease is controlled on once a day PPI therapy. (4) Intestinal metaplasia of stomach: Status: Acute Plan: We will perform repeat biopsies of intestinal metaplasia in the stomach when he had a repeat upper endoscopy. Medications: New linaclotide (Linzess) 72 mcg PO DAILY 30 caps 3RF I have examined the patient and the H&P has been reviewed. There are no clinical changes since date of exam.
[2023-05-10] MEDS: Lactated Ringers 1,000 ML 15 ML IV (13:28)
[2023-05-10 13:55] LABS: Bedside Glucose 231 mg/dL (74-106)
--- NOTE | 2023-05-10 14:15 | EGD_PTH ---
PATIENT: JUNE GUAMAN LOC: EN U#:[id number] AGE/SX: 83/M ROOM: RE05/10/[address]: Dr. Janusz Calles DO : 1940 BED: DIS: 05/10/2023 SPEC #: [id number] RECD: 05/10/23 18:22 STATUS: ANTHONY ASHER #: [id number] MAURICE: 05/10/23 14:[address]: Janusz Calles DEPT: SURGICAL PATHOLOGY RECD BY: Trisha Rodriguez ENTERED: 05/13/23 08:24 SP TYPE: EGD BIOPSY OT DR: Dr. Jh King DO Tissues: A - Esophageal mucous membrane B - Gastric mucous membrane Procedures: Surgery Specimen Level IV HEADER OPERATION: EGD PRE-OP DIAGNOSIS: Moreno's esophagus, GERD TISSUE SUBMITTED: A. Distal esophagus, B. Gastric polyp MICROSCOPIC DIAGNOSIS A. Distal esophagus, biopsy: Fragments of gastroesophageal mucosa with focal intestinal metaplasia (goblet cell metaplasia), consistent with Moreno's esophagus. Chronic inflammation. Negative for dysplasia. See comment. B. Gastric polyp, biopsy: Hyperplastic /inflammatory polyp. Focal intestinal metaplasia (goblet cell metaplasia). See comment. SJ: 05/14/2023 COMMENT A. Alcian blue/PAS stain with matched control is used in the evaluation of the specimen. Immunohistochemistry ([id number]) for P53 and Ki-67 will be performed and results will be reported separately. B. The results of immunohistochemistry for Helicobacter pylori will be reported separately ([id number]). MICROSCOPIC DESCRIPTION Slides are reviewed. GROSS DESCRIPTION A. Received is one container labeled with the patient name and designated distal esophagus. The specimen consists of two irregular fragments of light diaz soft tissue that in aggregate measure 0.6 x 0.3 x 0.1 cm. The specimen is totally submitted in one cassette. B. Received is one container labeled with the patient name and designated gastric polyp. The specimen consists of one irregular fragment of light diaz soft tissue that measures 0.3 x 0.3 x 0.1 cm. The specimen is totally submitted in one cassette. /JACKSON:chloe 05/13/23 TC:5 CPT: 43077 x2, 16947 x2
--- NOTE | 2023-05-10 15:18 | OP.CCLET_ITS ---
05/10/2023 Jh King [address] [facility] [place] [address] Re : Upper GI endoscopy procedure for Fermin Hill Dear Dr. King This procedure was performed on Wednesday, May 10, 2023. My impressions and recommendations are as follows: Impressions : - Esophageal mucosal changes suggestive of Moreno's esophagus. Biopsied. - Large hiatal hernia. - Bile gastritis. - A single gastric polyp. Resected and retrieved. - Erosive gastropathy with stigmata of recent bleeding. - No gross lesions in the duodenal bulb. Recommendations : - Discharge patient to home. - Resume previous diet. - Continue present medications. - Await pathology results. My findings are described in the full procedure note, which is enclosed. If I can be of further assistance, please feel free to contact me at . Sincerely, Janusz Calles, 05/10/2023 3:17:34 PM This report has been signed electronically.
--- NOTE | 2023-05-10 15:18 | OP.EGD_ITS ---
Patient Name: Fermin iHll Procedure Date: 05/10/2023 2:58 PM Date of : 1940 Age: 83 Procedure: Upper GI endoscopy Indications: Iron deficiency anemia due to suspected upper gastrointestinal bleeding, Heartburn, Follow-up of Moreno's esophagus Providers: Janusz Calles DO Medicines: Monitored Anesthesia Care Patient Profile: This is an 83 year old male. Refer to note in patient chart for documentation of history and physical. Patient has symptoms of chronic heartburn. Complications: No immediate complications. Procedure: Pre-Anesthesia Assessment: - Prior to the procedure, a History and Physical was performed, and patient medications and allergies were reviewed. The patient is competent. The risks and benefits of the procedure and the sedation options and risks were discussed with the patient. All questions were answered and informed consent was obtained. Patient identification and proposed procedure were verified by the physician in the pre-procedure area. Mental Status Examination: alert and oriented. Airway Examination: normal oropharyngeal airway and neck mobility. Prophylactic Antibiotics: The patient does not require prophylactic antibiotics. Prior Anticoagulants: The patient has taken no anticoagulant or antiplatelet agents. After reviewing the risks and benefits, the patient was deemed in satisfactory condition to undergo the procedure. The anesthesia plan was to use monitored anesthesia care (MAC). Immediately prior to administration of medications, the patient was re-assessed for adequacy to receive sedatives. The heart rate, respiratory rate, oxygen saturations, blood pressure, adequacy of pulmonary ventilation, and response to care were monitored throughout the procedure. The physical status of the patient was re-assessed after the procedure. After obtaining informed consent, the endoscope was passed under direct vision. Throughout the procedure, the patient's blood pressure, pulse, and oxygen saturations were monitored continuously. The Endoscope was introduced through the mouth, and advanced to the second part of duodenum. The upper GI endoscopy was accomplished with ease. The patient tolerated the procedure well. Scope In: 3:05:41 PM Scope Out: 3:08:17 PM Total Procedure Duration Time 0 hours 2 minutes 36 seconds Findings: There were esophageal mucosal changes suggestive of Moreno's esophagus present in the lower third of the esophagus. The maximum longitudinal extent of these mucosal changes was 1 cm in length. Mucosa was biopsied with a cold forceps for histology in a targeted manner at intervals of 1 cm in the lower third of the esophagus. One specimen bottle was sent to pathology. Verification of patient identification for the specimen was done. Estimated blood loss was minimal. A large hiatal hernia was present. Diffuse severe inflammation characterized by erythema, friability and granularity was found in the entire examined stomach. A single 5 mm sessile polyp with no stigmata of recent bleeding was found in the prepyloric region of the stomach. The polyp was removed with a cold snare. Resection and retrieval were complete. Verification of patient identification for the specimen was done. Estimated blood loss was minimal. A few localized 5 mm erosions with stigmata of recent bleeding were found in the gastric fundus. No gross lesions were noted in the duodenal bulb. Impression: - Esophageal mucosal changes suggestive of Moreno's esophagus. Biopsied. - Large hiatal hernia. - Bile gastritis. - A single gastric polyp. Resected and retrieved. - Erosive gastropathy with stigmata of recent bleeding. - No gross lesions in the duodenal bulb. Recommendation: - Discharge patient to home. - Resume previous diet. - Continue present medications. - Await pathology results. Procedure Code(s): --- Professional --- 01848, Esophagogastroduodenoscopy, flexible, transoral; with removal of tumor(s), polyp(s), or other lesion(s) by snare technique 65299, 59, Esophagogastroduodenoscopy, flexible, transoral; with biopsy, single or multiple CPT copyright 2021 [employer]. All rights reserved. The codes documented in this report are preliminary and upon plant breeder scientist review may be revised to meet current compliance requirements. Janusz Calles DO 05/10/2023 3:17:34 PM This report has been signed electronically. Number of Addenda: 0 Note Initiated On: 05/10/2023 2:58 PM
== END 2023-05-10 16:17 | disposition home or self-care (01) ==
LOC: EN 12:58 → AC 12:58
PROVIDERS: PCP Family Medicine; Referring Provider Family Medicine; Visit Provider Internal Medicine Gastroenterology
PROC: 0DJ08ZZ Inspection of Upper Intestinal Tract, Via Natural or Artificial Opening Endoscopic (ICD-10-PCS; CPT 43235; principal; 2023-05-10 14:10)
DX: K22.70 Barrett's esophagus without dysplasia (principal); I48.0 Paroxysmal atrial fibrillation; Z79.4 Long term (current) use of insulin; E11.9 Type 2 diabetes mellitus without complications; K44.9 Diaphragmatic hernia without obstruction or gangrene; D50.9 Iron deficiency anemia, unspecified; K31.7 Polyp of stomach and duodenum; K29.70 Gastritis, unspecified, without bleeding; I25.2 Old myocardial infarction; I10 Essential (primary) hypertension; I25.810 Atherosclerosis of coronary artery bypass graft(s) without angina pectoris; Z79.82 Long term (current) use of aspirin; Z79.899 Other long term (current) drug therapy; Z79.84 Long term (current) use of oral hypoglycemic drugs; Z95.5 Presence of coronary angioplasty implant and graft; Z95.1 Presence of aortocoronary bypass graft; Z86.73 Personal history of transient ischemic attack (TIA), and cerebral infarction without residual deficits; Z86.718 Personal history of other venous thrombosis and embolism
CPT/HCPCS: 43251; 43239; 82962; 88305; 88341; 88342; J7120

== ENCOUNTER → 2023-05-20 | Outpatient (CLI) | payer MEDICARE, MEDICAID, SELFPAY ==
[2023-05-20 15:30] LABS: Anion Gap 5 (5-15); BUN 26 mg/dL (7-18); BUN/Creat Ratio 17.6 RATIO (10-20); Chloride 105 mmol/L (98-107); Creatinine, Serum 1.48 mg/dL (0.70-1.30); EST Glomerular Filtration Rate 48 mL/min (>60); Est Glom Filt Rate - Afr Amer 58 mL/min (>60); Glucose 402 mg/dL (74-106); Potassium 4.7 mmol/L (3.5-5.1); Sodium Level 135 mmol/L (136-145)
== END | disposition home or self-care (01) ==
LOC: LAB 14:08
PROVIDERS: PCP Family Medicine; Referring Provider Internal Medicine Cardiovascular Disease; Visit Provider Internal Medicine Cardiovascular Disease
DX: I10 Essential (primary) hypertension (principal)
CPT/HCPCS: 36415; 80048

== ENCOUNTER → 2023-09-02 | Outpatient (CLI) | payer MEDICARE, MEDICAID, SELFPAY ==
--- OUTSIDE RECORDS SUMMARY | 2023-09-02 07:51 | XMS RPT_ITS | CCD ---
Author Name Unknown Address [address] [place] [address] Organization [facility] Care Team Providers Care Apprentice Carpenter Name Role Phone Naveed Gayle Unavailable Unavailable Naveed Gayle Unavailable Unavailable Rajan Garcia Unavailable Unavailable Radha Harumi Y Unavailable Unavailable Cruzito Carrillo Unavailable Unavailable PROVIDER, UNKNOWN Unavailable Unavailable RADHA, JOHAN-CHI Unavailable Unavailable Gordon Guzman Unavailable Unavailable PROVIDER, UNKNOWN Unavailable Unavailable Cody Cerna Unavailable Unavailable Cruzito Carrillo Unavailable Unavailable PROVIDER, UNKNOWN Unavailable Unavailable Cody Cerna Unavailable Unavailable Gordon Guzman Unavailable Unavailable PROVIDER, UNKNOWN Unavailable Unavailable Cody Cerna Unavailable Unavailable hCucky YATES-Kal Koo Unavailable Unavailable MINH WRIGHT MD Attending UnavailMINH Lopez MD Primary Care UnavailMINH Lopez MD Admitting UnavailCody Marie Primary Care Provider [phone] Cody Cerna Primary Care Provider [phone] Kal King Primary Care Provider Cody Cerna Primary Care Provider [phone] MARISABEL DAY Attending Unavailable KAL KING Primary Care Unavailable MARISABEL DAY Attending Unavailable KAL KING Primary Care Unavailable MARISABEL DAY Attending Unavailable KAL KING Primary Care Unavailable ELIZABETH HENRY Attending Unavailable CODY CERNA Primary Care Unavailable Rishi Higgins MD Unavailable Kal King DO Primary Care Provider ASHISH HERNANDEZ II Attending Unavailalexys e SELF Referring Unavailable KAL KING Primary Care Unavailable Allergies Allergy Classification Reported Allergen(s) Allergy Type Date of Onset Reaction(s) Facility Iodine (and Iodine containting drugs) (1 source) Iodine Drug Allergy [facility] (20 sources) iodine; Translations: [IODINE] drug allergy 5 Hives [facility] Work Phone: (20 sources) traMADol; Translations: [TRAMADOL] food allergy 4 Other, Mental Status Change [facility] Work Phone: (2 sources) empagliflozin Drug Allergy 3 Dizziness [facility] Medications Current Medications Medication Drug Class(es) Dates Sig (Normalized) Sig (Original) atorvastatin 80 mg oral tablet (19 sources) HMG-CoA Reductase Inhibitor Start: 08-28-2013 atorvastatin (Lipitor) 80 MG tablet Completed/Discontinued Medications Medication Drug Class(es) Dates Sig (Normalized) Sig (Original) HYDROCODONE-ACETAM INOPHEN (20 sources) Opioid Agonist Start: 11-17-2015 take 1 tablet by mouth twice daily NORCO 5-325 MG TABS One tablet by mouth twice daily HYDROCODONE-ACETAMI NOPHEN [id number] Hank Cox MD Problems Active Problems Problem Classification Problem Date Documented Date Episodic/Chronic Acute and unspecified renal failure (1 source) Renal failure syndrome; Translations: [Unspecified kidney failure] Onset: 06-26-2006 06-26-2006 Chronic Acute cerebrovascular disease (20 sources) Cerebral infarction; Translations: [Occlusion of cerebral artery with stroke] Onset: 01-13-2015 01-13-2015 Chronic Aortic; peripheral; and visceral artery aneurysms (2 sources) Aortic ectasia, unspecified site; Translations: [Aortic ectasia, unspecified site] Onset: 05-09-2018 Chronic Cardiac dysrhythmias (20 sources) Paroxysmal atrial fibrillation; Translations: [Chronic atrial fibrillation] Onset: 03-01-2008 09-11-2010 Chronic Cataract (1 source) Bilateral pseudophakia; Translations: [Presence of intraocular lens] 08-21-2023 Chronic Chronic obstructive pulmonary disease and bronchiectasis (2 sources) Chronic obstructive lung disease; Translations: [Chronic obstructive pulmonary disease, unspecified] Onset: 05-27-2014 05-27-2014 Chronic Congestive heart failure; nonhypertensive (1 source) Congestive heart failure; Translations: [Heart failure, unspecified] Onset: 05-27-2014 05-27-2014 Chronic Coronary atherosclerosis and other heart disease (20 sources) Coronary atherosclerosis; Translations: [Coronary arteriosclerosis] Onset: 04-12-2005 09-11-2010 Chronic Coronary atherosclerosis and other heart disease (20 sources) Coronary angioplasty status; Translations: [Presence of aortocoronary bypass graft] Onset: 09-11-2010 09-11-2010 Episodic Diabetes mellitus with complications (1 source) Disorder of nervous system due to diabetes mellitus; Translations: [Diabetes mellitus with neurological manifestations, uncontrolled] Onset: 04-11-2005 07-06-2015 Chronic Diabetes mellitus without complication (20 sources) Diabetes mellitus; Translations: [Type 1 diabetes mellitus without complications] Onset: 09-11-2010 03-02-2013 Chronic Disorders of lipid metabolism (12 sources) Hyperlipidemia; Translations: [Hyperlipidemia, unspecified] Onset: 04-11-2005 09-11-2010 Chronic Diverticulosis and diverticulitis (1 source) Diverticulosis of colon; Translations: [Diverticulosis of large intestine without perforation or abscess without bleeding] Onset: 04-11-2005 03-01-2006 Chronic Esophageal disorders (3 sources) Gastro-esophageal reflux disease without esophagitis; Translations: [Gastroesophageal reflux disease] Onset: 04-11-2005 11-05-2013 Chronic Essential hypertension (20 sources) Hypertensive disorder; Translations: [Essential (primary) hypertension] Onset: 04-11-2005 09-11-2010 Chronic Heart valve disorders (8 sources) Nonrheumatic aortic (valve) insufficiency; Translations: [Nonrheumatic mitral (valve) insufficiency] Onset: 01-17-2018 Chronic Hyperplasia of prostate (2 sources) Benign prostatic hyperplasia without lower urinary tract symptoms; Translations: [Benign prostatic hyperplasia without lower urinry tract symp] Onset: 03-04-2018 Chronic Occlusion or stenosis of precerebral arteries (2 sources) Vertebral artery stenosis; Translations: [Occlusion and stenosis of unspecified vertebral artery] Onset: 04-07-2009 04-07-2009 Chronic Osteoarthritis (2 sources) Degenerative joint disease involving multiple joints; Translations: [Polyosteoarthritis, unspecified] Onset: 04-11-2005 07-06-2015 Chronic Other and ill-defined heart disease (2 sources) Cardiomegaly; Translations: [Cardiomegaly] Onset: 01-17-2018 Chronic Other circulatory disease (6 sources) Device in situ; Translations: [Presence of other cardiac implants and grafts] Onset: 03-04-2018 11-16-2022 Chronic Other circulatory disease (8 sources) Presence of other cardiac implants and grafts; Translations: [Other specified cardiac device in situ] Onset: 03-04-2018 04-22-2023 Chronic Other diseases of veins and lymphatics (1 source) Bilateral lower limb edema; Translations: [Chronic venous hypertension (idiopathic) without complications of bilateral lower extremity] Onset: 10-26-2015 10-26-2015 Chronic Other ear and sense organ disorders (2 sources) Unspecified hearing loss, unspecified ear; Translations: [Unspecified hearing loss, unspecified ear] Onset: 03-04-2018 Chronic Other eye disorders (1 source) Pallor of optic disc; 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, bilateral] 08-21-2023 Chronic Other eye disorders (1 source) Scar of cornea of right eye; Translations: [Unspecified corneal scar and opacity] 08-21-2023 Episodic Other eye disorders (1 source) Iris atrophy (essential) (progressive), bilateral; Translations: [Other iris atrophy] 08-21-2023 Episodic Other nervous system disorders (1 source) Chronic pain syndrome; Translations: [Chronic pain syndrome] Onset: 10-26-2015 10-26-2015 Chronic Other nutritional; endocrine; and metabolic disorders (14 sources) Body mass index (BMI) 34.0-34.9, adult; Translations: [Body mass index (BMI) 35.0-35.9, adult] Onset: 08-27-2013 02-23-2015 Chronic Other nutritional; endocrine; and metabolic disorders (5 sources) Body mass index (BMI) 36.0-36.9, adult; Translations: [Body mass index (BMI) 36.0-36.9, adult] Onset: 08-27-2013 08-27-2013 Chronic Other nutritional; endocrine; and metabolic disorders (1 source) Obesity; Translations: [Obesity, unspecified] Onset: 04-11-2005 03-01-2006 Chronic Peripheral and visceral atherosclerosis (2 sources) Atherosclerosis of aorta; Translations: [Atherosclerosis of aorta] Onset: 01-17-2018 Chronic Spondylosis; intervertebral disc disorders; other back problems (3 sources) Degeneration of lumbar intervertebral disc; Translations: [Other intervertebral disc degeneration, lumbar region] Onset: 09-23-2013 06-18-2013 Chronic Substance-related disorders (9 sources) Tobacco dependence syndrome; Translations: [Nicotine dependence, unspecified, uncomplicated] Onset: 09-11-2010 09-11-2010 Chronic Unclassified (15 sources) Long-term drug therapy; Translations: [Long-term (current) use of other medications] Onset: 12-13-2011 Resolved: 06-10-2015 06-10-2015 Unclassified (8 sources) Finding of body mass index; Translations: [Body mass index (BMI) 34.0-34.9, adult] Onset: 08-27-2013 02-23-2015 Unclassified (2 sources) Longstanding persistent atrial fibrillation; Translations: [Longstanding persistent atrial fibrillation (HCC)] Onset: 04-21-2022 Unclassified (2 sources) Permanent atrial fibrillation; Translations: [Permanent atrial fibrillation (HCC)] Onset: 04-21-2022 Past or Other Problems Problem Classification Problem Date Documented Date Episodic/Chronic Cardiac dysrhythmias (9 sources) Palpitations; Translations: [Palpitations] Onset: 09-11-2010 09-11-2010 Episodic Malaise and fatigue (1 source) Asthenia; Translations: [Other malaise] Onset: 01-31-2009 01-31-2009 Episodic Nonspecific chest pain (9 sources) Precordial pain; Translations: [Precordial pain] Onset: 09-11-2010 09-11-2010 Episodic Other aftercare (12 sources) Other termite helper (current) drug therapy; Translations: [Long-term (current) use of other medications] Onset: 12-13-2011 Resolved: 06-10-2015 06-10-2015 Episodic Other aftercare (2 sources) 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 computer 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 (current) use of insulin; Translations: [FDC (current) use of insulin] Onset: 03-04-2018 Episodic Other aftercare (2 sources) FDC (current) use of aspirin; Translations: [FDC (current) use of aspirin] Onset: 03-04-2018 Episodic Other and unspecified benign neoplasm (1 source) History of polyp of colon; Translations: [Personal history of colonic polyps] Onset: 04-11-2005 03-31-2010 Episodic Other and unspecified benign neoplasm (1 source) Benign tumor of head and neck; Translations: [Other benign neoplasm of skin of scalp and neck] Onset: 06-12-2007 12-05-2007 Episodic Other and unspecified benign neoplasm (1 source) Benign neoplasm of skin of trunk; Translations: [Other benign neoplasm of skin of trunk] Onset: 04-18-2013 04-18-2013 Episodic Other circulatory disease (2 sources) Personal history of transient ischemic attack (TIA), and cerebral infarction without residual deficits; Translations: [Prsnl hx of TIA (TIA), and cereb infrc w/o resid deficits] Onset: 03-04-2018 Episodic Other connective tissue disease (1 source) Tendinitis of hip; Translations: [Other specified enthesopathies of unspecified lower limb, excluding foot] Onset: 03-02-2015 03-02-2015 Episodic Other diseases of veins and lymphatics (1 source) Stasis dermatitis; Translations: [Venous insufficiency (chronic) (peripheral)] Onset: 10-26-2015 10-26-2015 Episodic Other injuries and conditions due to external causes (2 sources) History of falling; Translations: [History of falling] Onset: 03-04-2018 Episodic Other lower respiratory disease (9 sources) Dyspnea; Translations: [Shortness of breath] Onset: 10-19-2015 10-19-2015 Episodic Other non-traumatic joint disorders (1 source) Hip pain; Translations: [Pain in left hip] Onset: 03-02-2015 03-02-2015 Episodic Other screening for suspected conditions (not mental disorders or infectious disease) (13 sources) Abnormal result of cardiovascular function study, unspecified; Translations: [History of myocardial infarction] Onset: 09-11-2010 09-11-2010 Episodic Other screening for suspected conditions (not mental disorders or infectious disease) (1 source) Patient encounter status; Translations: [Encounter for screening for malignant neoplasm of colon] Onset: 02-16-2016 02-16-2016 Episodic Other skin disorders (1 source) Seborrheic keratosis; Translations: [Other seborrheic keratosis] Onset: 03-01-2006 03-01-2006 Episodic Other skin disorders (1 source) Disorder of skin and/or subcutaneous tissue; Translations: [Disorder of the skin and subcutaneous tissue, unspecified] Onset: 04-01-2013 04-01-2013 Episodic Other skin disorders (1 source) Skin lesion; Translations: [Disorder of the skin and subcutaneous tissue, unspecified] Onset: 07-16-2013 07-16-2013 Episodic Residual codes; unclassified (1 source) Family history of disorder; Translations: [Family history of other specified conditions] Onset: 05-22-2008 05-22-2008 Episodic Screening and history of mental health and substance abuse codes (3 sources) Personal history of nicotine dependence; Translations: [Tobacco use and exposure - finding] Onset: 12-05-2007 11-05-2013 Episodic Spondylosis; intervertebral disc disorders; other back problems (2 sources) Spinal stenosis of lumbar region; Translations: [Spinal stenosis, lumbar region without neurogenic claudication] Onset: 09-23-2013 09-23-2013 Episodic Results Test Name Value Interpretation Reference Range Facil ity Vital Signs Date Time Vital Sign Value Performing Clinician Riccardo gómez 05-14-2023 08:37-0500 Body height 175.3 cm Marisabel Day MD Work Phone: [facility] 05-14-2023 08:37-0500 Body mass index (BMI) [Ratio] 34.28 kg/m2 Marisabel Day MD Work Phone: [facility] 05-14-2023 08:37-0500 Body weight 105.28 kg Marisabel Day MD Work Phone: [facility] 05-14-2023 08:37-0500 Diastolic blood pressure 58 mm[Hg] Marisabel Day MD Work Phone: [facility] 05-14-2023 08:37-0500 Heart rate 98 /min Marisabel Day MD Work Phone: [facility] 05-14-2023 08:37-0500 SaO2% (BldA) [Mass fraction] 96 % Marisabel Day MD Work Phone: [facility] 05-14-2023 08:37-0500 Systolic blood pressure 90 mm[Hg] Marisabel Day MD Work Phone: [facility] 04-22-2023 15:25-0400 Body height 175.3 cm Marisabel Day MD Work Phone: [facility] 10-16-2023 15:25-0400 Body mass index (BMI) [Ratio] 35.38 kg/m2 Marisabel Day MD Work Phone: [facility] 04-22-2023 15:25-0400 Body weight 108.68 kg Marisabel Day MD Work Phone: [facility] 04-22-2023 15:25-0400 Diastolic blood pressure 60 mm[Hg] Marisabel Day MD Work Phone: [facility] 04-22-2023 15:25-0400 Heart rate 63 /min Marisabel Day MD Work Phone: [facility] 04-22-2023 15:25-0400 SaO2% (BldA) [Mass fraction] 92 % Marisabel Day MD Work Phone: [facility] 04-22-2023 15:25-0400 Systolic blood pressure 130 mm[Hg] Marisabel Day MD Work Phone: [facility] 11-16-2022 14:59-0400 Body height 175.3 cm Elizabeth Henry MD Work Phone: [facility] 11-16-2022 14:59-0400 Body mass index (BMI) [Ratio] 34.85 kg/m2 Elizabeth Henry MD Work Phone: [facility] 11-16-2022 14:59-0400 Body weight 107.05 kg Elizabeth Henry MD Work Phone: [facility] 11-16-2022 14:59-0400 Diastolic blood pressure 60 mm[Hg] Elizabeth Henry MD Work Phone: [facility] 11-16-2022 14:59-0400 Heart rate 61 /min Elizabeth Henry MD Work Phone: [facility] 11-16-2022 14:59-0400 Respiratory rate 15 /min Elizabeth Henry MD Work Phone: [facility] 11-16-2022 14:59-0400 Systolic blood pressure 126 mm[Hg] Elizabeth Henry MD Work Phone: [facility] 03-04-2017 13:16-0400 BMI (Body Mass Index) 34.55 kg/m2 Naveed [facility] Work Phone: 03-04-2017 13:16-0400 BP Diastolic 54 mm[Hg] Naveed Gayle [facility] Work Phone: 03-04-2017 13:16-0400 BP Systolic 116 mm[Hg] Naveed Gayle [facility] Work Phone: 03-04-2017 13:16-0400 Height 175.26 cm Naveed Gayle [facility] Work Phone: 03-04-2017 13:16-0400 Pulse (Heart Rate) 76 /min Naveed Gayle [facility] Work Phone: 03-04-2017 13:16-0400 Respiratory Rate 18 /min Naveed Gayle [facility] Work Phone: 03-04-2017 13:16-0400 Weight 106.14 kg Naveed Gayle [facility] Work Phone: 12-11-2016 09:08-0400 Body weight 106.14 kg Kal Locke MILAN-Hanane [facility] Work Phone: 12-11-2016 09:08-0400 BP Diastolic 66 mm[Hg] Harumi DeFinmiguel [facility] Work Phone: 12-11-2016 09:08-0400 BP Systolic 110 mm[Hg] Harumi DeFinis [facility] Work Phone: 12-11-2016 09:08-0400 Pulse (Heart Rate) 68 /min Harumi DeFinis [facility] Work Phone: 12-11-2016 09:08-0400 Respiratory Rate 20 /min Harumi DeFinis [facility] Work Phone: 12-11-2016 09:08-0400 Weight 106.14 kg Harnéstor DeFinis [facility] Work Phone: 11-26-2016 15:42-0400 Heart rate 79 /min Kal Locke INTELLIGENCE CHIEF-C [facility] Work Phone: 11-26-2016 14:27-0400 BMI (Body Mass Index) 34.26 kg/m2 Kal Locke INTELLIGENCE CHIEF-C [facility] Work Phone: 11-26-2016 14:27-0400 Body weight 105.24 kg Kal Locke INTELLIGENCE CHIEF-C [facility] Work Phone: 11-26-2016 14:27-0400 BP Diastolic 72 mm[Hg] Kal Locke INTELLIGENCE CHIEF-C [facility] Work Phone: 11-26-2016 14:27-0400 BP Systolic 142 mm[Hg] Kal Locke INTELLIGENCE CHIEF-C [facility] Work Phone: 11-26-2016 14:27-0400 Height 175.26 cm Kal Locke INTELLIGENCE CHIEF-C [facility] Work Phone: 11-26-2016 14:27-0400 Pulse (Heart Rate) 80 /min Kal Locke INTELLIGENCE CHIEF-C [facility] Work Phone: 11-26-2016 14:27-0400 Respiratory Rate 18 /min Kal Locke INTELLIGENCE CHIEF-C [facility] Work Phone: 05-17-2016 10:02-0500 BSA (Body Surface Area) 2.18 m2 Kal Locke INTELLIGENCE CHIEF-C [facility] Work Phone: 03-12-2014 13:31-0400 BP Diastolic 60 mm[Hg] Kal Locke INTELLIGENCE CHIEF-C [facility] Work Phone: 03-12-2014 13:31-0400 BP Diastolic 64 mm[Hg] Kal Locke INTELLIGENCE CHIEF-C [facility] Work Phone: 03-12-2014 13:31-0400 BP Systolic 110 mm[Hg] Kal Locke INTELLIGENCE CHIEF-C [facility] Work Phone: 03-12-2014 13:31-0400 BP Systolic 84 mm[Hg] Kal Locke INTELLIGENCE CHIEF-C [facility] Work Phone: 03-12-2014 13:31-0400 Pulse Oximetry 94 % Kal Locke INTELLIGENCE CHIEF-C [facility] Work Phone: 10-01-2013 13:11-0400 Heart rate 437 ms Kal Locke INTELLIGENCE CHIEF-C [facility] Work Phone: Encounters Encounter Date Encounter Type Care Provider Facility Start: 08-21-2023 End: 08-21-2023 ambulatory ASHISH Theresa LOWEBRAXTON II Facility:[facility] Start: 08-21-2023 End: 08-21-2023 Patient encounter procedure Ashish Lowebraxton OD Work Phone: Optometry Procedures Date Procedure Procedure Detail Performing Clinician Start: 08-21-2023 End: 08-21-2023 Visual field xm uni/bi w/interp extended exam Ashish Lowebraxton OD Work Phone: Start: 04-22-2023 Ecg routine ecg w/least 12 lds trcg only w/o i&r Marisabel Day MD Work Phone: Start: 11-16-2022 Ecg routine ecg w/least 12 lds w/i&r Elizabeth Henry MD Work Phone: Start: 03-04-2017 End: 03-04-2017 Follow Up Appt 6 months Hank Cox MD Start: 03-04-2017 End: 03-04-2017 MMM Hank Cox MD Start: 12-11-2016 End: 12-11-2016 Follow Up BP Check Hank Cox MD Start: 12-10-2016 End: 12-24-2016 *BMP Kal Locke INTELLIGENCE CHIEF-C Start: 11-26-2016 End: 11-26-2016 Documentation of current medications Kal Locke INTELLIGENCE CHIEF-C Start: 11-26-2016 Lipid 1996 panel - Serum or Plasma Elizabeth Henry MD Work Phone: Start: 11-26-2016 End: 11-27-2016 *BMP Kal Locke INTELLIGENCE CHIEF-C Start: 11-26-2016 End: 11-27-2016 BNP Kal Locke INTELLIGENCE CHIEF-C Start: 11-26-2016 End: 11-26-2016 Electrocardiogram, complete Kal Locke INTELLIGENCE CHIEF-C Start: 11-26-2016 End: 11-26-2016 Follow Up Appt Other Kal Locke INTELLIGENCE CHIEF-C Start: 05-17-2016 End: 05-17-2016 Dietary management education, guidance, and counseling Kal Locke INTELLIGENCE CHIEF-C Start: 05-17-2016 End: 05-17-2016 Follow Up Appt 9 months Hank Cox MD Start: 05-17-2016 End: 05-17-2016 Follow Up Appt Other Hank Cox MD Start: 05-17-2016 End: 05-17-2016 PFM Hank Cox MD Start: 12-12-2015 End: 11-26-2016 *Hepatic Function Panel Hank Cox MD Start: 12-12-2015 End: 11-26-2016 Lipid panel [AGGREGATE] Hank Cox MD Start: 11-17-2015 End: 11-17-2015 Follow Up Appt 6 months Hank Cox MD Start: 11-17-2015 End: 05-17-2016 Follow Up BP Check Hank Cox MD Start: 11-17-2015 End: 11-17-2015 PFM Hank Cox MD Start: 10-19-2015 End: 10-24-2015 *BMP Valarie Alvarez PA-C Work Phone: Start: 05-27-2015 End: 05-27-2015 Follow Up Appt 6 months Hank Cox MD Start: 05-27-2015 End: 05-27-2015 PFM Hank Cox MD Start: 02-23-2015 History of carotid endarterectomy S/P carotid endarterectomy Ashish Hernandez II, OD Work Phone: Start: 02-23-2015 End: 02-24-2015 Documentation of current medications Hank Cox MD Start: 02-23-2015 End: 02-23-2015 Follow Up Appt 3 months Hank Cox MD Start: 02-23-2015 End: 02-23-2015 PFM Hank Cox MD Start: 01-13-2015 End: 05-17-2016 PFM Hank Cox MD Start: 09-27-2014 End: 06-10-2015 *Hepatic Function Panel Hank Cox MD Start: 09-27-2014 End: 06-10-2015 Lipid panel [AGGREGATE] Hank Cox MD Start: 07-12-2014 End: 07-12-2014 Follow Up Appt 6 months Hank Cox MD Start: 07-12-2014 End: 07-12-2014 MMM Hank Cox MD Start: 03-12-2014 End: 03-27-2014 *Hepatic Function Panel Hank Cox MD Start: 03-12-2014 End: 03-12-2014 Follow Up Appt 3 months Hank Cox MD Start: 03-12-2014 End: 03-27-2014 Lipid panel [AGGREGATE] Hank Cox MD Start: 03-12-2014 End: 03-12-2014 MMM Hank Cox MD Start: 10-01-2013 End: 10-01-2013 Follow Up Appt Other Valarie villa PA-C Work Phone: Start: 08-27-2013 End: 08-31-2013 *BMP Hank Cox MD Start: 08-27-2013 End: 09-18-2013 Echocardiography Hank Cox MD Start: 08-27-2013 End: 08-27-2013 Electrocardiogram, complete Hank Cox MD Start: 08-27-2013 End: 08-27-2013 Follow Up Appt 6 months Hank Cox MD Start: 08-27-2013 End: 08-27-2013 MMM Hank Cox MD Start: 08-27-2013 End: 09-18-2013 Nuclear stress test -adenosine Hank Cox MD Start: 03-08-2013 End: 03-17-2013 *Hepatic Function Panel Hank Cox MD Start: 03-08-2013 End: 03-17-2013 Lipid panel [AGGREGATE] Hank Cox MD Start: 03-02-2013 End: 03-02-2013 Electrocardiogram, complete Valarie Alvarez PA-C Work Phone: Start: 03-02-2013 End: 03-02-2013 Follow Up Appt 6 months Valarie rangel PA-C Work Phone: Start: 03-02-2013 End: 03-02-2013 PFM Valarie Alvarez PA-C Work Phone: Start: 09-25-2012 End: 09-29-2012 *BMP Hank Cox MD Start: 09-04-2012 End: 09-04-2012 Electrocardiogram, complete Hank Cox MD Start: 09-04-2012 End: 09-04-2012 Follow Up Appt 6 months Hank Cox MD Start: 09-04-2012 End: 09-04-2012 Follow Up Appt Other Hank Cox MD Start: 09-04-2012 End: 09-04-2012 MMM Hank Cox MD Start: 06-07-2012 End: 09-29-2012 *Hepatic Function Panel Hank Cox MD Start: 06-07-2012 End: 09-29-2012 Lipid panel [AGGREGATE] Hank Cox MD Start: 10-18-2011 End: 12-13-2011 *Hepatic Function Panel Hank Cox MD Start: 10-18-2011 End: 10-18-2011 Follow Up Appt 6 months Hank Cox MD Start: 10-18-2011 End: 12-13-2011 Lipid panel [AGGREGATE] Hank Cox MD Start: 12-22-2007 History of coronary artery bypass grafting H/O three vessel coronary artery bypass Elizabeth Henry MD Work Phone: Start: 07-08-2007 History of placement of stent for coronary artery disease S/P coronary artery stent placement Elizabeth Henry MD Work Phone: History of coronary artery bypass grafting H/O three vessel coronary artery bypass Marisabel Day MD Work Phone: History of placement of stent for coronary artery disease S/P coronary artery stent placement Marisabel Day MD Work Phone: History of placement of stent for coronary artery disease S/P coronary artery stent placement Marisabel Day MD Work Phone: Plan of Treatment Date Care Activity Detail Author Start: 08-21-2024 Glaucoma screening Dilated Retinal Exam [facility] Start: 05-20-2024 Creatinine measurement Creatinine Level [facility] Start: 05-20-2024 Potassium measurement Potassium Level [facility] Start: 07-08-2023 Advance Directive Discussion Advance Directive Discussion [facility] Start: 07-08-2023 Depression Assessment Depression Assessment [facility] Start: 06-13-2023 End: 06-13-2023 Patient encounter procedure 06/13/2023 12:30 PM EST Office Visit [facility] [address] [place] [phone] Marisabel Day MD [address] [address] [facility] Start: 05-14-2023 End: 05-14-2024 Basic metabolic 1998 panel - Serum or Plasma Basic metabolic panel Lab Routine Primary hypertension Expected: 05/14/2023 (Approximate), Expires: 05/14/2024 [facility] Work Phone: Immunizations Immunization Date Immunization Notes Care Provider Fa cility 03-20-2022 influenza virus vaccine, unspecified formulation Marisabel Day MD Work Phone: [facility] 04-02-2016 influenza, high dose seasonal, preservative-free Ashish Hernandez II, OD Work Phone: [facility] 05-21-2015 influenza, high dose seasonal, preservative-free Ashish Hernandez II OD Work Phone: [facility] Work Phone: 08-06-2014 pneumococcal conjuga te vaccine, 13 valent Ashish Hernandez II, OD Work Phone: [facility] 05-06-2014 influenza, seasonal, injectable Ashish Hernandez II OD Work Phone: [facility] 05-06-2014 tetanus and diphther ia toxoids, adsorbed, preservative free, for adult use (5 Lf of tetanus toxoid and 2 Lf of diphtheria toxoid) Ashish Hernandez II OD Work Phone: [facility] 03-27-2013 influenza virus vaccine, unspecified formulation Ashish Hernandez II, OD Work Phone: [facility] 03-31-2010 influenza virus vaccine, unspecified formulation Ashish Hernandez II, OD Work Phone: [facility] Work Phone: 05-07-2007 influenza virus vaccine, unspecified formulation Ashish Hernandez II, OD Work Phone: [facility] Work Phone: 05-07-2006 influenza virus vaccine, unspecified formulation Ashish Hernandez II, OD Work Phone: [facility] Work Phone: 2005 influenza virus vaccine, unspecified formulation Ashish Hernandez II, OD Work Phone: [facility] Work Phone: 04-12-2004 pneumococcal polysaccharide vaccine, 23 valent Ashish Hernandez II, OD Work Phone: [facility] Payers Date Payer Category Payer Medicaid [id number] 2021 Medicaid 2021 Medicaid [id number] 2017 Medicare 2017 Medicare [id number] 2017 Private Health Insurance 1940 Unknown [id number] 1940 Unknown [id number] 1940 Unknown [id number] 1940 Unknown [id number] 1940 Unknown [id number] Social History Date Type Detail Facility Start: 04-22-2023 End: 08-21-2023 Tobacco smoking status OHIS Ex-smoker [facility] End: 07-08-1987 History of tobacco use Current smoker [facility] End: 07-08-1987 History of tobacco use Cigarette Smoker [facility] Start: 11-15-2022 End: 02-14-2024 Alcohol intake Current non-drinker of alcohol (finding) [facility] Start: 1940 Sex Assigned At Not on file [facility] Start: 11-06-2022 End: 11-16-2022 Exposure to SARS-CoV-2 (event) Not sure [facility] Start: 06-14-2020 End: 11-15-2022 History of Social function [facility] Start: 06-14-2020 End: 11-15-2022 Tobacco use panel [facility] Start: 04-22-2023 End: 08-21-2023 Tobacco use and exposure Former smokeless tobacco user [facility] History of tobacco use Cigar Smoker [facility] End: 11-28-2007 History of tobacco use Chews Tobacco [facility] National Score (1-10 0), lower number is lower risk Not on file [facility] Start: 08-21-2023 Tobacco Comment Cigar pack las t 3 to 4 days. Pipe for 53 years [facility] Medical Equipment Procedure Code Equipment Code Equipment Origin al Text Equipment Identifier Dates [id number] Start: 03-16-2013 Clinical Notes 06-19-2010 to 08-21-2023 Patient InstructionsCoAshish bella II, OD - 08/21/2023 4:43 PM Fletcher Day MD - 05/14/2023 8:45 AM ESTTelephone Encounter - Radha Irizarry - 04/22/2023 4:12 PM EDT Note Date & Type Note Facility 08-21-2023 Note HNO ID: [id number] Author: ASHISH HERNANDEZ II, OD Service: ? 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 Maximize cardiovascular health. Monitor. E11.9 Type 2 diabetes mellitus without retinopathy (HCC) Comment: Examination shows no ocular diabetic complications today. Discussed need for optimal diabetes control to minimize chance of ocular complications. Advise patient to immediately report worsening in status or additional symptoms. Continue yearly dilated eye examinations. Z96.1 Pseudophakia of both eyes Comment: Posterior chamber intraocular lenses are well positioned and clear. 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 Metal fb still present in head. 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 Monitor. I have confirmed and edited as necessary the relevant ophthalmic history, ROS, and the neuro exam findings as obtained by others. I have seen and examined June Guaman. I have discussed the case and the management of this patient's care with the Resident/Fellow, if applicable. I also have reviewed and agree with the assessment and plan as stated above and agree with all of its relevant components. 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 Maximize cardiovascular health. Monitor. E11.9 Type 2 diabetes mellitus without retinopathy (HCC) Comment: Examination shows no ocular diabetic complications today. Discussed need for optimal diabetes control to minimize chance of ocular complications. Advise patient to immediately report worsening in status or additional symptoms. Continue yearly dilated eye examinations. Z96.1 Pseudophakia of both eyes Comment: Posterior chamber intraocular lenses are well positioned and clear. 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 Metal fb still present in head. 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 Monitor. I have confirmed and edited as necessary the relevant ophthalmic history, ROS, and the neuro exam findings as obtained by others. I have seen and examined June Caned Sergio. I have discussed the case and the management of this patient's care with the Resident/Fellow, if applicable. I also have reviewed and agree with the assessment and plan as stated above and agree with all of its relevant components. 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 Maximize cardiovascular health. Monitor. E11.9 Type 2 diabetes mellitus without retinopathy (HCC) Comment: Examination shows no ocular diabetic complications today. Discussed need for optimal diabetes control to minimize chance of ocular complications. Advise patient to immediately report worsening in status or additional symptoms. Continue yearly dilated eye examinations. Z96.1 Pseudophakia of both eyes Comment: Posterior chamber intraocular lenses are well positioned and clear. 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 Metal fb still present in head. 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 Monitor. I have confirmed and edited as necessary the relevant ophthalmic history, ROS, and the neuro exam findings as obtained by others. I have seen and examined June Guaman. I have discussed the case and the management of this patient's care with the Resident/Fellow, if applicable. I also have reviewed and agree with the assessment and plan as stated above and agree with all of its relevant components. Ashish Hernandez II, OD documented in this encounter [facility] 05-14-2023 History of Presen t illness Narrative [facility] [address] [place] [id number] Dept: [phone] Dept Visit type: Established : 1940 Chief Complaint: Chief Complaint Patient presents with Follow-up History of Present Illness: June Guaman is a 83 y.o. male Today I had the opportunity to see this patient for a follow-up visit I saw him about a month ago with congestive heart failure. He was placed on spironolactone as well as Jardiance for his heart failure. He has lost about 6 pounds he no longer is complaining of shortness of breath. He has permanent atrial fibrillation. He has periods of lightheadedness and dizziness. He has been rate controlled both with both diltiazem as well as metoprolol. Past Medical History: Past Medical History: Diagnosis Date Arrhythmia Paroxysmal Atrial Fibrillation Atrial fibrillation (HCC) BPH (benign prostatic hyperplasia) CAD (coronary artery disease) Carotid stenosis, bilateral Cerebral artery occlusion with cerebral infarction (HCC) Acute Ischemic Stroke Diabetes mellitus (HCC) Type 2 GERD (gastroesophageal reflux disease) H/O cardiovascular stress test 10/[facility]O three vessel coronary artery bypass 12/22/2007 Per September 2013 cath LAD- Graft 1 DARNELL with anastomosis at the distal LAD 2nd OM Graft 2- was a SVG with anastomosis at the mid OM. There was a 80% diffuse stenosis in the distal 2nd graft. (PIETRO placed) 1st Diag Graft #3 was a SVG with anastomosis at the mid first diag artery. 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 Hiatal hernia History of Holter monitoring 10/03/2017 24 hour History of Holter monitoring 02/10/2021 Hyperlipidemia Hypertension Past Surgical History Past Surgical History: Procedure Laterality Date CARDIAC CATHETERIZATION CARDIAC SURGERY 03/04/2018 Watchman procedure CAROTID ENDARTERECTOMY Right 02/10/2015 Dr Higgins CORONARY ANGIOPLASTY 04/14/2008 PTCA/PIETRO first DX, sequential SCG to OM1 and OM2 CORONARY ANGIOPLASTY 02/25/2008 PTCA/Stent to Mid RCA and mid LAD and second diagonal CORONARY ANGIOPLASTY 09/2013 PTCA/Stent to LXC AV groove branch and OM 1 CORONARY ANGIOPLASTY 11/30/2007 PTCA/Stent to prox RCA and PTCA to PDA CORONARY ARTERY BYPASS GRAFT 12/22/2007 CABG with DARNELL to LAD, SVG to diag, sequential SVG to OM1 and OM2 CORONARY STENT PLACEMENT TRANSESOPHAGEAL ECHOCARDIOGRAM 01/17/2018 03/04/18 Family History Family History Problem Relation Name Age of Onset Other (81631) Sister Brain Aneurysm Cancer Mother Other ([id number]) Sister Brain Aneurysm Social History Social History Tobacco Use Smoking status: Former Types: Cigarettes Quit date: 07/08/1987 Years since quittin.8 Smokeless tobacco: Former Substance Use Topics Alcohol use: No Drug use: No Allergies: Allergies Allergen Reactions Iodine Hives topically Jardiance [Empagliflozin] Dizziness Tramadol Other Other reaction(s): Mental Status Change and tremors Medications: Current Outpatient Medications: aspirin 81 MG EC tablet, Take 81 mg by mouth daily., Disp: , Rfl: atorvastatin (Lipitor) 80 MG tablet, , Disp: , Rfl: betamethasone, augmented, (Diprolene AF) 0.05 % cream, , Disp: , Rfl: cetirizine (ZyrTEC) 10 MG tablet, Take 10 mg by mouth daily., Disp: , Rfl: dilTIAZem SR (Cardizem SR) 120 MG 12 hr capsule, Take 1 capsule (120 mg) by mouth daily., Disp: 90 capsule, Rfl: 3 furosemide (Lasix) 40 MG tablet, Take 40 mg by mouth daily., Disp: , Rfl: glimepiride (Amaryl) 4 MG tablet, Take 4 mg by mouth in the morning and 4 mg in the evening., Disp: , Rfl: isosorbide mononitrate ER (Imdur) 30 MG 24 hr tablet, , Disp: , Rfl: lactulose (Chronulac) 10 GM/15ML solution, Take 30 g by mouth 2 times daily., Disp: , Rfl: lansoprazole (Prevacid) [address] capsule, , Disp: , Rfl: Lantus SoloStar 100 UNIT/ML pen, , Disp: , Rfl: Linzess 290 MCG capsule, , Disp: , Rfl: meclizine (Antivert) 25 MG tablet, Take 25 mg by mouth 3 times daily as needed for dizziness., Disp: , Rfl: meloxicam (Mobic) 7.5 MG tablet, Take 7.5 mg by mouth daily., Disp: , Rfl: metoprolol tartrate (Lopressor) 100 MG tablet, , Disp: , Rfl: Multiple Vitamins-Minerals (multivitamin with minerals) tablet, Take 1 tablet by mouth daily., Disp: , Rfl: nitroglycerin (Nitrostat) 0.4 MG SL tablet, , Disp: , Rfl: pantoprazole (ProtoNix) 40 MG EC tablet, Take 40 mg by mouth in the morning and 40 mg in the evening. Do not crush, chew, or split. For 12 weeks then once daily., Disp: , Rfl: potassium chloride CR (K-Tab) 20 MEQ ER tablet, Take 20 mEq by mouth daily., Disp: , Rfl: pregabalin (Lyrica) 100 MG capsule, Take 100 mg by mouth 2 times daily., Disp: , Rfl: spironolactone (Aldactone) 25 MG tablet, Take 1 tablet (25 mg) by mouth daily., Disp: 90 tablet, Rfl: 3 tamsulosin (Flomax) 0.4 MG 24 hr capsule, , Disp: , Rfl: traZODone (Desyrel) 150 MG tablet, , Disp: , Rfl: triamcinolone (Kenalog) 0.1 % cream, APPLY TO THE AFFECTED AREA(S) THREE TIMES DAILY NEEDED, Disp: , Rfl: valsartan (Diovan) 160 MG tablet, Take 160 mg by mouth daily., Disp: , Rfl: Droplet Pen [place] 31G X 6 MM [facility], , Disp: , Rfl: empagliflozin (Jardiance) 10 MG, Take 1 tablet (10 mg) by mouth daily., Disp: 90 tablet, Rfl: 3 True Metrix Blood Glucose Test test strip, , Disp: , Rfl: Review of Systems: Review of Systems Constitutional: Positive for fatigue. Negative for activity change. HENT: Negative for nosebleeds and trouble swallowing. Eyes: Negative for discharge and visual disturbance. Respiratory: Positive for shortness of breath (some improvement). Negative for cough and wheezing. Cardiovascular: Positive for leg swelling (chronic but some improvement). Negative for chest pain and palpitations. Gastrointestinal: Negative for abdominal distention, abdominal pain, blood in stool, diarrhea and nausea. Hiatal hernia Endocrine: Negative for cold intolerance and heat intolerance. Genitourinary: Negative for hematuria. Musculoskeletal: Negative for gait problem and myalgias. Skin: Negative for color change and rash. Neurological: Positive for dizziness and light-headedness. Negative for syncope, weakness and numbness. Hematological: Does not bruise/bleed easily. Psychiatric/Behavioral: Negative for dysphoric mood. Physical Examination: Vitals: Vitals: 05/14/23 0837 BP: 90/58 BP Location: Right arm Patient Position: Sitting BP Cuff Size: Adult Pulse: 98 SpO2: 96% Weight: 232 lb 1.6 oz (105 kg) Height: 5' 9 (1.753 m) Body mass index is 34.28 kg/m . Physical Exam Vitals reviewed. Constitutional: Appearance: He is obese. HENT: Head: Normocephalic. Cardiovascular: Rate and Rhythm: Normal rate. Rhythm irregular. Heart sounds: Normal heart sounds. No murmur heard. No gallop. Pulmonary: Effort: Pulmonary effort is normal. Breath sounds: Normal breath sounds. Musculoskeletal: Cervical back: Neck supple. Neurological: Mental Status: He is alert. The cardiac exam today demonstrates an irregularly irregular rhythm. The rate is approximately 60. The chest was clear. The neck demonstrates no neck vein distention. The extremities show no significant edema markedly improved from his previous visit. Laboratory Tests: No results found for: WBC , HGB , HCT , MCV , PLT No results found for: GLUCOSE , CALCIUM , NA , K , CO2 , CL , BUN , CREATININE @LASTCMP@ No results found for: CHLPL , CHOL No results found for: TRIG No results found for: HDL No results found for: LDLCALC No results found for: BNP Assessment and Plan: 1. Coronary artery disease involving [place] coronary artery of [place] heart without angina pectoris 2. Permanent atrial fibrillation (HCC) 3. Primary hypertension 4. S/P coronary artery stent placement 5. H/O three vessel coronary artery bypass 6. Presence of Watchman left atrial appendage closure device My summary and recommendation today is to discontinue diltiazem. We will continue with metoprolol for rate control. He is not anticoagulated given his Watchman device. I have asked him to recheck a renal profile. I plan to see him back next month to reassess the situation. documented in this encounter [facility] 04-22-2023 Telephone encounter Note Patient is needing Jardiance and spironolactone to be sent to [facility] in [place] instead of [facility]. [facility] 04-22-2023 Miscellaneous Notes Patient is needing Jardiance and spironolactone to be sent to [facility] in [place] instead of [facility]. documented in this encounter [facility] 04-22-2023 History of Presen t illness Narrative [facility] Cardiology [facility] [address] [address] Dept: [phone] Dept Visit type: New : 1940 Chief Complaint: Chief Complaint Patient presents with [facility] History of Present Illness: June L Guaman is a 82 y.o. male Today I had to see this gentleman once again for a cardiac evaluation. I saw this gentleman many years ago and placed stents. He underwent bypass surgery with Dr. Donovan. He has been cared for by the cardiology group in [place]. He was seen at [facility] earlier this year. He is in permanent atrial fibrillation. He has a Watchman device. His major complaint is that of dyspnea with effort. He has been taking Lasix 40 mg daily. He has had no angina. He did have a syncopal episode in his garage. He noted dizziness and then he passed out and found himself on the floor. Fortunately he had no major injury. Past Medical History: Past Medical History: Diagnosis Date Arrhythmia Paroxysmal Atrial Fibrillation Atrial fibrillation (HCC) BPH (benign prostatic hyperplasia) CAD (coronary artery disease) Carotid stenosis, bilateral Cerebral artery occlusion with cerebral infarction (HCC) Acute Ischemic Stroke Diabetes mellitus (HCC) Type 2 GERD (gastroesophageal reflux disease) H/O cardiovascular stress test 10/[facility]/O three vessel coronary artery bypass 12/22/2007 Per September 2013 cath LAD- Graft 1 DARNELL with anastomosis at the distal LAD 2nd OM Graft 2- was a SVG with anastomosis at the mid OM. There was a 80% diffuse stenosis in the distal 2nd graft. (PIETRO placed) 1st Diag Graft #3 was a SVG with anastomosis at the mid first diag artery. 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 Hiatal hernia History of Holter monitoring 10/03/2017 24 hour History of Holter monitoring 02/10/2021 Hyperlipidemia Hypertension Past Surgical History Past Surgical History: Procedure Laterality Date CARDIAC CATHETERIZATION CARDIAC SURGERY 03/04/2018 Watchman procedure CAROTID ENDARTERECTOMY Right 02/10/2015 Dr Higgins CORONARY ANGIOPLASTY 04/14/2008 PTCA/PIETRO first DX, sequential SCG to OM1 and OM2 CORONARY ANGIOPLASTY 02/25/2008 PTCA/Stent to Mid RCA and mid LAD and second diagonal CORONARY ANGIOPLASTY 09/2013 PTCA/Stent to LXC AV groove branch and OM 1 CORONARY ANGIOPLASTY 11/30/2007 PTCA/Stent to prox RCA and PTCA to PDA CORONARY ARTERY BYPASS GRAFT 12/22/2007 CABG with DARNELL to LAD, SVG to diag, sequential SVG to OM1 and OM2 CORONARY STENT PLACEMENT TRANSESOPHAGEAL ECHOCARDIOGRAM 01/17/2018 03/04/18 Family History Family History Problem Relation Name Age of Onset Other (06508) Sister Brain Aneurysm Cancer Mother Other (25580) Sister Brain Aneurysm Social History Social History Tobacco Use Smoking status: Former Types: Cigarettes Quit date: 07/08/1987 Years since quittin.8 Smokeless tobacco: Former Substance Use Topics Alcohol use: No Drug use: No Allergies: Allergies Allergen Reactions Iodine Hives topically Tramadol Other Other reaction(s): Mental Status Change and tremors Medications: Current Outpatient Medications: aspirin 81 MG EC tablet, Take 81 mg by mouth daily., Disp: , Rfl: atorvastatin (Lipitor) 80 MG tablet, , Disp: , Rfl: betamethasone, augmented, (Diprolene AF) 0.05 % cream, , Disp: , Rfl: cetirizine (ZyrTEC) 10 MG tablet, Take 10 mg by mouth daily., Disp: , Rfl: dilTIAZem SR (Cardizem SR) 120 MG 12 hr capsule, Take 120 mg by mouth 2 times daily., Disp: , Rfl: furosemide (Lasix) 40 MG tablet, Take 40 mg by mouth daily., Disp: , Rfl: glimepiride (Amaryl) 4 MG tablet, Take 2 mg by mouth., Disp: , Rfl: isosorbide mononitrate ER (Imdur) 30 MG 24 hr tablet, , Disp: , Rfl: lactulose (Chronulac) 10 GM/15ML solution, Take 30 g by mouth 2 times daily., Disp: , Rfl: lansoprazole (Prevacid) [address] capsule, , Disp: , Rfl: Lantus SoloStar 100 UNIT/ML pen, , Disp: , Rfl: Linzess 290 MCG capsule, , Disp: , Rfl: meclizine (Antivert) 25 MG tablet, Take 25 mg by mouth 3 times daily as needed for dizziness., Disp: , Rfl: meloxicam (Mobic) 7.5 MG tablet, Take 7.5 mg by mouth daily., Disp: , Rfl: metoprolol tartrate (Lopressor) 100 MG tablet, , Disp: , Rfl: Multiple Vitamins-Minerals (multivitamin with minerals) tablet, Take 1 tablet by mouth daily., Disp: , Rfl: nitroglycerin (Nitrostat) 0.4 MG SL tablet, , Disp: , Rfl: pantoprazole (ProtoNix) 40 MG EC tablet, Take 40 mg by mouth in the morning and 40 mg in the evening. Do not crush, chew, or split. For 12 weeks then once daily., Disp: , Rfl: potassium chloride CR (K-Tab) 20 MEQ ER tablet, Take 20 mEq by mouth daily., Disp: , Rfl: pregabalin (Lyrica) 100 MG capsule, Take 100 mg by mouth 2 times daily., Disp: , Rfl: tamsulosin (Flomax) 0.4 MG 24 hr capsule, , Disp: , Rfl: traZODone (Desyrel) 150 MG tablet, , Disp: , Rfl: triamcinolone (Kenalog) 0.1 % cream, APPLY TO THE AFFECTED AREA(S) THREE TIMES DAILY NEEDED, Disp: , Rfl: valsartan (Diovan) 160 MG tablet, Take 160 mg by mouth daily., Disp: , Rfl: Droplet Pen [place] 31G X 6 MM [facility], , Disp: , Rfl: fluticasone (Flonase) 50 MCG/ACT nasal spray, , Disp: , Rfl: Roxzvprtztx-Jdzvhhsnb-Unbiup (Trelegy Ellipta) 200-62.5-25 MCG/ACT aerosol powder , Inhale 1 puff in the morning., Disp: , Rfl: True Metrix Blood Glucose Test test strip, , Disp: , Rfl: Review of Systems: Review of Systems Constitutional: Positive for fatigue. Negative for activity change. HENT: Negative for nosebleeds and trouble swallowing. Eyes: Negative for discharge and visual disturbance. Respiratory: Positive for shortness of breath. Negative for cough and wheezing. Cardiovascular: Positive for leg swelling (chronic). Negative for chest pain and palpitations. Gastrointestinal: Negative for abdominal distention, abdominal pain, blood in stool, diarrhea and nausea. Hiatal hernia Endocrine: Negative for cold intolerance and heat intolerance. Genitourinary: Negative for hematuria. Musculoskeletal: Negative for gait problem and myalgias. Skin: Negative for color change and rash. Neurological: Positive for dizziness and light-headedness. Negative for syncope, weakness and numbness. Hematological: Does not bruise/bleed easily. Psychiatric/Behavioral: Negative for dysphoric mood. Physical Examination: Vitals: Vitals: 04/22/23 1525 BP: 130/60 BP Location: Left arm Patient Position: Sitting BP Cuff Size: Adult Pulse: 63 SpO2: 92% Weight: 239 lb 9.6 oz (109 kg) Height: 5' 9 (1.753 m) Body mass index is 35.38 kg/m . Physical Exam Vitals reviewed. Constitutional: Appearance: He is obese. HENT: Head: Normocephalic. Cardiovascular: Rate and Rhythm: Normal rate and regular rhythm. Heart sounds: Normal heart sounds. No murmur heard. No gallop. Pulmonary: Effort: Pulmonary effort is normal. Breath sounds: Normal breath sounds. Musculoskeletal: General: No swelling. Cervical back: Neck supple. Skin: General: Skin is warm and dry. Neurological: General: No focal deficit present. Mental Status: He is alert and oriented to person, place, and time. Psychiatric: Mood and Affect: Mood normal. Behavior: Behavior normal. The cardiac exam today demonstrates an irregularly irregular rhythm. I hear no murmur or gallop. The chest is clear. The neck demonstrates elevation of venous pressure to the angle of the jaw with a V wave. The extremities demonstrate bilateral peripheral edema 1-2+. His electrocardiogram demonstrates atrial fibrillation with a right bundle branch block pattern Laboratory Tests: No results found for: WBC , HGB , HCT , MCV , PLT No results found for: GLUCOSE , CALCIUM , NA , K , CO2 , CL , BUN , CREATININE @LASTCMP@ No results found for: CHLPL , CHOL No results found for: TRIG No results found for: HDL No results found for: LDLCALC No results found for: BNP Assessment and Plan: 1. Coronary artery disease, unspecified vessel or lesion type, unspecified whether angina present, unspecified whether ke[place]aw or transplanted heart 2. S/P coronary artery stent placement 3. Presence of Watchman left atrial appendage closure device 4. Permanent atrial fibrillation (HCC) My summary and recommendation today is to add spironolactone 25 mg daily to the Lasix 40 mg. I have also added a SGLT 2 medication Jardiance 10 mg daily. I plan to see him back in a few weeks to reevaluate the situation. documented in this encounter [facility] 12-10-2022 Telephone encounter Note I called Mr. Guaman and he is feeling ok, he had some dizziness on diltiazem. I instructed to stop diltiazem and recheck BP, if systolic >150 mmHg, I instructed to increase valsartan to 1 tablet in am and 0.5 tablet in pm. [facility] Work Phone: 12-10-2022 Miscellaneous Notes I called Mr. Guaman and he is feeling ok, he had some dizziness on diltiazem. I instructed to stop diltiazem and recheck BP, if systolic >150 mmHg, I instructed to increase valsartan to 1 tablet in am and 0.5 tablet in pm. Labs from 07/22/22 from [facility] and Dr King's note to stat scanning. Per Dr King's office note 09/18/22, pt denied dizziness or lightheadedness. Also denies CP, palpitations, SOB. Left voicemail for asking for an update on pt's symptoms and if she is able to bring him for an appt. Requested labs from [facility] & office notes from Dr. Kal King's office. I returned call to pt's Jodie. She put him back on the diltiazem 120mg BID d/t elevated BP's. BP last 2 days 115/58 and 127/57. Daily heart rates: 65, 66, 56, 73, 54, 54. Pt is also taking metoprolol tartrate 100mg BID and valsartan 160mg. Pt still not feeling good. I asked her for more details and she says he Just says he doesn't feel good. C/o lightheadedness and dizziness all the time without any improvement. Also has hiatal hernia that moves and she's not sure if that could be contributing. He sees his PCP Dr Kal King every 3 months. Last visit was 2 months ago. She says he is aware of his dizziness but doesn't really say much about it. She says the last time he had blood work was 3 - 6 months ago at [facility]. Blood sugars 120 - 172. O2 93-94% No fever. I offered appt w/ Dr Henry Saturday11/30/22 but is working for the next 7 days straight so cannot bring him. Sonya, please get labs from [facility] and Dr King's office notes for Dr Henry to review. Thanks! I reviewed Dr Henry's office note from 11/16/22. He stopped the diltiazem d/t low HR's. I returned call to Jodie, had to leave voicemail asking what his heart rates have been, what are his BP's since restarting the diltiazem and how is he feeling now. Name of caller: Jodie Contact phone number: [phone] Relationship to Patient: family member daughter Provider: Dr. Henry Practice: [facility] Chief Complaint/Reason for Call: Jodie states she is calling with an update on pt blood pressure readings, she states pt reading were 156/69 170/69 184/80. Pt stated he was not feeling good lightheaded, jodie states she put him back on diltiazem (CARDIZEM CD) 120 MG extended release capsule and his blood pressure went back down. Please advise. Best time of day caller can be reached: any Patient advised that office/PCP has 24-48 business hours to return their call: N/A documented in this encounter [facility] 12-05-2022 Telephone encounter Note Labs from 07/22/22 from [facility] and Dr King's note to stat scanning. Per Dr King's office note 09/18/22, pt denied dizziness or lightheadedness. Also denies CP, palpitations, SOB. Left voicemail for asking for an update on pt's symptoms and if she is able to bring him for an appt. [facility] 12-05-2022 Miscellaneous Notes Labs from 07/22/22 from [place] [facility] and Dr King's note to stat scanning. Per Dr King's office note 09/18/22, pt denied dizziness or lightheadedness. Also denies CP, palpitations, SOB. Left voicemail for asking for an update on pt's symptoms and if she is able to bring him for an appt. Requested labs from [facility] office notes from Dr. Kal King's office. I returned call to pt's Jodie. She put him back on the diltiazem 120mg BID d/t elevated BP's. BP last 2 days 115/58 and 127/57. Daily heart rates: 65, 66, 56, 73, 54, 54. Pt is also taking metoprolol tartrate 100mg BID and valsartan 160mg. Pt still not feeling good. I asked her for more details and she says he Just says he doesn't feel good. C/o lightheadedness and dizziness all the time without any improvement. Also has hiatal hernia that moves and she's not sure if that could be contributing. He sees his PCP Dr Kal King every 3 months. Last visit was 2 months ago. She says he is aware of his dizziness but doesn't really say much about it. She says the last time he had blood work was 3 - 6 months ago at [facility]. Blood sugars 120 - 172. O2 93-94% No fever. I offered appt w/ Dr Henry Saturday11/30/22 but is working for the next 7 days straight so cannot bring him. Sonya, please get labs from [facility] and Dr King's office notes for Dr Henry to review. Thanks! I reviewed Dr Henry's office note from 11/16/22. He stopped the diltiazem d/t low HR's. I returned call to [place], had to leave voicemail asking what his heart rates have been, what are his BP's since restarting the diltiazem and how is he feeling now. Name of caller: Jodie Contact phone number: [phone] Relationship to Patient: family member daughter Provider: Dr. Henry Practice: [facility] Chief Complaint/Reason for Call: Jodie states she is calling with an update on pt blood pressure readings, she states pt reading were 156/69 170/69 184/80. Pt stated he was not feeling good lightheaded, jodie states she put him back on diltiazem (CARDIZEM CD) 120 MG extended release capsule and his blood pressure went back down. Please advise. Best time of day caller can be reached: any Patient advised that office/PCP has 24-48 business hours to return their call: N/A documented in this encounter [facility] 11-29-2022 Telephone encounter Note Requested labs from [facility] office notes from Dr. Kal King's office. [facility] 11-29-2022 Miscellaneous Notes Requested labs from [facility] office notes from Dr. Kal King's office. I returned call to pt's Jodie. She put him back on the diltiazem 120mg BID d/t elevated BP's. BP last 2 days 115/58 and 127/57. Daily heart rates: 65, 66, 56, 73, 54, 54. Pt is also taking metoprolol tartrate 100mg BID and valsartan 160mg. Pt still not feeling good. I asked her for more details and she says he Just says he doesn't feel good. C/o lightheadedness and dizziness all the time without any improvement. Also has hiatal hernia that moves and she's not sure if that could be contributing. He sees his PCP Dr Kal King every 3 months. Last visit was 2 months ago. She says he is aware of his dizziness but doesn't really say much about it. She says the last time he had blood work was 3 - 6 months ago at [facility]. Blood sugars 120 - 172. O2 93-94% No fever. I offered appt w/ Dr Henry Saturday11/30/22 but is working for the next 7 days straight so cannot bring him. Sonya, please get labs from [facility] and Dr King's office notes for Dr Henry to review. Thanks! I reviewed Dr Henry's office note from 11/16/22. He stopped the diltiazem d/t low HR's. I returned call to Jodie, had to leave voicemail asking what his heart rates have been, what are his BP's since restarting the diltiazem and how is he feeling now. Name of caller: Jodie Contact phone number: [phone] Relationship to Patient: family member daughter Provider: Dr. Henry Practice: [facility] Chief Complaint/Reason for Call: Jodie states she is calling with an update on pt blood pressure readings, she states pt reading were 156/69 170/69 184/80. Pt stated he was not feeling good lightheaded, jodie states she put him back on diltiazem (CARDIZEM CD) 120 MG extended release capsule and his blood pressure went back down. Please advise. Best time of day caller can be reached: any Patient advised that office/PCP has 24-48 business hours to return their call: N/A documented in this encounter [facility] 11-28-2022 Telephone encounter Note I returned call to pt's Jodie. She put him back on the diltiazem 120mg BID d/t elevated BP's. BP last 2 days 115/58 and 127/57. Daily heart rates: 65, 66, 56, 73, 54, 54. Pt is also taking metoprolol tartrate 100mg BID and valsartan 160mg. Pt still not feeling good. I asked her for more details and she says he Just says he doesn't feel good. C/o lightheadedness and dizziness all the time without any improvement. Also has hiatal hernia that moves and she's not sure if that could be contributing. He sees his PCP Dr Kal King every 3 months. Last visit was 2 months ago. She says he is aware of his dizziness but doesn't really say much about it. She says the last time he had blood work was 3 - 6 months ago at [facility]. Blood sugars 120 - 172. O2 93-94% No fever. I offered appt w/ Dr Henry Saturday11/30/22 but is working for the next 7 days straight so cannot bring him. Sonya, please get labs from [facility] and Dr King's office notes for Dr Henry to review. Thanks! [facility] 11-27-2022 Telephone encounter Note I reviewed Dr Henry's office note from 11/16/22. He stopped the diltiazem d/t low HR's. I returned call to [place], had to leave voicemail asking what his heart rates have been, what are his BP's since restarting the diltiazem and how is he feeling now. [facility] 11-26-2022 Telephone encounter Note Name of caller: Jodie Contact phone number: [phone] Relationship to Patient: family member daughter Provider: Dr. Henry Practice: [facility] Chief Complaint/Reason for Call: Jodie states she is calling with an update on pt blood pressure readings, she states pt reading were 156/69 170/69 184/80. Pt stated he was not feeling good lightheaded, jodie states she put him back on diltiazem (CARDIZEM CD) 120 MG extended release capsule and his blood pressure went back down. Please advise. Best time of day caller can be reached: any Patient advised that office/PCP has 24-48 business hours to return their call: N/A [facility] 11-16-2022 History of Presen t illness Narrative Images from the original note were not included. [facility] [address] [facility] [address] Dept: [phone] Dept Loc: [phone] Visit type: New : 1940 Reason for Visit: Atrial Fibrillation Assessment and Plan 1. Permanent atrial fibrillation: nonvalvular, asymptomatic, rate controlled and has Watchamn. His HR is on the slow side, he has fatigue and dizziness. I recommend to discontinue diltiazem -stop diltiazem -continue metoprolol 100 mg bid, may decrease the dose if HR remain on slow side 2. Congestive heart failure: HFpEF, currently has volume overload with symptoms. -increase lasix to 40 mg bid for 3 days, then 40 mg daily and reassess Sx -stop diltiazem, may contribute to volume overload state -reasess Sx and BP in 1 weeks, may increase lasix as needed 3. Aortic regurgitation: chronic moderate, at his age and comorbidities, history of bleeding recommend to mange this conservatively. Would avoid bradycardia as it can increase AR burden, I will stop diltiazem. -continue lasix 40 mg daily -continue vasodilators with valsartan 160 mg daily 4. CAD: stable, no angina -continue aspirin 81 mg daily -continue metoprolol 100 mg bid -continue IMDUR 30 mg daily, I may stop this during follow up -continue atorvastatin 80 mg daily Follow up in about 3 months (around 02/16/2023). 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 Mr. Guaman states that he has SOB, orthopnea and worsening leg edema. He reports intermittent Symptoms similar to current Sx. He reports intermittent dizziness. No chest pain or syncope. Review of Systems Respiratory: Positive for shortness of breath. Negative for wheezing. Cardiovascular: Positive for leg swelling. Negative for chest pain and palpitations. Neurological: Positive for dizziness. Negative for syncope. Allergies Allergen Reactions Iodine Hives topically Tramadol Other Other reaction(s): Mental Status Change and tremors Outpatient Medications Prior to Visit Medication Sig Dispense Refill atorvastatin (Lipitor) 80 MG tablet betamethasone, augmented, (Diprolene AF) 0.05 % cream cetirizine (ZyrTEC) 10 MG tablet Take 10 mg by mouth daily. Droplet Pen [place] 31G X 6 MM misc fluticasone (Flonase) 50 MCG/ACT nasal spray furosemide (Lasix) 40 MG tablet glimepiride (Amaryl) 4 MG tablet Take 2 mg by mouth. isosorbide mononitrate ER (Imdur) 30 MG 24 hr tablet lansoprazole (Prevacid) [address] capsule Lantus SoloStar 100 UNIT/ML pen Linzess 290 MCG capsule meloxicam (Mobic) 7.5 MG tablet Take 7.5 mg by mouth daily. metoprolol tartrate (Lopressor) 100 MG tablet nitroglycerin (Nitrostat) 0.4 MG SL tablet potassium chloride CR (K-Tab) 20 MEQ ER tablet Take 20 mEq by mouth daily. potassium chloride CR (Klor-Con M20) 20 MEQ ER tablet pregabalin (Lyrica) 100 MG capsule Take 100 mg by mouth 2 times daily. tamsulosin (Flomax) 0.4 MG 24 hr capsule traZODone (Desyrel) 150 MG tablet triamcinolone (Kenalog) 0.1 % cream APPLY TO THE AFFECTED AREA(S) THREE TIMES DAILY NEEDED True Metrix Blood Glucose Test test strip valsartan (Diovan) 160 MG tablet dilTIAZem CD (Cardizem CD) 120 MG 24 hr capsule Aibadvngbie-Bwnsifezg-Ttqnkl (Trelegy Ellipta) 200-62.5-25 MCG/ACT aerosol powder Inhale 1 puff in the morning. primidone (Mysoline) 50 MG tablet Take 25 mg by mouth. sucralfate (Carafate) 1 g tablet TAKE 1 TABLET BY MOUTH BEFORE MEALS No facility-administered medications prior to visit. Past Medical History: Diagnosis Date Arrhythmia Paroxysmal Atrial Fibrillation Atrial fibrillation (CMS/HCC) (HCC) BPH (benign prostatic hyperplasia) CAD (coronary artery disease) Carotid stenosis, bilateral Cerebral artery occlusion with cerebral infarction (HCC) Acute Ischemic Stroke Diabetes mellitus (HCC) Type 2 GERD (gastroesophageal reflux disease) H/O cardiovascular stress test 10/22/2017 [facility] H/O three vessel coronary artery bypass 12/22/2007 Per September 2013 cath LAD- Graft 1 DARNELL with anastomosis at the distal LAD 2nd OM Graft 2- was a SVG with anastomosis at the mid OM. There was a 80% diffuse stenosis in the distal 2nd graft. (PIETRO placed) 1st Diag Graft #3 was a SVG with anastomosis at the mid first diag artery. 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 History of Holter monitoring 10/03/2017 24 hour History of Holter monitoring 02/10/2021 Hyperlipidemia Hypertension Social History Tobacco Use Smoking status: Former Types: Cigarettes Quit date: 07/08/1987 Years since quittin.3 Smokeless tobacco: Former Substance Use Topics Alcohol use: No Past Surgical History: Procedure Laterality Date CARDIAC CATHETERIZATION CARDIAC SURGERY 03/04/2018 Watchman procedure CAROTID ENDARTERECTOMY Right 02/10/2015 Dr Higgins CORONARY ANGIOPLASTY 04/14/2008 PTCA/PIETRO first DX, sequential SCG to OM1 and OM2 CORONARY ANGIOPLASTY 02/25/2008 PTCA/Stent to Mid RCA and mid LAD and second diagonal CORONARY ANGIOPLASTY 09/2013 PTCA/Stent to LXC AV groove branch and OM 1 CORONARY ANGIOPLASTY 11/30/2007 PTCA/Stent to prox RCA and PTCA to PDA CORONARY ARTERY BYPASS GRAFT 12/22/2007 CABG with DARNELL to LAD, SVG to diag, sequential SVG to OM1 and OM2 CORONARY STENT PLACEMENT TRANSESOPHAGEAL ECHOCARDIOGRAM 01/17/2018 03/04/18 Family History Problem Relation Name Age of Onset Other ([id number]) Sister Brain Aneurysm Cancer Mother Other ([id number]) Sister Brain Aneurysm Objective Vitals: 11/16/22 1459 BP: 126/60 BP Location: Right arm Patient Position: Sitting BP Cuff Size: Adult Pulse: 61 Resp: 15 Weight: 236 lb (107 kg) Height: 5' 9 (1.753 m) Physical Exam Constitutional: General: He is not in acute distress. Appearance: He is obese. HENT: Head: Normocephalic. Eyes: General: No scleral icterus. Extraocular Movements: Extraocular movements intact. Conjunctiva/sclera: Conjunctivae normal. Pupils: Pupils are equal, round, and reactive to light. Neck: Vascular: No carotid bruit. Comments: No JVD Cardiovascular: Rate and Rhythm: Normal rate. Rhythm irregular. Pulses: Normal pulses. Heart sounds: Normal heart sounds. No murmur heard. No friction rub. No gallop. Pulmonary: Effort: Pulmonary effort is normal. No respiratory distress. Breath sounds: Normal breath sounds. No wheezing, rhonchi or rales. Chest: Chest wall: No tenderness. Musculoskeletal: General: Normal range of motion. Cervical back: Normal range of motion. Right lower leg: Edema (2+) present. Left lower leg: Edema (2+) present. Skin: General: Skin is warm. Capillary Refill: Capillary refill takes less than 2 seconds. Neurological: Mental Status: He is alert and oriented to person, place, and time. Data Reviewed and Summarized Review of tests/labs done/ordered within my specialty: EKG in office: Possible atrial fibrillation -Right bundle branch block. ABNORMAL Elizabeth Henry MD documented in this encounter [facility] 11-15-2022 Telephone encounter Note Name of caller: Jodie Contact phone number: [phone] Relationship to Patient: daughter Provider: Elaine Practice: [facility] Chief Complaint/Reason for Call: Pt's daughter called in wondering if there were any earlier appts available for the pt to come in. If there's no earlier appt, the pt's daughter said he'll keep the appt at 3:15. Please advise. Thank you. Best time of day caller can be reached: Any Patient advised that office/PCP has 24-48 business hours to return their call: No [facility] 11-15-2022 Miscellaneous Notes Name of caller: Jodie Contact phone number: [phone] Relationship to Patient: daughter Provider: Elaine Practice: [facility] Chief Complaint/Reason for Call: Pt's daughter called in wondering if there were any earlier appts available for the pt to come in. If there's no earlier appt, the pt's daughter said he'll keep the appt at 3:15. Please advise. Thank you. Best time of day caller can be reached: Any Patient advised that office/PCP has 24-48 business hours to return their call: No documented in this encounter [facility] documented as of this encounter (statuses as of 08/21/2023) [facility] Permanent atrial fibrillation (CMS/HCC) (HCC) Atrial fibrillation documented in this encounter [facility] note* Diagnosis Coronary artery disease, unspecified vessel or lesion type, unspecified whether angina present, unspecified whether [place] or transplanted heart S/P coronary artery stent placement Postsurgical percutaneous transluminal coronary angioplasty status Presence of Watchman left atrial appendage closure device Permanent atrial fibrillation (HCC) Atrial fibrillation documented in this encounter [facility] note* Diagnosis Coronary artery disease involving [place] coronary artery of ke[place] heart without angina pectoris Permanent atrial fibrillation (HCC) Atrial fibrillation Primary hypertension Unspecified essential hypertension S/P coronary artery stent placement Postsurgical percutaneous transluminal coronary angioplasty status H/O three vessel coronary artery bypass Presence of Watchman left atrial appendage closure device documented in this encounter [facility] note* Diagnosis 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) Type II or unspecified type diabetes mellitus without mention of complication, not stated as uncontrolled Pseudophakia of 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, right eye Corneal opacity, unspecified 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 documented [facility] Summary Purpose Family History No Family History Records FoundNo Family History Records FoundNo Family History Records FoundNo Family History Records Found Advance Directives No Advanced Directives Records FoundNo Advanced Directives Records FoundNo Advanced Directives Records FoundNo Advanced Directives Records Found Additional Source Comments (unrecognized sect ion and content) No Status Records FoundNo Status Records FoundNo Status Records FoundNo Status Records Found INFORMATION SOURCE (unrecogn ized section and content) DATE CREATED AUTHOR AUTHOR'S ORGANIZ ATION 02/08/2021 [facility] DATE CREATED AUTHOR AUTHOR'S ORGANIZ ATION 06/16/2023 [facility] DATE CREATED AUTHOR AUTHOR'S ORGANIZ ATION 08/22/2023 [facility] Reason for Visit (unrecogniz ed section and content) Reason Onset Date Comments Other 11/26/2022 Reason Comments Establish Care Reason Comments Follow-up Reason Onset Date Comments Earlier Appt 11/15/2022 Reason Comments Diabetes Care Teams (unrecognized sec tion and content) Apprentice Carpenter Relationship Specialty Start Date End Date Cody Cerna [address] [place] [address] PCP - General 01/17/18 Apprentice Carpenter Relationship Specialty Start Date End Date Cody Cerna [address] [place], [place] [phone] PCP - General 01/17/18 Apprentice Carpenter Relationship Specialty Start Date End Date Cody Cerna [address] [place], [place] [phone] PCP - General 01/17/18 Apprentice Carpenter Relationship Specialty Start Date End Date Kal King [address] [place] [place] [phone] PCP - General Family Medicine 04/22/23 Apprentice Carpenter Relationship Specialty Start Date End Date Kal King [address] [place] [place] [phone] PCP - General Family Medicine 04/22/23 Apprentice Carpenter Relationship Specialty Start Date End Date Kal King [address] [place] [phone] PCP - General Family Medicine 04/22/23 Apprentice Carpenter Relationship Specialty Start Date End Date Cody Cerna [address] [place], [place] [phone] PCP - General 01/17/18 04/21/23 Kal King [address] [place] [place] [id number] PCP - General Family Medicine 04/22/23 Apprentice Carpenter Relationship Specialty Start Date End Date Kal King DO [address] [place] [address] PCP - General Family Medicine 08/21/23 Rishi Higgins MD [address] [facility] [address] [place] [address] 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 Vascular Surgery 01/11/15 Source Comments (unrecognize d section and content) In the event this informatio n is protected by the Federal Confidentiality of Alcohol and Drug Abuse Patient Records regulations: The Federal rules restrict any use of the information to criminally investigate or prosecute any alcohol or drug abuse patient.[facility] Active Administered Medications - up to 3 most recent administrations Administered Medications (un recognized section and content) FOR RECORDS PERTAINING TO PATIENTS WHO ARE OR HAVE BEEN ENROLLED IN A CHEMICAL DEPENDENCY/SUBSTANCEABUSE PROGRAM, SOME INFORMATION MAY BE OMITTED. This clinical summary was aggregated from multiple sources. Caution should be exercised in using it in the provision of clinical care. This summary normalizes information from multiple sources, and as a consequence, information in this document may materially change the coding, format and clinical context of patient data. In addition, data may be omitted in some cases. CLINICAL DECISIONS SHOULD BE BASED ON THE PRIMARY CLINICAL RECORDS. [employer] provides no warranty or guarantee of the accuracy or completeness of information in this document.
[2023-09-02 09:47] LABS: Cholesterol 77 mg/dL (200); High Density Lipoprotein 28 mg/dL; Triglycerides 133 mg/dL; Very Low Density Lipoprotein 27 mg/dL (5-40)
== END | disposition home or self-care (01) ==
LOC: LAB 07:33
PROVIDERS: PCP Family Medicine; Referring Provider Internal Medicine Cardiovascular Disease; Visit Provider Internal Medicine Cardiovascular Disease
DX: I25.10 Atherosclerotic heart disease of native coronary artery without angina pectoris (principal)
CPT/HCPCS: 36415; 80061

== ENCOUNTER → 2023-10-04 | Outpatient (CLI) | payer MEDICARE, MEDICAID, SELFPAY ==
[2023-10-04 12:10] LABS: Anion Gap 4 (5-15); BUN 19 mg/dL (7-18); BUN/Creat Ratio 15.2 RATIO (10-20); Calcium,Total 8.3 mg/dL (8.5-10.1); Chloride 112 mmol/L (98-107); Creatinine, Serum 1.25 mg/dL (0.70-1.30); EST Glomerular Filtration Rate 58 mL/min (>60); Est Glom Filt Rate - Afr Amer 71 mL/min (>60); Glucose 290 mg/dL (74-106); Potassium 4.8 mmol/L (3.5-5.1); Sodium Level 140 mmol/L (136-145)
== END | disposition home or self-care (01) ==
LOC: LAB 11:13
PROVIDERS: PCP Family Medicine; Referring Provider Nurse Practitioner Family; Visit Provider Nurse Practitioner Family
DX: N17.9 Acute kidney failure, unspecified (principal); E87.5 Hyperkalemia; E86.0 Dehydration
CPT/HCPCS: 36415; 80048

== ENCOUNTER → 2023-10-24 | Outpatient (CLI) | payer MEDICARE, MEDICAID, SELFPAY ==
[2023-10-24 11:12] LABS: Anion Gap 5 (5-15); BUN 17 mg/dL (7-18); BUN/Creat Ratio 17.1 RATIO (10-20); Calcium,Total 8.4 mg/dL (8.5-10.1); Chloride 109 mmol/L (98-107); Creatinine, Serum 0.99 mg/dL (0.70-1.30); EST Glomerular Filtration Rate 76 mL/min (>60); Est Glom Filt Rate - Afr Amer 92 mL/min (>60); Glucose 257 mg/dL (74-106); Potassium 3.8 mmol/L (3.5-5.1); Sodium Level 139 mmol/L (136-145)
== END | disposition home or self-care (01) ==
LOC: LAB 10:10
PROVIDERS: PCP Family Medicine; Visit Provider Family Medicine
DX: N17.9 Acute kidney failure, unspecified (principal)
CPT/HCPCS: 36415; 80048

== ENCOUNTER → 2023-12-27 | Outpatient (CLI) | payer MEDICARE, MEDICAID, SELFPAY ==
--- NOTE | 2023-12-27 15:33 | RAD_ITS ---
INDICATION: DYSPNEA, ABDOMINAL BLOATING EXAMINATION/TECHNIQUE: X-RAY - XR Chest 2 Views COMPARISON: FINDINGS: LINES/DEVICES: Sternotomy wires over the mediastinum. LUNGS: Small left pleural effusion. Possible mild bilateral basilar infiltrates. No pneumothorax. MEDIASTINUM AND CARDIOVASCULAR STRUCTURES: Cardiac silhouette not enlarged. Central airways and mediastinal contour are unremarkable. BONES AND SOFT TISSUES: Degenerative vertebral changes. RAD/Chest PA and Lateral IMPRESSION: Small left pleural effusion. Possible mild bilateral basilar infiltrates. Electronically Signed: Oz Barreto DO at 17:49 EDT ,
--- NOTE | 2023-12-27 15:33 | RAD_ITS ---
STUDY: X-RAY - ABDOMEN/PELVIS REASON FOR EXAM: Male, 83 years old. DYSPNEA, ABDOMINAL BLOATING TECHNIQUE: Frontal views COMPARISON: None. FINDINGS: Left pleural effusion. There is an unremarkable bowel gas pattern. There is no demonstrated free abdominal air. Possible small hiatal hernia. Normal soft tissue structures. Degenerative vertebral changes. Status post laminectomy at L4 and L5 with surgical fusion of L4-S1. RAD/Abdomen Single View IMPRESSION: No sign of bowel obstruction. Possible small hiatal hernia. Left pleural effusion. Electronically Signed: Oz Barreto DO at 16:07 EDT Reading Location ID and State: [facility] / [place] Tel [phone], Service support ,
[2023-12-27 17:43] LABS: Absolute Lymphocyte Count 1.52 X10^3/uL (0.83-4.51); Absolute Neutrophil Count 9.4 X10^3/uL (2.0-7.7); Basophil# 0.07 X10^3/uL; Basophil% 0.6 % (0-1); Eosinophil# 0.29 X10^3/uL; Eosinophils% 2.4 % (0-5); Hematocrit 40.6 % (40-54); Hemoglobin 12.8 g/dL (13.0-16.5); Lymphocyte # 1.52 X10^3/ul (0.83-4.51); Lymphocyte % 12.8 % (19-41); Mean Corp Hgb Conc 31.5 g/dL (32-36); Mean Corpuscular Hgb 27.2 pg (27.0-32.0); Mean Corpuscular Volume 86.4 fL (80-94); Mean Platelet Vol. 10.4 fl (6.2-12.0); Monocyte# 0.63 X10^3/uL; Monocyte% 5.3 % (0-10); NRBC Flagged by Analyzer 0 % (0-5); Neutrophil # 9.36 X10^3/uL (2.7-7.7); Neutrophil % 78.6 % (47-70); Platelet Count 237 K/mm3 (150-450); RBC Distribution Width CV 13.6 % (11.6-14.6); RBC Distribution Width SD 43.2 fl (35.1-43.9); White Blood Count 11.9 K/mm3 (4.4-11.0)
[2023-12-27 18:08] LABS: ALB/GLOB Ratio 0.9 RATIO (0.9-2.4); AST(SGOT) 22 U/L (15-37); Alanine Aminotransfer ALT/SGPT 27 U/L (16-61); Albumin, Serum 3.2 g/dL (3.2-5.0); Alkaline Phosphatase 65 U/L (45-117); Anion Gap 10 (5-15); BUN 13 mg/dL (7-18); BUN/Creat Ratio 12.1 RATIO (10-20); Calcium,Total 8.8 mg/dL (8.5-10.1); Chloride 106 mmol/L (98-107); Creatinine, Serum 1.07 mg/dL (0.70-1.30); EST Glomerular Filtration Rate 70 mL/min (>60); Est Glom Filt Rate - Afr Amer 85 mL/min (>60); Globulin 3.5 g/dL (2.2-4.2); Glucose 223 mg/dL (74-106); Potassium 3.8 mmol/L (3.5-5.1); Protein, Total 6.7 g/dL (6.4-8.2); Sodium Level 140 mmol/L (136-145)
[2023-12-27 18:10] LABS: BNP,B-Type NATRIURETIC PEPTIDE 207.4 pg/mL (0-100)
== END | disposition home or self-care (01) ==
LOC: MTLAB 15:32
PROVIDERS: PCP Family Medicine; Referring Provider Family Medicine; Visit Provider Family Medicine
DX: R06.00 Dyspnea, unspecified (principal); R14.0 Abdominal distension (gaseous); R42 Dizziness and giddiness
CPT/HCPCS: 36415; 71046; 74018; 80053; 83880; 85025

== ENCOUNTER → 2024-02-20 | Outpatient (CLI) | payer MEDICARE, MEDICAID, SELFPAY ==
--- NOTE | 2024-02-20 10:03 | RAD_ITS ---
STUDY: AIR CONTRAST ESOPHAGRAM AND UPPER GI SERIES REASON FOR EXAM: Male, 83 years old. HIATAL HERNIA FLUOROSCOPY TIME (if supplied): (60 seconds) minutes/seconds. 46.14 mGy. 19 images were obtained. TECHNIQUE: SINGLE CONTRAST AND AIR CONTRAST FLUOROSCOPIC IMAGES. COMPARISON: None. FINDINGS: The cervical esophagus demonstrates normal motility without aspiration. There is no stricture or extrinsic mass effect. No intraluminal polypoid mass is identified. The thoracic esophagus distends well without stricture or mucosal fold thickening. No mucosal ulcerations are identified. There is no extrinsic mass effect. There are no diverticula. There is evidence of a moderate-sized sliding hiatal hernia. There is evidence of gastroesophageal reflux. The stomach distends well without mucosal fold thickening or mucosal ulceration. There is no intraluminal mass. The duodenal bulb is freely distensible without deformity or ulceration. The duodenal sweep is normal in position and caliber. RAD/Upper GI w/BA Swallow IMPRESSION: Moderate-sized sliding hiatal hernia. Gastroesophageal reflux. Electronically Signed: Kenneth Vazquez MD at 15:13 EDT ,
== END | disposition home or self-care (01) ==
LOC: RAD 10:01
PROVIDERS: PCP Family Medicine; Referring Provider Family Medicine; Visit Provider Family Medicine
DX: K44.9 Diaphragmatic hernia without obstruction or gangrene (principal)
CPT/HCPCS: 74246

== ENCOUNTER 2024-03-23 06:33 | Inpatient (IN) | payer MEDICARE, MEDICAID, SELFPAY ==
[2024-03-23] VITALS (7 sets, daily range): BP systolic 134–198; BP diastolic 75–93; PULSE 79–106; RESP 14–24; TEMP 35.9–36.9; O2SAT 87–95; BMI 34.5; BMI 43.2
--- NOTE | 2024-03-23 07:19 | EDS_ITS ---
HPI History of Present Illness Chief Complaint: Abd Pain Detail of Chief Complaint: Patient presented for abdominal pain. He was noted to be hypoxic. Informant: patient and family Onset/Context/Timing Onset: Weeks (For the past 1 to 1.5 weeks dyspnea, orthopnea and intermittent chest discomfort) and - (Abdominal pain is chronic. He had images with no determined cause.) Context: Gradual Onset (With respect to the shortness of breath) and Sudden Onset (Sudden onset of chest pressure. Several times past week) Timing: Intermittent Quality: Pressure Location: Mid chest Current Severity: Gone Maximum Severity: Moderate Worsened by: Orthopnea, dyspnea on exertion Relieved by: Improves with rest and upright position Associated Symptoms Associated Symptoms: HPI narrative Narrative Narrative: Patient is a 83-year-old male. He has history of coronary disease status post bypass surgery, four-vessel, September 2007. He has had a total of 8 stents placed since. He has history of paroxysmal atrial fibrillation status post watchman procedure. He also his history of Moreno's esophagitis, CVA, type 2 diabetes not well-controlled, essential hypertension, mixed hyperlipidemia and ND who presented because of abdominal pain. Nursing noted that he was hypoxic. He is placed on oxygen. Upon further questioning the abdominal pain has not changed. He has had workup with known determine etiology. With respect to the shortness of breath he has had this over the past 1 to 1.5 weeks. He had orthopnea which is new. He has had some swelling of his legs and feet. This has occurred in the past slightly worse presently. He also reports intermittent chest discomfort. There is a exertional component. He denies black or maroon-colored stool. He denies nausea or vomiting. He has a chronic runny nose due to sinus/allergies. He denies fever, chills night sweats. He does have a cough which is productive of colored sputum, which is chronic. He is very hard of hearing. Daughter supplemented much of the history because of his problem with hearing and he asked for her to answer questions. 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 He ) [facility] Medical History Loss of hearing Wears hearing aid Wears glasses Wears dentures Hypertension Uses wheelchair Ambulates with cane DVT (deep venous thrombosis) Back pain Stroke/cerebrovascular accident Difficulty swallowing Chest pain, unspecified Gastric reflux Atherosclerosis of coronary artery bypass graft without angina pectoris Presence of stent in coronary artery (~09/17/13) Old myocardial infarction Mixed hyperlipidemia Essential hypertension Atherosclerosis of knik coronary artery of knik heart without angina pectoris Paroxysmal atrial fibrillation GERD (gastroesophageal reflux disease) Left-sided weakness Borderline elevated troponin Acute ischemic stroke BPH (benign prostatic hypertrophy) with urinary obstruction HTN (hypertension) HLD (hyperlipidemia) History of tobacco use Type II diabetes mellitus, uncontrolled Home Medications ?Medication ?Instructions ?Recorded ?Last Taken ?Type aspirin 81 mg tablet,delayed 81 mg PO QDAY Heart health 07/24/17 05/07/23 History release (Adult Low Dose Aspirin) eadwtgwiksmk-llhfstez-qvvfrk tablet 1 tablet PO QDAY supplement 07/24/17 01/08/19 08:00 History 1 tab blood-glucose meter (True Metrix #1 ea 11/10/20 Unknown Rx Glucose Meter) WAlker with wheels #1 ea 12/27/20 Unknown Rx tamsulosin 0.4 mg capsule 0.4 mg PO QHS prostate #90 caps 04/26/21 Unknown Rx blood sugar diagnostic (True #150 ea 05/09/21 Unknown Rx Metrix Glucose Test Strip) metoprolol tartrate 100 mg tablet 100 mg PO BID #180 tabs 06/21/21 05/10/23 Rx valsartan 160 mg tablet 160 mg PO DAILY #180 tabs 06/21/21 05/10/23 Rx guaifenesin 1,200 mg tablet, 1,200 mg PO BID PRN congestion #30 08/01/21 Unknown Rx extended release 12 hr (Mucinex) tabs pen needle, diabetic 31 gauge x See Rx Instructions .Route 08/22/21 Unknown Rx 1/4 (Droplet Pen Needle) .COMPLEX #300 ea meclizine 25 mg tablet 25 mg PO Q8H PRN PRN dizziness or 09/04/21 Unknown Rx vertigo #20 tabs atorvastatin 80 mg tablet 80 mg PO QHS #90 tabs 09/06/21 Unknown Rx trazodone 150 mg tablet 150 mg PO QHS sleep #90 tabs 09/28/21 Unknown Rx psyllium seed (sugar) oral powder 1 tbsp PO DAILY 11/02/21 Unknown History (Metamucil (sugar) oral powder) potassium chloride 20 mEq 20 meq PO DAILY #30 tabs 11/03/21 Unknown Rx tablet,extended release furosemide 40 mg tablet (Lasix) 40 mg PO DAILY #30 tabs 12/12/21 Unknown Rx insulin glargine 100 unit/mL (3 50 unit subcut QHS long acting 01/03/22 Unknown History mL) subcutaneous pen (Lantus insulin Solostar U-100 Insulin) triamcinolone acetonide 0.1 % 1 applic topical BID PRN itching 01/15/22 Unknown History topical cream glimepiride 4 mg tablet 4 mg PO BID 02/01/22 Unknown History isosorbide mononitrate 30 mg 30 mg PO DAILY #90 tabs 05/17/22 05/10/23 Rx tablet,extended release 24 hr nitroglycerin 0.4 mg sublingual 0.4 mg sublingual Q5M PRN chest 05/17/22 Unknown Rx tablet pain #90 tabs lactulose 10 gram/15 mL oral 30 ml PO BID 04/16/23 Unknown History solution lansoprazole 30 mg capsule,delayed 30 mg PO DAILY 04/16/23 05/10/23 History release linaclotide 72 mcg capsule 290 mcg PO DAILY 04/16/23 Unknown History (Linzess) meloxicam 7.5 mg tablet 7.5 mg PO DAILY 04/16/23 Unknown History pregabalin 100 mg capsule 100 mg PO BID 04/16/23 Unknown History pantoprazole 40 mg tablet,delayed 40 mg PO DAILY #270 tabs 04/19/23 05/10/23 Rx release diltiazem HCl 120 mg 120 mg PO DAILY Heart 05/08/23 05/10/23 History capsule,extended release 24 hr spironolactone 25 mg tablet 25 mg PO DAILY 05/08/23 Unknown History Allergy/AdvReac Type Severity Reaction Status Date / Time iodine Allergy Hives Verified 03/23/24 06:34 tramadol Allergy Other Verified 03/23/24 06:34 Family History Mother Cancer Sister Brain aneurysm Sister Brain aneurysm Father Cancer Surgical History History of esophagogastroduodenoscopy (EGD) (01/10/22) History of right and left heart catheterization (LHC) (~11/07/21) Presence of Watchman left atrial appendage closure device (~03/04/18) Presence of coronary angioplasty implant and graft (~09/2013) History of cholecystectomy History of back surgery History of PTCA H/O carotid endarterectomy Hx of CABG (~12/22/07) Social History household members: children Smoking Status: Current some day smoker tobacco type: cigars Smokeless tobacco user: chewing tobacco how long ago did patient quit smokin (1987) to 40 (1977) years ago (Cigars) alcohol intake: never substance use type: does not use caffeine: No what type of physical activity do you participate in: none seatbelt use: always do you feel safe at home: Yes ROS ROS ED Constitutional Constitutional ED: Denies chills, fever(s), subjective, sweats or weight loss Eyes Eyes: Denies blurry vision or change in vision ENT ENT ED: Reports rhinorrhea; Denies ear pain or sore throat Cardiovascular Cardiovascular: Reports chest pain and orthopnea; Denies palpitations, paroxysmal nocturnal dyspnea or racing heartbeat Respiratory/Chest Respiratory/Chest: Reports cough, dyspnea, dyspnea on exertion, orthopnea and sputum; Denies paroxysmal nocturnal dyspnea Gastrointestinal Gastrointestinal: Reports abdominal pain; Denies constipation, diarrhea, melena, nausea or vomiting Genitourinary Genitourinary ED: Denies dysuria, hematuria or urinary frequency Musculoskeletal Musculoskeletal: Denies back pain Integumentary Denies rash Neurologic Neurologic: Denies headache(s) Hematologic/Lymphatic Hematologic/Lymphatic: Reports systems reviewed and no addt'l complaints, except as documented EXAM Physical Exam Const Vital Signs: 03/23/24 06:33 Temperature 98.5 F Temperature Source Oral Pulse Rate 79 Respiratory Rate 14 Blood Pressure 145/77 H Blood Pressure Mean 99 Pulse Ox 87 Oxygen Delivery Method Room Air Positive well nourished and well developed Constitutional Narrative: Patient is tachypneic. He is breathing much more rapidly than 14 times a minute. There is no use of accessory muscles. He was noted to be hypoxic and is presently on oxygen. General Appearance ED: well developed and pallor; Negative for cyanotic or diaph oretic HEENT Reports moist mucous membranes HEENT Narrative: Head is atraumatic normocephalic. Ears normal. Nares patent. Posterior pha rynx is normal. Eyes PERRL and EOMs intact bilaterally General Eye ED: Negative for pale conjunctiva or scleral icterus Neck no lymphadenopathy, supple and no JVD Chest Wall inspection of chest normal and palpation of chest normal Resp normal respiratory effort and No clear to auscultation bilaterally Auscultation: rales bilateral base (Greater on the left than right) Cardio regular rate, S1 normal heart sound, S2 normal heart sound and no murmurs Rhythm: abnormal rhythm irregularly irregular GI normal to inspection, nondistended, normoactive bowel sounds, non-tender, non- distended and no masses; Negative for hepatosplenomegaly Back/Spine no CVA tenderness Back/Spine Narrative: Inspection of the back is normal. Extremity Extremity Narrative: He appears pale. General Extremety ED: Yes edema General Extremity: edema Neuro oriented x3 and CN's II-XII intact bilaterally Sensorium / Orientation: alert Psych mental status grossly normal Skin no rashes or lesions noted, no wounds and skin turgor normal General Skin Exam: pallor; Negative for jaundice MDM MDM MDM Narrative Medical decision making narrative: Since patient's had the abdominal pain and had a significant workup this was not reevaluated in the Emergency Department. What is concerning is the fact that he is hypoxic and has symptoms of heart failure. Will obtain chest x-ray, EKG appropriate blood work to assess for anemia, renal function, glucose and anion gap. Troponin was obtained to rule out cardiac ischemia since has had intermittent chest discomfort past week. Also BNP. If x-ray confirms that he has heart failure will treat with diuretic. He presently is taking 40 mg of furosemide daily. History & Record Review Additional record(s) reviewed:: Prior ED visit and Prior labs Lab Data Attestation: I reviewed the patient's lab results. Lab results narrative: White count is slightly elevated with slight shift. This is nonspecific. BNP is elevated 617. First troponin is normal. Glucose is elevated to 14 with a normal CO2 anion gap. Labs: Laboratory Results - last 24 hr 03/23/24 07:17 WBC 13.1 H RBC 4.67 Hgb 12.4 L Hct 40.1 MCV 85.9 MCH 26.6 L MCHC 30.9 L RDW Std Deviation 45.0 H RDW Coeff of Henna 14.5 Plt Count 248 MPV 10.4 Immature Gran % (Auto) 0.400 Neut % (Auto) 83.9 H Lymph % (Auto) 8.1 L [place] % (Auto) 6.5 Eos % (Auto) 0.7 Baso % (Auto) 0.4 Absolute Neuts (auto) 11.0 H Absolute Lymphs (auto) 1.07 Nucleated RBC % 0 Sodium 141 Potassium 3.1 L Chloride 108 H Carbon Dioxide 24.0 Anion Gap 9 BUN 11 Creatinine 1.03 Estim Creat Clear Calc 64.08 Est GFR (MDRD) Af Amer 88 Est GFR (MDRD) Non-Af 73 BUN/Creatinine Ratio 10.7 Glucose 214 H Calcium 8.7 Total Bilirubin 1.40 H AST 15 ALT 20 Alkaline Phosphatase 72 Troponin I High Sens 21 B-Natriuretic Peptide 617.8 H Total Protein 6.8 Albumin 2.9 L Globulin 3.9 Albumin/Globulin Ratio 0.7 L Radiography Chest X-Ray - ED: 2 View, Read by ED Physician ([id number].), Heart (Left heart border is obscured due to the left pleural effusion.), Lungs (There is slight cephalization. There is no curly B-lines noted.), Mediastinum, Bony Structures and Left Effusion Diagnostic Testing: Clinical Impression(s) from Imaging Studies Chest X-Ray 03/23/24 07:28 IMPRESSION: Findings suggest bilateral basilar airspace disease consistent with multifocal pneumonia. Electronically Signed: Nayana Richardson MD at 8:07 EDT Reading Location ID and State: [address] [place] [address] , Service support , Radiologist read as bilateral pneumonia. Patient's history is consistent with heart failure. BNP is elevated 617. Furthermore patient has edema both lower extremities. EKG Initial EKG: Attestation: I personally reviewed and interpreted this EKG as follows: Interpretation: Atrial Fibrillation (Rate is 74. QRS duration 170 ms. Cures duration 490 ms. Sanford is normal. Patient has evidence of right bundle branch block.) Management Discussion w/another healthcare provider: Hospitalist (Dr. Del Real the hospitalist was made aware of patient's history, physical and discrepancy and interpretation of chest x-ray. Patient will be admitted for CHF.) Discharge Plan Triage Chief Complaint: Abd Pain ED Provider: Hitesh Zazueta Dx/Rx/DC Orders Clinical Impression: Acute hypoxemic respiratory failure, Type II diabetes mellitus, uncontrolled, Essential hypertension, Mixed hyperlipidemia, Acute exacerbation of congestive heart failure, Pleural effusion, left, Midsternal chest pain Prescriptions: No Action aspirin [Adult Low Dose Aspirin] 81 mg tablet,delayed release (DR/EC) 81 mg PO QDAY zyitmpcwufpp-nknuyxko-dmemcb tablet 1 tablet PO QDAY valsartan 160 mg tablet 160 mg PO DAILY Qty: 180 3RF metoprolol tartrate 100 mg tablet 100 mg PO BID Qty: 180 1RF pregabalin 100 mg capsule 100 mg PO BID triamcinolone acetonide 0.1 % cream 1 applic topical BID PRN (Reason: itching) Mucinex 1,200 mg tablet extended release 12hr 1,200 mg PO BID PRN (Reason: congestion) Qty: 30 1RF Metamucil (sugar) Powder 1 tbsp PO DAILY glimepiride 4 mg tablet 4 mg PO BID lansoprazole 30 mg capsule,delayed release(DR/EC) 30 mg PO DAILY Linzess 72 mcg capsule 290 mcg PO DAILY meloxicam 7.5 mg tablet 7.5 mg PO DAILY lactulose 10 gram/15 mL solution 30 ml PO BID meclizine 25 mg tablet 25 mg PO Q8H PRN PRN (Reason: dizziness or vertigo) Qty: 20 0RF insulin glargine [Lantus Solostar U-100 Insulin] 100 unit/mL (3 mL) insulin pen 50 unit SC QHS spironolactone 25 mg tablet 25 mg PO DAILY diltiazem HCl 120 mg capsule,extended release 24hr 120 mg PO DAILY (DME) blood-glucose meter [True Metrix Glucose Meter] [facility] See Rx Instructions .ROUTE .MEDSUPPLY Qty: 1 0RF Rx Instructions: As directed (DME) WAlker with wheels See Rx Instructions .Route .MEDSUPPLY Qty: 1 0RF Rx Instructions: As directed tamsulosin 0.4 mg capsule 0.4 mg PO QHS Qty: 90 3RF (DME) True Metrix Glucose Test Strip Strip See Rx Instructions .ROUTE .MEDSUPPLY Qty: 150 10RF Rx Instructions: use four times a day pen needle, diabetic [Droplet Pen Needle] 31 gauge x 1/4 needle See Rx Instructions .ROUTE .COMPLEX Qty: 300 3RF Dose Instruction: USE DIRECTED (DIABETES) Rx Instructions: USE DIRECTED (DIABETES) atorvastatin 80 mg tablet 80 mg PO QHS Qty: 90 3RF trazodone 150 mg tablet 150 mg PO QHS Qty: 90 1RF potassium chloride 20 mEq tablet extended release 20 meq PO DAILY Qty: 30 3RF furosemide [Lasix] 40 mg tablet 40 mg PO DAILY Qty: 30 3RF nitroglycerin 0.4 mg tablet, sublingual 0.4 mg SL Q5M PRN (Reason: chest pain) Qty: 90 3RF isosorbide mononitrate 30 mg tablet extended release 24 hr 30 mg PO DAILY Qty: 90 3RF pantoprazole 40 mg tablet,delayed release (DR/EC) 40 mg PO DAILY Qty: 270 0RF Rx Instructions: take pantoprazole 40 mg bid for 12 weeks and then decrease to 40 mg once a day for another 12 weeks. Primary Care Provider: Jh King Referrals: Jh King DO [Primary Care Provider] - Print Language: Cymro Disposition Disposition: Acute Care Hospital [facility]
--- NOTE | 2024-03-23 07:28 | RAD_ITS ---
STUDY: X-RAY CHEST REASON FOR EXAM: Male, 83 years old patient with hypoxia, orthopnea and bilateral rales. TECHNIQUE: PA and lateral views of the chest. COMPARISON: December 27, 2023. FINDINGS: Cardiac monitoring leads are present. The patient has had a sternotomy. The lungs are expanded. There are prominent bronchovascular markings in both lungs. There appear to be small bilateral pleural effusions, left larger than right. There is suggestion for heterogeneous airspace disease in both lung bases, more severe on the left than the right. Normal size heart. Normal mediastinum and margarita. There is prominence of the pulmonary hilar arteries with peripheral pulmonary vascular congestion. There is atherosclerotic calcification of the aortic arch with tortuosity. There are diffuse degenerative changes of the visualized thoracic spine. Normal visualized ribs, clavicles, and shoulders. There is no demonstrated abnormality of the visualized soft tissue structures of the upper abdomen. RAD/Chest PA and Lateral IMPRESSION: Findings suggest bilateral basilar airspace disease consistent with multifocal pneumonia. Electronically Signed: Nayana Richardson MD at 8:07 EDT ,
[2024-03-23 07:39] LABS: Absolute Lymphocyte Count 1.07 X10^3/uL (0.83-4.51); Basophil# 0.05 X10^3/uL; Basophil% 0.4 % (0-1); Eosinophil# 0.09 X10^3/uL; Eosinophils% 0.7 % (0-5); Hematocrit 40.1 % (40-54); Hemoglobin 12.4 g/dL (13.0-16.5); Lymphocyte # 1.07 X10^3/ul (0.83-4.51); Lymphocyte % 8.1 % (19-41); Mean Corp Hgb Conc 30.9 g/dL (32-36); Mean Corpuscular Hgb 26.6 pg (27.0-32.0); Mean Corpuscular Volume 85.9 fL (80-94); Mean Platelet Vol. 10.4 fl (6.2-12.0); Monocyte# 0.85 X10^3/uL; Monocyte% 6.5 % (0-10); NRBC Flagged by Analyzer 0 % (0-5); Neutrophil # 11.03 X10^3/uL (2.7-7.7); Neutrophil % 83.9 % (47-70); Platelet Count 248 K/mm3 (150-450); RBC Distribution Width CV 14.5 % (11.6-14.6); Red Blood Count 4.67 M/mm3 (4.6-6.2); White Blood Count 13.1 K/mm3 (4.4-11.0)
[2024-03-23 07:52] LABS: ALB/GLOB Ratio 0.7 RATIO (0.9-2.4); AST(SGOT) 15 U/L (15-37); Alanine Aminotransfer ALT/SGPT 20 U/L (16-61); Albumin, Serum 2.9 g/dL (3.2-5.0); Alkaline Phosphatase 72 U/L (45-117); Anion Gap 9 (5-15); BUN 11 mg/dL (7-18); BUN/Creat Ratio 10.7 RATIO (10-20); Calcium,Total 8.7 mg/dL (8.5-10.1); Chloride 108 mmol/L (98-107); Creatinine, Serum 1.03 mg/dL (0.70-1.30); EST Glomerular Filtration Rate 73 mL/min (>60); Est Glom Filt Rate - Afr Amer 88 mL/min (>60); Estimated Creatinine Clearance 64.08 ml/min; Globulin 3.9 g/dL (2.2-4.2); Glucose 214 mg/dL (74-106); Potassium 3.1 mmol/L (3.5-5.1); Protein, Total 6.8 g/dL (6.4-8.2); Sodium Level 141 mmol/L (136-145)
[2024-03-23 07:53] LABS: BNP,B-Type NATRIURETIC PEPTIDE 617.8 pg/mL (0-100)
[2024-03-23 08:00] LABS: Troponin-I HS 21 pg/mL (3.0-78.0)
[2024-03-23] MEDS: Aspirin 81 MG TAB.CHEW 324 MG PO (08:13)
[2024-03-23] MEDS: Furosemide 40 MG/4 ML Vial IV ×2 (08:14→18:14)
--- NOTE | 2024-03-23 08:17 | HP.PCM.HOS_ITS ---
HPI - General General Date of Admission: 03/23/24 Date of Service: 03/23/24 Chief Complaint: abdominal pain HPI Narrative JUNE GUAMAN, is a 83 M with an extensive PMH as outlined who presents via the ED on 03/23/2024 for abdominal pain. He also complained of lower extremity edema and shortness of breath as well as a chronic cough and some chest discomfort. He denied any fever or chills, nausea, vomiting or any other symptoms. Review of systems was otherwise negative. He was saturating at 87% on room air. Vitals in the ED BP of 145/77, ME of 79, RR of 14, temp of 98.5F and he was saturating at 87% on room air. CBC showed hb of 12.4, wbc of 13.1 and platelets of 248. Chemistry showed sodium of 141, potassium of 3.1, bicarb of 24 and Cr of 1.03. Total bilirubin was 1.4. BNP was 617.8. CXR showed small bilateral pleural effusions, left larger than right, and suggestion of heterogenous airspace disease in both lung bases, more severe on the left than the right, with findings suggestive of bilateral basilar airspace disease consistent with multifocal pneumonia. However, his clinical picture is more indicative of acute on chronic heart failure, as he does not have any clinical evidence of pneumonia. WIll therefore admit to PCU and manage as acute on chronic heart failure. He was actually supposed to get an echo on outpatient today. [facility] Medical History Loss of hearing Wears hearing aid Wears glasses Wears dentures Hypertension Uses wheelchair Ambulates with cane DVT (deep venous thrombosis) Back pain Stroke/cerebrovascular accident Difficulty swallowing Chest pain, unspecified Gastric reflux Atherosclerosis of coronary artery bypass graft without angina pectoris Presence of stent in coronary artery (~09/17/13) Old myocardial infarction Mixed hyperlipidemia Essential hypertension Atherosclerosis of [place] coronary artery of [place] heart without angina pectoris Paroxysmal atrial fibrillation GERD (gastroesophageal reflux disease) Left-sided weakness Borderline elevated troponin Acute ischemic stroke BPH (benign prostatic hypertrophy) with urinary obstruction HTN (hypertension) HLD (hyperlipidemia) History of tobacco use Type II diabetes mellitus, uncontrolled Home Medications ?Medication ?Instructions ?Recorded ?Last Taken ?Type aspirin 81 mg tablet,delayed 81 mg PO QDAY [employer] 07/24/17 05/07/23 History release (Adult Low Dose Aspirin) yllexwgmuhuh-meeyivqh-obdrpo tablet 1 tablet PO QDAY supplement 07/24/17 01/08/19 08:00 History 1 tab blood-glucose meter (True Metrix #1 ea 11/10/20 Unknown Rx Glucose Meter) WAlker with wheels #1 ea 12/27/20 Unknown Rx tamsulosin 0.4 mg capsule 0.4 mg PO QHS prostate #90 caps 04/26/21 Unknown Rx blood sugar diagnostic (True #150 ea 05/09/21 Unknown Rx Metrix Glucose Test Strip) metoprolol tartrate 100 mg tablet 100 mg PO BID #180 tabs 06/21/21 05/10/23 Rx valsartan 160 mg tablet 160 mg PO DAILY #180 tabs 06/21/21 05/10/23 Rx pen needle, diabetic 31 gauge x See Rx Instructions .Route 08/22/21 Unknown Rx 1/4 (Droplet Pen Needle) .COMPLEX #300 ea meclizine 25 mg tablet 25 mg PO Q8H PRN PRN dizziness or 09/04/21 Unknown Rx vertigo #20 tabs atorvastatin 80 mg tablet 80 mg PO QHS #90 tabs 09/06/21 Unknown Rx trazodone 150 mg tablet 150 mg PO QHS sleep #90 tabs 09/28/21 Unknown Rx psyllium seed (sugar) oral powder 1 tbsp PO DAILY 11/02/21 Unknown History (Metamucil (sugar) oral powder) furosemide 40 mg tablet (Lasix) 40 mg PO DAILY #30 tabs 12/12/21 Unknown Rx insulin glargine 100 unit/mL (3 50 unit subcut QHS long acting 01/03/22 Unknown History mL) subcutaneous pen (Lantus insulin Solostar U-100 Insulin) triamcinolone acetonide 0.1 % 1 applic topical BID PRN itching 01/15/22 Unknown History topical cream glimepiride 4 mg tablet 4 mg PO BID 02/01/22 Unknown History isosorbide mononitrate 30 mg 30 mg PO DAILY #90 tabs 05/17/22 05/10/23 Rx tablet,extended release 24 hr nitroglycerin 0.4 mg sublingual 0.4 mg sublingual Q5M PRN chest 05/17/22 Unknown Rx tablet pain #90 tabs lactulose 10 gram/15 mL oral 30 ml PO BID 04/16/23 Unknown History solution lansoprazole 30 mg capsule,delayed 30 mg PO DAILY 04/16/23 05/10/23 History release pregabalin 100 mg capsule 100 mg PO BID 04/16/23 Unknown History Allergy/AdvReac Type Severity Reaction Status Date / Time iodine Allergy Hives Verified 03/23/24 06:34 tramadol Allergy Other Verified 03/23/24 06:34 Family History Mother Cancer Sister Brain aneurysm Sister Brain aneurysm Father Cancer Surgical History History of esophagogastroduodenoscopy (EGD) (01/10/22) History of right and left heart catheterization (LHC) (~11/07/21) Presence of Watchman left atrial appendage closure device (~03/04/18) Presence of coronary angioplasty implant and graft (~09/2013) History of cholecystectomy History of back surgery History of PTCA H/O carotid endarterectomy Hx of CABG (~12/22/07) Social History household members: children Smoking Status: Never smoker Smokeless tobacco user: chewing tobacco how long ago did patient quit smokin (1987) to 40 (1977) years ago (Cigars) alcohol intake: never substance use type: does not use caffeine: No what type of physical activity do you participate in: none seatbelt use: always do you feel safe at home: Yes ROS Constitutional Constitutional: Reports fatigue, malaise and weakness; Denies anorexia, chills or fever(s) Eyes Eyes: Denies change in vision ENT HEENT: Denies dysphagia, headache(s), nasal discharge or sore throat Cardiovascular Cardiovascular: Reports dyspnea on exertion, edema and orthopnea; Denies chest pain, lightheadedness, palpitations, paroxysmal nocturnal dyspnea, rapid heart rate or syncope Respiratory/Chest Respiratory/Chest: Reports cough, dyspnea, shortness of breath at rest and shortness of breath with exertion; Denies excessive phlegm production, hemoptysis, productive cough or wheezing Gastrointestinal Gastrointestinal: Reports abdominal pain; Denies constipation, diarrhea, dyspepsia, nausea or vomiting Genitourinary Genitourinary: Denies burning urination, dysuria or nocturia Musculoskeletal Musculoskeletal: Denies arthralgias or back pain Neurologic Neurologic: Denies confusion, dizziness, focal weakness, headache(s), numbness, seizures or syncope Psychiatric Psychiatric: Denies anxiety Vital Signs Vital Signs Vital Signs: 03/23/24 06:33 Temperature 98.5 F Temperature Source Oral Pulse Rate 79 Respiratory Rate 14 Blood Pressure 145/77 H Blood Pressure Mean 99 Pulse Ox 87 Oxygen Delivery Method Room Air Weight Weight: 233 lb 14.567 oz Body Mass Index (BMI) 34.5 Physical Exam Const alert, oriented x3 and no apparent distress General Appearance: cooperative HEENT normocephalic, head/scalp atraumatic, hearing grossly normal bilaterally, moist oral mucous membranes and oropharynx normal Mouth: oral and palatal mucosa normal Eyes PERRL, EOMs intact bilaterally and conjunctivae normal Neck no lymphadenopathy, supple and no JVD Resp Resp Narrative: diminished breath sounds bibasally, no wheezes or crackles. On 2L of oxygen by nasal canula Cardio regular rate, regular rhythm, S1 normal heart sound, S2 normal heart sound and no murmurs GI normal to inspection, nondistended, normoactive bowel sounds, soft to palpation, non-tender and non-distended Extremity normal to inspection, full ROM and no clubbing, cyanosis or edema Neuro oriented x3, CN's II-XII intact bilaterally, moves all extremities and no focal motor deficits Sensorium / Orientation: awake and alert Motor Exam: strength 5/5 throughout Psych affect normal Results Lab / Micro Data 03/23/24 07:17 03/23/24 07:17 Labs: Laboratory Results - last 24 hr 03/23/24 07:17: WBC 13.1 H, RBC 4.67, Hgb 12.4 L, Hct 40.1, MCV 85.9, MCH 26.6 L , MCHC 30.9 L, RDW Std Deviation 45.0 H, RDW Coeff of [place] 14.5, Plt Count 248, MPV 10.4, Immature Gran % (Auto) 0.400, Neut % (Auto) 83.9 H, Lymph % (Auto) 8.1 L, [place] % (Auto) 6.5, Eos % (Auto) 0.7, Baso % (Auto) 0.4, Absolute Neuts (auto) 11.0 H, Absolute Lymphs (auto) 1.07, Nucleated RBC % 0, Sodium 141, Potassium 3.1 L, Chloride 108 H, Carbon Dioxide 24.0, Anion Gap 9, BUN 11, Creatinine 1.03, Estim Creat Clear Calc 64.08, Est GFR (MDRD) Af Amer 88, Est GFR (MDRD) Non-Af 73, BUN/Creatinine Ratio 10.7, Glucose 214 H, Calcium 8.7, Total Bilirubin 1.40 H, AST 15, ALT 20, Alkaline Phosphatase 72, Troponin I High Sens 21, B-Natriuretic Peptide 617.8 H, Total Protein 6.8, Albumin 2.9 L, Globulin 3.9, Albumin/Globulin Ratio 0.7 L Imaging Radiology Impression Chest X-Ray 03/23/24 07:28 IMPRESSION: Findings suggest bilateral basilar airspace disease consistent with multifocal pneumonia. Electronically Signed: Nayana Richardson MD at 8:07 EDT Reading Location ID and State: [address] [place] [address] , Service support , Assessment & Plan Assessment/Plan (1) Acute exacerbation of congestive heart failure: (2) Pleural effusion, left: PLAN: Plan #Hypoxia due to acute congestive heart failure * admit to PCU * admitted with a complaint of abdominal pain. He felt short of breath also and was found to have hypoxia, saturating at 87% on room air. * CXR showed bilateral pleural effusions, left greater than right, with suggestion for heterogenous airspace disease in both lung bases. * His clinical picture is however more indicative of acute heart failure, with him being hypoxic, with lower extremity edema * start on IV lasix 40mg bid. * monitor intake and output. Fluid restriction to 1500cc daily * titrate oxygen to maintain sats >90% * BNP was 617. * get 2D echo * #CAD s/p CABG: on aspirin and statin as well as imdur. #Benign essential hypertension: on metoprolol and valsartan. IV hydralazine prn. #Hyperlipidemia: on statin. #History of afib: s/p left atrial appendage closure in February 2018. #Type 2 diabetes mellitus: on glimepiride and lantus 50 units qhs. #BPH: on flomax #History of ischemic stroke: has residual left sided weakness. On aspirin and statin DVT prophylaxis; lovenox Code status: DNRCCA no intubation * Patient counseled extensively about different types of CODE STATUS including full code, DNR CCA and DNR CCA. Patient elects to be full DNRCCA no intubation. * Total jzfa-yh-wewt time 17 minutes. Charges/Coding Visit Charges Inpatient E&M: 62539 Init Hosp L3 Procedures Hospitalists Procedures: 95520 Advncd Care Plan 30 Min
--- NOTE | 2024-03-23 10:06 | ECHOCS_ITS ---
Reason For Study: Dyspnea/SOB Procedure This was a 2D Doppler, Color Flow transthoracic echocardiogram. The study was technically difficult. Exam performed portable in patient room. Left Ventricle Normal LV size. Mild concentric left ventricular hypertrophy. The left ventricular ejection fraction is 55 %. Unable to assess diastolic dysfunction due to arrhythmia. Right Ventricle Normal right ventricle. Atria There is mild biatrial dilatation. Mitral Valve Trivial mitral valve insufficiency. Tricuspid Valve Trivial tricuspid valve insufficiency. Normal pulmonary artery pressure. Aortic Valve Aortic sclerosis, no stenosis. Mild-Moderate (1-2+) aortic valve insufficiency. Pulmonic Valve The pulmonic valve is not well visualized. Great Vessels Mildly dilated aortic root. Pericardium/Pleural No pericardial effusion. Small left pleural effusion. Medication Diluted definity 2.5ml given slow IV push to enhance endocardial definition. MMode/2D Measurements & Calculations LVIDd: 5.4 cm IVSd: 1.3 cm Ao root diam: 3.8 cm LVIDs: 4.2 cm LVPWd: 1.1 cm RVDd: 4.2 cm FS: 22.0 % LAV(MOD-bp): 68.2 ml LVAd ap4: 30.7 cm2 SV(MOD-sp4): 52.6 ml LAV(MOD-bp) Indexed: 28.1 ml/m2 LVLd ap4: 7.9 cm LAV(MOD-sp2): 59.6 ml EDV(MOD-sp4): 97.8 ml LAV(MOD-sp4): 78.3 ml EDV(sp4-el): 101.3 ml LVAs ap4: 19.2 cm2 LVLs ap4: 7.0 cm ESV(MOD-sp4): 45.1 ml ESV(sp4-el): 44.6 ml EF(MOD-sp4): 53.8 % EF(sp4-el): 56.0 % SV(sp4-el): 56.7 ml Ao sinus diam: 3.[address] Junction: 3.1 cm LA A4 area: 24.1 cm2 LA dimension(2D): 3.8 cm RA A4 area: 21.4 cm2 Doppler Measurements & Calculations MV E max matthew: 84.8 cm/sec Lat Peak E' Matthew: 13.5 cm/sec Med Peak E' Matthew: 9.3 cm/sec E/E' lat: 6.3 E/E' med: 9.1 MV V2 max: 114.9 cm/sec Ao V2 max: 141.1 cm/sec AI max matthew: 454.0 cm/sec MV max P.3 mmHg Ao max P.1 mmHg AI max P.8 mmHg MV V2 mean: 58.0 cm/sec Ao V2 mean: 96.9 cm/sec AI dec slope: 280.9 cm/sec2 MV mean P.7 mmHg Ao mean P.3 mmHg AI P1/2t: 473.4 msec MV V2 VTI: 27.2 cm Ao V2 VTI: 21.6 cm AV (velocity ratio): 0.81 LV V1 max: 104.4 cm/sec MR max matthew: 317.6 cm/sec PA V2 max: 81.1 cm/sec LV V1 max P.4 mmHg MR max P.3 mmHg LV V1 mean P.2 mmHg LV V1 mean: 68.7 cm/sec LV V1 VTI: 17.6 cm AI Accel Time: 0.36 sec TR max matthew: 220.9 cm/sec TR max P.5 mmHg ECHO/Echo Complete W/ Contrast Interpretation Summary The study was technically difficult. Mild concentric left ventricular hypertrophy. The left ventricular ejection fraction is 55 %. There is mild biatrial dilatation. Aortic sclerosis, no stenosis. Mild-Moderate (1-2+) aortic valve insufficiency. Mildly dilated aortic root. Small left pleural effusion. Ordering Physician: Kaye Deras Referring Physician: Jh King Performed By: Balwinder Nieto RCS
[2024-03-23] MEDS: Enoxaparin 40 MG/0.4 ML Syringe SC (10:50)
[2024-03-23] MEDS: Insulin Lispro 100 UNIT/ML INSULN.PEN SC ×3 (11:34→20:41)
[2024-03-23 12:06] LABS: Bedside Glucose 166 mg/dL (74-106)
[2024-03-23 17:29] LABS: Bedside Glucose 239 mg/dL (74-106)
[2024-03-23] MEDS: 0.9% Saline Lock 10 ML Syringe IV (18:14)
[2024-03-23] MEDS: Insulin Glargine-YFGN 100 UNIT/ML Pen 50 UNIT SC (20:40)
[2024-03-23] MEDS: Lactulose 20 GM/30 ML UDC PO (20:44)
[2024-03-23] MEDS: traZODone 50 MG Tablet 150 MG PO (20:46)
[2024-03-23] MEDS: Tamsulosin HCl 0.4 MG Capsule PO (20:47)
[2024-03-23] MEDS: Metoprolol Tartrate 100 MG Tablet PO (20:47)
[2024-03-23] MEDS: Atorvastatin Calcium 80 MG Tablet PO (20:47)
[2024-03-23] MEDS: Pregabalin 50 MG Capsule 100 MG PO (20:51)
[2024-03-23 21:21] LABS: Bedside Glucose 219 mg/dL (74-106)
[2024-03-24 03:00] VITALS: BP 106/65; PULSE 81; RESP 18; TEMP 35.7; O2SAT 96
[2024-03-24 05:50] LABS: Absolute Neutrophil Count 9.5 X10^3/uL (2.0-7.7); Basophil# 0.04 X10^3/uL; Basophil% 0.3 % (0-1); Eosinophil# 0.14 X10^3/uL; Eosinophils% 1.2 % (0-5); Hematocrit 42.4 % (40-54); Hemoglobin 13.8 g/dL (13.0-16.5); Mean Corp Hgb Conc 32.5 g/dL (32-36); Mean Corpuscular Hgb 26.7 pg (27.0-32.0); Monocyte% 6.8 % (0-10); NRBC Flagged by Analyzer 0 % (0-5); Neutrophil # 9.48 X10^3/uL (2.7-7.7); Neutrophil % 80.4 % (47-70); Platelet Count 260 K/mm3 (150-450); RBC Distribution Width CV 14.3 % (11.6-14.6); RBC Distribution Width SD 42.1 fl (35.1-43.9); Red Blood Count 5.17 M/mm3 (4.6-6.2); White Blood Count 11.8 K/mm3 (4.4-11.0)
[2024-03-24] MEDS: Insulin Lispro 100 UNIT/ML INSULN.PEN SC ×2 (06:14→11:01)
[2024-03-24 06:22] LABS: Anion Gap 8 (5-15); BUN 16 mg/dL (7-18); BUN/Creat Ratio 15.1 RATIO (10-20); Chloride 104 mmol/L (98-107); Creatinine, Serum 1.06 mg/dL (0.70-1.30); EST Glomerular Filtration Rate 71 mL/min (>60); Est Glom Filt Rate - Afr Amer 85 mL/min (>60); Estimated Creatinine Clearance 70.13 ml/min; Glucose 200 mg/dL (74-106); Potassium 3.1 mmol/L (3.5-5.1); Sodium Level 137 mmol/L (136-145)
[2024-03-24 07:19] LABS: Bedside Glucose 247 mg/dL (74-106)
[2024-03-24 07:50] VITALS: O2SAT 96
[2024-03-24] MEDS: Lansoprazole 15 MG Capsule.DR 30 MG PO (08:12)
[2024-03-24] MEDS: Multivitamins,Ther W-Minerals Tablet 1 TABLET PO (08:12)
[2024-03-24] MEDS: Potassium Chloride Oral Tablet 20 MEQ 40 MEQ PO (08:12)
[2024-03-24] MEDS: Aspirin E.C. 81 MG Tablet PO (08:12)
[2024-03-24] MEDS: Enoxaparin 40 MG/0.4 ML Syringe SC (08:13)
[2024-03-24] MEDS: Lactulose 20 GM/30 ML UDC PO (08:13)
[2024-03-24] MEDS: Psyllium 1 PACKET PO (08:13)
[2024-03-24 08:15] VITALS: O2SAT 95
[2024-03-24 09:25] VITALS: BP 161/69; PULSE 112; RESP 18; TEMP 36.1; O2SAT 95
[2024-03-24] MEDS: Metoprolol Tartrate 100 MG Tablet PO (09:25)
[2024-03-24] MEDS: Isosorbide Mononitrate 30 MG Tablet PO (09:25)
[2024-03-24] MEDS: Losartan Potassium 50 MG Tablet PO (09:25)
[2024-03-24] MEDS: Pregabalin 50 MG Capsule 100 MG PO (09:28)
[2024-03-24] MEDS: FLU VACCINE **HIGH DOSE** TV 24-25 180 MCG/0.5 ML SYRINGE IM (09:29)
[2024-03-24] MEDS: Furosemide 40 MG/4 ML Vial IV (11:01)
[2024-03-24] MEDS: 0.9% Saline Lock 10 ML Syringe IV (11:03)
[2024-03-24 11:31] LABS: Bedside Glucose 274 mg/dL (74-106)
--- NOTE | 2024-03-24 11:34 | CASEMGMT ---
CHIQUI PEDERSEN Assessment: Face to Face with pt for initial transition planning/care coordination assessment. CHIQUI PEDERSEN introduced self and role at [facility], pt voices understanding and consents to assessment. Pt is A&O x4 and answers all questions appropriately at this time. Pt sitting up in chair in no distress. Care providers, pharmacy, and demographics verified/updated. Admitting Dx: Hypoxia, Acute heart failure. Strata Score: 2 PCP: Fernando Specialists: Instrument And Electrical Technician, does not recall doctor's name. Preferred Pharmacy: [facility] Insurance: [facility], [facility] Prescription Benefit: yes LNOK: Daughter Living Arrangements: Pt lives with daughter in a 1 story home with no stairs to enter. Transportation: Pt states daughter drives him when needed. DME: Walker, cane, wheelchair, shower chair, scooter. HHC/SNF: Denies Hx of. Pt states no concerns with going home at time of dc. Pt states no further concerns/needs. CM to follow. Advised pt to ask CM if any further question/concerns/needs arise, voices understanding. Pt Goal: Home Plan: Home, follow plan of care. CHIQUI Bartholomew CM.
--- NOTE | 2024-03-24 14:52 | DS.PCM_ITS ---
Providers Date of Admission: 03/23/24 Date of Discharge: 03/24/24 Primary Care Physician: Dr. Jh King DO Reason For Visit: HYPOXIA, ACUTE HEART FAILURE Diagnosis Discharge Diagnosis (1) Acute exacerbation of congestive heart failure: Status: Chronic Code(s): I50.9 - Heart failure, unspecified (2) Pleural effusion, left: Status: Acute Code(s): J90 - Pleural effusion, not elsewhere classified Plan #Hypoxia due to acute congestive heart failure * admit to PCU * admitted with a complaint of abdominal pain. He felt short of breath also and was found to have hypoxia, saturating at 87% on room air. * CXR showed bilateral pleural effusions, left greater than right, with suggestion for heterogenous airspace disease in both lung bases. * His clinical picture is however more indicative of acute heart failure, with him being hypoxic, with lower extremity edema * start on IV lasix 40mg bid. * monitor intake and output. Fluid restriction to 1500cc daily * titrate oxygen to maintain sats >90% * BNP was 617. * get 2D echo * #CAD s/p CABG: on aspirin and statin as well as imdur. #Benign essential hypertension: on metoprolol and valsartan. IV hydralazine prn. #Hyperlipidemia: on statin. #History of afib: s/p left atrial appendage closure in February 2018. #Type 2 diabetes mellitus: on glimepiride and lantus 50 units qhs. #BPH: on flomax #History of ischemic stroke: has residual left sided weakness. On aspirin and statin DVT prophylaxis; lovenox Code status: DNRCCA no intubation * Patient counseled extensively about different types of CODE STATUS including full code, DNR CCA and DNR CCA. Patient elects to be full DNRCCA no intubation. * Total vfzx-pl-fkbz time 17 minutes. Medications at Discharge Home Medications aspirin 81 mg tablet,delayed release (Adult Low Dose Aspirin) 81 mg PO QDAY Heart health 07/24/17 gwmrvpprzmxg-uowpiryu-yijiyp tablet 1 tablet PO QDAY supplement 07/24/17 blood-glucose meter (True Metrix Glucose Meter) #1 ea 11/10/20 WAlker with wheels #1 ea 12/27/20 tamsulosin 0.4 mg capsule 0.4 mg PO QHS prostate #90 caps 04/26/21 blood sugar diagnostic (True Metrix Glucose Test Strip) #150 ea 05/09/21 metoprolol tartrate 100 mg tablet 100 mg PO BID #180 tabs 06/21/21 valsartan 160 mg tablet 160 mg PO DAILY #180 tabs 06/21/21 pen needle, diabetic 31 gauge x 1/4 (Droplet Pen Needle) See Rx Instructions .Route .COMPLEX #300 ea 08/22/21 meclizine 25 mg tablet 25 mg PO Q8H PRN PRN dizziness or vertigo #20 tabs 09/04/21 atorvastatin 80 mg tablet 80 mg PO QHS #90 tabs 09/06/21 trazodone 150 mg tablet 150 mg PO QHS sleep #90 tabs 09/28/21 psyllium seed (sugar) oral powder (Metamucil (sugar) oral powder) 1 tbsp PO DAILY 11/02/21 furosemide 40 mg tablet (Lasix) 40 mg PO DAILY #30 tabs 12/12/21 insulin glargine 100 unit/mL (3 mL) subcutaneous pen (Lantus Solostar U-100 Insulin) 50 unit subcut QHS long acting insulin 01/03/22 triamcinolone acetonide 0.1 % topical cream 1 applic topical BID PRN itching 01/15/22 glimepiride 4 mg tablet 4 mg PO BID 02/01/22 isosorbide mononitrate 30 mg tablet,extended release 24 hr 30 mg PO DAILY #90 tabs 05/17/22 nitroglycerin 0.4 mg sublingual tablet 0.4 mg sublingual Q5M PRN chest pain #90 tabs 05/17/22 lactulose 10 gram/15 mL oral solution 30 ml PO BID 04/16/23 lansoprazole 30 mg capsule,delayed release 30 mg PO DAILY 04/16/23 pregabalin 100 mg capsule 100 mg PO BID 04/16/23 potassium chloride 20 mEq tablet,extended release 20 meq PO DAILY #30 tabs 03/24/24 Hospital Course Operations None Procedures 2-D Echocardiogram Summary of Care Provided Minutes Spent on Discharge: 55 Hospital Course: Tianna GUAMAN, is a 83 M with an extensive PMH as outlined who presents via the ED on 03/23/2024 for abdominal pain. He also complained of lower extremity edema and shortness of breath as well as a chronic cough and some chest discomfort. He denied any fever or chills, nausea, vomiting or any other symptoms. Review of systems was otherwise negative. He was saturating at 87% on room air. Vitals in the ED BP of 145/77, OK of 79, RR of 14, temp of 98.5F and he was saturating at 87% on room air. CBC showed hb of 12.4, wbc of 13.1 and platelets of 248. Chemistry showed sodium of 141, potassium of 3.1, bicarb of 24 and Cr of 1.03. Total bilirubin was 1.4. BNP was 617.8. CXR showed small bilateral pleural effusions, left larger than right, and suggestion of heterogenous airspace disease in both lung bases, more severe on the left than the right, with findings suggestive of bilateral basilar airspace disease consistent with multifocal pneumonia. However, his clinical picture is more indicative of acute on chronic heart failure, as he does not have any clinical evidence of pneumonia. WIll therefore admit to PCU and manage as acute on chronic heart failure. He was actually supposed to get an echo on outpatient on the day of admission. He was diuresed with IV Lasix. His shortness of breath improved and he was actually weaned off of oxygen. He felt much better and refused to stay for any further diuresis. He demanded to be discharged home on 03/24/2024. Patient was on room air and had walking pulse ox which showed that he did not require any oxygen. He was therefore switched to p.o. Lasix. He had 2D echo which showed EF of 55% and unable to assess diastolic dysfunction due to arrhythmia. He had mild concentric left ventricular hypertrophy with mild biatrial dilatation and aortic sclerosis but no stenosis. His heart rate had gone up a bit in the morning to 07/08/2011 but he had not yet received this medication. Remained stable and was discharged home on 03/24/2024. 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 Patient seen and examined prior to discharge. He had no active complaints and had an uneventful night. 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 Labs and vitals reviewed. Home medication reviewed and reconciled. Of note his potassium was 3.1. Potassium was replaced and he was also given a prescription for p.o. potassium chloride 20 mg daily for 30 days with 1 refill due to his likelihood of having hypokalemia whilst on Lasix. Physical Exam Const alert, oriented x3 and no apparent distress General Appearance: cooperative, comfortable and well kempt Orientation / Consciousness: awake Exam Limitations: no limitations HEENT normocephalic, head/scalp atraumatic, hearing grossly normal bilaterally, moist oral mucous membranes and oropharynx normal Mouth: oral and palatal mucosa normal Eyes PERRL, EOMs intact bilaterally and conjunctivae normal Neck no lymphadenopathy, supple and no JVD Resp normal respiratory effort, no retractions, no use of accessory muscles and clear to auscultation bilaterally Cardio regular rate, regular rhythm, S1 normal heart sound, S2 normal heart sound and no murmurs GI normal to inspection, nondistended, normoactive bowel sounds, soft to palpation, non-tender and non-distended Extremity normal to inspection, full ROM and no clubbing, cyanosis or edema Skin no rashes or lesions noted Neuro oriented x3, CN's II-XII intact bilaterally, moves all extremities and no focal motor deficits Sensorium / Orientation: awake and alert Motor Exam: strength 5/5 throughout Psych affect normal Weight / BMI Weight Weight: 293 lb 0.015 oz Body Mass Index (BMI) 43.2 ABG / Lab / Microbiology Data 03/24/24 05:24 03/24/24 05:24 Laboratory: Laboratory Results - last 24 hr 03/23/24 16:42: POC Glucose 239 H 03/23/24 20:40: POC Glucose 219 H 03/24/24 05:24: WBC 11.8 H, RBC 5.17, Hgb 13.8, Hct 42.4, MCV 82.0, MCH 26.7 L, MCHC 32.5 D, RDW Std Deviation 42.1, RDW Coeff of [place] 14.3, Plt Count 260, MPV 10.0, Immature Gran % (Auto) 0.300, Neut % (Auto) 80.4 H, Lymph % (Auto) 11.0 L, Pettis % (Auto) 6.8, Eos % (Auto) 1.2, Baso % (Auto) 0.3, Absolute Neuts (auto) 9.5 H, Absolute Lymphs (auto) 1.30, Nucleated RBC % 0, Sodium 137, Potassium 3.1 L, Chloride 104, Carbon Dioxide 25.0, Anion Gap 8, BUN 16, Creatinine 1.06, Estim Creat Clear Calc 70.13, Est GFR (MDRD) Af Amer 85, Est GFR (MDRD) Non-Af 71, BUN/Creatinine Ratio 15.1, Glucose 200 H, Calcium 9.0 03/24/24 06:12: POC Glucose 247 H 03/24/24 10:59: POC Glucose 274 H Radiography Diagnostic Testing: Radiology Impression Echocardiogram 03/23/24 10:06 Interpretation Summary The study was technically difficult. Mild concentric left ventricular hypertrophy. The left ventricular ejection fraction is 55 %. There is mild biatrial dilatation. Aortic sclerosis, no stenosis. Mild-Moderate (1-2+) aortic valve insufficiency. Mildly dilated aortic root. Small left pleural effusion. Ordering Physician: Kaye Deras Referring Physician: Jh King Performed By: Balwinder Nieto RCS D/C Instructions Discharge Diet: Low fat / Low cholesterol Discharge Activity: Return to Normal Activity Weight Bearing Status: Weight bearing as tolerated Call your doctor if you observe: Fever of 101 or Higher, Shortness of breath, Dizziness, Swelling in the ankles, Chest pain, Increased palpitations (irregular heartbeat) and Uncontrolled pain Meaningful Use Info Meaningful Use Meaningful Use Diagnoses (Choose all that apply): CHF CHF KAJAL/ARB ordered at discharge?: Yes Documented LVEF (%): 55 Ischemic Stroke Statin Dosing Therapy Reference: STATIN DOSE THERAPY REFERENCE: * Patients > 75 years receive moderate or high dose statin therapy. * Patients 75 years or YOUNGER should receive HIGH intensity statin dose unless contraindicated. You will be required to document reason for non-treatment if statin daily dose does not meet guidelines. HIGH DOSE STATIN THERAPY DAILY Atorvastatin > than or = to 40 mg Rosuvastatin > than or = to 20 mg Amlodipine + Atorvastatin > than or = to 2.5/40 mg Ezetimibe + Simvastatin 10/80 mg Simvastatin 80mg Discharge Plan Admission Admit Date/Time: 03/23/24 08:35 Primary Reason for Your Visit: acute on chronic heart failure Attending Provider: Kaye Deras Primary Care Provider: Jh King Instructions Patient Instructions: Coping with Heart Failure, ED CHF Left Side Discharge Orders/Prescriptions Prescriptions: New potassium chloride 20 mEq tablet extended release 20 meq PO DAILY Qty: 30 1RF Continued aspirin [Adult Low Dose Aspirin] 81 mg tablet,delayed release (DR/EC) 81 mg PO QDAY ltlmwtifthmp-jdeuvsdi-udbdit tablet 1 tablet PO QDAY valsartan 160 mg tablet 160 mg PO DAILY Qty: 180 3RF metoprolol tartrate 100 mg tablet 100 mg PO BID Qty: 180 1RF pregabalin 100 mg capsule 100 mg PO BID triamcinolone acetonide 0.1 % cream 1 applic topical BID PRN (Reason: itching) Metamucil (sugar) Powder 1 tbsp PO DAILY glimepiride 4 mg tablet 4 mg PO BID lansoprazole 30 mg capsule,delayed release(DR/EC) 30 mg PO DAILY lactulose 10 gram/15 mL solution 30 ml PO BID meclizine 25 mg tablet 25 mg PO Q8H PRN PRN (Reason: dizziness or vertigo) Qty: 20 0RF insulin glargine [Lantus Solostar U-100 Insulin] 100 unit/mL (3 mL) insulin pen 50 unit SC QHS (DME) blood-glucose meter [True Metrix Glucose Meter] Misc See Rx Instructions .ROUTE .MEDSUPPLY Qty: 1 0RF Rx Instructions: As directed (DME) WAlker with wheels See Rx Instructions .Route .MEDSUPPLY Qty: 1 0RF Rx Instructions: As directed tamsulosin 0.4 mg capsule 0.4 mg PO QHS Qty: 90 3RF (DME) True Metrix Glucose Test Strip Strip See Rx Instructions .ROUTE .MEDSUPPLY Qty: 150 10RF Rx Instructions: use four times a day pen needle, diabetic [Droplet Pen Needle] 31 gauge x 1/4 needle See Rx Instructions .ROUTE .COMPLEX Qty: 300 3RF Dose Instruction: USE DIRECTED (DIABETES) Rx Instructions: USE DIRECTED (DIABETES) atorvastatin 80 mg tablet 80 mg PO QHS Qty: 90 3RF trazodone 150 mg tablet 150 mg PO QHS Qty: 90 1RF furosemide [Lasix] 40 mg tablet 40 mg PO DAILY Qty: 30 3RF nitroglycerin 0.4 mg tablet, sublingual 0.4 mg SL Q5M PRN (Reason: chest pain) Qty: 90 3RF isosorbide mononitrate 30 mg tablet extended release 24 hr 30 mg PO DAILY Qty: 90 3RF Referrals / Follow Up: Jh King DO [Primary Care Provider] - Within 1 Week Disposition Disposition (needs filled in before D/C Order can be placed): Home, Self Care Charges/Coding Visit Charges Inpatient E&M: 91326 Disch Hosp >30min
[2024-03-24 14:55] VITALS: BP 119/71; PULSE 84; RESP 18; TEMP 36.4; O2SAT 94
== END 2024-03-24 16:04 | disposition home or self-care (01) | DRG 291 ==
LOC: ED 08:21 → PCU 09:35
PROVIDERS: Admitting Provider Student in an Organized Health Care Education/Training Program; Emergency Provider Emergency Medicine; PCP Family Medicine; Visit Provider Student in an Organized Health Care Education/Training Program
DX: I11.0 Hypertensive heart disease with heart failure (principal); I50.33 Acute on chronic diastolic (congestive) heart failure; I69.354 Hemiplegia and hemiparesis following cerebral infarction affecting left non-dominant side; Z68.41 Body mass index [BMI] 40.0-44.9, adult; E11.9 Type 2 diabetes mellitus without complications; I48.0 Paroxysmal atrial fibrillation; E66.01 Morbid (severe) obesity due to excess calories; E78.2 Mixed hyperlipidemia; I25.10 Atherosclerotic heart disease of native coronary artery without angina pectoris; E87.6 Hypokalemia; I25.2 Old myocardial infarction; F17.220 Nicotine dependence, chewing tobacco, uncomplicated; Z79.4 Long term (current) use of insulin; N40.0 Benign prostatic hyperplasia without lower urinary tract symptoms; R09.02 Hypoxemia; Z66 Do not resuscitate; Z95.5 Presence of coronary angioplasty implant and graft; Z79.82 Long term (current) use of aspirin; Z79.84 Long term (current) use of oral hypoglycemic drugs; Z79.899 Other long term (current) drug therapy; Z23 Encounter for immunization
CPT/HCPCS: 36415; 71046; 80048; 80053; 82962; 83880; 84484; 85025; 90662; 93005; 93306; 97802; 99285; A4216; C8929; J1940

== ENCOUNTER → 2024-05-22 | Outpatient (CLI) | payer MEDICARE, MEDICAID, SELFPAY ==
--- NOTE | 2024-05-22 09:20 | RAD_ITS ---
HISTORY: DYSPNEA,COUGH LL RALES. TECHNIQUE: XR Chest 2 Views. COMPARISON: 03/23/2024. FINDINGS: CARDIOMEDIASTINAL BORDERS: Cardiac silhouette within normal limits in size with closure device noted. Mediastinal contour also unchanged with midline sternotomy and calcification of the aorta again seen. Surgical clips of the right thoracic inlet. LUNGS: Calcified granuloma of the right midlung laterally. Decreased left basilar opacity. PLEURA: Decreased left pleural effusion. OSSEOUS STRUCTURES: Degenerative change. RAD/Chest PA and Lateral IMPRESSION: Mild left pleural effusion, decreased from prior. Decreased left basilar atelectasis or pneumonia. Electronically Signed: Sofy Grubbs MD at 13:01 EST ,
== END | disposition home or self-care (01) ==
LOC: RAD 09:11
PROVIDERS: PCP Family Medicine; Referring Provider Family Medicine; Visit Provider Family Medicine
DX: R05.9 Cough, unspecified (principal); R06.00 Dyspnea, unspecified
CPT/HCPCS: 71046

== ENCOUNTER → 2024-06-24 | Outpatient (CLI) | payer MEDICARE, MEDICAID, SELFPAY ==
[2024-06-24 09:33] LABS: Absolute Lymphocyte Count 1.68 X10^3/uL (0.83-4.51); Absolute Neutrophil Count 7.7 X10^3/uL (2.0-7.7); Basophil# 0.04 X10^3/uL; Basophil% 0.4 % (0-1); Eosinophil# 0.31 X10^3/uL; Hematocrit 38.7 % (40-54); Hemoglobin 12.4 g/dL (13.0-16.5); Lymphocyte # 1.68 X10^3/ul (0.83-4.51); Lymphocyte % 16.1 % (19-41); Mean Corpuscular Hgb 26.6 pg (27.0-32.0); Mean Corpuscular Volume 82.9 fL (80-94); Mean Platelet Vol. 9.8 fl (6.2-12.0); Monocyte# 0.66 X10^3/uL; Monocyte% 6.3 % (0-10); NRBC Flagged by Analyzer 0 % (0-5); Neutrophil # 7.69 X10^3/uL (2.7-7.7); Neutrophil % 73.5 % (47-70); Platelet Count 236 K/mm3 (150-450); RBC Distribution Width CV 15.9 % (11.6-14.6); RBC Distribution Width SD 47.8 fl (35.1-43.9); Red Blood Count 4.67 M/mm3 (4.6-6.2); White Blood Count 10.5 K/mm3 (4.4-11.0)
[2024-06-24 09:36] LABS: Erythrocyte Sedimentation Rate 13 mm/hr (0-20)
[2024-06-24 10:06] LABS: ALB/GLOB Ratio 0.8 RATIO (0.9-2.4); AST(SGOT) 18 U/L (15-37); Alanine Aminotransfer ALT/SGPT 21 U/L (16-61); Alkaline Phosphatase 70 U/L (45-117); Anion Gap 2 (5-15); BUN 16 mg/dL (7-18); BUN/Creat Ratio 11.6 RATIO (10-20); Calcium,Total 8.6 mg/dL (8.5-10.1); Chloride 107 mmol/L (98-107); Creatinine, Serum 1.38 mg/dL (0.70-1.30); EST Glomerular Filtration Rate 52 mL/min (>60); Est Glom Filt Rate - Afr Amer 63 mL/min (>60); Globulin 3.6 g/dL (2.2-4.2); Glucose 117 mg/dL (74-106); Potassium 4.1 mmol/L (3.5-5.1); Protein, Total 6.6 g/dL (6.4-8.2); Sodium Level 139 mmol/L (136-145)
[2024-06-24 21:05] LABS: BNP,B-Type NATRIURETIC PEPTIDE 143.8 pg/mL (0-100)
== END | disposition home or self-care (01) ==
LOC: LAB 09:03
PROVIDERS: PCP Family Medicine; Referring Provider Family Medicine; Visit Provider Family Medicine
DX: I11.0 Hypertensive heart disease with heart failure (principal); I50.9 Heart failure, unspecified; R51.9 Headache, unspecified
CPT/HCPCS: 36415; 80053; 83880; 85025; 85652; 86140

== ENCOUNTER → 2024-09-14 | Outpatient (CLI) | payer MEDICARE, MEDICAID, SELFPAY ==
[2024-09-14 16:03] LABS: Absolute Lymphocyte Count 1.23 X10^3/uL (0.83-4.51); Absolute Neutrophil Count 9.2 X10^3/uL (2.0-7.7); Basophil# 0.04 X10^3/uL; Basophil% 0.4 % (0-1); Eosinophil# 0.22 X10^3/uL; Eosinophils% 1.9 % (0-5); Hematocrit 39.5 % (40-54); Hemoglobin 12.6 g/dL (13.0-16.5); Lymphocyte # 1.23 X10^3/ul (0.83-4.51); Lymphocyte % 10.8 % (19-41); Mean Corp Hgb Conc 31.9 g/dL (32-36); Mean Corpuscular Hgb 26.8 pg (27.0-32.0); Mean Corpuscular Volume 83.9 fL (80-94); Mean Platelet Vol. 10.7 fl (6.2-12.0); Monocyte# 0.66 X10^3/uL; Monocyte% 5.8 % (0-10); NRBC Flagged by Analyzer 0 % (0-5); Neutrophil # 9.22 X10^3/uL (2.7-7.7); Neutrophil % 80.7 % (47-70); Platelet Count 226 K/mm3 (150-450); RBC Distribution Width SD 45.4 fl (35.1-43.9); Red Blood Count 4.71 M/mm3 (4.6-6.2); White Blood Count 11.4 K/mm3 (4.4-11.0)
[2024-09-14 16:15] LABS: ALB/GLOB Ratio 1.2 RATIO (0.9-2.4); AST(SGOT) 20 U/L (<=37); Alanine Aminotransfer ALT/SGPT 21 U/L (<=46); Albumin, Serum 3.8 g/dL (3.4-4.8); Alkaline Phosphatase 82 U/L (40-129); Anion Gap 12 (5-15); BUN 13 mg/dL (4-19); BUN/Creat Ratio 12.4 RATIO (10-20); Calcium,Total 8.9 mg/dL (7.6-11.0); Carbon Dioxide 24.4 mmol/L (21.0-32.0); Chloride 103 mmol/L (98-108); Creatinine, Serum 1.05 mg/dL (0.70-1.20); EST Glomerular Filtration Rate 70 (>60); Globulin 3.1 g/dL (2.2-4.2); Glucose 265 mg/dL (70-99); Potassium 4.1 mmol/L (3.3-5.1); Protein, Total 6.8 g/dL (5.9-8.4); Sodium Level 139 mmol/L (133-145); Total Bilirubin 0.54 mg/dL (0.00-1.30)
== END | disposition home or self-care (01) ==
PROVIDERS: PCP Family Medicine
DX: I25.10 Atherosclerotic heart disease of native coronary artery without angina pectoris (principal); I48.0 Paroxysmal atrial fibrillation; I10 Essential (primary) hypertension
CPT/HCPCS: 36415; 80053; 85025

== ENCOUNTER → 2024-09-30 | Outpatient (CLI) | payer MEDICARE, MEDICAID, SELFPAY ==
--- NOTE | 2024-09-30 18:02 | STRESSREP ---
Stress Test Report Pharmacologic myocardial perfusion stress test. 84-year-old man with a history of coronary disease for preoperative evaluation Resting EKG demonstrates atrial fibrillation with a right bundle branch block and premature ventricular complexes with a rate of 70 bpm. Resting blood pressure is 148/68 mmHg. 0.4 mg of regadenoson was infused per usual protocol followed by rapid intravenous saline flush injection. Continuous EKG monitoring was performed. The maximum heart rate was 82 bpm which was 60% of max impacted heart rate the maximum workload was 1 metabolic equivalent. At rest there were no ST or T wave changes noted to suggest ischemia and at peak infusion nonspecific ST changes were noted which did not meet the criteria for ischemia. No clinical angina is noted. The final blood pressure was 120/64 mmHg. Myocardial perfusion protocol. 14.8 mCi of technetium 99m sestamibi was injected at rest. 0.4 mg of regadenoson was infused per usual protocol. At peak infusion 44.5 mCi of technetium 99m sestamibi was injected stress images were obtained stress and rest images were reconstructed and compared in the short axis vertical long and horizontal long axis. Gated images were also obtained. Perfusion SPECT analysis: Review of the stress images demonstrate normal uptake of tracer noted in all areas of the myocardium. The resting images similar demonstrated normal uptake of tracer noted in all areas of the myocardium. No areas of reversibility are noted to suggest ischemia and no previous infarct is noted. Gated SPECT analysis: The gated ejection fraction is 59%. Conclusion: Normal pharmacologic myocardial perfusion stress test. Preserved ejection fraction.
== END | disposition home or self-care (01) ==
LOC: CVS 06:06
PROVIDERS: PCP Family Medicine
DX: I25.10 Atherosclerotic heart disease of native coronary artery without angina pectoris (principal); I48.0 Paroxysmal atrial fibrillation; I10 Essential (primary) hypertension
CPT/HCPCS: 78452; 93017; A9500; A4216; J2785

== ENCOUNTER 2024-10-20 05:13 | Day surgery (SDC) | payer MEDICARE, MEDICAID, SELFPAY ==
--- NOTE | 2024-10-16 15:05 | PAT.ANESEVAL ---
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 When Was Last Pacemaker Check QUESTION #4 FULL TEXT: You/Your Family Experience fever (hyperthermia) with Anesthesia Last Oral Intake Last Oral intake: Last Oral Intake NPO since Meds taken in AM with sips of water? Meds patient instructed to take am of surgery PONV PONV - director business systems: PONV - director business systems Female No 10/16/24 09:46 HX of Motion Sickness No 10/16/24 09:46 HX of N/V After Surgery No 10/16/24 09:46 Non-Smoker Yes 10/16/24 09:46 Duration of Surgery greater No 10/16/24 09:46 than 60 minutes Number of Risk Factors 1 10/16/24 09:46 PONV Score Low Risk 10/16/24 09:46 Height & Weight Height & Weight: Anesthesia: Height & Weight Height 5 ft 9 in 08/19/24 14:38 Respiratory Assessment Respiratory Assessment - director business systems: Respiratory Tract Infection Hx - director business systems Hx Respiratory Tract Infection No 10/16/24 09:46 STOP Sleep Apnea STOP Sleep Apnea - director business systems: STOP Sleep Apnea - director business systems Hx Hypertension Yes: CONTROLLED WITH MED 10/16/24 09:46 Hx Sleep Apnea No 10/16/24 09:46 CPAP No 05/08/23 13:27 BIPAP No 05/08/23 13:27 Do you snore loudly (louder Yes 10/16/24 09:46 than talking or can be heard Do you often feel tired/ Yes 10/16/24 09:46 fatigued/ sleepy during daytime? Has anyone observed you stop No 10/16/24 09:46 breathing during sleep? STOP Results Positive 10/16/24 09:46 QUESTION #5 FULL TEXT : Do you snore loudly (louder than talking or can be heard through closed doors)? 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 Specify any problems Hx of Preganancy in last 3 N/A 10/16/24 09:46 Months Nurse Filling Out Transfusion DSCHRIBER 10/16/24 09:46 & Questions: Date: 10/16/24 10/16/24 09:46 Time: 09:48 10/16/24 09:46 Patient unable to answer at this time (ie. confused, unrespo /Reproduction History /Reproductive History - director business systems: /Reproductive Hx- director business systems Hx Now No 10/16/24 09:46 Gestational Age (in weeks): EDC: Hx Hx Para Hx Section SAB No 10/16/24 09:46 PFSH Medical History (Updated 10/16/24 @ 09:58 by Elizabeth Pacheco) Forgetfulness Depression Insulin dependent diabetes mellitus Bladder disease Easy bruising Injury of head and neck Difficulty swallowing Dietary restriction History of hiatal hernia Smoker Shortness of breath on exertion History of pain when walking History of edema History of Holter monitoring History of echocardiogram History of stress test Cardiology follow-up encounter History of CHF (congestive heart failure) Loss of hearing Wears hearing aid Wears glasses Wears dentures Hypertension Uses wheelchair Ambulates with cane Back pain Stroke/cerebrovascular accident Chest pain, unspecified Gastric reflux Atherosclerosis of coronary artery bypass graft without angina pectoris Presence of stent in coronary artery (~09/17/13) Old myocardial infarction Mixed hyperlipidemia Atherosclerosis of [place] coronary artery of [place] heart without angina pectoris Paroxysmal atrial fibrillation GERD (gastroesophageal reflux disease) Left-sided weakness Borderline elevated troponin Acute ischemic stroke BPH (benign prostatic hypertrophy) with urinary obstruction HTN (hypertension) HLD (hyperlipidemia) History of tobacco use Type II diabetes mellitus, uncontrolled Home Medications ?Medication ?Instructions ?Recorded ?Last Taken ?Type aspirin 81 mg tablet,delayed 81 mg PO QDAY Heart health 07/24/17 10/16/24 History release (Adult Low Dose Aspirin) wjtwqmpercsf-qguymtrh-gnvqqh tablet 1 tablet PO QDAY supplement 07/24/17 01/08/19 08:00 History 1 tab blood-glucose meter (True Metrix #1 ea 11/10/20 Unknown Rx Glucose Meter) WAlker with wheels #1 ea 12/27/20 Unknown Rx tamsulosin 0.4 mg capsule 0.4 mg PO QHS prostate #90 caps 04/26/21 Unknown Rx blood sugar diagnostic (True #150 ea 05/09/21 Unknown Rx Metrix Glucose Test Strip) metoprolol tartrate 100 mg tablet 100 mg PO BID #180 tabs 06/21/21 05/10/23 Rx atorvastatin 80 mg tablet 80 mg PO QHS #90 tabs 09/06/21 Unknown Rx trazodone 150 mg tablet 150 mg PO QHS sleep #90 tabs 09/28/21 Unknown Rx furosemide 40 mg tablet (Lasix) 40 mg PO DAILY #30 tabs 12/12/21 Unknown Rx insulin glargine 100 unit/mL (3 60 unit subcut QHS long acting 01/03/22 Unknown History mL) subcutaneous pen (Lantus insulin Solostar U-100 Insulin) isosorbide mononitrate 30 mg 30 mg PO DAILY #90 tabs 05/17/22 05/10/23 Rx tablet,extended release 24 hr nitroglycerin 0.4 mg sublingual 0.4 mg sublingual Q5M PRN chest 05/17/22 Unknown Rx tablet pain #90 tabs lactulose 10 gram/15 mL oral 30 ml PO BID 04/16/23 Unknown History solution pregabalin 100 mg capsule 100 mg PO BID 04/16/23 Unknown History potassium chloride 20 mEq 20 meq PO DAILY #30 tabs 03/24/24 Unknown Rx tablet,extended release glimepiride 4 mg tablet 4 mg PO QDAY 08/18/24 Unknown History valsartan 160 mg tablet 80 mg PO QPM 08/18/24 Unknown History betamethasone dipropionate 0.05 % 1 applic topical BID PRN skin 08/19/24 Unknown History topical cream irritation lansoprazole 30 mg capsule,delayed 30 mg PO QDAY 08/19/24 Unknown History release Allergy/AdvReac Type Severity Reaction Status Date / Time iodine Allergy Hives Verified 10/16/24 09:43 tramadol Allergy Other Verified 10/16/24 09:43 Family History Mother Cancer Sister Brain aneurysm Sister Brain aneurysm Father Cancer Surgical History (Updated 10/16/24 @ 09:58 by Elizabeth Pacheco) History of cardiac catheterization History of esophagogastroduodenoscopy (EGD) (01/10/22) History of right and left heart catheterization (LHC) (~11/07/21) Presence of Watchman left atrial appendage closure device (~03/04/18) Presence of coronary angioplasty implant and graft (~09/2013) History of cholecystectomy History of back surgery History of PTCA H/O carotid endarterectomy Hx of CABG (~12/22/07) Social History household members: children Smoking Status: Former smoker Smokeless tobacco user: chewing tobacco how long ago did patient quit smokin (1987) to 40 (1977) years ago (Cigars) alcohol intake: never substance use type: does not use caffeine: No what type of physical activity do you participate in: none seatbelt use: always do you feel safe at home: Yes Audit: Pertinent Findings Pertinent Findings EKG Perinent findings: 03/23/2024. Atrial fibrillation. 74 bpm with PVCs. Right bundle branch block. Stress test pertinent findings: 09/30/2024. EF 59%. Normal myocardial perfusion on stress test. Consult pertinent findings: Cardiology 04/16/2023. Coronary artery disease. Coronary artery bypass graft. 2003. Stenting 2007 3 times. Currently stable hypertension. Paroxysmal atrial fibrillation. Continue current medical therapy. Recommendation Anesthesia Recommendation Anesthesia recommendation: OPTIMIZED for anesthesia
[2024-10-20] VITALS (8 sets, daily range): BP systolic 108–126; BP diastolic 53–70; PULSE 64–76; RESP 16–18; TEMP 36.3–36.6; O2SAT 93–96; BMI 34.1
--- NOTE | 2024-10-20 06:12 | PCM.PRE.AN2 ---
ASA Classification* ASA Classification ASA Classification: 3 Assessment & Plan Anesthesia* Anesthesia Assessment Anesthesia Assessment: Discussed sedation and/or anesthesia options, risks, benefits, and alternatives with patient/parents/legal guardian/POA. Questions invited. The patient/parents/legal guardian/POA seems to understand and agrees to proceed with anesthesia plan. Reviewed the physical assessment, medical history, allergy history and patient home medications list prior to surgery/procedure/anesthetic and documented any changes. Performed airway and anesthesia risk assessments. Anesthesia Type Anesthesia Type: MAC History Source History Obtained from:: Patient and Chart Anesthesia Focused Assessment* Temperature: 97.4 F Pulse Rate: 76 Blood Pressure: 126/64 Respiratory Rate: 18 Pulse Ox: 93 Oxygen Delivery Method: Room Air Airway Assessment Mouth opens: >3 cm Mallampati Score: III Teeth Condition: Dentures (Full upper and lower dentures. They are out.) Neck Range of motion (ROM): Limited ROM Focused Labs Anesthesia Preop lab: CBC WBC 11.4 K/mm3 (4.4-11.0) H 09/14/24 13:54 09/14/24 RBC 4.71 M/mm3 (4.6-6.2) 09/14/24 13:54 09/14/24 Hgb 12.6 g/dL (13.0-16.5) L 09/14/24 13:54 09/14/24 Hct 39.5 % (40-54) L 09/14/24 13:54 09/14/24 Plt Count 226 K/mm3 (150-450) 09/14/24 13:54 09/14/24 CHEMISTRY Potassium 4.1 mmol/L (3.3-5.1) 09/14/24 13:54 09/14/24 Sodium 139 mmol/L (133-145) 09/14/24 13:54 09/14/24 Magnesium 2.0 mg/dL (1.6-2.6) 02/13/21 20:04 02/13/21 Phosphorus 4.1 mg/dL (2.5-4.9) 01/09/19 06:57 01/09/19 BUN 13 mg/dL (4-19) 09/14/24 13:54 09/14/24 Creatinine 1.05 mg/dL (0.70-1.20) 09/14/24 13:54 09/14/24 Glucose 265 mg/dL (70-99) H 09/14/24 13:54 09/14/24 POC Glucose 274 mg/dL (74-106) H 03/24/24 10:59 03/24/24 TSH 1.84 uIU/mL (0.358-3.74) 02/14/21 05:35 02/14/21 COAG PT 14.6 SECONDS (11.7-14.9) 11/02/21 14:00 11/02/21 Pre-Assessment Diagnosis/Proposed Procedure Planned Operative Procedure(s): EGD Anesthesia History Anesthesia History - hospitality coordinator: Anesthesia History - hospitality coordinator Hx Hospitalization No 10/16/24 09:46 Any Problems With Anesthesia No 10/16/24 09:46 Cholinesterase deficiency No 10/16/24 09:46 You/Your Family Experience No 10/16/24 09:46 fever (hyperthermia) with Relationship Recent Exposure to Contagious No 10/20/24 05:51 Disease Does patient have nerve No 10/16/24 09:46 stimulator Patient instructed to have device shut off --Does patient have Pacemaker No 10/20/24 05:56 or ICD? When Was Last Pacemaker Check QUESTION #4 FULL TEXT: You/Your Family Experience fever (hyperthermia) with Anesthesia Last Oral Intake Last Oral intake: Last Oral Intake NPO since 22:30 10/20/24 05:56 Meds taken in AM with sips of water? Meds patient instructed to take am of surgery PONV PONV - hospitality coordinator: PONV - hospitality coordinator Female No 10/16/24 09:46 HX of Motion Sickness No 10/16/24 09:46 HX of N/V After Surgery No 10/16/24 09:46 Non-Smoker Yes 10/16/24 09:46 Duration of Surgery greater No 10/16/24 09:46 than 60 minutes Number of Risk Factors 1 10/16/24 09:46 PONV Score Low Risk 10/16/24 09:46 Height & Weight Height & Weight: Anesthesia: Height & Weight Height 5 ft 9 in 10/20/24 05:56 Weight: 104.78 kg 10/20/24 05:56 Body Mass Index (BMI) 34.1 10/20/24 05:56 Respiratory Assessment Respiratory Assessment - hospitality coordinator: Respiratory Tract Infection Hx - hospitality coordinator Hx Respiratory Tract Infection No 10/16/24 09:46 Any additional information?: Yes Hx Respiratory Tract Infection: Yes (Patient has a chronic cough.) STOP Sleep Apnea STOP Sleep Apnea - hospitality coordinator: STOP Sleep Apnea - hospitality coordinator Hx Hypertension Yes: CONTROLLED WITH MED 10/16/24 09:46 Hx Sleep Apnea No 10/16/24 09:46 CPAP No 05/08/23 13:27 BIPAP No 05/08/23 13:27 Do you snore loudly (louder Yes 10/16/24 09:46 than talking or can be heard Do you often feel tired/ Yes 10/16/24 09:46 fatigued/ sleepy during daytime? Has anyone observed you stop No 10/16/24 09:46 breathing during sleep? STOP Results Positive 10/16/24 09:46 QUESTION #5 FULL TEXT : Do you snore loudly (louder than talking or can be heard through closed doors)? Tobacco Use History Tobacco Use History - hospitality coordinator: Tobacco Use History - hospitality coordinator Tobacco Use Smoking Status Former smoker 10/16/24 09:46 Hx Tobacco Use Yes 10/16/24 09:46 Years Smoking Packs Smoked per Day Smoking Cessation Date was No - quit smoking greater 10/16/24 09:46 within the last 15 years than 15 years ago Hx Smoking Cessation Date Hx Smoking Cessation No 10/16/24 09:46 Counseling Hematologic Medial History Hematologic Hx - hospitality coordinator: Hematologic Medical Hx - slurry mixer Hx of Blood Transfusion No 10/16/24 09:46 Hx of Transfusion in last 3 No 10/16/24 09:46 Months Date of Last Transfusion (if within last 3 months) Ever experience any problems No 10/16/24 09:46 with transfusion(s)? Specify any problems Hx of Preganancy in last 3 N/A 10/16/24 09:46 Months Nurse Filling Out Transfusion DSCHRIBER 10/16/24 09:46 & Questions: Date: 10/16/24 10/16/24 09:46 Time: 09:48 10/16/24 09:46 Patient unable to answer at this time (ie. confused, unrespo /Reproduction History /Reproductive History - hospitality coordinator: /Reproductive Hx- hospitality coordinator Hx Now No 10/16/24 09:46 Gestational Age (in weeks): EDC: Hx Hx Para Hx Section SAB No 10/16/24 09:46 [facility] Medical History Forgetfulness Depression Insulin dependent diabetes mellitus Bladder disease Easy bruising Injury of head and neck Difficulty swallowing Dietary restriction History of hiatal hernia Smoker Shortness of breath on exertion History of pain when walking History of edema History of Holter monitoring History of echocardiogram History of stress test Cardiology follow-up encounter History of CHF (congestive heart failure) Loss of hearing Wears hearing aid Wears glasses Wears dentures Hypertension Uses wheelchair Ambulates with cane Back pain Stroke/cerebrovascular accident Chest pain, unspecified Gastric reflux Atherosclerosis of coronary artery bypass graft without angina pectoris Presence of stent in coronary artery (~09/17/13) Old myocardial infarction Mixed hyperlipidemia Atherosclerosis of [place] coronary artery [place] heart without angina pectoris Paroxysmal atrial fibrillation GERD (gastroesophageal reflux disease) Left-sided weakness Borderline elevated troponin Acute ischemic stroke BPH (benign prostatic hypertrophy) with urinary obstruction HTN (hypertension) HLD (hyperlipidemia) History of tobacco use Type II diabetes mellitus, uncontrolled Home Medications ?Medication ?Instructions ?Recorded ?Last Taken ?Type aspirin 81 mg tablet,delayed 81 mg PO QDAY Heart health 07/24/17 10/16/24 History release (Adult Low Dose Aspirin) pmcyajkxfgcm-ojiupnbo-xseqdj tablet 1 tablet PO QDAY supplement 07/24/17 10/19/24 History blood-glucose meter (True Metrix #1 ea 11/10/20 Unknown Rx Glucose Meter) WAlker with wheels #1 ea 12/27/20 Unknown Rx tamsulosin 0.4 mg capsule 0.4 mg PO QHS prostate #90 caps 04/26/21 10/19/24 Rx blood sugar diagnostic (True #150 ea 05/09/21 Unknown Rx Metrix Glucose Test Strip) metoprolol tartrate 100 mg tablet 100 mg PO BID #180 tabs 06/21/21 10/20/24 04:00 Rx atorvastatin 80 mg tablet 80 mg PO QHS #90 tabs 09/06/21 10/19/24 Rx trazodone 150 mg tablet 150 mg PO QHS sleep #90 tabs 09/28/21 10/19/24 Rx furosemide 40 mg tablet (Lasix) 40 mg PO DAILY #30 tabs 12/12/21 10/19/24 Rx insulin glargine 100 unit/mL (3 60 unit subcut QHS long acting 01/03/22 10/19/24 History mL) subcutaneous pen (Lantus insulin 30 unit Solostar U-100 Insulin) isosorbide mononitrate 30 mg 30 mg PO DAILY #90 tabs 05/17/22 10/20/24 04:00 Rx tablet,extended release 24 hr nitroglycerin 0.4 mg sublingual 0.4 mg sublingual Q5M PRN chest 05/17/22 Unknown Rx tablet pain #90 tabs lactulose 10 gram/15 mL oral 30 ml PO BID 04/16/23 10/19/24 History solution pregabalin 100 mg capsule 100 mg PO BID 04/16/23 10/20/24 04:00 History potassium chloride 20 mEq 20 meq PO DAILY #30 tabs 03/24/24 10/19/24 Rx tablet,extended release glimepiride 4 mg tablet 4 mg PO QDAY 08/18/24 10/19/24 History valsartan 160 mg tablet 80 mg PO QPM 08/18/24 10/19/24 History betamethasone dipropionate 0.05 % 1 applic topical BID PRN skin 08/19/24 Unknown History topical cream irritation lansoprazole 30 mg capsule,delayed 30 mg PO QDAY 08/19/24 10/20/24 04:00 History release Allergy/AdvReac Type Severity Reaction Status Date / Time iodine Allergy Hives Verified 10/20/24 05:48 tramadol Allergy Other Verified 10/20/24 05:48 Family History Mother Cancer Sister Brain aneurysm Sister Brain aneurysm Father Cancer Surgical History History of cardiac catheterization History of esophagogastroduodenoscopy (EGD) (01/10/22) History of right and left heart catheterization (LHC) (~11/07/21) Presence of Watchman left atrial appendage closure device (~03/04/18) Presence of coronary angioplasty implant and graft (~09/2013) History of cholecystectomy History of back surgery History of PTCA H/O carotid endarterectomy Hx of CABG (~12/22/07) Social History household members: children Smoking Status: Never smoker Smokeless tobacco user: chewing tobacco how long ago did patient quit smokin (1987) to 39 (1977) years ago (Cigars) alcohol intake: never substance use type: does not use caffeine: No what type of physical activity do you participate in: none seatbelt use: always do you feel safe at home: Yes Review of Systems (Anesthesia) ROS Narrative System reviewed and no additional complaints, except as documented.
--- NOTE | 2024-10-20 06:30 | EGD_PTH ---
PATIENT: JUNE GUAMAN LOC: EN U#:[id number] AGE/SX: 84/M ROOM: RE10/20/[address]: Dr. Janusz Calles DO : 1940 BED: DIS: 10/20/2024 SPEC #: [id number] RECD: 10/20/24 13:44 STATUS: ANTHONY ASHER #: [id number] MAURICE: 10/20/24 06:[address]: Janusz Calles DEPT: SURGICAL PATHOLOGY RECD BY: Maximo Oliva ENTERED: 10/20/24 13:44 SP TYPE: EGD BIOPSY ROSETTA DR: Dr. Jh King DO Tissues: A - COLON BIOPSY B - Esophagus, NOS Procedures: Surgery Specimen Level IV HEADER OPERATION: EGD with biopsy PRE-OP DIAGNOSIS: Bloating, upset stomach, Moreno's esophagus, GERD TISSUE SUBMITTED: A- Anastomosis biopsy x2, B- Distal esophagus biopsy MICROSCOPIC DIAGNOSIS A. Gastrointestinal site not specified, anastomosis, biopsy: * Fragments of benign gastric and small intestinal mucosa. B. Distal esophagus, biopsy: * Moreno mucosa negative for dysplasia. MICROSCOPIC DESCRIPTION Slides are reviewed. GROSS DESCRIPTION A. Received in formalin in a container labeled with the patient's name, date of , and anastomosis biopsy x 2 are 2 diaz-pink fragments of mucosal tissue, each measuring 0.4 x 0.3 x 0.3 cm. Submitted in toto in A1. B. Received in formalin in a container labeled with the patient's name, date of , and distal esophagus biopsy are 2 diaz-pink fragments of mucosal tissue, each measuring 0.3 x 0.3 x 0.3 cm. Submitted in toto in B1. [facility] 10/25/2024 CPT:15350z9
[2024-10-20 06:51] LABS: Bedside Glucose 285 mg/dL (74-106)
--- NOTE | 2024-10-20 06:54 | PCM.HP.STD ---
HPI - General General Date of Admission: 10/20/24 Date of Service: 10/20/24 Chief Complaint: feng's , hiatal hernia and abdominal pain HPI Narrative JUNE GUAMAN, is a 84 M who presents for the evaluation of Feng's and abdominal pain CXR 05/22/2024 Mild left pleural effusion, decreased from prior. Decreased left basilar atelectasis or pneumonia. UGI 02/20/2024 There is evidence of a moderate-sized sliding hiatal hernia. There is evidence of gastroesophageal reflux. EGD 05/10/2023 Feng's w/o dysplasia, hyperplastic/inflammatory polyp and focal intestinal metaplasia, neg. H. 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 Biopsied. - Large hiatal hernia. - Bile gastritis. - A single gastric polyp. Resected and retrieved. - Erosive gastropathy with stigmata of recent bleeding. - No gross lesions in the duodenal bulb. GES 05/09/2023 Delayed semi-solid phase gastric emptying compared to normal controls, emptying was calculated to be 58.79 minutes, (Normal: 12-56 minutes). - denies any HB - reports when he lays down he has SOB and regurgitation - after eating I just don't feel good and will go lay down - otherwise it is usually 3 hours before laying down and still has issues with regurgitation - c/o phlegm - has a BM once a day - on lactulose BID - denies any diarrhea - cane, electric wheelchair, scooter - has fallen in the past year - he is a non-smoker - denies taking any NSAIDS COUNTS INCLUDE 234 BEDS AT THE [facility] Medical History Forgetfulness Depression Insulin dependent diabetes mellitus Bladder disease Easy bruising Injury of head and neck Difficulty swallowing Dietary restriction History of hiatal hernia Smoker Shortness of breath on exertion History of pain when walking History of edema History of Holter monitoring History of echocardiogram History of stress test Cardiology follow-up encounter History of CHF (congestive heart failure) Loss of hearing Wears hearing aid Wears glasses Wears dentures Hypertension Uses wheelchair Ambulates with cane Back pain Stroke/cerebrovascular accident Chest pain, unspecified Gastric reflux Atherosclerosis of coronary artery bypass graft without angina pectoris Presence of stent in coronary artery (~09/17/13) Old myocardial infarction Mixed hyperlipidemia Atherosclerosis of [place] coronary artery of [place] heart without angina pectoris Paroxysmal atrial fibrillation GERD (gastroesophageal reflux disease) Left-sided weakness Borderline elevated troponin Acute ischemic stroke BPH (benign prostatic hypertrophy) with urinary obstruction HTN (hypertension) HLD (hyperlipidemia) History of tobacco use Type II diabetes mellitus, uncontrolled Home Medications ?Medication ?Instructions ?Recorded ?Last Taken ?Type aspirin 81 mg tablet,delayed 81 mg PO QDAY Heart health 07/24/17 10/16/24 History release (Adult Low Dose Aspirin) miczqgzntsfm-sewextcy-pivbfa tablet 1 tablet PO QDAY supplement 07/24/17 10/19/24 History blood-glucose meter (True Metrix #1 ea 11/10/20 Unknown Rx Glucose Meter) WAlker with wheels #1 ea 12/27/20 Unknown Rx tamsulosin 0.4 mg capsule 0.4 mg PO QHS prostate #90 caps 04/26/21 10/19/24 Rx blood sugar diagnostic (True #150 ea 05/09/21 Unknown Rx Metrix Glucose Test Strip) metoprolol tartrate 100 mg tablet 100 mg PO BID #180 tabs 06/21/21 10/20/24 04:00 Rx atorvastatin 80 mg tablet 80 mg PO QHS #90 tabs 09/06/21 10/19/24 Rx trazodone 150 mg tablet 150 mg PO QHS sleep #90 tabs 09/28/21 10/19/24 Rx furosemide 40 mg tablet (Lasix) 40 mg PO DAILY #30 tabs 12/12/21 10/19/24 Rx insulin glargine 100 unit/mL (3 60 unit subcut QHS long acting 01/03/22 10/19/24 History mL) subcutaneous pen (Lantus insulin 30 unit Solostar U-100 Insulin) isosorbide mononitrate 30 mg 30 mg PO DAILY #90 tabs 05/17/22 10/20/24 04:00 Rx tablet,extended release 24 hr nitroglycerin 0.4 mg sublingual 0.4 mg sublingual Q5M PRN chest 05/17/22 Unknown Rx tablet pain #90 tabs lactulose 10 gram/15 mL oral 30 ml PO BID 04/16/23 10/19/24 History solution pregabalin 100 mg capsule 100 mg PO BID 04/16/23 10/20/24 04:00 History potassium chloride 20 mEq 20 meq PO DAILY #30 tabs 03/24/24 10/19/24 Rx tablet,extended release glimepiride 4 mg tablet 4 mg PO QDAY 08/18/24 10/19/24 History valsartan 160 mg tablet 80 mg PO QPM 08/18/24 10/19/24 History betamethasone dipropionate 0.05 % 1 applic topical BID PRN skin 08/19/24 Unknown History topical cream irritation lansoprazole 30 mg capsule,delayed 30 mg PO QDAY 08/19/24 10/20/24 04:00 History release Allergy/AdvReac Type Severity Reaction Status Date / Time iodine Allergy Hives Verified 10/20/24 05:48 tramadol Allergy Other Verified 10/20/24 05:48 Family History Mother Cancer Sister Brain aneurysm Sister Brain aneurysm Father Cancer Surgical History History of cardiac catheterization History of esophagogastroduodenoscopy (EGD) (01/10/22) History of right and left heart catheterization (LHC) (~11/07/21) Presence of Watchman left atrial appendage closure device (~03/04/18) Presence of coronary angioplasty implant and graft (~09/2013) History of cholecystectomy History of back surgery History of PTCA H/O carotid endarterectomy Hx of CABG (~12/22/07) Social History household members: children Smoking Status: Never smoker Smokeless tobacco user: chewing tobacco how long ago did patient quit smokin (1987) to 40 (1977) years ago (Cigars) alcohol intake: never substance use type: does not use caffeine: No what type of physical activity do you participate in: none seatbelt use: always do you feel safe at home: Yes ROS Constitutional Constitutional: Denies fatigue, fever(s), poor appetite, weight gain or weight loss Gastrointestinal Gastrointestinal: Denies belching, bloating, change in bowel habits, change in stool character, chewing difficulty, coffee ground emesis, constipation, cramping, diarrhea, dyspepsia, dysphagia, early satiety, excessive flatus, fecal incontinence, heartburn, hematemesis, hematochezia, hemorrhoids, loose stools, melena, nausea, odynophagia, rectal bleeding, tenesmus, vomiting or weight changes Vital Signs Vital Signs Vital Signs: 10/20/24 05:51 10/20/24 05:56 10/20/24 06:20 Temperature 97.4 F L 97.4 F L Temperature Source Temporal Pulse Rate 76 76 Respiratory Rate 18 18 Respiratory Pattern Normal Blood Pressure 126/64 H 126/64 H Blood Pressure Mean 84 Blood Pressure Source Monitor Blood Pressure Position Semi-Fowlers Blood Pressure Location Left Arm Pulse Ox 93 93 Oxygen Delivery Method Room Air Room Air Weight Weight: 231 lb Body Mass Index (BMI) 34.1 Physical Exam Const alert, oriented x3, no apparent distress and healthy appearing General Appearance: cooperative GI normal to inspection, nondistended, normoactive bowel sounds, soft to palpation, non-tender and non-distended Percussion: normal to percussion Rectal Exam: deferred Results Lab / Micro Data Labs: Laboratory Results - last 24 hr 10/20/24 05:46: POC Glucose 285 H Assessment & Plan Assessment/Plan (1) Bloating: (2) Upset stomach: (3) Feng's esophagus: PLAN: Assessment and Plan Assessment and Plan (1) GERD (gastroesophageal reflux disease): Status: Acute Plan 84y/o male referred by Dr. King for EGD prior to HH repair at [facility]. He is seen in the office with his daughter today and reports he is interested in HH repair due to experiencing postprandial abdominal discomfort and regurgitation with SOB when laying down. He is presently on lansoprazole 30mg daily and denies any HB or dysphagia. We will proceed with EGD and forward records to [facility] surgical team.
--- NOTE | 2024-10-20 07:17 | OP.CCLET_ITS ---
10/20/2024 Jh King [address] [facility] [place] [address] [place] [address] Re : Upper GI endoscopy procedure for Fermin Hill Dear Dr. King This procedure was performed on Sunday, October 20, 2024. 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 Biopsied. - Medium-sized hiatal hernia. - A pyloroplasty was found, characterized by friable mucosa, inflammation and erythema. Biopsied. Recommendations : - Discharge patient to home. - Resume previous diet. - Continue present medications. - Await pathology results. My findings are described in the full procedure note, which is enclosed. If I can be of further assistance, please feel free to contact me at . Sincerely, Janusz Calles, 10/20/2024 7:16:04 AM This report has been signed electronically.
--- NOTE | 2024-10-20 07:17 | OP.EGD_ITS ---
Patient Name: Fermin Hill Procedure Date: 10/20/2024 6:31 AM Date of : 1940 Age: 84 Procedure: Upper GI endoscopy Indications: Epigastric abdominal pain, Follow-up of Moreno's esophagus Providers: Janusz Calles DO Referring MD: Jh King Medicines: Monitored Anesthesia Care Patient Profile: This is an 84 year old male. Refer to note in patient chart for documentation of history and physical. Patient has symptoms of chronic epigastric abdominal pain, chronic dyspepsia, chronic heartburn and chronic nausea. The patient is status-post pylorplasty with a gastricduodenal. Complications: No immediate complications. Procedure: Pre-Anesthesia Assessment: - Prior to the procedure, a History and Physical was performed, and patient medications and allergies were reviewed. The patient is competent. The risks and benefits of the procedure and the sedation options and risks were discussed with the patient. All questions were answered and informed consent was obtained. Patient identification and proposed procedure were verified by the physician in the pre-procedure area. Mental Status Examination: alert and oriented. Airway Examination: normal oropharyngeal airway and neck mobility. Respiratory Examination: clear to auscultation. CV Examination: normal. Prophylactic Antibiotics: The patient does not require prophylactic antibiotics. Prior Anticoagulants: The patient has taken no anticoagulant or antiplatelet agents except for NSAID medication. ASA Grade Assessment: II - A patient with mild systemic disease. After reviewing the risks and benefits, the patient was deemed in satisfactory condition to undergo the procedure. The anesthesia plan was to use monitored anesthesia care (MAC). Immediately prior to administration of medications, the patient was re-assessed for adequacy to receive sedatives. The heart rate, respiratory rate, oxygen saturations, blood pressure, adequacy of pulmonary ventilation, and response to care were monitored throughout the procedure. The physical status of the patient was re-assessed after the procedure. After obtaining informed consent, the endoscope was passed under direct vision. Throughout the procedure, the patient's blood pressure, pulse, and oxygen saturations were monitored continuously. The gastroscope was introduced through the mouth, and advanced to the fourth part of the duodenum. Small bowel enteroscopy was deemed necessary. The upper GI endoscopy was accomplished without difficulty. The patient tolerated the procedure well. Scope In: 7:05:48 AM Scope Out: 7:09:41 AM Total Procedure Duration Time 0 hours 3 minutes 53 seconds Findings: There were esophageal mucosal changes secondary to established short-segment Moreno's disease present in the lower third of the esophagus. The maximum longitudinal extent of these mucosal changes was 2 cm in length. Mucosa was biopsied with a cold forceps for histology in a targeted manner at intervals of 1 cm in the lower third of the esophagus. One specimen bottle was sent to pathology. Verification of patient identification for the specimen was done. Estimated blood loss was minimal. A medium-sized hiatal hernia was present. Evidence of a pyloroplasty was found in the pylorus. This was characterized by erythema, friable mucosa and inflammation. Biopsies were taken with a cold forceps for histology. Verification of patient identification for the specimen was done. Estimated blood loss was minimal. An examination of the duodenum was not performed. 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 Biopsied. - Medium-sized hiatal hernia. - A pyloroplasty was found, characterized by friable mucosa, inflammation and erythema. Biopsied. Recommendation: - Discharge patient to home. - Resume previous diet. - Continue present medications. - Await pathology results. Procedure Code(s): --- Professional --- 79182, Small intestinal endoscopy, enteroscopy beyond second portion of duodenum, not including ileum; with biopsy, single or multiple CPT copyright 2021 [employer]. All rights reserved. The codes documented in this report are preliminary and upon shell molder review may be revised to meet current compliance requirements. Janusz Calles DO 10/20/2024 7:16:04 AM This report has been signed electronically. Number of Addenda: 0 Note Initiated On: 10/20/2024 6:31 AM
--- NOTE | 2024-10-20 07:18 | PCM.POST.ANE ---
Anesthesia: Postop Eval I Current Vital Signs Temperature: 97.9 F Pulse Rate: 67 Blood Pressure: 111/63 Respiratory Rate: 16 Pulse Ox: 95 Oxygen Delivery Method: Nasal Cannula Oxygen Flow Rate (L/min): 2 Assessment Airway patent: Yes Spontaneous unlabored respirations: Yes Mental status: Awake and Calm nausea: No Vomiting: No Anesthesia Complication: No Fluid Hydration Crystalloid volume administer (ml): 20 Total IV fluid infused: 20 Progress Note Anesthesia document: Postop Eval 1 completed: Yes
--- NOTE | 2024-10-20 08:41 | PCM.POSTANE2 ---
Anesthesia Postop Eval I Sum Postop Eval Completion status Anesthesia document: Postop Eval 1 completed: Yes Anesthesia Postop Eval I Summary Anesthesia Postop Eval I Summary: Anesthesia Postop Eval I: Assessment Summary Airway patent Yes 10/20/24 07:19 [email or web address] Spontaneous unlabored Yes 10/20/24 07:19 [email or web address] respirations Mental status Awake,Calm 10/20/24 07:19 [email or web address] nausea No 10/20/24 07:19 [email or web address] Vomiting No 10/20/24 07:19 [email or web address] Anesthesia Postop Eval I: Fluid Summary Crystalloid volume administer 20 10/20/24 07:19 [email or web address] (ml) Colloids volume administered ( ml) Blood Product volume administered (ml) Total IV fluid infused 20 10/20/24 07:19 [email or web address] Anesthesia Postop Eval I: Summary Notes Anesthesia Complication No 10/20/24 07:19 [email or web address] Anesthesia Complication Comment: Post-operative progress note Anesthesia: Postop Eval II Evaluation Mental status: Awake and Calm Pain Level: 0 nausea: No Vomiting: No Complications Anesthesia Complication: No
== END 2024-10-20 07:57 | disposition home or self-care (01) ==
LOC: EN 05:13 → AC 05:15
PROVIDERS: PCP Family Medicine; Referring Provider Family Medicine; Visit Provider Internal Medicine Gastroenterology
PROC: 0DJ08ZZ Inspection of Upper Intestinal Tract, Via Natural or Artificial Opening Endoscopic (ICD-10-PCS; CPT 43235; principal; 2024-10-20 06:25)
DX: K22.70 Barrett's esophagus without dysplasia (principal); I11.0 Hypertensive heart disease with heart failure; I50.9 Heart failure, unspecified; Z79.4 Long term (current) use of insulin; E11.9 Type 2 diabetes mellitus without complications; K21.9 Gastro-esophageal reflux disease without esophagitis; K44.9 Diaphragmatic hernia without obstruction or gangrene; E78.2 Mixed hyperlipidemia; I25.10 Atherosclerotic heart disease of native coronary artery without angina pectoris; I25.2 Old myocardial infarction; F17.220 Nicotine dependence, chewing tobacco, uncomplicated; Z90.49 Acquired absence of other specified parts of digestive tract; Z95.1 Presence of aortocoronary bypass graft; Z95.5 Presence of coronary angioplasty implant and graft; Z98.0 Intestinal bypass and anastomosis status; Z79.82 Long term (current) use of aspirin; Z79.84 Long term (current) use of oral hypoglycemic drugs; Z79.899 Other long term (current) drug therapy; Z86.73 Personal history of transient ischemic attack (TIA), and cerebral infarction without residual deficits
CPT/HCPCS: 44361; 82962; 88305; A4216; J2405

== ENCOUNTER 2024-11-06 07:17 | Day surgery (SDC) | payer MEDICARE, MEDICAID, SELFPAY ==
[2024-11-06] MEDS: Lidocaine Jelly 2% 20 ML Syringe (URO-JET) 1 APPLIC (07:40)
[2024-11-06 07:50] VITALS: BP 155/81; PULSE 90; RESP 18; TEMP 36.7; O2SAT 98
== END 2024-11-06 23:59 | disposition home or self-care (01) ==
LOC: EN 07:17
PROVIDERS: PCP Family Medicine; Referring Provider Family Medicine; Visit Provider Internal Medicine Gastroenterology
PROC: F00ZJWZ Instrumental Swallowing and Oral Function Assessment using Swallowing Equipment (ICD-10-PCS; CPT 43235; principal; 2024-11-06 07:25)
DX: K22.4 Dyskinesia of esophagus (principal); K22.89 Other specified disease of esophagus; K31.89 Other diseases of stomach and duodenum
CPT/HCPCS: 91010

== ENCOUNTER → 2024-11-25 | Outpatient (CLI) | payer MEDICARE, MEDICAID, SELFPAY ==
--- NOTE | 2024-11-25 13:44 | RAD_ITS ---
EXAM: XR Chest, 2 Views CLINICAL INDICATION: COUGH, WHEEZING TECHNIQUE: Frontal and lateral views of the chest. COMPARISON: No relevant prior studies available. FINDINGS: LUNGS AND PLEURAL SPACES: Left pleural effusion. HEART: Cardiomegaly with mild congestion. MEDIASTINUM: Unremarkable. Normal mediastinal contour. BONES/JOINTS: Unremarkable. No acute fracture. RAD/Chest PA and Lateral IMPRESSION: 1. Left pleural effusion. 2. Cardiomegaly with mild congestion. Reading Location[facility]
== END | disposition home or self-care (01) ==
LOC: MTRAD 13:43
PROVIDERS: PCP Family Medicine; Referring Provider Family Medicine; Visit Provider Family Medicine
DX: R05.9 Cough, unspecified (principal); R06.2 Wheezing
CPT/HCPCS: 71046

== ENCOUNTER 2024-12-03 16:43 | Inpatient (IN) | payer MEDICARE, MEDICAID, SELFPAY ==
[2024-12-03] VITALS (13 sets, daily range): BP systolic 131–164; BP diastolic 69–102; PULSE 61–89; RESP 16–26; TEMP 36.4–37.2; O2SAT 88–96; BMI 34.2; BMI 33.1
--- NOTE | 2024-12-03 17:22 | EKG12_ITS ---
Test Reason : Blood Pressure : */* mmHG Vent. Rate : 82 BPM Atrial Rate : * BPM P-R Int : * ms QRS Dur : 152 ms QT Int : 438 ms P-R-T Axes : * 58 28 degrees QTcB Int : 511 ms Atrial fibrillation Right bundle branch block Abnormal ECG Confirmed by Cruzito Hernandez ([id number]), publications editor THIERNO TUCKER ([id number]) on 12/07/2024 10:39:14 AM Referred By: Devonte Wright Confirmed By: Cruzito Hernandez
--- NOTE | 2024-12-03 17:44 | RAD_ITS ---
PROCEDURE: CHEST PA AND LATERAL 12/03/2024 REASON FOR EXAM: COUGH TECHNIQUE: Frontal and lateral views of the chest. COMPARISON: Chest radiograph 11/25/2024. FINDINGS: Hardware: Prior median sternotomy, aortic valve repair/replacement and CABG. Surgical clips along the right lower neck. Heart: Heart size is mildly enlarged with pulmonary venous congestion. Mediastinum: The thoracic aorta is tortuous and calcified. Lungs: Probable emphysema with scattered areas of scarring. Stable left pleural effusion. Slight increase in the ill-defined bibasilar infiltrates. Bones: Degenerative changes are identified within the thoracic spine. RAD/Chest PA and Lateral IMPRESSION: 1. Slight increase in the ill-defined bibasilar infiltrates, which may represen t pneumonitis/pneumonia. 2. Stable cardiomegaly and left pleural effusion. Reading Location: [id number]
[2024-12-03 17:47] LABS: Absolute Lymphocyte Count 1.21 X10^3/uL (0.83-4.51); Absolute Neutrophil Count 10.6 X10^3/uL (2.0-7.7); Basophil# 0.03 X10^3/uL; Basophil% 0.2 % (0-1); Eosinophil# 0.14 X10^3/uL; Eosinophils% 1.1 % (0-5); Hematocrit 37.3 % (40-54); Hemoglobin 12.2 g/dL (13.0-16.5); Lymphocyte # 1.21 X10^3/ul (0.83-4.51); Lymphocyte % 9.4 % (19-41); Mean Corp Hgb Conc 32.7 g/dL (32-36); Mean Corpuscular Hgb 26.5 pg (27.0-32.0); Mean Corpuscular Volume 81.1 fL (80-94); Mean Platelet Vol. 9.8 fl (6.2-12.0); Monocyte# 0.81 X10^3/uL; Monocyte% 6.3 % (0-10); NRBC Flagged by Analyzer 0 % (0-5); Neutrophil # 10.58 X10^3/uL (2.7-7.7); Neutrophil % 82.5 % (47-70); Platelet Count 264 K/mm3 (150-450); RBC Distribution Width CV 15.1 % (11.6-14.6); RBC Distribution Width SD 44.8 fl (35.1-43.9); White Blood Count 12.8 K/mm3 (4.4-11.0)
--- NOTE | 2024-12-03 17:54 | EX.ED.DYSGE1 ---
HPI History of Present Illness Chief Complaint: Cough Narrative Narrative: Patient is a 84-year-old male with past medical history of paroxysmal atrial fibrillation, CHF, GERD, CAD, CVA, CHF, hyperlipidemia, BPH, hypertension, type 2 diabetes who presents to the emergency department with a chief complaint of cough. Patient states that he has been coughing for a significant time and states that he is coughing stuff up. He states that last week he had a x-ray of his chest performed at an outpatient setting and was sent home. Patient states that he has tried cough syrups, cough drops and things are not getting better therefore he came here today for further evaluation management. In the triage note it states that the patient passed out while coughing he states that he did not pass out he states that he coughed hard and things went dark for a brief second and then return to normal. According to patient family bedside this was witnessed and he did not go unresponsive per her. They state that they just do not know what to do for his cough therefore they came here for further evaluation management. Denies any fevers PFSH [facility], [facility] Medical History Forgetfulness Depression Insulin dependent diabetes mellitus Bladder disease Easy bruising Injury of head and neck Difficulty swallowing Dietary restriction History of hiatal hernia Smoker Shortness of breath on exertion History of pain when walking History of edema History of Holter monitoring History of echocardiogram History of stress test Cardiology follow-up encounter History of CHF (congestive heart failure) Loss of hearing Wears hearing aid Wears glasses Wears dentures Hypertension Uses wheelchair Ambulates with cane Back pain Stroke/cerebrovascular accident Chest pain, unspecified Gastric reflux Atherosclerosis of coronary artery bypass graft without angina pectoris Presence of stent in coronary artery (~09/17/13) Old myocardial infarction Mixed hyperlipidemia Atherosclerosis of [place] coronary artery of [place] heart without angina pectoris Paroxysmal atrial fibrillation GERD (gastroesophageal reflux disease) Left-sided weakness Borderline elevated troponin Acute ischemic stroke BPH (benign prostatic hypertrophy) with urinary obstruction HTN (hypertension) HLD (hyperlipidemia) History of tobacco use Type II diabetes mellitus, uncontrolled Home Medications ?Medication ?Instructions ?Recorded ?Last Taken ?Type aspirin 81 mg tablet,delayed 81 mg PO QDAY Heart health 07/24/17 10/16/24 History release (Adult Low Dose Aspirin) thmscrcxungi-cnmhmvbp-jvnnea tablet 1 tablet PO QDAY supplement 07/24/17 10/19/24 History blood-glucose meter (True Metrix #1 ea 11/10/20 Unknown Rx Glucose Meter) WAlker with wheels #1 ea 12/27/20 Unknown Rx tamsulosin 0.4 mg capsule 0.4 mg PO QHS prostate #90 caps 04/26/21 10/19/24 Rx blood sugar diagnostic (True #150 ea 05/09/21 Unknown Rx Metrix Glucose Test Strip) metoprolol tartrate 100 mg tablet 100 mg PO BID #180 tabs 06/21/21 10/20/24 04:00 Rx atorvastatin 80 mg tablet 80 mg PO QHS #90 tabs 09/06/21 10/19/24 Rx trazodone 150 mg tablet 150 mg PO QHS sleep #90 tabs 09/28/21 10/19/24 Rx furosemide 40 mg tablet (Lasix) 40 mg PO DAILY #30 tabs 12/12/21 10/19/24 Rx insulin glargine 100 unit/mL (3 60 unit subcut QHS long acting 01/03/22 10/19/24 History mL) subcutaneous pen (Lantus insulin 30 unit Solostar U-100 Insulin) isosorbide mononitrate 30 mg 30 mg PO DAILY #90 tabs 05/17/22 10/20/24 04:00 Rx tablet,extended release 24 hr nitroglycerin 0.4 mg sublingual 0.4 mg sublingual Q5M PRN chest 05/17/22 Unknown Rx tablet pain #90 tabs lactulose 10 gram/15 mL oral 30 ml PO BID 04/16/23 10/19/24 History solution pregabalin 100 mg capsule 100 mg PO BID 04/16/23 10/20/24 04:00 History glimepiride 4 mg tablet 4 mg PO QDAY 08/18/24 10/19/24 History lansoprazole 30 mg capsule,delayed 30 mg PO QDAY 08/19/24 10/20/24 04:00 History release metoclopramide HCl 5 mg tablet 5 mg PO QAC #90 tabs 11/13/24 Unknown Rx (Reglan) famotidine 10 mg tablet (Acid 10 mg PO BID #20 tabs 11/21/24 Unknown Rx Anesthesia Assistant (famotidine)) betamethasone, augmented 0.05 % 1 applic topical Q24H PRN skin 12/03/24 Unknown History topical cream irritation dextromethorphan-guaifenesin 10 10 ml PO Q4H PRN PRN cough 12/03/24 Unknown History mg-100 mg/5 mL oral syrup (Chest Congestion Relief DM) fexofenadine 180 mg tablet 180 mg PO DAILY 12/03/24 Unknown History potassium chloride 20 mEq 20 meq PO DAILY 12/03/24 Unknown History tablet,extended release(part/cryst) valsartan 80 mg tablet 80 mg PO DAILY 12/03/24 Unknown History Allergy/AdvReac Type Severity Reaction Status Date / Time iodine Allergy Hives Verified 12/03/24 16:48 tramadol Allergy Other Verified 12/03/24 16:48 Family History Mother Cancer Sister Brain aneurysm Sister Brain aneurysm Father Cancer Surgical History History of cardiac catheterization History of esophagogastroduodenoscopy (EGD) (01/10/22) History of right and left heart catheterization (LHC) (~11/07/21) Presence of Watchman left atrial appendage closure device (~03/04/18) Presence of coronary angioplasty implant and graft (~09/2013) History of cholecystectomy History of back surgery History of PTCA H/O carotid endarterectomy Hx of CABG (~12/22/07) Social History household members: children Smoking Status: Current some day smoker tobacco type: cigars and smokeless tobacco Smokeless tobacco user: chewing tobacco how long ago did patient quit smokin (1987) to 39 (1977) years ago (Cigars) alcohol intake: never substance use type: does not use caffeine: No what type of physical activity do you participate in: none seatbelt use: always do you feel safe at home: Yes ROS ROS ED ROS Narrative Constitutional: Denies any fevers, chills, headaches, lightheadedness, dizziness Eyes: Denies change in vision double vision blurry vision Cardiovascular: Denies chest pain or palpitations Respiratory: Complains of cough denies shortness of breath Abdomen: Denies abdominal pain nausea vomit diarrhea : Denies urinary symptoms Neurological: Denies numbness, weakness, tingling Musculoskeletal: Denies back pain Skin: Denies rashes or lesions EXAM Physical Exam Narrative Exam Narrative: General: Patient was lying in bed rest comfortably did not appear to be in acute distress Head: Atraumatic, normocephalic Eyes: PERRL bilaterally, EOMI bilateral, no conjunctival injection noted Neck: Soft, supple, trachea midline Cardiovascular: Patient has a regular rate with an irregular irregular rhythm no murmurs gallops rubs are noted Respiratory: Clear to auscultation bilaterally no rales rhonchi or wheezes noted Abdomen: Soft, nondistended, no tenderness to palpation Extremities: +5/5 strength noted in the bilateral upper and lower extremities, radial pulses +2/4 in the bilateral extremities Neurological: Patient follow commands knew that he was at [facility] year is 2024 Skin: Warm, dry, tact no rashes or lesions noted Const Vital Signs: 12/03/24 16:45 12/03/24 16:48 12/03/24 17:13 Temperature 97.5 F L 97.5 F L 98.6 F Temperature Source Oral Temporal Oral Pulse Rate 83 83 Respiratory Rate 18 18 Respiratory Effort Respiratory Depth Respiratory Pattern Blood Pressure 131/71 H 131/71 H Blood Pressure Mean 91 91 Pulse Ox 93 93 Oxygen Delivery Method Room Air Room Air Oxygen Flow Rate (L/min) 12/03/24 17:40 12/03/24 17:41 12/03/24 17:48 Temperature 98.6 F Temperature Source Oral Pulse Rate 72 Respiratory Rate 26 H Respiratory Effort Normal Respiratory Depth Normal Respiratory Pattern Normal Blood Pressure 132/69 H Blood Pressure Mean 90 Pulse Ox 93 Oxygen Delivery Method Room Air Room Air Room Air Oxygen Flow Rate (L/min) 12/03/24 18:06 12/03/24 18:10 12/03/24 18:10 Temperature 98.7 F Temperature Source Oral Pulse Rate 77 Respiratory Rate 21 H Respiratory Effort Respiratory Depth Respiratory Pattern Blood Pressure 150/78 H Blood Pressure Mean 102 Pulse Ox 96 88 96 Oxygen Delivery Method Room Air Room Air Nasal Cannula Oxygen Flow Rate (L/min) 2 MDM MDM MDM Narrative Medical decision making narrative: Patient is a 84-year-old male who presented to the emergency department the chief complaint of cough. On the differential diagnosis includes but not limited to chronic cough, upper respiratory feck second viral etiology, pneumonia. Once workup is obtained reviewed he will be reevaluated. Patient's EKG was reviewed and showed atrial fibrillation with evidence of right bundle branch block with a rate of 82 bpm. Patient's cardiology note from 04/16/2023 was reviewed and the patient according to note had Watchman procedure done on 03/04/2018 at [facility] therefore he is not anticoagulated. Patient's CBC reviewed showed a leukocytosis of 12,000, hemoglobin 12.2, platelet count was noted to be 264. Patient sodium was 137, potassium normal 4.1, creatinine normal at 0.92. Patient's chest x-ray reviewed by myself and by radiology which showed slight increase in ill-defined basilar infiltrates suggestive of pneumonia stable cardiomegaly and left pleural effusion. Patient ambulated here in the emergency department and became hypoxic to 88% on room air he is not normally on oxygen he was placed on nasal cannula. Will discuss case with hospitalist for admission for his acute hypoxic respiratory failure in the setting of pneumonia. Discussed case with hospitalist Dr. Agosto who accepted patient for admission. Patient was notified is agreeable with the plan all questions and concerns answered. Lab Data Labs: Laboratory Results - last 24 hr 12/03/24 17:40 WBC 12.8 H RBC 4.60 Hgb 12.2 L Hct 37.3 L MCV 81.1 MCH 26.5 L MCHC 32.7 RDW Std Deviation 44.8 H RDW Coeff of [place] 15.1 H Plt Count 264 MPV 9.8 Immature Gran % (Auto) 0.500 Neut % (Auto) 82.5 H Lymph % (Auto) 9.4 L [place] % (Auto) 6.3 Eos % (Auto) 1.1 Baso % (Auto) 0.2 Absolute Neuts (auto) 10.6 H Absolute Lymphs (auto) 1.21 Nucleated RBC % 0 Sodium 137 Potassium 4.1 Chloride 103 Carbon Dioxide 22.4 Anion Gap 12 BUN 12 Creatinine 0.92 Estim Creat Clear Calc 70.13 Est GFR (MDRD) Non-Af 82 BUN/Creatinine Ratio 13.4 Glucose 170 H Calcium 8.5 Radiography Diagnostic Testing: Clinical Impression(s) from Imaging Studies Chest X-Ray 12/03/24 17:44 IMPRESSION: 1. Slight increase in the ill-defined bibasilar infiltrates, which may represent pneumonitis/pneumonia. 2. Stable cardiomegaly and left pleural effusion. Reading Location: [id number] Discharge Plan Dx/Rx/DC Orders Clinical Impression: Acute hypoxic respiratory failure, Paroxysmal atrial fibrillation, Pneumonia Disposition Disposition: Acute Care Hospital [facility]
[2024-12-03 18:08] LABS: Anion Gap 12 (5-15); BUN 12 mg/dL (4-19); BUN/Creat Ratio 13.4 RATIO (10-20); Calcium,Total 8.5 mg/dL (7.6-11.0); Carbon Dioxide 22.4 mmol/L (21.0-32.0); Chloride 103 mmol/L (98-108); Creatinine, Serum 0.92 mg/dL (0.70-1.20); EST Glomerular Filtration Rate 82 (>60); Estimated Creatinine Clearance 70.13 ml/min (50-250); Glucose 170 mg/dL (70-99); Potassium 4.1 mmol/L (3.3-5.1); Sodium Level 137 mmol/L (133-145)
[2024-12-03] MEDS: Ceftriaxone 2 GM in 0.9% Normal Saline (50mL MB+) 50 ML IV (18:44)
--- NOTE | 2024-12-03 19:51 | PCM.HP.STD ---
HPI - General General Date of Admission: 12/03/24 Date of Service: 12/03/24 Chief Complaint: Shortness of breath HPI Narrative JUNE GUAMAN, is a 84 M with past medical history of congestive heart failure, coronary artery disease, benign essential hypertension, dyslipidemia, A-fib, type 2 diabetes, BPH, who presents to the ED with concerns regarding progressive shortness of breath and cough since the last 3 to 4 weeks History is provided by the daughter at bedside Ongoing cough with thick expectoration mostly mucoid to mucopurulent in color since the last 3 to 4 weeks No fever, but has noted some changes in his baseline status and shortness of breath No orthopnea or PND No fever Has not taken any antibiotics for the same Has been compliant with most of his medications At the time presentation to the ED, BP 164/87, pulse 88, respiratory rate 16, oxygen saturation 95%, but when on while ambulating his saturation dropped to 88% and required 2 L of nasal cannula WBC 12.8, hemoglobin 12.2, platelet count 264, sodium 137, potassium 4.1, chloride 93, anion gap 12, BUN 12, creatinine 0.9, glucose 170, calcium 8.5 [facility] Medical History Forgetfulness Depression Insulin dependent diabetes mellitus Bladder disease Easy bruising Injury of head and neck Difficulty swallowing Dietary restriction History of hiatal hernia Smoker Shortness of breath on exertion History of pain when walking History of edema History of Holter monitoring History of echocardiogram History of stress test Cardiology follow-up encounter History of CHF (congestive heart failure) Loss of hearing Wears hearing aid Wears glasses Wears dentures Hypertension Uses wheelchair Ambulates with cane Back pain Stroke/cerebrovascular accident Chest pain, unspecified Gastric reflux Atherosclerosis of coronary artery bypass graft without angina pectoris Presence of stent in coronary artery (~09/17/13) Old myocardial infarction Mixed hyperlipidemia Atherosclerosis of [place] coronary artery of [place] heart without angina pectoris Paroxysmal atrial fibrillation GERD (gastroesophageal reflux disease) Left-sided weakness Borderline elevated troponin Acute ischemic stroke BPH (benign prostatic hypertrophy) with urinary obstruction HTN (hypertension) HLD (hyperlipidemia) History of tobacco use Type II diabetes mellitus, uncontrolled Home Medications ?Medication ?Instructions ?Recorded ?Last Taken ?Type aspirin 81 mg tablet,delayed 81 mg PO QDAY RuckPack 07/24/17 10/16/24 History release (Adult Low Dose Aspirin) [id number] tablet 1 tablet PO QDAY supplement 07/24/17 10/19/24 History blood-glucose meter (True Metrix #1 ea 11/10/20 Unknown Rx Glucose Meter) WAlker with wheels #1 ea 12/27/20 Unknown Rx tamsulosin 0.4 mg capsule 0.4 mg PO QHS prostate #90 caps 04/26/21 10/19/24 Rx blood sugar diagnostic (True #150 ea 05/09/21 Unknown Rx Metrix Glucose Test Strip) metoprolol tartrate 100 mg tablet 100 mg PO BID #180 tabs 06/21/21 10/20/24 04:00 Rx atorvastatin 80 mg tablet 80 mg PO QHS #90 tabs 09/06/21 10/19/24 Rx trazodone 150 mg tablet 150 mg PO QHS sleep #90 tabs 09/28/21 10/19/24 Rx furosemide 40 mg tablet (Lasix) 40 mg PO DAILY #30 tabs 12/12/21 10/19/24 Rx insulin glargine 100 unit/mL (3 60 unit subcut QHS long acting 01/03/22 10/19/24 History mL) subcutaneous pen (Lantus insulin 30 unit Solostar U-100 Insulin) isosorbide mononitrate 30 mg 30 mg PO DAILY #90 tabs 05/17/22 10/20/24 04:00 Rx tablet,extended release 24 hr nitroglycerin 0.4 mg sublingual 0.4 mg sublingual Q5M PRN chest 05/17/22 Unknown Rx tablet pain #90 tabs lactulose 10 gram/15 mL oral 30 ml PO BID 04/16/23 10/19/24 History solution pregabalin 100 mg capsule 100 mg PO BID 04/16/23 10/20/24 04:00 History glimepiride 4 mg tablet 4 mg PO QDAY 08/18/24 10/19/24 History lansoprazole 30 mg capsule,delayed 30 mg PO QDAY 08/19/24 10/20/24 04:00 History release metoclopramide HCl 5 mg tablet 5 mg PO QAC #90 tabs 11/13/24 Unknown Rx (Reglan) famotidine 10 mg tablet (Acid 10 mg PO BID #20 tabs 11/21/24 Unknown Rx Sales[employer] Train[employer] (famotidine)) betamethasone, augmented 0.05 % 1 applic topical Q24H PRN skin 12/03/24 Unknown History topical cream irritation dextromethorphan-guaifenesin 10 10 ml PO Q4H PRN PRN cough 12/03/24 Unknown History mg-100 mg/5 mL oral syrup (Chest Congestion Relief DM) fexofenadine 180 mg tablet 180 mg PO DAILY 12/03/24 Unknown History potassium chloride 20 mEq 20 meq PO DAILY 12/03/24 Unknown History tablet,extended release(part/cryst) valsartan 80 mg tablet 80 mg PO DAILY 12/03/24 Unknown History Allergy/AdvReac Type Severity Reaction Status Date / Time iodine Allergy Hives Verified 12/03/24 16:48 tramadol Allergy Other Verified 12/03/24 16:48 Family History Mother Cancer Sister Brain aneurysm Sister Brain aneurysm Father Cancer Surgical History History of cardiac catheterization History of esophagogastroduodenoscopy (EGD) (01/10/22) History of right and left heart catheterization (LHC) (~11/07/21) Presence of Watchman left atrial appendage closure device (~03/04/18) Presence of coronary angioplasty implant and graft (~09/2013) History of cholecystectomy History of back surgery History of PTCA H/O carotid endarterectomy Hx of CABG (~12/22/07) Social History household members: children Smoking Status: Current some day smoker tobacco type: cigars and smokeless tobacco Smokeless tobacco user: chewing tobacco how long ago did patient quit smokin (1987) to 40 (1977) years ago (Cigars) alcohol intake: never substance use type: does not use caffeine: No what type of physical activity do you participate in: none seatbelt use: always do you feel safe at home: Yes Vital Signs Vital Signs Vital Signs: 12/03/24 16:45 12/03/24 16:48 12/03/24 17:13 Temperature 97.5 F L 97.5 F L 98.6 F Temperature Source Oral Temporal Oral Pulse Rate 83 83 Respiratory Rate 18 18 Respiratory Effort Respiratory Depth Respiratory Pattern Blood Pressure 131/71 H 131/71 H Blood Pressure Mean 91 91 Pulse Ox 93 93 Oxygen Delivery Method Room Air Room Air Oxygen Flow Rate (L/min) 12/03/24 17:40 12/03/24 17:41 12/03/24 17:48 Temperature 98.6 F Temperature Source Oral Pulse Rate 72 Respiratory Rate 26 H Respiratory Effort Normal Respiratory Depth Normal Respiratory Pattern Normal Blood Pressure 132/69 H Blood Pressure Mean 90 Pulse Ox 93 Oxygen Delivery Method Room Air Room Air Room Air Oxygen Flow Rate (L/min) 12/03/24 18:06 12/03/24 18:10 12/03/24 18:10 Temperature 98.7 F Temperature Source Oral Pulse Rate 77 Respiratory Rate 21 H Respiratory Effort Respiratory Depth Respiratory Pattern Blood Pressure 150/78 H Blood Pressure Mean 102 Pulse Ox 96 88 96 Oxygen Delivery Method Room Air Room Air Nasal Cannula Oxygen Flow Rate (L/min) 2 12/03/24 19:00 12/03/24 19:00 Temperature 99 F 99 F Temperature Source Oral Pulse Rate 88 88 Respiratory Rate 16 16 Respiratory Effort Respiratory Depth Respiratory Pattern Blood Pressure 164/87 H 164/87 H Blood Pressure Mean 112 112 Pulse Ox 95 95 Oxygen Delivery Method Room Air Oxygen Flow Rate (L/min) Weight Weight: 231 lb 11.293 oz Body Mass Index (BMI) 34.2 Physical Exam Const alert and oriented x3 Constitutional Narrative: Hard of hearing HEENT normocephalic Eyes PERRL Neck no lymphadenopathy Resp normal respiratory effort Resp Narrative: No added breath sounds present Cardio Cardio Narrative: Irregular rate Extremity Extremity Narrative: No pedal edema Neuro oriented x3 Neuro Narrative: Prior history of stroke, left-sided weakness Results Lab / Micro Data 12/03/24 17:40 12/03/24 17:40 Labs: Laboratory Results - last 24 hr 12/03/24 17:40: WBC 12.8 H, RBC 4.60, Hgb 12.2 L, Hct 37.3 L, MCV 81.1, MCH 26.5 L, MCHC 32.7, RDW Std Deviation 44.8 H, RDW Coeff of [place] 15.1 H, Plt Count 264, MPV 9.8, Immature Gran % (Auto) 0.500, Neut % (Auto) 82.5 H, Lymph % (Auto) 9.4 L, [place] % (Auto) 6.3, Eos % (Auto) 1.1, Baso % (Auto) 0.2, Absolute Neuts (auto) 10.6 H, Absolute Lymphs (auto) 1.21, Nucleated RBC % 0, Sodium 137, Potassium 4.1, Chloride 103, Carbon Dioxide 22.4, Anion Gap 12, BUN 12, Creatinine 0.92, Estim Creat Clear Calc 70.13, Est GFR (MDRD) Non-Af 82, BUN/Creatinine Ratio 13.4, Glucose 170 H, Calcium 8.5 Imaging Radiology Impression Chest X-Ray 12/03/24 17:44 IMPRESSION: 1. Slight increase in the ill-defined bibasilar infiltrates, which may represent pneumonitis/pneumonia. 2. Stable cardiomegaly and left pleural effusion. Reading Location: [id number] Assessment & Plan Assessment/Plan (1) Acute hypoxic respiratory failure: PLAN: Plan 84-year-old man with history of CHF, hypertension, coronary artery disease, presents to the ED for concerns regarding worsening shortness of breath with associated cough and phlegm production. Based on his clinical presentation he is likely having community-acquired pneumonia and we will start him on antibiotics for the same. He is being admitted for acute respiratory failure and also for further evaluation regarding placement at the time of discharge. #Community-acquired pneumonia - Nasal PCR for COVID, influenza - Start azithromycin plus ceftriaxone - Close monitoring of saturation - Bronchopulmonary hygiene - Respiratory therapy - PT/OT evaluation - Continue home cough medications #CHF - Continue metoprolol, losartan - No features of acute decompensation at this time #Essential hypertension - Continue to monitor - Continue home medications #Dyslipidemia - Continue statin #History of A-fib - S/p left atrial appendage closure in February 2018. #Type 2 diabetes - Continue home Lantus - Insulin per sliding scale - Hold home glimepiride for now - A1c levels #BPH - Continue Flomax #Ischemic stroke -Residual left-sided weakness -Continue aspirin and statin #CODE STATUS - DNR CCA with no intubation - Patient counseled extensively about different types of CODE STATUS including full code, DNR CCA and DNR CCA. Patient elects to be full DNRCCA no intubation.
[2024-12-03] MEDS: Azithromycin 500 MG in 0.9% Normal Saline (250mL Bag) 250 ML 255 MG IV (20:38)
[2024-12-03] MEDS: Pregabalin 50 MG Capsule 100 MG PO (22:18)
[2024-12-03] MEDS: Famotidine 20 MG Tablet 10 MG PO (22:18)
[2024-12-03] MEDS: Tamsulosin HCl 0.4 MG Capsule PO (22:19)
[2024-12-03] MEDS: Metoprolol Tartrate 100 MG Tablet PO (22:19)
[2024-12-03] MEDS: Glucerna Shake 120 ML LIQUID PO (22:19)
[2024-12-03] MEDS: traZODone 50 MG Tablet 150 MG PO (22:19)
[2024-12-03] MEDS: Atorvastatin Calcium 80 MG Tablet PO (22:19)
[2024-12-03] MEDS: Lactulose 20 GM/30 ML UDC PO (22:19)
[2024-12-03] MEDS: Insulin Glargine-YFGN 100 UNIT/ML Pen 60 UNIT SC (22:25)
[2024-12-03 23:17] LABS: Bedside Glucose 164 mg/dL (74-106)
[2024-12-04] VITALS (7 sets, daily range): BP systolic 115–149; BP diastolic 65–88; PULSE 70–90; RESP 16–20; TEMP 36.7–37; O2SAT 85–95
[2024-12-04] MEDS: guaiFENesin Dm 10 ML UDC PO ×3 (05:51→19:35)
[2024-12-04 06:04] LABS: Absolute Lymphocyte Count 1.14 X10^3/uL (0.83-4.51); Absolute Neutrophil Count 8.9 X10^3/uL (2.0-7.7); Basophil# 0.05 X10^3/uL; Basophil% 0.4 % (0-1); Eosinophil# 0.27 X10^3/uL; Eosinophils% 2.4 % (0-5); Hematocrit 37.6 % (40-54); Hemoglobin 12.4 g/dL (13.0-16.5); Lymphocyte # 1.14 X10^3/ul (0.83-4.51); Lymphocyte % 10.2 % (19-41); Mean Corpuscular Hgb 26.9 pg (27.0-32.0); Mean Corpuscular Volume 81.6 fL (80-94); Mean Platelet Vol. 9.8 fl (6.2-12.0); Monocyte# 0.73 X10^3/uL; Monocyte% 6.5 % (0-10); NRBC Flagged by Analyzer 0 % (0-5); Neutrophil # 8.93 X10^3/uL (2.7-7.7); Neutrophil % 79.9 % (47-70); Platelet Count 275 K/mm3 (150-450); RBC Distribution Width SD 44.5 fl (35.1-43.9); Red Blood Count 4.61 M/mm3 (4.6-6.2); White Blood Count 11.2 K/mm3 (4.4-11.0)
[2024-12-04 06:35] LABS: ALB/GLOB Ratio 1.2 RATIO (0.9-2.4); AST(SGOT) 22 U/L (<=37); Alanine Aminotransfer ALT/SGPT 18 U/L (<=46); Albumin, Serum 3.4 g/dL (3.4-4.8); Alkaline Phosphatase 90 U/L (40-129); Anion Gap 11 (5-15); BUN 10 mg/dL (4-19); BUN/Creat Ratio 11.4 RATIO (10-20); Bilirubin, Direct 0.33 mg/dL (0.00-0.30); Calcium,Total 8.5 mg/dL (7.6-11.0); Carbon Dioxide 23.3 mmol/L (21.0-32.0); Chloride 103 mmol/L (98-108); Creatinine, Serum 0.89 mg/dL (0.70-1.20); EST Glomerular Filtration Rate 84 (>60); Estimated Creatinine Clearance 71.36 ml/min (50-250); Globulin 2.8 g/dL (2.2-4.2); Glucose 95 mg/dL (70-99); Magnesium 2.1 mg/dL (1.5-2.2); Phosphorus 3.3 mg/dL (2.7-4.5); Potassium 3.7 mmol/L (3.3-5.1); Protein, Total 6.2 g/dL (5.9-8.4); Sodium Level 137 mmol/L (133-145); Total Bilirubin 0.58 mg/dL (0.00-1.30)
[2024-12-04 06:36] LABS: International Normalized Ratio 1.3; Prothrombin Time (Protime)PT. 16.9 SECONDS (11.7-14.9)
[2024-12-04 06:43] LABS: Bedside Glucose 94 mg/dL (74-106)
[2024-12-04] MEDS: Glucerna Shake 120 ML LIQUID PO ×3 (08:05→22:35)
[2024-12-04] MEDS: Famotidine 20 MG Tablet 10 MG PO ×2 (08:05→22:36)
[2024-12-04] MEDS: Potassium Chloride Oral Tablet 20 MEQ PO (08:05)
[2024-12-04] MEDS: Metoprolol Tartrate 100 MG Tablet PO ×2 (08:05→22:36)
[2024-12-04] MEDS: Metoclopramide 5 MG TABLET PO ×3 (08:06→16:44)
[2024-12-04] MEDS: Aspirin E.C. 81 MG Tablet PO (08:06)
[2024-12-04] MEDS: Losartan Potassium 25 MG Tablet PO (08:06)
[2024-12-04] MEDS: Isosorbide Mononitrate 30 MG Tablet PO (08:06)
[2024-12-04] MEDS: Loratadine 10 MG Tablet PO (08:06)
[2024-12-04] MEDS: Furosemide 40 MG Tablet PO (08:06)
[2024-12-04] MEDS: Lansoprazole 15 MG Capsule.DR 30 MG PO (08:06)
[2024-12-04] MEDS: Lactulose 20 GM/30 ML UDC PO ×2 (08:06→22:35)
[2024-12-04] MEDS: Enoxaparin 40 MG/0.4 ML Syringe SC (08:07)
[2024-12-04] MEDS: Pregabalin 50 MG Capsule 100 MG PO ×2 (08:13→22:35)
[2024-12-04] MEDS: 0.9% Saline Lock 10 ML Syringe IV ×2 (08:31→22:34)
[2024-12-04] MEDS: Furosemide 40 MG/4 ML Vial IV (08:31)
[2024-12-04 08:54] LABS: Pro- Brain NATRIURETIC PEPTIDE 1669 pg/mL (<=1800)
[2024-12-04 08:55] LABS: Hemoglobin A1c 10.1 % (<=5.6)
[2024-12-04 09:48] LABS: Bedside Glucose 189 mg/dL (74-106)
--- NOTE | 2024-12-04 10:37 | PCM.PN.HOSP ---
Reason for Visit Reason for Visit: Diagnoses Acute respiratory failure with hypoxia (12/03/24) Subjective Subjective Saw patient at bedside this morning. Patient was mildly fatigued appearing but otherwise sitting up comfortably in bedside chair, conversing normally, in no acute distress. He is breathing comfortably on 2 L nasal cannula at rest. Did have moderate crackles noted bilaterally on auscultation but no wheezing noted. Did have a few significant coughing episodes during our encounter. Stated today that he does feel improved from previous days. Denies any fevers or chills. No other new concerns this morning. Objective Data Objective Data Vital Signs: Vital Signs Temp Pulse Resp BP Pulse Ox O2 Del Method O2 Flow Rate 98.3 F 82 18 149/76 H 85 Nasal Cannula 1 12/04/24 08:00 12/04/24 08:05 12/04/24 08:00 12/04/24 08:05 12/04/24 09:59 12/04/24 09:00 12/04/24 09:59 Oxygen Flow Rate (L/min) 1 Oxygen Delivery Method Nasal Cannula Weight: 101.8 kg Body Mass Index (BMI) 33.1 Intake & Output: Intake and Output for Last 24 Hours 12/02/24 12/03/24 12/04/24 23:59 23:59 23:59 Intake Total 305 / 305 Balance 305 / 305 Lab / Micro Data 12/04/24 05:29 12/04/24 05:29 Labs: Laboratory Results - last 24 hr 12/03/24 17:40: WBC 12.8 H, RBC 4.60, Hgb 12.2 L, Hct 37.3 L, MCV 81.1, MCH 26.5 L, MCHC 32.7, RDW Std Deviation 44.8 H, RDW Coeff of Hen[place] 15.1 H, Plt Count 264, MPV 9.8, Immature Gran % (Auto) 0.500, Neut % (Auto) 82.5 H, Lymph % (Auto) 9.4 L, [place] % (Auto) 6.3, Eos % (Auto) 1.1, Baso % (Auto) 0.2, Absolute Neuts (auto) 10.6 H, Absolute Lymphs (auto) 1.21, Nucleated RBC % 0, Sodium 137, Potassium 4.1, Chloride 103, Carbon Dioxide 22.4, Anion Gap 12, BUN 12, Creatinine 0.92, Estim Creat Clear Calc 70.13, Est GFR (MDRD) Non-Af 82, BUN/Creatinine Ratio 13.4, Glucose 170 H, Calcium 8.5 12/03/24 22:24: POC Glucose 164 H 12/04/24 05:29: WBC 11.2 H, RBC 4.61, Hgb 12.4 L, Hct 37.6 L, MCV 81.6, MCH 26.9 L, MCHC 33.0, RDW Std Deviation 44.5 H, RDW Coeff of [place] 15.0 H, Plt Count 275, MPV 9.8, Immature Gran % (Auto) 0.600, Neut % (Auto) 79.9 H, Lymph % (Auto) 10.2 L, [place] % (Auto) 6.5, Eos % (Auto) 2.4, Baso % (Auto) 0.4, Absolute Neuts (auto) 8.9 H, Absolute Lymphs (auto) 1.14, Nucleated RBC % 0, PT 16.9 H, INR 1.3, Sodium 137, Potassium 3.7, Chloride 103, Carbon Dioxide 23.3, Anion Gap 11, BUN 10, Creatinine 0.89, Estim Creat Clear Calc 71.36, Est GFR (MDRD) Non-Af 84, BUN/Creatinine Ratio 11.4, Glucose 95, Hemoglobin A1c 10.1 H, Calcium 8.5, Phosphorus 3.3, Magnesium 2.1, Total Bilirubin 0.58, Direct Bilirubin 0.33 H, AST 22, ALT 18, Alkaline Phosphatase 90, NT pro BNP II 1669, Total Protein 6.2, Albumin 3.4, Globulin 2.8, Albumin/Globulin Ratio 1.2, TSH 2.330 12/04/24 05:47: POC Glucose 94 12/04/24 08:20: POC Glucose 189 H Radiography Diagnostic Testing: Radiology Impression Chest X-Ray 12/03/24 17:44 IMPRESSION: 1. Slight increase in the ill-defined bibasilar infiltrates, which may represent pneumonitis/pneumonia. 2. Stable cardiomegaly and left pleural effusion. Reading Location: [id number] Physical Exam Const alert, oriented x3 and no apparent distress Constitutional Narrative: Pleasant elderly male, class I obesity, mildly fatigued appearing, otherwise sitting up comfortably in bedside chair, conversing normally, in no acute distress. General Appearance: cooperative and comfortable HEENT normocephalic, head/scalp atraumatic, hearing grossly normal bilaterally, nasal mucous membranes and turbinates normal and moist oral mucous membranes Eyes PERRL, EOMs intact bilaterally and conjunctivae normal Neck full ROM Chest inspection of chest normal Resp normal respiratory effort and no use of accessory muscles Resp Narrative: Breathing comfortably on 2 L nasal cannula at rest. Mild to moderate crackles noted bilaterally in upper lung zones, otherwise no wheezing noted. Cardio regular rate, regular rhythm, no murmurs and peripheral pulses 2+ throughout GI normal to inspection, nondistended, normoactive bowel sounds, soft to palpation, non-tender and non-distended Back/Spine normal ROM Extremity normal to inspection, full ROM and no pedal edema Skin no rashes or lesions noted Psych mental status grossly normal Assessment & Plan Assessment/Plan (1) Pneumonia: (2) Hypoxia: PLAN: Plan Patient is an 84-year-old male who presented to [facility] ED on 12/03/2024 with worsening cough and shortness of breath. 1. Community-acquired pneumonia with hypoxia ? Presented with worsening cough and shortness of breath. Not on home oxygen. Requiring 2 L nasal cannula on exertion to maintain appropriate oxygen saturations. Chest x-ray showed probable emphysema, stable left pleural effusion, worsening ill-defined bibasilar infiltrates from previous x-ray on 11/25. Respiratory PCR panel negative. Sputum culture pending. Will continue treatment with IV ceftriaxone and azithromycin for now. Given 1 dose of IV Lasix 40 mg and can spot dose IV diuretics as needed. Wean supplemental oxygen as able. Planning for O2 testing tomorrow morning in preparation for likely discharge home. 2. Chronic HFpEF, history of CAD with stenting and CABG, hypertension, hyperlipidemia ? Follows with outpatient cardiology. Hypertensive to the 150s to 160s on admit but otherwise hemodynamically stable. Last echo in 03/2024 showed EF 55%, mild concentric LV hypertrophy, mild biatrial dilation, no other abnormalities. Continue home aspirin, statin, Imdur, Lopressor, losartan and Lasix. Chronic medical conditions: ? Class I obesity: BMI 33 on admit. Complicates hospital course, care and prognosis. ? Type 2 diabetes mellitus with diabetic neuropathy: Treating with reduced dose of Lantus 40 units at night with Humalog sliding scale insulin with meals, adjust as needed. ? History of A-fib s/p left atrial appendage closure ? History of CVA with residual left-sided weakness: Continue home aspirin and statin as above. ? GERD: Continue home PPI. ? BPH with obstructive symptoms: Continue home Flomax. DVT prophylaxis: Lovenox CODE STATUS: DNR CCA, DNI Expected disposition: Home, 1 to 2 days Total clinical time spent by myself addressing the patient's medical issues, reviewing all the data, and collaborating with patient's care team: 35 minutes. Charges/Coding Visit Charges Inpatient E&M: 92590 Subs Hosp L2
--- NOTE | 2024-12-04 11:15 | CASEMGMT ---
CHIQUI PEDERSEN Assessment: Face to Face with pt for initial transition planning/care coordination assessment. CHIQUI PEDERSEN introduced self and role at [facility], pt voices understanding and consents to assessment. Pt is A&O x4 and answers all questions appropriately at this time. Pt sitting up in chair with oxygen on in no distress. Pt dtr at bedside. Pt agreeble to assessment with dtr present. Care providers, pharmacy, and demographics verified/updated. Admitting Dx: pna Strata Score: 2 PCP:Fernando Specialists:Terri, cardio Preferred Pharmacy: [facility] Insurance: [employer] [facility] Prescription Benefit: yes LNOK: [place], dtr Living Arrangements: Pt lives with dtr in a mobile home with a ramp to enter. Pt reports he is I in ADLs and dtr does IADLs. Pt denies concerns at home. Transportation: Pt drives occasionally. Pt dtr transports pt most of the time. DME:[employer] with sufficient supply of strips and lancets, insulin with supplies of needles, medic alert, power w/c, power scooter, cane, pox, FWW, shower chair HHC/SNF: Denies hx of Pt states no concerns with going home at time of dc. No PT or OT recommended. Pt denies need for nurse in the home to monitor resp status. Discussed homegoing oxygen instruction should pt be dc'd on oxygen. Provided pt with a verbal list of local in network DME companies, pt chose [employer]. Pt states no further concerns/needs. CM to follow. Advised pt to ask CM if any further questions/concerns/needs arise, voices understanding. Pt Goal: Home with dtr assistance Plan: Home, follow for oxygen, green sheet on chart. Martina FLORIAN CM
[2024-12-04] MEDS: Insulin Lispro 100 UNIT/ML INSULN.PEN SC ×3 (11:44→22:38)
[2024-12-04 12:07] LABS: Bedside Glucose 239 mg/dL (74-106)
[2024-12-04 17:08] LABS: Bedside Glucose 195 mg/dL (74-106)
[2024-12-04] MEDS: Azithromycin 500 MG in 0.9% Normal Saline (250mL Bag) 250 ML 255 MG IV (22:17)
[2024-12-04] MEDS: Ceftriaxone 2 GM in 0.9% Normal Saline (50mL MB+) 50 ML IV (22:17)
[2024-12-04] MEDS: Tamsulosin HCl 0.4 MG Capsule PO (22:36)
[2024-12-04] MEDS: traZODone 50 MG Tablet 150 MG PO (22:36)
[2024-12-04] MEDS: Atorvastatin Calcium 40 MG Tablet PO (22:37)
[2024-12-04] MEDS: Insulin Glargine-YFGN 100 UNIT/ML Pen 40 UNIT SC (22:38)
[2024-12-04 23:38] LABS: Bedside Glucose 189 mg/dL (74-106)
[2024-12-05 03:58] VITALS: BP 130/61; PULSE 78; RESP 18; TEMP 37.2; O2SAT 94
[2024-12-05] MEDS: guaiFENesin Dm 10 ML UDC PO ×2 (04:01→08:19)
[2024-12-05 06:42] LABS: Hematocrit 36.5 % (40-54); Hemoglobin 11.9 g/dL (13.0-16.5); Mean Corp Hgb Conc 32.6 g/dL (32-36); Mean Corpuscular Hgb 26.7 pg (27.0-32.0); Mean Platelet Vol. 9.9 fl (6.2-12.0); Platelet Count 259 K/mm3 (150-450); RBC Distribution Width SD 45.1 fl (35.1-43.9); Red Blood Count 4.45 M/mm3 (4.6-6.2); White Blood Count 10.3 K/mm3 (4.4-11.0)
[2024-12-05] MEDS: Insulin Lispro 100 UNIT/ML INSULN.PEN SC ×2 (07:02→11:05)
[2024-12-05] MEDS: Metoclopramide 5 MG TABLET PO ×2 (07:03→11:05)
[2024-12-05 07:07] VITALS: O2SAT 94
[2024-12-05 07:24] LABS: Bedside Glucose 167 mg/dL (74-106)
[2024-12-05 07:46] LABS: Anion Gap 12 (5-15); BUN 14 mg/dL (4-19); Calcium,Total 8.7 mg/dL (7.6-11.0); Carbon Dioxide 22.8 mmol/L (21.0-32.0); Chloride 103 mmol/L (98-108); Creatinine, Serum 0.93 mg/dL (0.70-1.20); EST Glomerular Filtration Rate 80 (>60); Estimated Creatinine Clearance 68.29 ml/min (50-250); Glucose 162 mg/dL (70-99); Potassium 3.9 mmol/L (3.3-5.1); Sodium Level 138 mmol/L (133-145)
[2024-12-05 08:01] VITALS: BP 129/56; PULSE 85; RESP 17; TEMP 36.8; O2SAT 94
[2024-12-05] MEDS: Furosemide 40 MG/4 ML Vial IV (08:05)
[2024-12-05] MEDS: 0.9% Saline Lock 10 ML Syringe IV (08:05)
[2024-12-05] MEDS: Glucerna Shake 120 ML LIQUID PO (08:06)
[2024-12-05] MEDS: Loratadine 10 MG Tablet PO (08:12)
[2024-12-05] MEDS: Losartan Potassium 25 MG Tablet PO (08:12)
[2024-12-05 08:13] VITALS: PULSE 85
[2024-12-05] MEDS: Aspirin E.C. 81 MG Tablet PO (08:13)
[2024-12-05] MEDS: Metoprolol Tartrate 100 MG Tablet PO (08:13)
[2024-12-05] MEDS: Famotidine 20 MG Tablet 10 MG PO (08:14)
[2024-12-05] MEDS: Potassium Chloride Oral Tablet 20 MEQ PO (08:14)
[2024-12-05] MEDS: Lansoprazole 15 MG Capsule.DR 30 MG PO (08:14)
[2024-12-05] MEDS: Isosorbide Mononitrate 30 MG Tablet PO (08:15)
[2024-12-05] MEDS: Enoxaparin 40 MG/0.4 ML Syringe SC (08:16)
[2024-12-05] MEDS: Lactulose 20 GM/30 ML UDC PO (08:16)
[2024-12-05] MEDS: Pregabalin 50 MG Capsule 100 MG PO (08:19)
[2024-12-05 09:41] VITALS: O2SAT 86; O2SAT 88; O2SAT 89; O2SAT 94
[2024-12-05 09:43] VITALS: O2SAT 94
--- NOTE | 2024-12-05 09:50 | PCM.DC.SUM ---
Providers Date of Admission: 12/03/24 Date of Discharge: 12/05/24 Primary Care Physician: Dr. Jh King DO Reason For Visit: PNEUMONIA Diagnosis Discharge Diagnosis (1) Pneumonia: Status: Acute Code(s): J18.9 - Pneumonia, unspecified organism (2) Hypoxia: Status: Acute Code(s): R09.02 - Hypoxemia Medications at Discharge Home Medications aspirin 81 mg tablet,delayed release (Adult Low Dose Aspirin) 81 mg PO QDAY Heart health 07/24/17 vrssxcruwvkk-yvjmefhv-iyekja tablet 1 tablet PO QDAY supplement 07/24/17 blood-glucose meter (True Metrix Glucose Meter) #1 ea 11/10/20 WAlker with wheels #1 ea 12/27/20 tamsulosin 0.4 mg capsule 0.4 mg PO QHS prostate #90 caps 04/26/21 blood sugar diagnostic (True Metrix Glucose Test Strip) #150 ea 05/09/21 metoprolol tartrate 100 mg tablet 100 mg PO BID #180 tabs 06/21/21 trazodone 150 mg tablet 150 mg PO QHS sleep #90 tabs 09/28/21 furosemide 40 mg tablet (Lasix) 40 mg PO DAILY #30 tabs 12/12/21 isosorbide mononitrate 30 mg tablet,extended release 24 hr 30 mg PO DAILY #90 tabs 05/17/22 nitroglycerin 0.4 mg sublingual tablet 0.4 mg sublingual Q5M PRN chest pain #90 tabs 05/17/22 lactulose 10 gram/15 mL oral solution 30 ml PO BID constipation 04/16/23 pregabalin 100 mg capsule 100 mg PO BID nerve pain 04/16/23 glimepiride 4 mg tablet 4 mg PO QDAY Blood sugar 08/18/24 lansoprazole 30 mg capsule,delayed release 30 mg PO QDAY acid ship's master 08/19/24 metoclopramide HCl 5 mg tablet (Reglan) 5 mg PO QAC #90 tabs 11/13/24 famotidine 10 mg tablet (Acid Mat Repairer (famotidine)) 10 mg PO BID #20 tabs 11/21/24 betamethasone, augmented 0.05 % topical cream 1 applic topical Q24H PRN skin irritation 12/03/24 dextromethorphan-guaifenesin 10 mg-100 mg/5 mL oral syrup (Chest Congestion Relief DM) 10 ml PO Q4H PRN PRN cough 12/03/24 fexofenadine 180 mg tablet 180 mg PO DAILY PRN allergy symptoms 12/03/24 potassium chloride 20 mEq tablet,extended release(part/cryst) 20 meq PO DAILY supplement 12/03/24 valsartan 80 mg tablet 80 mg PO DAILY Blood pressure 12/03/24 amoxicillin 875 mg-potassium clavulanate 125 mg tablet 1 tab PO BID 4 days #8 tabs 12/05/24 atorvastatin 40 mg tablet 40 mg PO QHS 30 days #30 tabs 12/05/24 insulin glargine 100 unit/mL (3 mL) subcutaneous pen (Lantus Solostar U-100 Insulin) 30 unit (0.3 mL) subcut BID long acting insulin 30 days #0 mL 12/05/24 Hospital Course Operations None Procedures - (Chest x-ray) Summary of Care Provided Minutes Spent on Discharge: 35 Hospital Course: Patient is an 84-year-old male who presented to [facility] ED on 12/03/2024 with worsening cough and shortness of breath. Hospital course as noted below. Patient discharged home in stable condition on 12/05. 1. Community-acquired pneumonia with hypoxia ? Presented with worsening cough and shortness of breath. Not on home oxygen. Requiring 2 L nasal cannula on exertion to maintain appropriate oxygen saturations. Chest x-ray showed probable emphysema, stable left pleural effusion, worsening ill-defined bibasilar infiltrates from previous x-ray on 11/25. Respiratory PCR panel negative. Sputum culture negative. Treated with IV ceftriaxone and azithromycin while inpatient. Given doses of IV Lasix 40 mg on morning of 12/04 and 12/05 with good urine output. Completed O2 testing on day of discharge and required no oxygen at rest but did require 4 L nasal cannula with exertion. Anticipate that patient will continue to improve over the next days to weeks. Oxygen prescription sent. Will discharge on Augmentin to complete 7-day course of antibiotics total. 2. Chronic HFpEF, history of CAD with stenting and CABG, hypertension, hyperlipidemia ? Follows with outpatient cardiology. Hypertensive to the 150s to 160s on admit but otherwise hemodynamically stable. Last echo in 03/2024 showed EF 55%, mild concentric LV hypertrophy, mild biatrial dilation, no other abnormalities. Continue home aspirin, statin, Imdur, Lopressor, losartan and Lasix. Chronic medical conditions: ? Class I obesity: BMI 33 on admit. Complicated hospital course, care and prognosis. ? Type 2 diabetes mellitus with diabetic neuropathy: A1c 10.1% on admit. Home regimen of Lantus 60 units at night and glimepiride. Recommended that patient take Lantus 30 units twice daily to avoid lows. Also recommended he see his PCP for further medication titration versus consideration of adding additional agents given his elevated A1c. Continue home glimepiride. ? History of A-fib s/p left atrial appendage closure ? History of CVA with residual left-sided weakness: Continue home aspirin and statin as above. ? GERD: Continue home PPI. ? BPH with obstructive symptoms: Continue home Flomax. Total clinical time spent by myself addressing the patient's medical issues, reviewing all the data, and collaborating with patient's care team: 35 minutes. Physical Exam Const alert, oriented x3 and no apparent distress Constitutional Narrative: Pleasant elderly male, class I obesity, mildly fatigued appearing, otherwise sitting up comfortably in bedside chair, conversing normally, in no acute distress. Stable. General Appearance: cooperative and comfortable HEENT normocephalic, head/scalp atraumatic, hearing grossly normal bilaterally, nasal mucous membranes and turbinates normal and moist oral mucous membranes Eyes PERRL, EOMs intact bilaterally and conjunctivae normal Neck full ROM Chest inspection of chest normal Resp normal respiratory effort and no use of accessory muscles Resp Narrative: Breathing comfortably on 2 L nasal cannula at rest. Mild diminished breath sounds noted in bilateral bases but otherwise good air but with throughout with no crackles or wheezing noted. Improved from admission. Cardio regular rate, regular rhythm, no murmurs and peripheral pulses 2+ throughout GI normal to inspection, nondistended, normoactive bowel sounds, soft to palpation, non-tender and non-distended Back/Spine normal ROM Extremity normal to inspection, full ROM and no pedal edema Skin no rashes or lesions noted Psych mental status grossly normal Weight / BMI Weight Weight: 101.8 kg Body Mass Index (BMI) 33.1 ABG / Lab / Microbiology Data 12/05/24 06:07 12/05/24 06:07 Laboratory: Laboratory Results - last 24 hr 12/04/24 11:39: POC Glucose 239 H 12/04/24 16:42: POC Glucose 195 H 12/04/24 22:32: POC Glucose 189 H 12/05/24 06:07: WBC 10.3, RBC 4.45 L, Hgb 11.9 L, Hct 36.5 L, MCV 82.0, MCH 26.7 L, MCHC 32.6, RDW Std Deviation 45.1 H, RDW Coeff of [place] 15.0 H, Plt Count 259, MPV 9.9, Sodium 138, Potassium 3.9, Chloride 103, Carbon Dioxide 22.8, Anion Gap 12, BUN 14, Creatinine 0.93, Estim Creat Clear Calc 68.29, Est GFR (MDRD) Non-Af 80, BUN/Creatinine Ratio 15.0, Glucose 162 H, Calcium 8.7 12/05/24 07:01: POC Glucose 167 H Microbiology: Microbiology 12/04/24 11:11 Mucosa - Nasopharyngeal Respiratory Panel (PCR) - Final D/C Instructions DC O2, CPAP, BIPAP Needs Home O2 Discharge instructions: Yes Type of respiratory needs?: Oxygen Oxygen frequency: With Ambulation Oxygen liters per minute during Ambulation: 4 DC home with Oxygen: Yes Home O2 MD Review: I have reviewed the oxygen testing, and the patient qualifies for home oxygen equipment and portability. The patient is mobile in the home and the community. Meaningful Use Info Meaningful Use Meaningful Use Diagnoses (Choose all that apply): None applicable Ischemic Stroke Statin Dosing Therapy Reference: STATIN DOSE THERAPY REFERENCE: * Patients > 75 years receive moderate or high dose statin therapy. * Patients 75 years or YOUNGER should receive HIGH intensity statin dose unless contraindicated. You will be required to document reason for non-treatment if statin daily dose does not meet guidelines. HIGH DOSE STATIN THERAPY DAILY Atorvastatin > than or = to 40 mg Rosuvastatin > than or = to 20 mg Amlodipine + Atorvastatin > than or = to 2.5/40 mg Ezetimibe + Simvastatin 10/80 mg Simvastatin 80mg Discharge Plan Admission Admit Date/Time: 12/03/24 19:48 Primary Reason for Your Visit: cough and shortness of breath Attending Provider: Jericho Mcdowell Primary Care Provider: Jh King Consulting Providers: Rhona Agosto Instructions Additional Instructions / Restrictions: Take Augmentin 1 pill twice daily for the next 4 days to complete course of antibiotics for your pneumonia. Would recommend taking your long-acting insulin at 30 units twice daily rather than 60 units at night to avoid low blood sugars in the morning. Continue your other home indications as normal. Discharge Orders/Prescriptions Prescriptions: New atorvastatin 40 mg Tablet 40 mg PO QHS 30 Days Qty: 30 2RF amoxicillin-pot clavulanate 875-125 mg tablet 1 tab PO BID 4 Days Qty: 8 0RF Continued aspirin [Adult Low Dose Aspirin] 81 mg tablet,delayed release (DR/EC) 81 mg PO QDAY rluedtxycnev-cozqbqqu-bjexdn tablet 1 tablet PO QDAY metoprolol tartrate 100 mg tablet 100 mg PO BID Qty: 180 1RF pregabalin 100 mg capsule 100 mg PO BID glimepiride 4 mg tablet 4 mg PO QDAY lactulose 10 gram/15 mL solution 30 ml PO BID lansoprazole 30 mg capsule,delayed release(DR/EC) 30 mg PO QDAY metoclopramide HCl [Reglan] 5 mg tablet 5 mg PO QAC Qty: 90 1RF Rx Instructions: administer 30 minutes before meals famotidine [Acid Mat Repairer (famotidine)] 10 mg tablet 10 mg PO BID Qty: 20 0RF betamethasone, augmented 0.05 % cream 1 applic TOPICAL Q24H PRN (Reason: skin irritation) Patient Comments: [NO ORIGINAL SIG] dextromethorphan-guaifenesin [Chest Congestion Relief DM] 10-100 mg/5 mL syrup 10 ml PO Q4H PRN PRN (Reason: cough) valsartan 80 mg tablet 80 mg PO DAILY fexofenadine 180 mg tablet 180 mg PO DAILY PRN (Reason: allergy symptoms) potassium chloride 20 mEq tablet,ER particles/crystals 20 meq PO DAILY (DME) blood-glucose meter [True Metrix Glucose Meter] [facility] [place] See Rx Instructions .ROUTE .MEDSUPPLY Qty: 1 0RF Rx Instructions: As directed (DME) WAlker with wheels See Rx Instructions .Route .MEDSUPPLY Qty: 1 0RF Rx Instructions: As directed tamsulosin 0.4 mg capsule 0.4 mg PO QHS Qty: 90 3RF (DME) True Metrix Glucose Test Strip Strip See Rx Instructions .ROUTE .MEDSUPPLY Qty: 150 10RF Rx Instructions: use four times a day trazodone 150 mg tablet 150 mg PO QHS Qty: 90 1RF furosemide [Lasix] 40 mg tablet 40 mg PO DAILY Qty: 30 3RF nitroglycerin 0.4 mg tablet, sublingual 0.4 mg SL Q5M PRN (Reason: chest pain) Qty: 90 3RF isosorbide mononitrate 30 mg tablet extended release 24 hr 30 mg PO DAILY Qty: 90 3RF Changed insulin glargine [Lantus Solostar U-100 Insulin] 100 unit/mL (3 mL) insulin pen 30 unit SC BID 30 Days Qty: 0 0RF Discontinued atorvastatin 80 mg tablet 80 mg PO QHS Qty: 90 3RF Referrals / Follow Up: Jh King DO [Primary Care Provider] - Disposition Disposition (needs filled in before D/C Order can be placed): Home, Self Care Charges/Coding Visit Charges Inpatient E&M: 88686 Disch Hosp >30min
--- NOTE | 2024-12-05 09:55 | PCM.HOSP.N ---
Hospitalist Note I have reviewed the oxygen testing, and this patient qualifies for the home equipment and portability. The patient is mobile in the home and the community.
[2024-12-05 11:26] LABS: Bedside Glucose 293 mg/dL (74-106)
== END 2024-12-05 11:51 | disposition home or self-care (01) | DRG 194 ==
LOC: ED 19:06 → MS3 20:05
PROVIDERS: Admitting Provider Internal Medicine; Emergency Provider Emergency Medicine; PCP Family Medicine; Referring Provider Emergency Medicine; Visit Provider Hospitalist
DX: J18.9 Pneumonia, unspecified organism (principal); I69.954 Hemiplegia and hemiparesis following unspecified cerebrovascular disease affecting left non-dominant side; I50.32 Chronic diastolic (congestive) heart failure; N13.8 Other obstructive and reflux uropathy; I11.0 Hypertensive heart disease with heart failure; E11.65 Type 2 diabetes mellitus with hyperglycemia; E66.811 Obesity, class 1; I48.0 Paroxysmal atrial fibrillation; E11.42 Type 2 diabetes mellitus with diabetic polyneuropathy; I45.10 Unspecified right bundle-branch block; E78.2 Mixed hyperlipidemia; I25.10 Atherosclerotic heart disease of native coronary artery without angina pectoris; Z79.4 Long term (current) use of insulin; Z95.5 Presence of coronary angioplasty implant and graft; Z87.891 Personal history of nicotine dependence; Z79.82 Long term (current) use of aspirin; Z79.899 Other long term (current) drug therapy; H91.90 Unspecified hearing loss, unspecified ear; N40.1 Benign prostatic hyperplasia with lower urinary tract symptoms; R09.02 Hypoxemia; Z95.1 Presence of aortocoronary bypass graft; Z68.33 Body mass index [BMI] 33.0-33.9, adult
CPT/HCPCS: 36415; 71046; 80048; 80053; 80076; 82962; 83036; 83735; 83880; 84100; 84443; 85025; 85027; 85610; 87070; 87205; 87633; 93005; 97161; 97166; 97802; 99285; 99406; A4216; J0696; J1938

== ENCOUNTER → 2025-03-25 | Outpatient (CLI) | payer MEDICARE, MEDICAID, SELFPAY ==
--- NOTE | 2025-03-25 09:50 | CDU_ITS ---
Reason For Study Reason For Study: Hx CVA Rt. Velocities/BP Lt. Velocities/BP Prox CCA 39/6.9 cm/sec. Prox CCA 57.9/5.2 cm/sec. Mid CCA 39/7.8 cm/sec. Mid CCA 52.9/8 cm/sec. Dist CCA 43.7/7.8 cm/sec. Dist CCA 46.5/11.6 cm/sec. Prox ICA 48.5/12.6 cm/sec. Prox ICA 71/16 cm/sec. Mid ICA 51.3/9.7 cm/sec. Mid ICA 72.1/20.4 cm/sec. Dist ICA 59.8/15.4 cm/sec. Dist ICA 79.5/21.2 cm/sec. Rt. ICA/CCA = 1.53. Lt. ICA/CCA = 1.50. Prox ECA 67.4 cm/sec. Prox ECA 93/6.2 cm/sec. Rt. Vert. 31.5/9.5 cm/sec. Lt. Vert. 32.4/9.2 cm/sec. Right Extracranial There is heterogeneous, irregular atherosclerotic plaque noted in the right common carotid artery. There is heterogeneous, irregular atherosclerotic plaque noted in the right internal carotid artery. There is heterogeneous, irregular atherosclerotic plaque noted in the right external carotid artery. Antegrade flow is noted in the right vertebral artery. Left Extracranial There is intimal thickening but no significant atherosclerotic plaque noted in the left common carotid artery. There is heterogeneous, irregular atherosclerotic plaque noted in the left internal carotid artery. There is heterogeneous, irregular atherosclerotic plaque noted in the left external carotid artery. Antegrade flow is noted in the left vertebral artery. Procedure Carotid Duplex [id number]. This is a Carotid Duplex examination using B-mode, color flow and specral Doppler. Exam performed in department. VL/Carotid Duplex Ultrasound Interpretation Summary Mild (<50%) stenosis right extracranial internal carotid. Mild (<50%) stenosis left extracranial internal carotid. Acoustic shadowing precludes visualization of a portion of the proximal left in ternal carotid artery. However, velocity criteria suggest stenosis <50%. Flow within the vertebral arteries is antegrade bilaterally. Ordering Physician: Rachel Ly Referring Physician: Jh King Performed By: Bella Dunlap RVT
== END | disposition home or self-care (01) ==
LOC: CVS 09:40
PROVIDERS: PCP Family Medicine; Referring Provider Physician Assistant; Visit Provider Physician Assistant
DX: Z01.818 Encounter for other preprocedural examination (principal); I48.0 Paroxysmal atrial fibrillation; E11.9 Type 2 diabetes mellitus without complications; I65.23 Occlusion and stenosis of bilateral carotid arteries; I25.10 Atherosclerotic heart disease of native coronary artery without angina pectoris; I10 Essential (primary) hypertension; E78.5 Hyperlipidemia, unspecified; K44.9 Diaphragmatic hernia without obstruction or gangrene; K21.9 Gastro-esophageal reflux disease without esophagitis; Z86.73 Personal history of transient ischemic attack (TIA), and cerebral infarction without residual deficits
CPT/HCPCS: 93880